=== PATIENT | female | born 1970 | race Caucasian/White ===

== ENCOUNTER 2016-12-04 08:19 | Day surgery (SDC) | payer OTHER ==
[2016-12-03 13:55] VITALS: BMI 28.3
--- NOTE | 2016-12-04 06:02 | HP ---
History & Physical Update - History History: No Change - Physical Physical: No Change - Assessment Assessment: No Change - Plan Plan: No Change
[~2016-12-04 08:19] MED LIST: CYCLOPENTOLATE HCL 1% OPHTH SOLN 2 ML BOTTLE OP SCH; MOXIFLOXACIN HCL 0.5% OPHTHALMIC 3 ML BOTTLE OP SCH; PHENYLEPHRINE 2.5% OPHTH SOLN 15 ML BOTTLE OP SCH; TOBRAMYCIN/DEXAMETHASONE OPHTH. OINTMENT 1 TUBE TP ONE; TROPICAMIDE 1% OPHTH SOLN 15 ML BOTTLE OP SCH
[2016-12-04] MEDS ORDERED: MOXIFLOXACIN HCL 0.5% OPHTHALMIC 3 ML BOTTLE ONE (08:45)
[2016-12-04] MEDS ORDERED: CYCLOPENTOLATE HCL 1% OPHTH SOLN 2 ML BOTTLE ONE (08:46)
[2016-12-04] MEDS ORDERED: TROPICAMIDE 1% OPHTH SOLN 15 ML BOTTLE ONE (08:46)
[2016-12-04] MEDS ORDERED: PHENYLEPHRINE 2.5% OPHTH SOLN 15 ML BOTTLE ONE (08:46)
[2016-12-04 08:51] VITALS: TEMP 97.7
[2016-12-04] MEDS ORDERED: TROPICAMIDE 1% OPHTH SOLN 15 ML BOTTLE OD ONE ×3 (09:00→09:20)
[2016-12-04] MEDS ORDERED: PHENYLEPHRINE 2.5% OPHTH SOLN 15 ML BOTTLE OD ONE ×3 (09:00→09:20)
[2016-12-04] MEDS ORDERED: MOXIFLOXACIN HCL 0.5% OPHTHALMIC 3 ML BOTTLE OD ONE ×3 (09:00→09:20)
[2016-12-04] MEDS ORDERED: CYCLOPENTOLATE HCL 1% OPHTH SOLN 2 ML BOTTLE OD ONE ×3 (09:00→09:20)
[2016-12-04] MEDS ORDERED: BSS (NA/CA/MG/K) BALANCED SALT SOLUTION OPHTH SOLN 15 ML BOTTLE ONE (09:41)
[2016-12-04] MEDS ORDERED: LIDOCAINE HCL/PF 1% SDV 5ML VIAL ONE (09:41)
[2016-12-04] MEDS ORDERED: POVIDONE-IODINE 5% OPHTHALMIC PREP 30 ML SOLUTION ONE (09:41)
[2016-12-04] MEDS ORDERED: TOBRAMYCIN/DEXAMETHASONE OPHTH. OINTMENT 1 TUBE ONE (09:41)
[2016-12-04] MEDS ORDERED: LIDOCAINE HCL/PF 2% SDV 5ML VIAL ONE (09:41)
[2016-12-04] MEDS ORDERED: BUPIVACAINE HCL/PF 0.75% 10 ML VIAL ONE (09:41)
[2016-12-04] MEDS ORDERED: EPINEPHrine/PF 1 MG/1 ML (1:1,000) AMPULE ONE (09:41)
[2016-12-04] MEDS ORDERED: TETRACAINE 0.5% HCL 0.6ML DROPPER.BOTTLE TP ONE (10:17)
[2016-12-04] MEDS ORDERED: LIDOCAINE HCL/PF 2% SDV 5ML VIAL INF ONE ×2 (10:20)
[2016-12-04] MEDS ORDERED: BUPIVACAINE HCL/PF 0.75% 10 ML VIAL RB ONE ×2 (10:20)
[2016-12-04] MEDS ORDERED: POVIDONE-IODINE 5% OPHTHALMIC PREP 30 ML SOLUTION OD ONE (10:25)
[2016-12-04] MEDS ORDERED: BSS (NA/CA/MG/K) BALANCED SALT SOLUTION OPHTH SOLN 15 ML BOTTLE IO ONE (10:30)
[2016-12-04] MEDS ORDERED: LIDOCAINE HCL 1% PRESERVATIVE FREE - 30ML VIAL IO ONE (10:31)
[2016-12-04] MEDS ORDERED: TRYPAN BLUE 0.5 ML DISP.SYRIN IO ONE (10:32)
[2016-12-04] MEDS ORDERED: CHONDROITIN SU A/HYALUR SOD 1 KIT IO ONE (10:33)
[2016-12-04] MEDS ORDERED: TOBRAMYCIN/DEXAMETHASONE OPHTH. OINTMENT 1 TUBE TP ONE (11:08)
[2016-12-04] MEDS ORDERED: ACETAMINOPHEN 325 MG TABLET (FP) ONE (11:53)
[2016-12-04] MEDS ORDERED: ACETAMINOPHEN 325 MG TABLET (FP) PO ONE ×2 (11:55→11:56)
[2016-12-04 12:21] VITALS: BP 110/66; PULSE 89
--- NOTE | 2016-12-04 18:16 | OP ---
DATE OF OPERATION: 12/04/2016 SURGEON: Jey Elmore MD PREOPERATIVE DIAGNOSIS: Cataract, right eye. OPERATION: Phacoemulsification and intraocular lens implantation, right eye. POSTOPERATIVE DIAGNOSIS: Cataract, right eye. ANESTHESIA: Local with intravenous sedation. COMPLICATIONS: None. BLOOD LOSS: None. SPECIMEN: None. BRIEF HISTORY: The patient is a 46-year-old woman with a past medical history of diabetes, who presented with decreased vision in the right eye down to counting fingers only due to a 3+ nuclear sclerotic lens and a dense posterior subcapsular cataract. After the risks, benefits, and alternatives to cataract surgery were discussed with the patient, including the increased risk due to her poorly dilating pupil, the patient consented to surgery. DESCRIPTION OF PROCEDURE: The patient was brought to the operating room and administered retrobulbar block after receiving intravenous sedation. She was then prepped and draped in the usual sterile fashion. An eyelid speculum was inserted in the right eye. A paracentesis was made, and the anterior chamber was inflated with nonpreserved lidocaine. Due to the poor red reflex, trypan blue was also injected into the eye at this point. Due to the intermittently constricting pupil at this point, it was determined to place 4 iris hooks around the pupil in order to enlarge and stabilize the pupil. This was done without incident. A groove was made in the temporal clear cornea which was tunneled forward with a crescent blade. The anterior chamber was entered with a 2.75 keratome. The cystotome was used to make an incision in the center of the capsule, and a continuous curvilinear capsulorrhexis was created. The lens was hydrodissected until it was found to rotate freely within the capsular bag. Phacoemulsification was then used to remove the lens in its entirety. Irrigation and aspiration were used to remove residual cortical material. The anterior chamber and capsular bag were re-inflated with Provisc, and a 21.5-diopter SN60WF AcrySof intraocular lens was injected into the capsular bag using the [place] injector. The lens was dialed into place using a Sinskey hook. Irrigation and aspiration were used to remove residual Viscoelastic. The wound was stromally hydrated until it was found to be watertight and the eye was at an appropriate pressure. The eyelid speculum was removed from the eye, and TobraDex drops and a patch and shield were placed over the right eye. The patient was transferred to the recovery room in stable condition and will follow up tomorrow. Jenn [id number]
== END 2016-12-04 12:23 | disposition home or self-care (01) ==
LOC: JASU-SURG 08:19
PROVIDERS: ATTEND Ophthalmology
PROC: 08RJ3JZ Replacement of Right Lens with Synthetic Substitute, Percutaneous Approach (ICD-10-PCS; principal; 2016-12-04 10:00)
DX: H25.11 Age-related nuclear cataract, right eye (principal); R29.2 Abnormal reflex
CPT/HCPCS: 84703

== ENCOUNTER → 2017-02-05 | Day surgery (SDC) | payer OTHER ==
[2017-02-04 10:20] VITALS: BMI 28.3
[~2017-02-05] MED LIST changes: +BSS (NA/CA/MG/K) BALANCED SALT SOLUTION OPHTH SOLN 15 ML BOTTLE OS ONE; +BUPIVACAINE HCL/PF 0.75% 10 ML VIAL ONE; +BUPIVACAINE HCL/PF 0.75% 10 ML VIAL RB ONE; +CHONDROITIN SU A/HYALUR SOD 1 KIT IO ONE; +CYCLOPENTOLATE HCL 1% OPHTH SOLN 2 ML BOTTLE ONE; +EPINEPHrine/PF 1 MG/1 ML (1:1,000) AMPULE SQ ONE; +LIDOCAINE HCL 1% PRESERVATIVE FREE - 30ML VIAL IO ONE; +LIDOCAINE HCL/PF 1% SDV 5ML VIAL ONE; +LIDOCAINE HCL/PF 2% SDV 5ML VIAL INF ONE; +LIDOCAINE HCL/PF 2% SDV 5ML VIAL ONE; +MIDAZOLAM HCL 2 MG/2 ML SINGLE DOSE VIAL ONE; +MOXIFLOXACIN HCL 0.5% OPHTHALMIC 3 ML BOTTLE ONE; -MOXIFLOXACIN HCL 0.5% OPHTHALMIC 3 ML BOTTLE OP SCH; +PHENYLEPHRINE 2.5% OPHTH SOLN 15 ML BOTTLE ONE; -PHENYLEPHRINE 2.5% OPHTH SOLN 15 ML BOTTLE OP SCH; +POVIDONE-IODINE 5% OPHTHALMIC PREP 30 ML SOLUTION OS ONE; +PROPOFOL 20 ML ONE; +TETRACAINE 0.5% OPHTH SOLN 2 ML BOTTLE OS ONE; +TOBRAMYCIN/DEXAMETHASONE OPHTH. OINTMENT 1 TUBE ONE; +TROPICAMIDE 1% OPHTH SOLN 15 ML BOTTLE ONE; -TROPICAMIDE 1% OPHTH SOLN 15 ML BOTTLE OP SCH
[2017-02-05] MEDS: PHENYLEPHRINE 2.5% OPHTH SOLN 15 ML BOTTLE OP SCH ×2 (08:00→08:15)
[2017-02-05] MEDS: MOXIFLOXACIN HCL 0.5% OPHTHALMIC 3 ML BOTTLE OP SCH ×2 (08:00→08:15)
[2017-02-05] MEDS: TROPICAMIDE 1% OPHTH SOLN 15 ML BOTTLE OP SCH ×2 (08:00→08:15)
[2017-02-05 08:13] VITALS: TEMP 97.6
--- NOTE | 2017-02-05 08:53 | HP ---
History & Physical Update - History History: No Change - Physical Physical: No Change - Assessment Assessment: No Change - Plan Plan: No Change
[2017-02-05 11:16] VITALS: BP 150/86; PULSE 90
--- NOTE | 2017-02-06 08:08 | OP ---
DATE OF OPERATION: 02/05/2017 SURGEON: Jey Elmore MD PREOPERATIVE DIAGNOSIS: Cataract, left eye. OPERATION: Phacoemulsification and intraocular lens implantation, left eye. POSTOPERATIVE DIAGNOSIS: Cataract, left eye. ANESTHESIA: Local with intravenous sedation. COMPLICATIONS: None. BLOOD LOSS: None. SPECIMEN: None. BRIEF HISTORY: The patient is a 46-year-old woman with a past medical history of diabetes who presents with decreased vision in the left eye down to 20/70 due to a 2 to 3+ nuclear sclerotic lens with a superior-posterior subcapsular cataract. After the risks, benefits, and alternatives to cataract surgery were discussed with the patient, including the increased risk of complication due to her poorly dilating pupil, the patient consented to surgery. The patient was brought to the operating room and administered a retrobulbar block after receiving intravenous sedation. She was then prepped and draped in the usual sterile fashion and an eyelid speculum was inserted in the left eye. A paracentesis was made and the anterior chamber was inflated with nonpreserved lidocaine. This was followed by injection of Viscoat. Due to the poorly dilating pupil at this point, it was determined to place 4 iris hooks in order to enlarge and stabilize the iris and this was done without incident. A groove was made in the superotemporal clear cornea which was tunneled forward with a crescent blade. The anterior chamber was entered with a 2.75 keratome. A cystotome was used to make an incision in the center of the capsule and a continuous curvilinear capsulorrhexis was created. The lens was hydrodissected until it was found to rotate freely within the capsular bag. Phacoemulsification was then used to remove the lens in its entirety. Irrigation and aspiration was used to remove residual cortical material. The anterior chamber and capsular bag were reinflated with Provisc and a 22.0-diopter SN60WF AcrySof intraocular lens was injected into the capsular bag using the [place] injector. The lens was dialed into place using a Sinskey hook. Irrigation and aspiration was used to remove residual viscoelastic. The wound was stromally hydrated until it was found to be watertight and the eye with an appropriate pressure. The eyelid speculum was removed from the eye and TobraDex ointment and a patch and shield were placed over the left eye. The patient was transferred to the recovery room in stable condition and will follow up tomorrow. Jenn [id number]
== END | disposition home or self-care (01) ==
LOC: JASU-SURG 07:29
PROVIDERS: ATTEND Ophthalmology
PROC: 08RK3JZ Replacement of Left Lens with Synthetic Substitute, Percutaneous Approach (ICD-10-PCS; principal; 2017-02-05 09:00)
DX: H25.12 Age-related nuclear cataract, left eye (principal); H57.04 Mydriasis
CPT/HCPCS: 84703

== ENCOUNTER 2020-09-19 12:18 | Inpatient (IN) | payer OTHER ==
[2020-09-19 14:17] LABS: BASO % 0.9 % (0-2.0); EOS % 1.4 % (0-4.5); HEMATOCRIT 29.6 % (32.4-45.2); HEMOGLOBIN 10.1 GM/dL (10.7-15.3); LYMPH % 13.1 % (8-40); MCH 30.4 pg (25.7-33.7); MEAN CELL VOLUME 89.3 fl (80-96); MEAN PLT VOLUME 8.8 fl (7.5-11.1); MONO % 5.5 % (3.8-10.2); NEUT % 79.1 % (42.8-82.8); PLATELET COUNT 216 K/MM3 (134-434); RBC 3.31 M/mm3 (3.60-5.2); RDW 17.5 % (11.6-15.6); WHITE BLOOD COUNT 6.2 K/mm3 (4.0-10.0)
[2020-09-19 14:45] LABS: MAGNESIUM 2.7 mg/dL (1.8-2.4)
[2020-09-19 14:47] LABS: CHLORIDE 100 mmol/L (98-107); SODIUM 133 mmol/L (136-145)
[2020-09-19 14:49] LABS: ALBUMIN 3.1 g/dl (3.4-5.0); CALCIUM 8.8 mg/dL (8.5-10.1); CO2 17 mmol/L (21-32); GLUCOSE,RANDOM 274 mg/dL (74-106)
[2020-09-19 14:52] LABS: SGOT/AST 40 U/L (15-37); SGPT/ALT 48 U/L (13-61)
[2020-09-19 14:54] LABS: BILIRUBIN,TOTAL 0.5 mg/dL (0.2-1); TOT PROT 7.4 g/dl (6.4-8.2)
[2020-09-19 14:55] LABS: ALK PHOS 360 U/L (45-117)
[2020-09-19 14:59] LABS: ANION GAP 16 MMOL/L (8-16); BLOOD UREA NITROGEN 121.1 mg/dL (7-18); CREATININE 12.1 mg/dL (0.55-1.3)
[2020-09-19 15:19] LABS: PHOSPHOROUS 10.2 mg/dL (2.5-4.9)
[2020-09-19] MEDS ORDERED: CALCIUM GLUCONATE 10% - 1,000 MG/10 ML VIAL IVPB ONE (15:20)
[2020-09-19] MEDS ORDERED: SODIUM BICARBONATE 8.4% 50 MEQ/50 ML VIAL IV ONE (15:20)
[2020-09-19] MEDS ORDERED: ALBUTEROL SO4 HFA INHALER IH ONE ×2 (15:20→17:21)
[2020-09-19] MEDS ORDERED: INSULIN REGULAR HUMAN 100 UNITS/ML *VIAL IVPUSH ONE (15:20)
[2020-09-19] MEDS ORDERED: DEXTROSE 50%-WATER - 25 GM/50 ML VIAL IVPUSH ONE (15:20)
[2020-09-19] MEDS ORDERED: SODIUM ZIRCONIUM CYCLOSILICATE (LOKELMA) 5 GM PACKET PO ONE (15:22)
[2020-09-19] MEDS ORDERED: SODIUM CHLORIDE 250 ML IV PRN (17:03)
[2020-09-19] MEDS ORDERED: METOCLOPRAMIDE HCL 10 MG TABLET (FP) PO ONE (17:21)
[2020-09-19] MEDS ORDERED: CALCIUM GLUCONATE 10% - 1,000 MG/10 ML VIAL ONE (17:21)
[2020-09-19] MEDS ORDERED: DEXTROSE 50%-WATER 25 GM/50 ML DISP.SYRIN ONE (17:22)
[2020-09-19] MEDS ORDERED: SODIUM BICARBONATE 8.4% - 50 ML ONE (17:22)
[2020-09-19] MEDS ORDERED: SODIUM ZIRCONIUM CYCLOSILICATE (LOKELMA) 5 GM PACKET ONE (17:22)
[2020-09-19] MEDS: METOCLOPRAMIDE HCL 10 MG TABLET (FP) PO SCH (17:50)
[2020-09-19] MEDS: INSULIN SLIDING SCALE (NOVOLOG) 1 VIAL SQ SCH (17:51)
[2020-09-19] MEDS ORDERED: PANTOPRAZOLE 40 MG TABLET ONE (17:54)
[2020-09-19] MEDS: SODIUM CHLORIDE 0.45% 1,000 ML IV SCH ×2 (17:59→23:33)
[2020-09-19 21:45] LABS: CALCIUM 8.5 mg/dL (8.5-10.1)
[2020-09-19 21:49] LABS: CREATININE 5.4 mg/dL (0.55-1.3)
[2020-09-19 21:50] LABS: BLOOD UREA NITROGEN 51.5 mg/dL (7-18)
[2020-09-19] MEDS: hydrALAZINE HCL 10 MG TABLET PO SCH (22:27)
[2020-09-19] MEDS: LABETALOL HCL 200 MG TABLET (FP) PO SCH (22:27)
[2020-09-19] MEDS: SEVELAMER CARBONATE 800 MG TAB (FP) PO SCH (22:28)
[2020-09-19] MEDS: HEPARIN NA (PORCINE) 5,000 UNITS/ML 1ML VIAL SQ SCH (22:28)
[2020-09-19] MEDS: INSULIN (LEVEMIR) 100 UNITS/ML UNITS SQ SCH (22:28)
[2020-09-19] MEDS: PANTOPRAZOLE 40 MG TABLET PO SCH (22:28)
[2020-09-20 01:35] VITALS: BMI 27.5
[2020-09-20 03:56] LABS: VENOUS BASE EXCESS -1.1 mmol/L (-2-2); VENOUS O2 SATURATION 74.1 % (70-80); VENOUS PCO2 36.7 mmHg (38-52); VENOUS PH 7.419 (7.310-7.410)
[2020-09-20 04:25] LABS: EPI CELLS 19 /uL (0-25.1); HYALINE CASTS 1 /uL (0-3.1); PH,URINE 6.5 (5.0-8.0); URINE APPEARANCE CLEAR; URINE BACTERIA 74 /uL (0-1359); URINE BILIRUBIN NEGATIVE (NEGATIVE); URINE COLOR YELLOW; URINE GLUCOSE (UA) 3+ (NEGATIVE); URINE KETONE NEGATIVE (NEGATIVE); URINE LEUK ESTERASE NEGATIVE (NEGATIVE); URINE NITRITE NEGATIVE (NEGATIVE); URINE PROTEIN 4+ (NEGATIVE); URINE RBC 17 /uL (0-23.9); URINE UROBILINOGEN 0.2 mg/dL (0.2-1.0); URINE WBC 11 /uL (0-25.8)
[2020-09-20] MEDS: hydrALAZINE HCL 10 MG TABLET PO SCH ×3 (05:50→21:42)
[2020-09-20] MEDS: HEPARIN NA (PORCINE) 5,000 UNITS/ML 1ML VIAL SQ SCH ×3 (05:50→21:42)
[2020-09-20] MEDS: INSULIN (LEVEMIR) 100 UNITS/ML UNITS SQ SCH (06:04)
[2020-09-20] MEDS: METOCLOPRAMIDE HCL 10 MG TABLET (FP) PO SCH ×3 (06:05→17:47)
[2020-09-20] MEDS: INSULIN SLIDING SCALE (NOVOLOG) 1 VIAL SQ SCH ×3 (06:05→16:47)
[2020-09-20 08:33] LABS: BASO % 1.1 % (0-2.0); EOS % 2.5 % (0-4.5); HEMATOCRIT 24.3 % (32.4-45.2); HEMOGLOBIN 8.6 GM/dL (10.7-15.3); LYMPH % 18.5 % (8-40); MCH 30.9 pg (25.7-33.7); MCHC 35.2 g/dl (32.0-36.0); MEAN CELL VOLUME 87.8 fl (80-96); MEAN PLT VOLUME 8.6 fl (7.5-11.1); MONO % 9.5 % (3.8-10.2); NEUT % 68.4 % (42.8-82.8); PLATELET COUNT 184 K/MM3 (134-434); RBC 2.77 M/mm3 (3.60-5.2); RDW 17.1 % (11.6-15.6); WHITE BLOOD COUNT 4.8 K/mm3 (4.0-10.0)
[2020-09-20 08:34] LABS: CHLORIDE 103 mmol/L (98-107); SODIUM 140 mmol/L (136-145)
[2020-09-20 08:40] LABS: CALCIUM 8.2 mg/dL (8.5-10.1)
[2020-09-20 08:41] LABS: ALBUMIN 2.6 g/dl (3.4-5.0); ANION GAP 9 MMOL/L (8-16); BLOOD UREA NITROGEN 68.2 mg/dL (7-18); CO2 27 mmol/L (21-32); GLUCOSE,RANDOM 171 mg/dL (74-106)
[2020-09-20 08:44] LABS: SGOT/AST 12 U/L (15-37); SGPT/ALT 31 U/L (13-61)
[2020-09-20 08:45] LABS: BILIRUBIN,TOTAL 0.5 mg/dL (0.2-1); TOT PROT 5.8 g/dl (6.4-8.2)
[2020-09-20 08:49] LABS: ALK PHOS 270 U/L (45-117); CREATININE 8.3 mg/dL (0.55-1.3)
[2020-09-20] MEDS: SEVELAMER CARBONATE 800 MG TAB (FP) PO SCH ×4 (09:29→17:47)
[2020-09-20] MEDS: PANTOPRAZOLE 40 MG TABLET PO SCH (10:42)
[2020-09-20] MEDS: LABETALOL HCL 200 MG TABLET (FP) PO SCH ×2 (10:42→21:42)
[2020-09-20] MEDS ORDERED: INSULIN (LEVEMIR) 100 UNITS/ML UNITS SQ ONE (15:38)
[2020-09-21] MEDS: hydrALAZINE HCL 10 MG TABLET PO SCH ×3 (06:31→22:16)
[2020-09-21] MEDS: METOCLOPRAMIDE HCL 10 MG TABLET (FP) PO SCH ×3 (06:31→17:20)
[2020-09-21] MEDS: BETHANECHOL CHLORIDE 10 MG TABLET PO SCH ×3 (06:31→22:15)
[2020-09-21] MEDS: HEPARIN NA (PORCINE) 5,000 UNITS/ML 1ML VIAL SQ SCH ×3 (06:31→22:15)
[2020-09-21] MEDS: INSULIN SLIDING SCALE (NOVOLOG) 1 VIAL SQ SCH ×3 (06:32→16:56)
[2020-09-21] MEDS ORDERED: INSULIN (NOVOLOG) ASPART 100 UNITS/ML 10ML VIAL ONE (06:39)
[2020-09-21] MEDS ORDERED: INSULIN (LEVEMIR) 100 UNITS/ML UNITS SQ SCH ×2 (07:00)
[2020-09-21] MEDS: SEVELAMER CARBONATE 800 MG TAB (FP) PO SCH ×3 (08:35→17:20)
[2020-09-21 09:44] LABS: BASO % 0.8 % (0-2.0); EOS % 2.2 % (0-4.5); HEMATOCRIT 24.2 % (32.4-45.2); LYMPH % 14.3 % (8-40); MCH 30.3 pg (25.7-33.7); MCHC 33.2 g/dl (32.0-36.0); MEAN CELL VOLUME 91.1 fl (80-96); MONO % 10.8 % (3.8-10.2); NEUT % 71.9 % (42.8-82.8); PLATELET COUNT 173 K/MM3 (134-434); RBC 2.65 M/mm3 (3.60-5.2); RDW 17.1 % (11.6-15.6)
[2020-09-21] MEDS ORDERED: HEPARIN NA (PORCINE) 5,000 UNITS/ML 1ML VIAL IVPUSH ONE (10:00)
[2020-09-21] MEDS ORDERED: SODIUM CHLORIDE 250 ML IV PRN (10:00)
[2020-09-21] MEDS ORDERED: EPOETIN ALFA-EPBX 4,000 UNIT/ML VIAL SQ ONE (10:15)
[2020-09-21 10:41] LABS: CHLORIDE 104 mmol/L (98-107); SODIUM 139 mmol/L (136-145)
[2020-09-21 10:42] LABS: CALCIUM 7.7 mg/dL (8.5-10.1)
[2020-09-21 10:43] LABS: ANION GAP 12 MMOL/L (8-16); CO2 23 mmol/L (21-32); GLUCOSE,RANDOM 336 mg/dL (74-106)
[2020-09-21 10:46] LABS: IRON SERUM 44 ug/dL (50-175); TOTAL IRON BINDING CAPACITY 144 ug/dL (250-450)
[2020-09-21 10:47] LABS: BLOOD UREA NITROGEN 71.4 mg/dL (7-18)
[2020-09-21] MEDS ORDERED: IRON SUCROSE INJECTION 200 MG in SODIUM CHLORIDE 90 ML IVPB ONE (12:00)
[2020-09-21] MEDS: PANTOPRAZOLE 40 MG TABLET PO SCH (13:11)
[2020-09-21] MEDS: LABETALOL HCL 200 MG TABLET (FP) PO SCH ×2 (13:11→22:16)
[2020-09-21] MEDS: TAMSULOSIN HCL 0.4 MG CAP PO SCH (13:11)
[2020-09-21] MEDS: ACETAMINOPHEN 325 MG TABLET (FP) PO PRN (13:17)
[2020-09-21] MEDS: LOPERAMIDE HCL 2 MG CAPSULE PO PRN (18:30)
[2020-09-21] MEDS ORDERED: PT OWN MED DRAWER 7, Y5N ONE (18:42)
[2020-09-22] MEDS: INSULIN SLIDING SCALE (NOVOLOG) 1 VIAL SQ SCH ×3 (06:02→18:31)
[2020-09-22] MEDS: HEPARIN NA (PORCINE) 5,000 UNITS/ML 1ML VIAL SQ SCH ×3 (06:02→21:39)
[2020-09-22] MEDS: METOCLOPRAMIDE HCL 10 MG TABLET (FP) PO SCH ×3 (06:02→18:31)
[2020-09-22] MEDS: BETHANECHOL CHLORIDE 10 MG TABLET PO SCH ×3 (06:02→21:39)
[2020-09-22] MEDS: hydrALAZINE HCL 10 MG TABLET PO SCH ×3 (06:02→21:39)
[2020-09-22] MEDS: INSULIN (LEVEMIR) 100 UNITS/ML UNITS SQ SCH (06:03)
[2020-09-22] MEDS ORDERED: INSULIN (NOVOLOG) ASPART 100 UNITS/ML 10ML VIAL ONE (06:53)
[2020-09-22] MEDS ORDERED: EPOETIN ALFA-EPBX 10,000 UNIT/ML VIAL SQ ONE (10:00)
[2020-09-22] MEDS: PANTOPRAZOLE 40 MG TABLET PO SCH (10:03)
[2020-09-22] MEDS: TAMSULOSIN HCL 0.4 MG CAP PO SCH (10:03)
[2020-09-22] MEDS: SEVELAMER CARBONATE 800 MG TAB (FP) PO SCH ×3 (10:03→18:30)
[2020-09-22] MEDS: ACETAMINOPHEN 325 MG TABLET (FP) PO PRN (10:04)
[2020-09-22] MEDS: LABETALOL HCL 200 MG TABLET (FP) PO SCH ×2 (10:04→21:39)
[2020-09-22] MEDS ORDERED: PT OWN MED DRAWER 7, Y5N ONE ×2 (12:06→13:31)
[2020-09-22] MEDS: LOPERAMIDE HCL 2 MG CAPSULE PO PRN (13:37)
[2020-09-22] MEDS ORDERED: SODIUM CHLORIDE 250 ML IV PRN (16:05)
[2020-09-23] MEDS: BETHANECHOL CHLORIDE 10 MG TABLET PO SCH ×2 (05:32→16:14)
[2020-09-23] MEDS: hydrALAZINE HCL 10 MG TABLET PO SCH ×2 (05:32→16:14)
[2020-09-23] MEDS: HEPARIN NA (PORCINE) 5,000 UNITS/ML 1ML VIAL SQ SCH ×2 (05:33→16:14)
[2020-09-23] MEDS: INSULIN (LEVEMIR) 100 UNITS/ML UNITS SQ SCH (06:00)
[2020-09-23] MEDS: METOCLOPRAMIDE HCL 10 MG TABLET (FP) PO SCH ×3 (06:01→16:15)
[2020-09-23] MEDS: INSULIN SLIDING SCALE (NOVOLOG) 1 VIAL SQ SCH ×3 (06:01→18:27)
[2020-09-23] MEDS: PANTOPRAZOLE 40 MG TABLET PO SCH (09:49)
[2020-09-23] MEDS: SEVELAMER CARBONATE 800 MG TAB (FP) PO SCH ×3 (09:49→18:27)
[2020-09-23] MEDS: LABETALOL HCL 200 MG TABLET (FP) PO SCH (09:49)
[2020-09-23] MEDS: TAMSULOSIN HCL 0.4 MG CAP PO SCH (09:49)
[2020-09-23 11:37] LABS: BASO % 0.9 % (0-2.0); EOS % 5.9 % (0-4.5); HEMATOCRIT 27.7 % (32.4-45.2); HEMOGLOBIN 9.3 GM/dL (10.7-15.3); LYMPH % 18.4 % (8-40); MCH 30.8 pg (25.7-33.7); MCHC 33.4 g/dl (32.0-36.0); MEAN CELL VOLUME 92.3 fl (80-96); MONO % 12.9 % (3.8-10.2); NEUT % 61.9 % (42.8-82.8); PLATELET COUNT 211 K/MM3 (134-434); RBC 3.01 M/mm3 (3.60-5.2); RDW 16.4 % (11.6-15.6); WHITE BLOOD COUNT 4.6 K/mm3 (4.0-10.0)
[2020-09-23 12:12] LABS: BLOOD UREA NITROGEN 46.6 mg/dL (7-18)
[2020-09-23 12:15] LABS: CREATININE 7.4 mg/dL (0.55-1.3)
[2020-09-23] MEDS ORDERED: HEPARIN NA (PORCINE) 5,000 UNITS/ML 1ML VIAL IVPUSH ONE (12:15)
[2020-09-23] MEDS: HEPARIN NA (PORCINE) 5,000 UNITS/ML 1ML VIAL IVPUSH SCH ×3 (12:44→15:24)
[2020-09-23] MEDS ORDERED: EPOETIN ALFA-EPBX 4,000 UNIT/ML VIAL SQ ONE (13:00)
[2020-09-23 15:26] VITALS: TEMP 98.1
[2020-09-23] MEDS ORDERED: hydrALAZINE HCL 10 MG TABLET PO SCH (18:00)
[2020-09-23 18:46] VITALS: BP 111/51; PULSE 82
== END 2020-09-23 19:40 | DRG 640 ==
LOC: JER 12:18 → JERBED 16:02 → J5S 21:25
PROVIDERS: ADMIT Internal Medicine; ATTEND Internal Medicine
DX: E87.5 Hyperkalemia (principal); N18.6 End stage renal disease; I12.0 Hypertensive chronic kidney disease with stage 5 chronic kidney disease or end stage renal disease; E11.22 Type 2 diabetes mellitus with diabetic chronic kidney disease; E87.1 Hypo-osmolality and hyponatremia; S42.001A Fracture of unspecified part of right clavicle, initial encounter for closed fracture; Z79.4 Long term (current) use of insulin; E78.5 Hyperlipidemia, unspecified; E83.41 Hypermagnesemia; E11.65 Type 2 diabetes mellitus with hyperglycemia; E83.39 Other disorders of phosphorus metabolism; F32.9 Major depressive disorder, single episode, unspecified; F41.9 Anxiety disorder, unspecified; Z99.2 Dependence on renal dialysis; D50.9 Iron deficiency anemia, unspecified; R33.9 Retention of urine, unspecified; R79.89 Other specified abnormal findings of blood chemistry; W17.89XA Other fall from one level to another, initial encounter; Y93.89 Activity, other specified; Y92.89 Other specified places as the place of occurrence of the external cause; Y99.8 Other external cause status
CPT/HCPCS: 36415; 70450-TC; 71045-TC-FY; 73030-TC-RT-FY; 80048; 80051; 80053; 81003; 82010; 82550; 82553; 82728; 82803; 82962; 83036; 83540; 83550; 83735; 84100; 84484; 85025; 86803; 87086; 87340; 93005; 93010; 97116-GP; 97162-GP; 99285-25; C9803; J1644; J1756; Q5106; U0003; U0005

== ENCOUNTER 2020-10-18 04:04 | Inpatient (IN) | payer OTHER ==
[2020-10-18 04:59] LABS: BASO % 0.9 % (0-2.0); EOS % 0.8 % (0-4.5); HEMATOCRIT 26.1 % (32.4-45.2); HEMOGLOBIN 8.4 GM/dL (10.7-15.3); LYMPH % 9.2 % (8-40); MCH 30.9 pg (25.7-33.7); MCHC 32.1 g/dl (32.0-36.0); MEAN CELL VOLUME 96.4 fl (80-96); MEAN PLT VOLUME 8.7 fl (7.5-11.1); MONO % 11.4 % (3.8-10.2); NEUT % 77.7 % (42.8-82.8); PLATELET COUNT 250 K/MM3 (134-434); RBC 2.71 M/mm3 (3.60-5.2); RDW 15.2 % (11.6-15.6); WHITE BLOOD COUNT 7.5 K/mm3 (4.0-10.0)
[2020-10-18 05:19] LABS: CHLORIDE 109 mmol/L (98-107); SODIUM 140 mmol/L (136-145)
[2020-10-18 05:22] LABS: ALBUMIN 2.8 g/dl (3.4-5.0); CALCIUM 8.1 mg/dL (8.5-10.1); CO2 9 mmol/L (21-32); GLUCOSE,RANDOM 102 mg/dL (74-106); MAGNESIUM 3.3 mg/dL (1.8-2.4)
[2020-10-18 05:25] LABS: SGOT/AST 31 U/L (15-37); SGPT/ALT 80 U/L (13-61)
[2020-10-18 05:27] LABS: BILIRUBIN,TOTAL 0.8 mg/dL (0.2-1)
[2020-10-18 05:28] LABS: ALK PHOS 494 U/L (45-117)
[2020-10-18 05:30] LABS: N-TERMINAL BNP 18172.1 pg/ml (5-125)
[2020-10-18 06:00] LABS: ANION GAP 22 MMOL/L (8-16); BLOOD UREA NITROGEN 121.8 mg/dL (7-18); CREATININE 16.2 mg/dL (0.55-1.3); PHOSPHOROUS 13.9 mg/dL (2.5-4.9)
[2020-10-18] MEDS ORDERED: CALCIUM GLUC IN NACL, ISO-OSM 1 GM/50 ML BAG IVPB ONE (06:16)
[2020-10-18] MEDS ORDERED: DEXTROSE 50%-WATER - 25 GM/50 ML VIAL IVPUSH ONE (06:17)
[2020-10-18] MEDS ORDERED: INSULIN REGULAR HUMAN 100 UNITS/ML *VIAL IVPUSH ONE (06:17)
[2020-10-18] MEDS ORDERED: SODIUM CHLORIDE 250 ML IV PRN (06:25)
[2020-10-18] MEDS ORDERED: SODIUM BICARBONATE 8.4% 50 MEQ/50 ML VIAL IVPUSH ONE (06:30)
[2020-10-18] MEDS ORDERED: SODIUM ZIRCONIUM CYCLOSILICATE (LOKELMA) 5 GM PACKET ONE (06:42)
[2020-10-18] MEDS ORDERED: CALCIUM GLUCONATE 10% - 1,000 MG/10 ML VIAL ONE (06:42)
[2020-10-18] MEDS ORDERED: DEXTROSE 50%-WATER 25 GM/50 ML DISP.SYRIN ONE ×2 (06:42→22:34)
[2020-10-18] MEDS ORDERED: SODIUM BICARBONATE 8.4% - 50 ML ONE (06:42)
[2020-10-18] MEDS ORDERED: ACETAMINOPHEN 325 MG TABLET (FP) PO PRN (08:57)
[2020-10-18] MEDS ORDERED: EPOETIN ALFA-EPBX 10,000 UNIT/ML VIAL SQ ONE (10:00)
[2020-10-18] MEDS ORDERED: SODIUM ZIRCONIUM CYCLOSILICATE (LOKELMA) 5 GM PACKET PO SCH (10:00)
[2020-10-18 10:21] LABS: IRON SERUM 44 ug/dL (50-175)
[2020-10-18 10:22] LABS: TOTAL IRON BINDING CAPACITY 204 ug/dL (250-450)
[2020-10-18] MEDS: SEVELAMER CARBONATE 800 MG TAB (FP) PO SCH ×5 (10:59→16:38)
[2020-10-18] MEDS: INSULIN (LEVEMIR) 100 UNITS/ML UNITS SQ SCH ×2 (11:34→22:24)
[2020-10-18] MEDS: INSULIN SLIDING SCALE (NOVOLOG) 1 VIAL SQ SCH ×2 (11:35→16:36)
[2020-10-18] MEDS: LABETALOL HCL 200 MG TABLET (FP) PO SCH ×2 (12:30→22:24)
[2020-10-18] MEDS: METOCLOPRAMIDE HCL 10 MG TABLET (FP) PO SCH ×2 (12:31→16:37)
[2020-10-18] MEDS: PANTOPRAZOLE 40 MG TABLET PO SCH (12:31)
[2020-10-18] MEDS ORDERED: ACETAMINOPHEN 1000 MG/100 ML VIAL (NON FORMULARY) IVPB PRN (13:03)
[2020-10-18 13:10] LABS: CALCIUM 8.5 mg/dL (8.5-10.1)
[2020-10-18 13:15] LABS: BLOOD UREA NITROGEN 45.7 mg/dL (7-18); CREATININE 6.5 mg/dL (0.55-1.3)
[2020-10-18] MEDS ORDERED: SODIUM CHLORIDE 1,000 ML IV SCH (13:15)
[2020-10-18 13:31] LABS: ARTERIAL BLD GAS O2 SATURATION 98.7 mmHg (95-98); ARTERIAL BLOOD GAS BASE EXCESS -1.1 mmol/L (-2-2); ARTERIAL BLOOD GAS PO2 113.3 mmHg (80-100); ARTERIAL BLOOD GAS pH 7.572 (7.350-7.450)
[2020-10-18 13:34] LABS: ALLENS TEST POSITIVE
[2020-10-18] MEDS ORDERED: HEPARIN NA (PORCINE) 5,000 UNITS/ML 1ML VIAL SQ SCH (14:00)
[2020-10-18 14:32] LABS: CHOLESTEROL 200 mg/dL (50-200); TRIGLYCERIDES 243 mg/dL (0-150)
[2020-10-18 14:33] LABS: LDL CHOLESTEROL (ONLY SJRH) 80 mg/dL (5-100)
[2020-10-18 14:35] LABS: HDL CHOLESTEROL 45 mg/dL (40-60)
[2020-10-18] MEDS: BETHANECHOL CHLORIDE 10 MG TABLET PO SCH ×2 (15:27→22:24)
[2020-10-18] MEDS: hydrALAZINE HCL 10 MG TABLET PO SCH ×2 (15:27→22:24)
[2020-10-18 16:54] LABS: BASO % 0.7 % (0-2.0); HEMATOCRIT 24.7 % (32.4-45.2); HEMOGLOBIN 8.3 GM/dL (10.7-15.3); MCH 31.4 pg (25.7-33.7); MCHC 33.7 g/dl (32.0-36.0); MEAN CELL VOLUME 93.2 fl (80-96); MEAN PLT VOLUME 8.3 fl (7.5-11.1); MONO % 9.7 % (3.8-10.2); NEUT % 84.6 % (42.8-82.8); PLATELET COUNT 231 K/MM3 (134-434); RBC 2.65 M/mm3 (3.60-5.2); RDW 15.1 % (11.6-15.6); WHITE BLOOD COUNT 9.2 K/mm3 (4.0-10.0)
[2020-10-18 17:08] LABS: INR 1.28 (0.83-1.09); PROTHROMBIN TIME (PATIENT) 15.4 SEC (9.7-13.0)
[2020-10-18 17:10] LABS: ACTIVATED PTT 30.5 SECONDS (25.2-36.5)
[2020-10-18] MEDS: ALBUTEROL SO4 2.5/IPRATROPIUM 0.5 INH SOL 3 ML VIAL.NEB. NEB SCH (20:05)
[2020-10-18 20:08] LABS: CHLORIDE 102 mmol/L (98-107); SODIUM 140 mmol/L (136-145)
[2020-10-18 20:10] LABS: ALBUMIN 2.6 g/dl (3.4-5.0)
[2020-10-18 20:11] LABS: ANION GAP 19 MMOL/L (8-16); BLOOD UREA NITROGEN 53.6 mg/dL (7-18); CO2 19 mmol/L (21-32); GLUCOSE,RANDOM 88 mg/dL (74-106)
[2020-10-18 20:14] LABS: SGOT/AST 22 U/L (15-37); SGPT/ALT 65 U/L (13-61)
[2020-10-18 20:15] LABS: BILIRUBIN,TOTAL 0.8 mg/dL (0.2-1); TOT PROT 6.2 g/dl (6.4-8.2)
[2020-10-18 20:17] LABS: ALK PHOS 435 U/L (45-117); CREATININE 8.4 mg/dL (0.55-1.3)
[2020-10-18 20:54] LABS: MAGNESIUM 2.5 mg/dL (1.8-2.4)
[2020-10-18 20:58] LABS: PHOSPHOROUS 7.2 mg/dL (2.5-4.9)
[2020-10-18] MEDS ORDERED: INSULIN (LEVEMIR) 100 UNITS/ML UNITS SQ SCH (22:00)
[2020-10-18] MEDS ORDERED: hydrALAZINE HCL 20 MG/ML VIAL IVPUSH PRN (22:24)
[2020-10-18] MEDS ORDERED: DEXTROSE 50%-WATER 25 GM/50 ML DISP.SYRIN IVPUSH ONE (22:31)
[2020-10-18] MEDS ORDERED: AMINO ACIDS 4.25%/D5W 1,000 ML IV SCH (22:45)
[2020-10-19] MEDS: METOCLOPRAMIDE HCL 10 MG TABLET (FP) PO SCH ×3 (06:26→17:09)
[2020-10-19] MEDS: BETHANECHOL CHLORIDE 10 MG TABLET PO SCH ×3 (06:26→21:51)
[2020-10-19] MEDS: hydrALAZINE HCL 10 MG TABLET PO SCH ×3 (06:26→21:51)
[2020-10-19] MEDS: INSULIN SLIDING SCALE (NOVOLOG) 1 VIAL SQ SCH ×3 (06:26→17:08)
[2020-10-19 07:31] LABS: BASO % 1.1 % (0-2.0); EOS % 1.7 % (0-4.5); HEMATOCRIT 24.2 % (32.4-45.2); HEMOGLOBIN 8.1 GM/dL (10.7-15.3); LYMPH % 7.8 % (8-40); MCH 31.5 pg (25.7-33.7); MCHC 33.4 g/dl (32.0-36.0); MEAN CELL VOLUME 94.4 fl (80-96); MEAN PLT VOLUME 8.7 fl (7.5-11.1); MONO % 10.6 % (3.8-10.2); NEUT % 78.8 % (42.8-82.8); PLATELET COUNT 235 K/MM3 (134-434); RBC 2.56 M/mm3 (3.60-5.2); RDW 14.7 % (11.6-15.6)
[2020-10-19 07:32] LABS: WHITE BLOOD COUNT 8.5 K/mm3 (4.0-10.0)
[2020-10-19] MEDS ORDERED: PIPERACILLIN/TAZOB 2.25 GM 2.25 GM in DEXTROSE 5%-WATER - 50 ML IVPB SCH ×2 (07:45→18:00)
[2020-10-19] MEDS: ALBUTEROL SO4 2.5/IPRATROPIUM 0.5 INH SOL 3 ML VIAL.NEB. NEB SCH (07:49)
[2020-10-19 07:51] LABS: CHLORIDE 103 mmol/L (98-107); SODIUM 138 mmol/L (136-145)
[2020-10-19 08:09] LABS: ALBUMIN 2.4 g/dl (3.4-5.0); ANION GAP 15 MMOL/L (8-16); BLOOD UREA NITROGEN 53.9 mg/dL (7-18); CALCIUM 7.6 mg/dL (8.5-10.1); CO2 20 mmol/L (21-32); GLUCOSE,RANDOM 139 mg/dL (74-106); MAGNESIUM 2.4 mg/dL (1.8-2.4)
[2020-10-19 08:12] LABS: SGOT/AST 18 U/L (15-37); SGPT/ALT 56 U/L (13-61)
[2020-10-19 08:13] LABS: BILIRUBIN,TOTAL 0.8 mg/dL (0.2-1); TOT PROT 6.2 g/dl (6.4-8.2)
[2020-10-19 08:15] LABS: ALK PHOS 407 U/L (45-117)
[2020-10-19 08:18] LABS: CREATININE 9.4 mg/dL (0.55-1.3)
[2020-10-19] MEDS ORDERED: TAMSULOSIN HCL 0.4 MG CAP PO SCH (08:30)
[2020-10-19] MEDS ORDERED: ALBUTEROL SO4 2.5/IPRATROPIUM 0.5 INH SOL 3 ML VIAL.NEB. NEB PRN ×2 (08:38→20:48)
[2020-10-19 10:21] LABS: PLATELET ESTIMATE NORMAL
[2020-10-19] MEDS: SEVELAMER CARBONATE 800 MG TAB (FP) PO SCH ×4 (10:31→17:27)
[2020-10-19] MEDS: PANTOPRAZOLE 40 MG TABLET PO SCH (10:33)
[2020-10-19] MEDS: INSULIN (LEVEMIR) 100 UNITS/ML UNITS SQ SCH (10:33)
[2020-10-19] MEDS: LABETALOL HCL 200 MG TABLET (FP) PO SCH ×2 (10:34→21:51)
[2020-10-19] MEDS ORDERED: PT OWN MED DRAWER 7, Y5N ONE ×3 (11:35→13:59)
[2020-10-19] MEDS: VANCOMYCIN 250 MG/5 ML ORAL SOLUTION PO SCH ×3 (11:40→23:06)
[2020-10-19] MEDS: PIPERACILLIN/TAZOB 2.25 GM 2.25 GM in DEXTROSE 5%-WATER - 50 ML IVPB SCH (11:41)
[2020-10-19] MEDS ORDERED: VANCOMYCIN 2,000 MG in DEXTROSE 5%-WATER - 500 ML IVPB ONE (12:00)
[2020-10-19 12:41] LABS: PHOSPHOROUS 8.8 mg/dL (2.5-4.9)
[2020-10-19 13:04] LABS: HIV INTERPRETATION NEGATIVE (NEGATIVE)
[2020-10-19] MEDS ORDERED: SODIUM ZIRCONIUM CYCLOSILICATE (LOKELMA) 10 GM PACKET PO ONE (13:20)
[2020-10-19] MEDS ORDERED: LIDOCAINE HCL 1%, 10 MG/ML (20ML VIAL) ONE (13:31)
[2020-10-19 16:07] VITALS: BMI 30.4
[2020-10-19] MEDS ORDERED: PIPERACILLIN/TAZOBACTAM 2.25 GM VIAL IVPB ONE (17:25)
[2020-10-19] MEDS ORDERED: DEXTROSE 5%-WATER - 50 ML IVPB ONE (17:25)
[2020-10-19] MEDS ORDERED: INSULIN (LEVEMIR) 100 UNITS/ML UNITS SQ SCH (22:00)
[2020-10-20] MEDS ORDERED: DEXTROSE 5%-WATER - 50 ML IVPB ONE ×4 (01:10→15:57)
[2020-10-20] MEDS ORDERED: PIPERACILLIN/TAZOBACTAM 2.25 GM VIAL IVPB ONE ×4 (01:10→15:57)
[2020-10-20] MEDS: PIPERACILLIN/TAZOB 2.25 GM 2.25 GM in DEXTROSE 5%-WATER - 50 ML IVPB SCH ×3 (02:02→18:10)
[2020-10-20] MEDS: BETHANECHOL CHLORIDE 10 MG TABLET PO SCH ×5 (05:39→21:39)
[2020-10-20] MEDS: hydrALAZINE HCL 10 MG TABLET PO SCH ×4 (05:39→21:39)
[2020-10-20] MEDS: VANCOMYCIN 250 MG/5 ML ORAL SOLUTION PO SCH ×6 (05:39→23:58)
[2020-10-20] MEDS ORDERED: DEXTROSE 50%-WATER - 25 GM/50 ML VIAL IVPB ONE (05:58)
[2020-10-20] MEDS ORDERED: DEXTROSE 50%-WATER - 25 GM/50 ML VIAL ONE (06:10)
[2020-10-20] MEDS ORDERED: DEXTROSE 50%-WATER - 25 GM/50 ML VIAL IVPUSH ONE (06:15)
[2020-10-20] MEDS ORDERED: INSULIN SLIDING SCALE (NOVOLOG) 1 VIAL SQ SCH (07:00)
[2020-10-20] MEDS: INSULIN SLIDING SCALE (NOVOLOG) 1 VIAL SQ SCH ×3 (07:03→16:41)
[2020-10-20] MEDS: METOCLOPRAMIDE HCL 10 MG TABLET (FP) PO SCH ×3 (07:40→16:19)
[2020-10-20 08:03] LABS: BASO % 0.5 % (0-2.0); EOS % 2.8 % (0-4.5); HEMOGLOBIN 9.1 GM/dL (10.7-15.3); LYMPH % 8.7 % (8-40); MCH 31.1 pg (25.7-33.7); MCHC 32.6 g/dl (32.0-36.0); MEAN CELL VOLUME 95.2 fl (80-96); MEAN PLT VOLUME 8.4 fl (7.5-11.1); PLATELET COUNT 247 K/MM3 (134-434); RBC 2.94 M/mm3 (3.60-5.2); RDW 14.5 % (11.6-15.6)
[2020-10-20 08:18] LABS: CHLORIDE 106 mmol/L (98-107); SODIUM 141 mmol/L (136-145)
[2020-10-20 08:26] LABS: CALCIUM 8.2 mg/dL (8.5-10.1); GLUCOSE,RANDOM 68 mg/dL (74-106)
[2020-10-20 08:27] LABS: ANION GAP 14 MMOL/L (8-16); BLOOD UREA NITROGEN 57.6 mg/dL (7-18); CO2 21 mmol/L (21-32); MAGNESIUM 2.8 mg/dL (1.8-2.4)
[2020-10-20] MEDS ORDERED: DEXTROSE 50%-WATER 25 GM/50 ML DISP.SYRIN ONE (08:32)
[2020-10-20] MEDS ORDERED: DEXTROSE 50%-WATER 25 GM/50 ML DISP.SYRIN IVPUSH ONE (08:45)
[2020-10-20] MEDS: ACETAMINOPHEN 325 MG TABLET (FP) PO PRN ×2 (09:47→16:19)
[2020-10-20] MEDS: SEVELAMER CARBONATE 800 MG TAB (FP) PO SCH ×3 (09:48→17:48)
[2020-10-20] MEDS: TAMSULOSIN HCL 0.4 MG CAP PO SCH (09:49)
[2020-10-20] MEDS: LABETALOL HCL 200 MG TABLET (FP) PO SCH ×3 (09:49→21:39)
[2020-10-20] MEDS: PANTOPRAZOLE 40 MG TABLET PO SCH (09:50)
[2020-10-20] MEDS ORDERED: INSULIN (LEVEMIR) 100 UNITS/ML UNITS SQ SCH (10:00)
[2020-10-20 10:58] LABS: CREATININE 11.2 mg/dL (0.55-1.3)
[2020-10-20 11:24] LABS: PHOSPHOROUS 9.8 mg/dL (2.5-4.9)
[2020-10-20] MEDS ORDERED: SODIUM CHLORIDE 250 ML IV PRN (12:11)
[2020-10-20] MEDS: ZINC OXIDE 20% TOPICAL OINTMENT 30 GM TUBE TP SCH ×2 (12:26→21:39)
[2020-10-20] MEDS ORDERED: VANCOMYCIN 1 GRAM (PRE-DOCKED) 1,000 MG/250 ML BAG IVPB ONE (14:39)
[2020-10-20] MEDS ORDERED: INSULIN (NOVOLOG) ASPART 100 UNITS/ML 10ML VIAL ONE (16:38)
[2020-10-21] MEDS ORDERED: PIPERACILLIN/TAZOBACTAM 2.25 GM VIAL IVPB ONE ×2 (01:26→07:47)
[2020-10-21] MEDS ORDERED: DEXTROSE 5%-WATER - 50 ML IVPB ONE ×2 (01:27→07:47)
[2020-10-21] MEDS: ACETAMINOPHEN 325 MG TABLET (FP) PO PRN ×3 (02:00→20:39)
[2020-10-21] MEDS: PIPERACILLIN/TAZOB 2.25 GM 2.25 GM in DEXTROSE 5%-WATER - 50 ML IVPB SCH ×2 (02:00→10:54)
[2020-10-21] MEDS ORDERED: INSULIN (NOVOLOG) ASPART 100 UNITS/ML 10ML VIAL ONE (06:01)
[2020-10-21] MEDS: hydrALAZINE HCL 10 MG TABLET PO SCH ×4 (06:05→21:50)
[2020-10-21] MEDS: INSULIN SLIDING SCALE (NOVOLOG) 1 VIAL SQ SCH ×3 (06:05→16:58)
[2020-10-21] MEDS: VANCOMYCIN 250 MG/5 ML ORAL SOLUTION PO SCH ×5 (06:05→23:04)
[2020-10-21] MEDS: BETHANECHOL CHLORIDE 10 MG TABLET PO SCH ×5 (06:05→21:50)
[2020-10-21] MEDS: METOCLOPRAMIDE HCL 10 MG TABLET (FP) PO SCH ×5 (06:07→16:58)
[2020-10-21] MEDS ORDERED: SODIUM CHLORIDE 250 ML IV PRN (10:28)
[2020-10-21] MEDS ORDERED: PT OWN MED DRAWER 7, Y5N ONE ×2 (10:29→11:54)
[2020-10-21] MEDS: SEVELAMER CARBONATE 800 MG TAB (FP) PO SCH ×3 (10:33→16:58)
[2020-10-21] MEDS: TAMSULOSIN HCL 0.4 MG CAP PO SCH (10:33)
[2020-10-21] MEDS: INSULIN (LEVEMIR) 100 UNITS/ML UNITS SQ SCH ×2 (10:34→21:50)
[2020-10-21] MEDS: LABETALOL HCL 200 MG TABLET (FP) PO SCH ×2 (10:53→21:50)
[2020-10-21] MEDS: PANTOPRAZOLE 40 MG TABLET PO SCH ×2 (10:53→10:59)
[2020-10-21] MEDS: ZINC OXIDE 20% TOPICAL OINTMENT 30 GM TUBE TP SCH ×2 (10:54→21:50)
[2020-10-21] MEDS ORDERED: INSULIN (LEVEMIR) 100 UNITS/ML UNITS SQ ONE (11:53)
[2020-10-21] MEDS ORDERED: EPOETIN ALFA-EPBX 4,000 UNIT/ML VIAL SQ ONE (12:00)
[2020-10-21 12:22] LABS: BASO % 0.9 % (0-2.0); HEMATOCRIT 24.1 % (32.4-45.2); HEMOGLOBIN 8.1 GM/dL (10.7-15.3); LYMPH % 7.6 % (8-40); MCH 31.3 pg (25.7-33.7); MCHC 33.6 g/dl (32.0-36.0); MEAN CELL VOLUME 93.2 fl (80-96); MONO % 9.7 % (3.8-10.2); NEUT % 78.8 % (42.8-82.8); PLATELET COUNT 265 K/MM3 (134-434); RBC 2.58 M/mm3 (3.60-5.2); RDW 14.6 % (11.6-15.6); WHITE BLOOD COUNT 7.8 K/mm3 (4.0-10.0)
[2020-10-21 12:43] LABS: CALCIUM 7.6 mg/dL (8.5-10.1)
[2020-10-21 12:44] LABS: BLOOD UREA NITROGEN 33.5 mg/dL (7-18); MAGNESIUM 2.4 mg/dL (1.8-2.4)
[2020-10-21 12:47] LABS: CREATININE 7.3 mg/dL (0.55-1.3); PHOSPHOROUS 6.6 mg/dL (2.5-4.9)
[2020-10-21] MEDS ORDERED: GENTAMICIN INJECTION 90 MG in SODIUM CHLORIDE 100 ML IVPB SCH (15:30)
[2020-10-21] MEDS ORDERED: SODIUM CHLORIDE 100 ML IVPB ONE (16:14)
[2020-10-21] MEDS ORDERED: AMPICILLIN SODIUM 2 GM VIAL ONE (16:14)
[2020-10-21] MEDS: AMPICILLIN - 2 GM in SODIUM CHLORIDE 100 ML IVPB SCH (16:58)
[2020-10-21] MEDS: MELATONIN 5 MG TABLETS PO PRN (22:31)
[2020-10-22] MEDS ORDERED: SODIUM CHLORIDE 100 ML IVPB ONE ×2 (02:26→13:38)
[2020-10-22] MEDS ORDERED: AMPICILLIN SODIUM 2 GM VIAL ONE ×2 (02:26→13:38)
[2020-10-22] MEDS: AMPICILLIN - 2 GM in SODIUM CHLORIDE 100 ML IVPB SCH ×2 (03:07→15:20)
[2020-10-22] MEDS: METOCLOPRAMIDE HCL 10 MG TABLET (FP) PO SCH ×3 (06:07→16:52)
[2020-10-22] MEDS: INSULIN SLIDING SCALE (NOVOLOG) 1 VIAL SQ SCH ×3 (06:07→16:57)
[2020-10-22] MEDS: BETHANECHOL CHLORIDE 10 MG TABLET PO SCH ×3 (06:07→21:08)
[2020-10-22] MEDS: VANCOMYCIN 250 MG/5 ML ORAL SOLUTION PO SCH ×4 (06:07→23:02)
[2020-10-22] MEDS: hydrALAZINE HCL 10 MG TABLET PO SCH ×3 (06:07→21:08)
[2020-10-22] MEDS: INSULIN (LEVEMIR) 100 UNITS/ML UNITS SQ SCH ×2 (06:08→21:08)
[2020-10-22] MEDS ORDERED: PT OWN MED DRAWER 7, Y5N ONE ×2 (09:42→21:00)
[2020-10-22 09:58] LABS: BASO % 0.8 % (0-2.0); EOS % 2.4 % (0-4.5); HEMATOCRIT 25.1 % (32.4-45.2); HEMOGLOBIN 8.1 GM/dL (10.7-15.3); LYMPH % 6.9 % (8-40); MCHC 32.4 g/dl (32.0-36.0); MEAN CELL VOLUME 95.9 fl (80-96); MEAN PLT VOLUME 8.4 fl (7.5-11.1); MONO % 9.4 % (3.8-10.2); NEUT % 80.5 % (42.8-82.8); PLATELET COUNT 235 K/MM3 (134-434); RBC 2.62 M/mm3 (3.60-5.2); RDW 14.9 % (11.6-15.6); WHITE BLOOD COUNT 9.4 K/mm3 (4.0-10.0)
[2020-10-22] MEDS: TAMSULOSIN HCL 0.4 MG CAP PO SCH (10:34)
[2020-10-22] MEDS: SEVELAMER CARBONATE 800 MG TAB (FP) PO SCH ×3 (10:34→16:52)
[2020-10-22] MEDS: PANTOPRAZOLE 40 MG TABLET PO SCH (10:37)
[2020-10-22] MEDS: ZINC OXIDE 20% TOPICAL OINTMENT 30 GM TUBE TP SCH ×2 (10:38→21:09)
[2020-10-22] MEDS: ACETAMINOPHEN 325 MG TABLET (FP) PO PRN ×2 (11:20→19:49)
[2020-10-22] MEDS: LABETALOL HCL 200 MG TABLET (FP) PO SCH ×2 (11:54→21:08)
[2020-10-22 16:52] LABS: CALCIUM 7.8 mg/dL (8.5-10.1)
[2020-10-22 16:53] LABS: BLOOD UREA NITROGEN 31.9 mg/dL (7-18); MAGNESIUM 2.3 mg/dL (1.8-2.4)
[2020-10-22 16:56] LABS: CREATININE 6.6 mg/dL (0.55-1.3)
[2020-10-22 16:57] LABS: PHOSPHOROUS 4.6 mg/dL (2.5-4.9)
[2020-10-22] MEDS: MELATONIN 5 MG TABLETS PO PRN (21:10)
[2020-10-23] MEDS ORDERED: AMPICILLIN SODIUM 2 GM VIAL ONE ×2 (03:19→15:44)
[2020-10-23] MEDS ORDERED: SODIUM CHLORIDE 100 ML IVPB ONE ×2 (03:19→15:44)
[2020-10-23] MEDS: AMPICILLIN - 2 GM in SODIUM CHLORIDE 100 ML IVPB SCH ×2 (03:20→15:51)
[2020-10-23] MEDS: hydrALAZINE HCL 10 MG TABLET PO SCH ×3 (05:55→22:15)
[2020-10-23] MEDS: VANCOMYCIN 250 MG/5 ML ORAL SOLUTION PO SCH ×4 (05:55→23:00)
[2020-10-23] MEDS: BETHANECHOL CHLORIDE 10 MG TABLET PO SCH ×3 (05:55→22:15)
[2020-10-23] MEDS: INSULIN (LEVEMIR) 100 UNITS/ML UNITS SQ SCH ×2 (06:00→22:15)
[2020-10-23] MEDS: INSULIN SLIDING SCALE (NOVOLOG) 1 VIAL SQ SCH ×3 (06:00→16:53)
[2020-10-23] MEDS: METOCLOPRAMIDE HCL 10 MG TABLET (FP) PO SCH ×3 (06:01→16:44)
[2020-10-23] MEDS ORDERED: INSULIN (NOVOLOG) ASPART 100 UNITS/ML 10ML VIAL ONE ×2 (06:28→09:12)
[2020-10-23] MEDS ORDERED: INSULIN (LEVEMIR) 100 UNITS/ML UNITS SQ SCH (09:22)
[2020-10-23] MEDS: TAMSULOSIN HCL 0.4 MG CAP PO SCH (10:04)
[2020-10-23] MEDS: PANTOPRAZOLE 40 MG TABLET PO SCH (10:04)
[2020-10-23] MEDS: SEVELAMER CARBONATE 800 MG TAB (FP) PO SCH ×3 (10:04→16:44)
[2020-10-23] MEDS: ZINC OXIDE 20% TOPICAL OINTMENT 30 GM TUBE TP SCH ×2 (10:04→22:15)
[2020-10-23] MEDS: LABETALOL HCL 200 MG TABLET (FP) PO SCH ×2 (10:04→22:15)
[2020-10-23 10:21] LABS: BASO % 0.7 % (0-2.0); EOS % 2.6 % (0-4.5); HEMATOCRIT 25.7 % (32.4-45.2); HEMOGLOBIN 8.2 GM/dL (10.7-15.3); LYMPH % 6.8 % (8-40); MCH 30.8 pg (25.7-33.7); MEAN CELL VOLUME 96.2 fl (80-96); MEAN PLT VOLUME 8.8 fl (7.5-11.1); NEUT % 77.9 % (42.8-82.8); PLATELET COUNT 212 K/MM3 (134-434); RBC 2.67 M/mm3 (3.60-5.2); RDW 14.8 % (11.6-15.6); WHITE BLOOD COUNT 10.1 K/mm3 (4.0-10.0)
[2020-10-23] MEDS ORDERED: PT OWN MED DRAWER 7, Y5N ONE (10:38)
[2020-10-23 16:24] LABS: CHLORIDE 105 mmol/L (98-107); SODIUM 139 mmol/L (136-145)
[2020-10-23 16:25] LABS: CALCIUM 7.9 mg/dL (8.5-10.1)
[2020-10-23 16:26] LABS: ANION GAP 13 MMOL/L (8-16); BLOOD UREA NITROGEN 42.9 mg/dL (7-18); CO2 21 mmol/L (21-32); GLUCOSE,RANDOM 82 mg/dL (74-106); MAGNESIUM 2.4 mg/dL (1.8-2.4)
[2020-10-23 16:29] LABS: PHOSPHOROUS 5.8 mg/dL (2.5-4.9)
[2020-10-23 16:42] LABS: CREATININE 8.1 mg/dL (0.55-1.3)
[2020-10-23] MEDS: LACTOBACILLUS ACIDOPHILUS 1 TABLET PO SCH (16:49)
[2020-10-23] MEDS: MELATONIN 5 MG TABLETS PO PRN (22:14)
[2020-10-23] MEDS: BANATROL PLUS POWDER PACKET PO SCH (22:15)
[2020-10-24] MEDS ORDERED: SODIUM CHLORIDE 100 ML IVPB ONE (02:25)
[2020-10-24] MEDS ORDERED: AMPICILLIN SODIUM 2 GM VIAL ONE (02:25)
[2020-10-24] MEDS: AMPICILLIN - 2 GM in SODIUM CHLORIDE 100 ML IVPB SCH ×2 (02:58→18:09)
[2020-10-24] MEDS: BETHANECHOL CHLORIDE 10 MG TABLET PO SCH ×3 (06:05→22:15)
[2020-10-24] MEDS: hydrALAZINE HCL 10 MG TABLET PO SCH ×3 (06:05→22:14)
[2020-10-24] MEDS: METOCLOPRAMIDE HCL 10 MG TABLET (FP) PO SCH ×3 (06:06→17:28)
[2020-10-24] MEDS: VANCOMYCIN 250 MG/5 ML ORAL SOLUTION PO SCH ×3 (06:06→18:10)
[2020-10-24] MEDS: INSULIN (LEVEMIR) 100 UNITS/ML UNITS SQ SCH ×2 (06:06→22:15)
[2020-10-24] MEDS: BANATROL PLUS POWDER PACKET PO SCH ×2 (06:06→15:40)
[2020-10-24] MEDS: INSULIN SLIDING SCALE (NOVOLOG) 1 VIAL SQ SCH ×3 (06:07→17:23)
[2020-10-24 08:35] LABS: BASO % 0.5 % (0-2.0); HEMATOCRIT 24.8 % (32.4-45.2); HEMOGLOBIN 8.1 GM/dL (10.7-15.3); LYMPH % 6.5 % (8-40); MCH 31.2 pg (25.7-33.7); MCHC 32.7 g/dl (32.0-36.0); MEAN CELL VOLUME 95.4 fl (80-96); MEAN PLT VOLUME 7.9 fl (7.5-11.1); MONO % 11.6 % (3.8-10.2); NEUT % 80.4 % (42.8-82.8); PLATELET COUNT 244 K/MM3 (134-434); RDW 14.7 % (11.6-15.6); WHITE BLOOD COUNT 10.1 K/mm3 (4.0-10.0)
[2020-10-24 09:03] LABS: CHLORIDE 105 mmol/L (98-107); SODIUM 137 mmol/L (136-145)
[2020-10-24 09:06] LABS: ANION GAP 13 MMOL/L (8-16); BLOOD UREA NITROGEN 48.8 mg/dL (7-18); CALCIUM 8.2 mg/dL (8.5-10.1); CO2 18 mmol/L (21-32); GLUCOSE,RANDOM 77 mg/dL (74-106)
[2020-10-24 09:13] LABS: CREATININE 9.1 mg/dL (0.55-1.3)
[2020-10-24] MEDS: SEVELAMER CARBONATE 800 MG TAB (FP) PO SCH ×3 (09:24→18:10)
[2020-10-24] MEDS ORDERED: DEXTROSE 50%-WATER 25 GM/50 ML DISP.SYRIN ONE ×3 (09:29→14:13)
[2020-10-24] MEDS: TAMSULOSIN HCL 0.4 MG CAP PO SCH (09:43)
[2020-10-24] MEDS ORDERED: DEXTROSE 50%-WATER - 25 GM/50 ML VIAL IVPUSH ONE ×3 (09:45→16:27)
[2020-10-24] MEDS: LACTOBACILLUS ACIDOPHILUS 1 TABLET PO SCH ×2 (09:47→22:14)
[2020-10-24] MEDS ORDERED: SODIUM CHLORIDE 250 ML IV PRN ×2 (11:47→15:15)
[2020-10-24] MEDS ORDERED: SODIUM ZIRCONIUM CYCLOSILICATE (LOKELMA) 5 GM PACKET PO ONE ×2 (11:48→15:15)
[2020-10-24] MEDS: ZINC OXIDE 20% TOPICAL OINTMENT 30 GM TUBE TP SCH ×2 (12:00→22:16)
[2020-10-24] MEDS ORDERED: DEXTROSE 5%-0.45% SALINE 1,000 ML IV SCH ×2 (12:00)
[2020-10-24] MEDS: PANTOPRAZOLE 40 MG TABLET PO SCH (12:27)
[2020-10-24] MEDS: LABETALOL HCL 200 MG TABLET (FP) PO SCH ×2 (12:27→22:15)
[2020-10-24] MEDS ORDERED: LIDOCAINE HCL 1%, 10 MG/ML (20ML VIAL) ONE (13:25)
[2020-10-24] MEDS ORDERED: PROPOFOL 20 ML ONE (13:59)
[2020-10-24] MEDS ORDERED: MIDAZOLAM HCL 2 MG/2 ML SINGLE DOSE VIAL ONE (13:59)
[2020-10-24] MEDS ORDERED: ceFAZolin SODIUM 1 GM VIAL IVPB ONE (14:35)
[2020-10-24] MEDS ORDERED: LIDOCAINE HCL 1%, 10 MG/ML (20ML VIAL) INF ONE (14:37)
[2020-10-24] MEDS ORDERED: HEPARIN NA (PORCINE) 1,000 UNITS/ML 10ML M-D VIAL SQ ONE (14:48)
[2020-10-24] MEDS: DEXTROSE 5%-0.45% SALINE 1,000 ML IV SCH ×2 (15:00→17:04)
[2020-10-24] MEDS ORDERED: ONDANSETRON 4 MG/2 ML VIAL IVPUSH PRN (15:10)
[2020-10-24] MEDS ORDERED: ALBUTEROL SO4 2.5/IPRATROPIUM 0.5 INH SOL 3 ML VIAL.NEB. NEB PRN (15:15)
[2020-10-24] MEDS ORDERED: DEXTROSE 50%-WATER - 25 GM/50 ML VIAL ONE (17:20)
[2020-10-24] MEDS ORDERED: PT OWN MED DRAWER 7, Y5N ONE (17:43)
[2020-10-24] MEDS ORDERED: BANATROL PLUS POWDER PACKET PO SCH (22:00)
[2020-10-25] MEDS: VANCOMYCIN 250 MG/5 ML ORAL SOLUTION PO SCH ×4 (01:18→18:03)
[2020-10-25] MEDS ORDERED: AMPICILLIN SODIUM 2 GM VIAL ONE ×2 (02:32→14:18)
[2020-10-25] MEDS ORDERED: SODIUM CHLORIDE 100 ML IVPB ONE ×2 (02:32→14:18)
[2020-10-25] MEDS: ACETAMINOPHEN 325 MG TABLET (FP) PO PRN ×4 (02:35→21:46)
[2020-10-25] MEDS: AMPICILLIN - 2 GM in SODIUM CHLORIDE 100 ML IVPB SCH ×2 (02:36→15:40)
[2020-10-25] MEDS: hydrALAZINE HCL 10 MG TABLET PO SCH ×3 (06:21→21:45)
[2020-10-25] MEDS: BETHANECHOL CHLORIDE 10 MG TABLET PO SCH ×3 (06:21→21:47)
[2020-10-25] MEDS: METOCLOPRAMIDE HCL 10 MG TABLET (FP) PO SCH ×3 (06:21→18:02)
[2020-10-25] MEDS: INSULIN SLIDING SCALE (NOVOLOG) 1 VIAL SQ SCH ×3 (06:22→16:38)
[2020-10-25] MEDS: INSULIN (LEVEMIR) 100 UNITS/ML UNITS SQ SCH (06:22)
[2020-10-25] MEDS ORDERED: DEXTROSE 50%-WATER - 25 GM/50 ML VIAL IVPUSH ONE (06:36)
[2020-10-25] MEDS ORDERED: DEXTROSE 50%-WATER - 25 GM/50 ML VIAL ONE (06:40)
[2020-10-25 08:20] LABS: BASO % 0.6 % (0-2.0); EOS % 0.5 % (0-4.5); HEMOGLOBIN 7.4 GM/dL (10.7-15.3); LYMPH % 3.3 % (8-40); MCH 30.2 pg (25.7-33.7); MCHC 32.4 g/dl (32.0-36.0); MEAN CELL VOLUME 93.1 fl (80-96); MEAN PLT VOLUME 7.7 fl (7.5-11.1); MONO % 13.1 % (3.8-10.2); NEUT % 82.5 % (42.8-82.8); PLATELET COUNT 236 10^3/uL (134-434); RBC 2.46 M/mm3 (3.60-5.2); RDW 14.6 % (11.6-15.6); WHITE BLOOD COUNT 13.4 K/mm3 (4.0-10.0)
[2020-10-25] MEDS ORDERED: IRON SUCROSE INJECTION 200 MG in SODIUM CHLORIDE 90 ML IVPB ONE (08:39)
[2020-10-25 08:53] LABS: CALCIUM 7.8 mg/dL (8.5-10.1)
[2020-10-25 08:54] LABS: BLOOD UREA NITROGEN 28.1 mg/dL (7-18); MAGNESIUM 2.2 mg/dL (1.8-2.4)
[2020-10-25 08:57] LABS: CREATININE 5.7 mg/dL (0.55-1.3); PHOSPHOROUS 4.5 mg/dL (2.5-4.9)
[2020-10-25] MEDS: ZINC OXIDE 20% TOPICAL OINTMENT 30 GM TUBE TP SCH ×2 (09:26→21:47)
[2020-10-25] MEDS: PANTOPRAZOLE 40 MG TABLET PO SCH (09:26)
[2020-10-25] MEDS: TAMSULOSIN HCL 0.4 MG CAP PO SCH (09:26)
[2020-10-25] MEDS: LACTOBACILLUS ACIDOPHILUS 1 TABLET PO SCH ×2 (09:27→21:44)
[2020-10-25] MEDS: LABETALOL HCL 200 MG TABLET (FP) PO SCH ×2 (09:27→21:45)
[2020-10-25] MEDS: SEVELAMER CARBONATE 800 MG TAB (FP) PO SCH ×3 (09:27→18:06)
[2020-10-25] MEDS ORDERED: INSULIN (LEVEMIR) 100 UNITS/ML UNITS SQ SCH (10:00)
[2020-10-25] MEDS ORDERED: GENTAMICIN INJECTION 90 MG in DEXTROSE 5%-WATER - 250 ML IVPB SCH (12:00)
[2020-10-25] MEDS: oxyCODONE HCL 5 MG TABLET PO PRN ×2 (14:23→21:45)
[2020-10-25] MEDS ORDERED: ACETAMINOPHEN 325 MG TABLET (FP) PO PRN (18:07)
[2020-10-25] MEDS: MELATONIN 5 MG TABLETS PO PRN (21:44)
[2020-10-26] MEDS: VANCOMYCIN 250 MG/5 ML ORAL SOLUTION PO SCH ×4 (00:30→17:05)
[2020-10-26] MEDS ORDERED: SODIUM CHLORIDE 100 ML IVPB ONE ×2 (03:26→15:19)
[2020-10-26] MEDS ORDERED: AMPICILLIN SODIUM 2 GM VIAL ONE ×2 (03:26→15:19)
[2020-10-26] MEDS: AMPICILLIN - 2 GM in SODIUM CHLORIDE 100 ML IVPB SCH ×2 (03:41→15:26)
[2020-10-26] MEDS: ACETAMINOPHEN 325 MG TABLET (FP) PO PRN (05:46)
[2020-10-26] MEDS: BETHANECHOL CHLORIDE 10 MG TABLET PO SCH ×3 (05:46→22:00)
[2020-10-26] MEDS: oxyCODONE HCL 5 MG TABLET PO PRN (05:47)
[2020-10-26] MEDS: hydrALAZINE HCL 10 MG TABLET PO SCH ×3 (06:02→22:00)
[2020-10-26] MEDS: METOCLOPRAMIDE HCL 10 MG TABLET (FP) PO SCH ×3 (06:02→17:05)
[2020-10-26] MEDS: INSULIN SLIDING SCALE (NOVOLOG) 1 VIAL SQ SCH ×3 (06:05→17:08)
[2020-10-26 09:09] LABS: BASO % 0.7 % (0-2.0); EOS % 1.3 % (0-4.5); HEMATOCRIT 22.2 % (32.4-45.2); LYMPH % 5.7 % (8-40); MCH 29.7 pg (25.7-33.7); MCHC 31.7 g/dl (32.0-36.0); MEAN CELL VOLUME 93.9 fl (80-96); MEAN PLT VOLUME 8.2 fl (7.5-11.1); MONO % 13.1 % (3.8-10.2); NEUT % 79.2 % (42.8-82.8); PLATELET COUNT 239 10^3/uL (134-434); RBC 2.36 M/mm3 (3.60-5.2); RDW 14.6 % (11.6-15.6); WHITE BLOOD COUNT 11.3 K/mm3 (4.0-10.0)
[2020-10-26] MEDS: SEVELAMER CARBONATE 800 MG TAB (FP) PO SCH ×4 (09:50→17:05)
[2020-10-26] MEDS: PANTOPRAZOLE 40 MG TABLET PO SCH ×2 (09:50→12:22)
[2020-10-26] MEDS: TAMSULOSIN HCL 0.4 MG CAP PO SCH ×2 (09:50→12:16)
[2020-10-26] MEDS: LACTOBACILLUS ACIDOPHILUS 1 TABLET PO SCH ×3 (09:50→22:00)
[2020-10-26] MEDS: ZINC OXIDE 20% TOPICAL OINTMENT 30 GM TUBE TP SCH ×2 (09:51→22:00)
[2020-10-26] MEDS: LABETALOL HCL 200 MG TABLET (FP) PO SCH ×3 (09:51→22:00)
[2020-10-26 10:10] LABS: CALCIUM 7.9 mg/dL (8.5-10.1)
[2020-10-26 10:11] LABS: BLOOD UREA NITROGEN 39.5 mg/dL (7-18)
[2020-10-26 10:14] LABS: CREATININE 7.3 mg/dL (0.55-1.3)
[2020-10-26] MEDS ORDERED: SODIUM CHLORIDE 250 ML IV PRN (12:36)
[2020-10-26] MEDS ORDERED: EPOETIN ALFA-EPBX 10,000 UNIT/ML VIAL SQ ONE (12:45)
[2020-10-26] MEDS ORDERED: EPOETIN ALFA-EPBX 20,000 UNIT/ML VIAL SQ ONE (12:45)
[2020-10-26] MEDS ORDERED: LIDOCAINE HCL 1%, 10 MG/ML (50 mL VIAL) SQ ONE (20:50)
[2020-10-26] MEDS: INSULIN (LEVEMIR) 100 UNITS/ML UNITS SQ SCH (21:55)
[2020-10-27] MEDS: VANCOMYCIN 250 MG/5 ML ORAL SOLUTION PO SCH ×5 (00:09→23:40)
[2020-10-27] MEDS ORDERED: AMPICILLIN SODIUM 2 GM VIAL ONE ×2 (02:54→14:21)
[2020-10-27] MEDS ORDERED: SODIUM CHLORIDE 100 ML IVPB ONE ×2 (02:55→14:21)
[2020-10-27] MEDS: AMPICILLIN - 2 GM in SODIUM CHLORIDE 100 ML IVPB SCH ×2 (03:20→14:29)
[2020-10-27] MEDS: BETHANECHOL CHLORIDE 10 MG TABLET PO SCH ×3 (05:58→21:23)
[2020-10-27] MEDS: METOCLOPRAMIDE HCL 10 MG TABLET (FP) PO SCH ×3 (05:59→17:28)
[2020-10-27] MEDS: INSULIN (LEVEMIR) 100 UNITS/ML UNITS SQ SCH ×2 (05:59→21:24)
[2020-10-27] MEDS: hydrALAZINE HCL 10 MG TABLET PO SCH ×3 (06:00→21:27)
[2020-10-27] MEDS: INSULIN SLIDING SCALE (NOVOLOG) 1 VIAL SQ SCH ×3 (06:00→16:30)
[2020-10-27] MEDS ORDERED: INSULIN (LEVEMIR) 100 UNITS/ML UNITS SQ ONE (07:51)
[2020-10-27] MEDS ORDERED: INSULIN (NOVOLOG) ASPART 100 UNITS/ML 10ML VIAL ONE ×3 (07:51→18:05)
[2020-10-27 08:39] LABS: BASO % 0.8 % (0-2.0); EOS % 0.4 % (0-4.5); HEMATOCRIT 23.8 % (32.4-45.2); HEMOGLOBIN 7.7 GM/dL (10.7-15.3); LYMPH % 7.1 % (8-40); MCH 30.4 pg (25.7-33.7); MCHC 32.3 g/dl (32.0-36.0); MEAN CELL VOLUME 94.2 fl (80-96); MEAN PLT VOLUME 8.3 fl (7.5-11.1); MONO % 11.5 % (3.8-10.2); NEUT % 80.2 % (42.8-82.8); PLATELET COUNT 306 10^3/uL (134-434); RBC 2.53 M/mm3 (3.60-5.2); RDW 14.8 % (11.6-15.6); WHITE BLOOD COUNT 10.8 K/mm3 (4.0-10.0)
[2020-10-27] MEDS: SEVELAMER CARBONATE 800 MG TAB (FP) PO SCH ×3 (09:00→17:28)
[2020-10-27 09:09] LABS: BLOOD UREA NITROGEN 21.3 mg/dL (7-18); CALCIUM 8.4 mg/dL (8.5-10.1)
[2020-10-27 09:13] LABS: CREATININE 4.8 mg/dL (0.55-1.3)
[2020-10-27] MEDS ORDERED: PT OWN MED DRAWER 7, Y5N ONE (09:33)
[2020-10-27] MEDS: HEPARIN NA (PORCINE) 5,000 UNITS/ML 1ML VIAL SQ SCH ×3 (09:41→21:24)
[2020-10-27] MEDS: PANTOPRAZOLE 40 MG TABLET PO SCH (09:42)
[2020-10-27] MEDS: LACTOBACILLUS ACIDOPHILUS 1 TABLET PO SCH ×2 (09:42→21:23)
[2020-10-27] MEDS: TAMSULOSIN HCL 0.4 MG CAP PO SCH (09:43)
[2020-10-27] MEDS: ZINC OXIDE 20% TOPICAL OINTMENT 30 GM TUBE TP SCH ×2 (09:43→21:27)
[2020-10-27] MEDS: LABETALOL HCL 200 MG TABLET (FP) PO SCH ×2 (10:18→21:27)
[2020-10-27] MEDS ORDERED: SODIUM CHLORIDE 250 ML IV PRN ×2 (14:38→14:55)
[2020-10-27] MEDS: ACETAMINOPHEN 325 MG TABLET (FP) PO PRN (15:26)
[2020-10-27] MEDS: oxyCODONE HCL 5 MG TABLET PO PRN (15:27)
[2020-10-27] MEDS: MELATONIN 5 MG TABLETS PO PRN (21:23)
[2020-10-28] MEDS ORDERED: SODIUM CHLORIDE 100 ML IVPB ONE (02:11)
[2020-10-28] MEDS ORDERED: AMPICILLIN SODIUM 2 GM VIAL ONE (02:11)
[2020-10-28] MEDS: AMPICILLIN - 2 GM in SODIUM CHLORIDE 100 ML IVPB SCH ×3 (02:31→19:05)
[2020-10-28] MEDS: VANCOMYCIN 250 MG/5 ML ORAL SOLUTION PO SCH ×4 (06:11→23:36)
[2020-10-28] MEDS: hydrALAZINE HCL 10 MG TABLET PO SCH ×3 (06:11→21:59)
[2020-10-28] MEDS: METOCLOPRAMIDE HCL 10 MG TABLET (FP) PO SCH ×3 (06:16→16:40)
[2020-10-28] MEDS: HEPARIN NA (PORCINE) 5,000 UNITS/ML 1ML VIAL SQ SCH ×3 (06:16→21:59)
[2020-10-28] MEDS: BETHANECHOL CHLORIDE 10 MG TABLET PO SCH ×3 (06:16→21:59)
[2020-10-28] MEDS: ACETAMINOPHEN 325 MG TABLET (FP) PO PRN ×2 (06:25→19:45)
[2020-10-28] MEDS: INSULIN (LEVEMIR) 100 UNITS/ML UNITS SQ SCH ×3 (06:25→22:31)
[2020-10-28] MEDS: oxyCODONE HCL 5 MG TABLET PO PRN ×2 (06:26→19:44)
[2020-10-28] MEDS: INSULIN SLIDING SCALE (NOVOLOG) 1 VIAL SQ SCH ×3 (06:59→16:40)
[2020-10-28] MEDS ORDERED: SODIUM CHLORIDE 250 ML IV PRN (07:00)
[2020-10-28] MEDS ORDERED: EPOETIN ALFA-EPBX 20,000 UNIT/ML VIAL IVPUSH ONE (08:00)
[2020-10-28] MEDS ORDERED: HEPARIN NA (PORCINE) 5,000 UNITS/ML 1ML VIAL IVPUSH ONE (08:00)
[2020-10-28] MEDS ORDERED: DEXTROSE 50%-WATER - 25 GM/50 ML VIAL IVPUSH PRN ×2 (08:33→17:55)
[2020-10-28] MEDS ORDERED: DEXTROSE 5%-0.45% SALINE 1,000 ML IV SCH ×2 (08:45→17:00)
[2020-10-28 09:01] LABS: BASO % 0.8 % (0-2.0); EOS % 2.1 % (0-4.5); HEMATOCRIT 22.6 % (32.4-45.2); HEMOGLOBIN 7.1 GM/dL (10.7-15.3); LYMPH % 6.8 % (8-40); MCH 29.9 pg (25.7-33.7); MCHC 31.6 g/dl (32.0-36.0); MEAN CELL VOLUME 94.7 fl (80-96); MEAN PLT VOLUME 8.5 fl (7.5-11.1); MONO % 10.4 % (3.8-10.2); NEUT % 79.9 % (42.8-82.8); PLATELET COUNT 307 10^3/uL (134-434); RBC 2.38 M/mm3 (3.60-5.2); RDW 14.7 % (11.6-15.6); WHITE BLOOD COUNT 10.2 K/mm3 (4.0-10.0)
[2020-10-28 09:17] LABS: CALCIUM 8.1 mg/dL (8.5-10.1)
[2020-10-28 09:18] LABS: BLOOD UREA NITROGEN 32.5 mg/dL (7-18)
[2020-10-28 09:21] LABS: CREATININE 6.3 mg/dL (0.55-1.3)
[2020-10-28 09:22] LABS: BILIRUBIN,TOTAL 0.8 mg/dL (0.2-1)
[2020-10-28 09:23] LABS: TOT PROT 6.6 g/dl (6.4-8.2)
[2020-10-28 09:29] LABS: ALBUMIN 1.9 g/dl (3.4-5.0)
[2020-10-28] MEDS: TAMSULOSIN HCL 0.4 MG CAP PO SCH (10:12)
[2020-10-28] MEDS: SEVELAMER CARBONATE 800 MG TAB (FP) PO SCH ×3 (10:12→16:40)
[2020-10-28] MEDS: LACTOBACILLUS ACIDOPHILUS 1 TABLET PO SCH ×2 (10:12→21:59)
[2020-10-28] MEDS: LABETALOL HCL 200 MG TABLET (FP) PO SCH ×2 (10:12→21:59)
[2020-10-28] MEDS: PANTOPRAZOLE 40 MG TABLET PO SCH (10:12)
[2020-10-28] MEDS: ZINC OXIDE 20% TOPICAL OINTMENT 30 GM TUBE TP SCH ×2 (11:21→22:00)
[2020-10-28] MEDS ORDERED: DEXTROSE 5% IVPB SCH ×2 (12:15→16:08)
[2020-10-28] MEDS ORDERED: GENTAMICIN IVPB SCH ×2 (12:15→16:08)
[2020-10-28] MEDS ORDERED: WATER IVPB SCH ×2 (12:15→16:08)
[2020-10-28] MEDS ORDERED: MIDAZOLAM HCL 2 MG/2 ML SINGLE DOSE VIAL ONE ×2 (13:38)
[2020-10-28] MEDS ORDERED: PROPOFOL 20 ML ONE (13:38)
[2020-10-28] MEDS ORDERED: LIDOCAINE HCL 1%, 10 MG/ML (20ML VIAL) ONE (13:46)
[2020-10-28] MEDS ORDERED: BUPIVACAINE HCL 50 ML ONE (13:58)
[2020-10-28] MEDS ORDERED: SODIUM CHLORIDE 0.9% P/F 10 ML VIAL IJ ONE (15:09)
[2020-10-28] MEDS ORDERED: PHENYLEPHRINE HCL 10 MG/1 ML SINGLE DOSE VIAL ONE (15:10)
[2020-10-28] MEDS ORDERED: DEXTROSE 50%-WATER 25 GM/50 ML DISP.SYRIN ONE (16:17)
[2020-10-28] MEDS ORDERED: DEXTROSE 50%-WATER - 25 GM/50 ML VIAL IVPUSH ONE (16:18)
[2020-10-28] MEDS ORDERED: ONDANSETRON 4 MG/2 ML VIAL IVPUSH PRN ×2 (16:53→17:55)
[2020-10-28] MEDS ORDERED: ALBUTEROL SO4 2.5/IPRATROPIUM 0.5 INH SOL 3 ML VIAL.NEB. NEB PRN (17:55)
[2020-10-28] MEDS ORDERED: AMPICILLIN SODIUM 2 GM VIAL IVPB ONE (18:00)
[2020-10-28] MEDS ORDERED: hydrALAZINE HCL 20 MG/ML VIAL ONE (18:09)
[2020-10-28] MEDS ORDERED: hydrALAZINE HCL 20 MG/ML VIAL IVPUSH ONE (18:10)
[2020-10-28 18:17] LABS: HEMATOCRIT 28.5 % (32.4-45.2); HEMOGLOBIN 9.2 GM/dL (10.7-15.3); MCH 29.6 pg (25.7-33.7); MCHC 32.2 g/dl (32.0-36.0); MEAN CELL VOLUME 91.7 fl (80-96); MEAN PLT VOLUME 8.6 fl (7.5-11.1); PLATELET COUNT 331 10^3/uL (134-434); RBC 3.11 M/mm3 (3.60-5.2); RDW 16.5 % (11.6-15.6); WHITE BLOOD COUNT 18.7 K/mm3 (4.0-10.0)
[2020-10-29] MEDS ORDERED: SODIUM CHLORIDE 100 ML IVPB ONE ×2 (05:02→23:55)
[2020-10-29] MEDS ORDERED: AMPICILLIN SODIUM 2 GM VIAL ONE ×2 (05:02→23:54)
[2020-10-29] MEDS: oxyCODONE HCL 5 MG TABLET PO PRN ×2 (05:08→11:39)
[2020-10-29] MEDS: HEPARIN NA (PORCINE) 5,000 UNITS/ML 1ML VIAL SQ SCH ×3 (05:08→22:25)
[2020-10-29] MEDS: BETHANECHOL CHLORIDE 10 MG TABLET PO SCH ×3 (05:08→22:25)
[2020-10-29] MEDS: hydrALAZINE HCL 10 MG TABLET PO SCH ×2 (05:08→13:49)
[2020-10-29] MEDS: AMPICILLIN - 2 GM in SODIUM CHLORIDE 100 ML IVPB SCH ×3 (05:10→12:49)
[2020-10-29] MEDS: VANCOMYCIN 250 MG/5 ML ORAL SOLUTION PO SCH ×3 (05:31→17:18)
[2020-10-29] MEDS: INSULIN (LEVEMIR) 100 UNITS/ML UNITS SQ SCH ×2 (06:36→22:25)
[2020-10-29] MEDS: METOCLOPRAMIDE HCL 10 MG TABLET (FP) PO SCH ×3 (06:36→17:18)
[2020-10-29] MEDS: INSULIN SLIDING SCALE (NOVOLOG) 1 VIAL SQ SCH ×3 (06:37→16:43)
[2020-10-29] MEDS: TAMSULOSIN HCL 0.4 MG CAP PO SCH (08:06)
[2020-10-29] MEDS: SEVELAMER CARBONATE 800 MG TAB (FP) PO SCH ×3 (08:06→17:18)
[2020-10-29] MEDS: PANTOPRAZOLE 40 MG TABLET PO SCH (09:50)
[2020-10-29] MEDS: LABETALOL HCL 200 MG TABLET (FP) PO SCH ×2 (09:50→21:06)
[2020-10-29] MEDS: LACTOBACILLUS ACIDOPHILUS 1 TABLET PO SCH ×2 (09:50→22:25)
[2020-10-29 10:36] LABS: BASO % 0.8 % (0-2.0); EOS % 1.6 % (0-4.5); HEMATOCRIT 26.7 % (32.4-45.2); HEMOGLOBIN 8.7 GM/dL (10.7-15.3); LYMPH % 8.4 % (8-40); MCH 29.8 pg (25.7-33.7); MCHC 32.8 g/dl (32.0-36.0); MEAN CELL VOLUME 90.9 fl (80-96); MEAN PLT VOLUME 8.3 fl (7.5-11.1); MONO % 11.1 % (3.8-10.2); NEUT % 78.1 % (42.8-82.8); PLATELET COUNT 323 10^3/uL (134-434); RBC 2.93 M/mm3 (3.60-5.2); RDW 17.7 % (11.6-15.6); WHITE BLOOD COUNT 8.4 K/mm3 (4.0-10.0)
[2020-10-29 11:07] LABS: CALCIUM 8.2 mg/dL (8.5-10.1)
[2020-10-29 11:08] LABS: BLOOD UREA NITROGEN 22.2 mg/dL (7-18)
[2020-10-29 11:11] LABS: CREATININE 3.9 mg/dL (0.55-1.3)
[2020-10-29] MEDS: ACETAMINOPHEN 325 MG TABLET (FP) PO PRN (11:41)
[2020-10-29] MEDS: ZINC OXIDE 20% TOPICAL OINTMENT 30 GM TUBE TP SCH ×2 (12:20→22:26)
[2020-10-29 14:11] LABS: HEP B CORE AB, TOT Negative (Negative)
[2020-10-29] MEDS ORDERED: hydrALAZINE HCL 10 MG TABLET PO SCH (14:47)
[2020-10-29] MEDS ORDERED: hydrALAZINE HCL 10 MG TABLET PO PRN ×2 (14:48→18:00)
[2020-10-29] MEDS ORDERED: LABETALOL HCL 200 MG TABLET (FP) PO PRN (14:49)
[2020-10-29] MEDS ORDERED: hydrALAZINE HCL 10 MG TABLET PO ONE (21:03)
[2020-10-30] MEDS: hydrALAZINE HCL 10 MG TABLET PO SCH ×4 (00:02→18:36)
[2020-10-30] MEDS: AMPICILLIN - 2 GM in SODIUM CHLORIDE 100 ML IVPB SCH ×2 (00:03→12:05)
[2020-10-30] MEDS: VANCOMYCIN 250 MG/5 ML ORAL SOLUTION PO SCH ×4 (00:04→18:37)
[2020-10-30] MEDS: oxyCODONE HCL 5 MG TABLET PO PRN ×3 (00:13→21:54)
[2020-10-30] MEDS: ACETAMINOPHEN 325 MG TABLET (FP) PO PRN (00:14)
[2020-10-30] MEDS: HEPARIN NA (PORCINE) 5,000 UNITS/ML 1ML VIAL SQ SCH ×3 (06:07→21:55)
[2020-10-30] MEDS: BETHANECHOL CHLORIDE 10 MG TABLET PO SCH ×3 (06:07→21:54)
[2020-10-30] MEDS: METOCLOPRAMIDE HCL 10 MG TABLET (FP) PO SCH ×3 (06:07→16:55)
[2020-10-30] MEDS: INSULIN (LEVEMIR) 100 UNITS/ML UNITS SQ SCH ×2 (06:08→21:52)
[2020-10-30] MEDS: INSULIN SLIDING SCALE (NOVOLOG) 1 VIAL SQ SCH ×3 (06:08→16:56)
[2020-10-30] MEDS ORDERED: ACETAMINOPHEN 325 MG TABLET (FP) PO PRN (09:32)
[2020-10-30 09:43] LABS: BASO % 0.7 % (0-2.0); HEMATOCRIT 27.7 % (32.4-45.2); HEMOGLOBIN 8.8 GM/dL (10.7-15.3); LYMPH % 8.5 % (8-40); MCH 29.4 pg (25.7-33.7); MCHC 31.7 g/dl (32.0-36.0); MEAN CELL VOLUME 92.6 fl (80-96); MEAN PLT VOLUME 8.4 fl (7.5-11.1); MONO % 11.2 % (3.8-10.2); NEUT % 77.6 % (42.8-82.8); PLATELET COUNT 359 10^3/uL (134-434); RBC 2.99 M/mm3 (3.60-5.2); RDW 17.5 % (11.6-15.6); WHITE BLOOD COUNT 9.6 K/mm3 (4.0-10.0)
[2020-10-30] MEDS ORDERED: PT OWN MED DRAWER 7, Y5N ONE (10:13)
[2020-10-30 10:33] LABS: CALCIUM 8.2 mg/dL (8.5-10.1)
[2020-10-30 10:34] LABS: BLOOD UREA NITROGEN 29.4 mg/dL (7-18)
[2020-10-30] MEDS: PANTOPRAZOLE 40 MG TABLET PO SCH (10:35)
[2020-10-30] MEDS: SEVELAMER CARBONATE 800 MG TAB (FP) PO SCH ×3 (10:35→18:36)
[2020-10-30] MEDS: LACTOBACILLUS ACIDOPHILUS 1 TABLET PO SCH ×2 (10:35→21:54)
[2020-10-30] MEDS: LABETALOL HCL 200 MG TABLET (FP) PO SCH ×2 (10:35→21:54)
[2020-10-30] MEDS: TAMSULOSIN HCL 0.4 MG CAP PO SCH (10:35)
[2020-10-30 10:37] LABS: CREATININE 5.8 mg/dL (0.55-1.3)
[2020-10-30] MEDS: ZINC OXIDE 20% TOPICAL OINTMENT 30 GM TUBE TP SCH ×2 (10:38→21:55)
[2020-10-30] MEDS ORDERED: INSULIN (NOVOLOG) ASPART 100 UNITS/ML 10ML VIAL ONE (11:12)
[2020-10-30] MEDS ORDERED: AMPICILLIN SODIUM 2 GM VIAL ONE ×2 (11:53→23:55)
[2020-10-30] MEDS ORDERED: SODIUM CHLORIDE 100 ML IVPB ONE ×2 (11:54→23:55)
[2020-10-30] MEDS: MELATONIN 5 MG TABLETS PO PRN (21:54)
[2020-10-31] MEDS: hydrALAZINE HCL 10 MG TABLET PO SCH ×5 (00:29→21:31)
[2020-10-31] MEDS: VANCOMYCIN 250 MG/5 ML ORAL SOLUTION PO SCH ×5 (00:29→23:52)
[2020-10-31] MEDS: AMPICILLIN - 2 GM in SODIUM CHLORIDE 100 ML IVPB SCH ×3 (00:30→23:52)
[2020-10-31] MEDS: oxyCODONE HCL 5 MG TABLET PO PRN ×3 (02:40→21:36)
[2020-10-31] MEDS: HEPARIN NA (PORCINE) 5,000 UNITS/ML 1ML VIAL SQ SCH ×3 (06:11→21:31)
[2020-10-31] MEDS: BETHANECHOL CHLORIDE 10 MG TABLET PO SCH ×3 (06:12→21:31)
[2020-10-31] MEDS: INSULIN SLIDING SCALE (NOVOLOG) 1 VIAL SQ SCH ×3 (06:17→16:45)
[2020-10-31] MEDS: INSULIN (LEVEMIR) 100 UNITS/ML UNITS SQ SCH ×2 (06:18→21:40)
[2020-10-31] MEDS: METOCLOPRAMIDE HCL 10 MG TABLET (FP) PO SCH ×3 (06:24→17:19)
[2020-10-31] MEDS ORDERED: EPOETIN ALFA 10,000 UNIT/1 ML VIAL IVPUSH ONE (07:00)
[2020-10-31 09:21] LABS: BASO % 0.6 % (0-2.0); EOS % 2.2 % (0-4.5); HEMATOCRIT 27.2 % (32.4-45.2); HEMOGLOBIN 8.5 GM/dL (10.7-15.3); LYMPH % 7.2 % (8-40); MCH 29.1 pg (25.7-33.7); MCHC 31.2 g/dl (32.0-36.0); MEAN CELL VOLUME 93.3 fl (80-96); MEAN PLT VOLUME 8.5 fl (7.5-11.1); MONO % 10.2 % (3.8-10.2); NEUT % 79.8 % (42.8-82.8); PLATELET COUNT 354 10^3/uL (134-434); RBC 2.92 M/mm3 (3.60-5.2); RDW 17.3 % (11.6-15.6); WHITE BLOOD COUNT 8.6 K/mm3 (4.0-10.0)
[2020-10-31] MEDS: SEVELAMER CARBONATE 800 MG TAB (FP) PO SCH ×3 (09:27→17:19)
[2020-10-31 10:26] LABS: BLOOD UREA NITROGEN 41.7 mg/dL (7-18)
[2020-10-31] MEDS: PANTOPRAZOLE 40 MG TABLET PO SCH (11:11)
[2020-10-31] MEDS: TAMSULOSIN HCL 0.4 MG CAP PO SCH (11:11)
[2020-10-31] MEDS: LABETALOL HCL 200 MG TABLET (FP) PO SCH ×2 (11:11→21:31)
[2020-10-31] MEDS: LACTOBACILLUS ACIDOPHILUS 1 TABLET PO SCH ×2 (11:11→21:31)
[2020-10-31] MEDS ORDERED: SODIUM CHLORIDE 100 ML IVPB ONE ×2 (12:08→23:31)
[2020-10-31] MEDS ORDERED: AMPICILLIN SODIUM 2 GM VIAL ONE ×2 (12:08→23:31)
[2020-10-31] MEDS: ZINC OXIDE 20% TOPICAL OINTMENT 30 GM TUBE TP SCH ×2 (12:16→21:31)
[2020-10-31] MEDS ORDERED: EPOETIN ALFA 10,000 UNIT/1 ML VIAL SQ ONE (14:16)
[2020-10-31] MEDS: MELATONIN 5 MG TABLETS PO PRN (21:31)
[2020-11-01 05:06] LABS: FIBROSIS SCORE. 0.32 (0.00-0.21); HCV ALPHA 2 MACRO CHART 180 mg/dL (110-276); NECRO.INFLAM ACT.SCORE 0.14 (0.00-0.17); NECROINFLAM. ACTIVITY GRADE A0-No activity (.)
[2020-11-01] MEDS: HEPARIN NA (PORCINE) 5,000 UNITS/ML 1ML VIAL SQ SCH ×3 (05:07→21:08)
[2020-11-01] MEDS: VANCOMYCIN 250 MG/5 ML ORAL SOLUTION PO SCH ×3 (05:07→18:59)
[2020-11-01] MEDS: BETHANECHOL CHLORIDE 10 MG TABLET PO SCH ×3 (05:07→21:09)
[2020-11-01] MEDS: METOCLOPRAMIDE HCL 10 MG TABLET (FP) PO SCH ×3 (06:19→18:59)
[2020-11-01] MEDS: INSULIN SLIDING SCALE (NOVOLOG) 1 VIAL SQ SCH ×3 (06:19→19:03)
[2020-11-01 09:02] LABS: EOS % 2.2 % (0-4.5); HEMATOCRIT 28.4 % (32.4-45.2); LYMPH % 8.5 % (8-40); MCH 29.2 pg (25.7-33.7); MCHC 31.7 g/dl (32.0-36.0); MEAN CELL VOLUME 92.1 fl (80-96); MEAN PLT VOLUME 8.2 fl (7.5-11.1); MONO % 13.3 % (3.8-10.2); PLATELET COUNT 364 10^3/uL (134-434); RBC 3.09 M/mm3 (3.60-5.2); RDW 16.8 % (11.6-15.6); WHITE BLOOD COUNT 8.3 K/mm3 (4.0-10.0)
[2020-11-01] MEDS: TAMSULOSIN HCL 0.4 MG CAP PO SCH (09:50)
[2020-11-01] MEDS: LABETALOL HCL 200 MG TABLET (FP) PO SCH ×2 (09:51→21:08)
[2020-11-01] MEDS: PANTOPRAZOLE 40 MG TABLET PO SCH (09:51)
[2020-11-01] MEDS: hydrALAZINE HCL 10 MG TABLET PO SCH ×3 (09:51→21:10)
[2020-11-01] MEDS: SEVELAMER CARBONATE 800 MG TAB (FP) PO SCH ×3 (09:51→18:59)
[2020-11-01] MEDS: LACTOBACILLUS ACIDOPHILUS 1 TABLET PO SCH ×2 (09:52→21:08)
[2020-11-01] MEDS: ZINC OXIDE 20% TOPICAL OINTMENT 30 GM TUBE TP SCH ×2 (09:53→21:09)
[2020-11-01] MEDS: oxyCODONE HCL 5 MG TABLET PO PRN ×2 (09:55→21:09)
[2020-11-01] MEDS: INSULIN (LEVEMIR) 100 UNITS/ML UNITS SQ SCH ×2 (10:01→21:12)
[2020-11-01 10:52] LABS: CALCIUM 8.1 mg/dL (8.5-10.1)
[2020-11-01 10:54] LABS: BLOOD UREA NITROGEN 21.1 mg/dL (7-18)
[2020-11-01 10:55] LABS: CREATININE 4.4 mg/dL (0.55-1.3)
[2020-11-01 10:56] LABS: PHOSPHOROUS 3.7 mg/dL (2.5-4.9)
[2020-11-01] MEDS ORDERED: AMPICILLIN SODIUM 2 GM VIAL ONE (13:13)
[2020-11-01] MEDS ORDERED: SODIUM CHLORIDE 100 ML IVPB ONE (13:13)
[2020-11-01] MEDS: ACETAMINOPHEN 325 MG TABLET (FP) PO PRN (13:21)
[2020-11-01] MEDS: AMPICILLIN - 2 GM in SODIUM CHLORIDE 100 ML IVPB SCH (13:22)
[2020-11-01] MEDS ORDERED: SODIUM CHLORIDE 250 ML IV PRN (13:44)
[2020-11-01] MEDS: diphenhydrAMINE HCL 25 MG CAPSULE (FP) PO PRN (15:10)
[2020-11-01] MEDS: MELATONIN 5 MG TABLETS PO PRN (21:09)
[2020-11-01] MEDS ORDERED: GENTAMICIN INJECTION 80 MG in DEXTROSE 5%-WATER - 250 ML IVPB SCH (23:00)
[2020-11-02] MEDS ORDERED: SODIUM CHLORIDE 100 ML IVPB ONE ×2 (00:22→13:32)
[2020-11-02] MEDS ORDERED: AMPICILLIN SODIUM 2 GM VIAL ONE ×2 (00:22→13:32)
[2020-11-02] MEDS: VANCOMYCIN 250 MG/5 ML ORAL SOLUTION PO SCH ×4 (01:11→20:00)
[2020-11-02] MEDS: AMPICILLIN - 2 GM in SODIUM CHLORIDE 100 ML IVPB SCH ×2 (01:12→19:30)
[2020-11-02] MEDS: HEPARIN NA (PORCINE) 5,000 UNITS/ML 1ML VIAL SQ SCH ×3 (06:25→21:12)
[2020-11-02] MEDS: METOCLOPRAMIDE HCL 10 MG TABLET (FP) PO SCH ×3 (06:26→18:13)
[2020-11-02] MEDS: BETHANECHOL CHLORIDE 10 MG TABLET PO SCH ×3 (06:26→21:13)
[2020-11-02] MEDS: INSULIN (LEVEMIR) 100 UNITS/ML UNITS SQ SCH ×2 (06:28→21:14)
[2020-11-02] MEDS: INSULIN SLIDING SCALE (NOVOLOG) 1 VIAL SQ SCH ×3 (06:29→18:13)
[2020-11-02] MEDS ORDERED: INSULIN (NOVOLOG) ASPART 100 UNITS/ML 10ML VIAL ONE (07:28)
[2020-11-02] MEDS ORDERED: INSULIN (LEVEMIR) 100 UNITS/ML UNITS SQ ONE (07:28)
[2020-11-02 09:16] LABS: BASO % 0.9 % (0-2.0); EOS % 2.4 % (0-4.5); HEMATOCRIT 30.6 % (32.4-45.2); HEMOGLOBIN 9.5 GM/dL (10.7-15.3); LYMPH % 9.1 % (8-40); MCH 29.1 pg (25.7-33.7); MCHC 31.1 g/dl (32.0-36.0); MEAN CELL VOLUME 93.4 fl (80-96); MEAN PLT VOLUME 8.3 fl (7.5-11.1); MONO % 11.4 % (3.8-10.2); NEUT % 76.2 % (42.8-82.8); PLATELET COUNT 404 10^3/uL (134-434); RBC 3.27 M/mm3 (3.60-5.2); WHITE BLOOD COUNT 8.2 K/mm3 (4.0-10.0)
[2020-11-02 09:55] LABS: BLOOD UREA NITROGEN 32.5 mg/dL (7-18); CALCIUM 8.6 mg/dL (8.5-10.1)
[2020-11-02 09:59] LABS: CREATININE 5.9 mg/dL (0.55-1.3)
[2020-11-02] MEDS: SEVELAMER CARBONATE 800 MG TAB (FP) PO SCH ×3 (10:42→18:13)
[2020-11-02] MEDS: LACTOBACILLUS ACIDOPHILUS 1 TABLET PO SCH ×2 (10:43→21:13)
[2020-11-02] MEDS: TAMSULOSIN HCL 0.4 MG CAP PO SCH (10:43)
[2020-11-02] MEDS: PANTOPRAZOLE 40 MG TABLET PO SCH (10:43)
[2020-11-02] MEDS: ZINC OXIDE 20% TOPICAL OINTMENT 30 GM TUBE TP SCH ×2 (12:37→21:14)
[2020-11-02] MEDS: LABETALOL HCL 200 MG TABLET (FP) PO SCH ×2 (13:54→21:12)
[2020-11-02] MEDS: hydrALAZINE HCL 10 MG TABLET PO SCH ×3 (13:54→21:11)
[2020-11-02] MEDS: oxyCODONE HCL 5 MG TABLET PO PRN ×2 (13:56→21:13)
[2020-11-02] MEDS ORDERED: EPOETIN ALFA-EPBX 20,000 UNIT/ML VIAL IVPUSH ONE (16:00)
[2020-11-02] MEDS: MELATONIN 5 MG TABLETS PO PRN (21:12)
[2020-11-03] MEDS: AMPICILLIN - 2 GM in SODIUM CHLORIDE 100 ML IVPB SCH ×2 (00:51→12:57)
[2020-11-03] MEDS: VANCOMYCIN 250 MG/5 ML ORAL SOLUTION PO SCH ×5 (02:00→23:22)
[2020-11-03] MEDS: HEPARIN NA (PORCINE) 5,000 UNITS/ML 1ML VIAL SQ SCH ×3 (06:12→22:26)
[2020-11-03] MEDS: INSULIN (LEVEMIR) 100 UNITS/ML UNITS SQ SCH ×2 (06:13→22:25)
[2020-11-03] MEDS: BETHANECHOL CHLORIDE 10 MG TABLET PO SCH ×3 (06:13→22:21)
[2020-11-03] MEDS: METOCLOPRAMIDE HCL 10 MG TABLET (FP) PO SCH ×3 (06:13→16:59)
[2020-11-03] MEDS: INSULIN SLIDING SCALE (NOVOLOG) 1 VIAL SQ SCH ×3 (06:14→17:01)
[2020-11-03] MEDS ORDERED: INSULIN (LEVEMIR) 100 UNITS/ML UNITS SQ ONE (06:47)
[2020-11-03] MEDS ORDERED: PT OWN MED DRAWER 7, Y5N ONE (06:47)
[2020-11-03 09:01] LABS: BASO % 1.1 % (0-2.0); EOS % 2.1 % (0-4.5); HEMATOCRIT 27.1 % (32.4-45.2); HEMOGLOBIN 8.8 GM/dL (10.7-15.3); LYMPH % 10.8 % (8-40); MCH 29.8 pg (25.7-33.7); MCHC 32.4 g/dl (32.0-36.0); MEAN PLT VOLUME 7.7 fl (7.5-11.1); MONO % 13.1 % (3.8-10.2); NEUT % 72.9 % (42.8-82.8); PLATELET COUNT 357 10^3/uL (134-434); RBC 2.94 M/mm3 (3.60-5.2); RDW 17.1 % (11.6-15.6); WHITE BLOOD COUNT 7.9 K/mm3 (4.0-10.0)
[2020-11-03 09:28] LABS: BLOOD UREA NITROGEN 16.7 mg/dL (7-18)
[2020-11-03] MEDS: PANTOPRAZOLE 40 MG TABLET PO SCH (09:44)
[2020-11-03] MEDS: LABETALOL HCL 200 MG TABLET (FP) PO SCH ×2 (09:44→22:21)
[2020-11-03] MEDS: ZINC OXIDE 20% TOPICAL OINTMENT 30 GM TUBE TP SCH ×2 (09:44→22:22)
[2020-11-03] MEDS: TAMSULOSIN HCL 0.4 MG CAP PO SCH (09:44)
[2020-11-03] MEDS: hydrALAZINE HCL 10 MG TABLET PO SCH ×3 (09:44→22:21)
[2020-11-03] MEDS: LACTOBACILLUS ACIDOPHILUS 1 TABLET PO SCH ×2 (09:44→22:21)
[2020-11-03] MEDS: SEVELAMER CARBONATE 800 MG TAB (FP) PO SCH ×3 (09:44→17:03)
[2020-11-03] MEDS ORDERED: INSULIN (NOVOLOG) ASPART 100 UNITS/ML 10ML VIAL ONE (11:48)
[2020-11-03] MEDS ORDERED: DEXTROSE 50%-WATER 25 GM/50 ML DISP.SYRIN ONE (12:31)
[2020-11-03] MEDS ORDERED: SODIUM CHLORIDE 100 ML IVPB ONE (12:57)
[2020-11-03] MEDS ORDERED: AMPICILLIN SODIUM 2 GM VIAL ONE (12:57)
[2020-11-03] MEDS: oxyCODONE HCL 5 MG TABLET PO PRN (14:53)
[2020-11-04] MEDS ORDERED: SODIUM CHLORIDE 100 ML IVPB ONE ×2 (00:05→12:24)
[2020-11-04] MEDS ORDERED: AMPICILLIN SODIUM 2 GM VIAL ONE ×2 (00:05→12:24)
[2020-11-04] MEDS: AMPICILLIN - 2 GM in SODIUM CHLORIDE 100 ML IVPB SCH ×2 (00:14→12:38)
[2020-11-04] MEDS: BETHANECHOL CHLORIDE 10 MG TABLET PO SCH ×2 (06:24→14:00)
[2020-11-04] MEDS: METOCLOPRAMIDE HCL 10 MG TABLET (FP) PO SCH ×2 (06:26→11:26)
[2020-11-04] MEDS: HEPARIN NA (PORCINE) 5,000 UNITS/ML 1ML VIAL SQ SCH ×2 (06:27→14:00)
[2020-11-04] MEDS: VANCOMYCIN 250 MG/5 ML ORAL SOLUTION PO SCH ×2 (06:27→11:30)
[2020-11-04] MEDS: INSULIN SLIDING SCALE (NOVOLOG) 1 VIAL SQ SCH ×2 (06:32→12:50)
[2020-11-04] MEDS: INSULIN (LEVEMIR) 100 UNITS/ML UNITS SQ SCH (06:32)
[2020-11-04] MEDS ORDERED: SODIUM CHLORIDE 250 ML IV PRN (07:07)
[2020-11-04] MEDS ORDERED: EPOETIN ALFA-EPBX 20,000 UNIT/ML VIAL SQ ONE (08:00)
[2020-11-04] MEDS ORDERED: HEPARIN NA (PORCINE) 5,000 UNITS/ML 1ML VIAL IVPUSH ONE (09:00)
[2020-11-04 10:23] LABS: BASO % 0.9 % (0-2.0); EOS % 2.5 % (0-4.5); HEMATOCRIT 26.3 % (32.4-45.2); HEMOGLOBIN 8.4 GM/dL (10.7-15.3); LYMPH % 9.7 % (8-40); MCH 29.5 pg (25.7-33.7); MCHC 31.8 g/dl (32.0-36.0); MEAN CELL VOLUME 92.6 fl (80-96); MEAN PLT VOLUME 8.1 fl (7.5-11.1); MONO % 11.4 % (3.8-10.2); NEUT % 75.5 % (42.8-82.8); PLATELET COUNT 378 10^3/uL (134-434); RBC 2.84 M/mm3 (3.60-5.2); WHITE BLOOD COUNT 8.2 K/mm3 (4.0-10.0)
[2020-11-04 10:41] LABS: CALCIUM 8.2 mg/dL (8.5-10.1)
[2020-11-04 10:42] LABS: BLOOD UREA NITROGEN 30.3 mg/dL (7-18)
[2020-11-04 10:47] LABS: CREATININE 5.7 mg/dL (0.55-1.3)
[2020-11-04 11:24] VITALS: BP 156/70; PULSE 78; TEMP 98.1
[2020-11-04] MEDS: LABETALOL HCL 200 MG TABLET (FP) PO SCH (11:24)
[2020-11-04] MEDS: SEVELAMER CARBONATE 800 MG TAB (FP) PO SCH ×2 (11:24→11:25)
[2020-11-04] MEDS: PANTOPRAZOLE 40 MG TABLET PO SCH (11:24)
[2020-11-04] MEDS: hydrALAZINE HCL 10 MG TABLET PO SCH (11:26)
[2020-11-04] MEDS: TAMSULOSIN HCL 0.4 MG CAP PO SCH (11:26)
[2020-11-04] MEDS: ACETAMINOPHEN 325 MG TABLET (FP) PO PRN (11:28)
[2020-11-04] MEDS: LACTOBACILLUS ACIDOPHILUS 1 TABLET PO SCH (11:29)
[2020-11-04] MEDS: ZINC OXIDE 20% TOPICAL OINTMENT 30 GM TUBE TP SCH (11:29)
[2020-11-04] MEDS: diphenhydrAMINE HCL 25 MG CAPSULE (FP) PO PRN (11:30)
== END 2020-11-04 14:06 | DRG 981 ==
LOC: JER 04:04 → JERBED 06:11 → J4W 09:22 → JICU 13:41 → J5S 10-19 20:48
PROVIDERS: ADMIT Internal Medicine; ATTEND Internal Medicine
PROC: 02PYX3Z Removal of Infusion Device from Great Vessel, External Approach (ICD-10-PCS; principal; 2020-10-19)
PROC: 06HM33Z Insertion of Infusion Device into Right Femoral Vein, Percutaneous Approach (ICD-10-PCS; 2020-10-20)
PROC: B54BZZA Ultrasonography of Right Lower Extremity Veins, Guidance (ICD-10-PCS; 2020-10-20)
PROC: 02H633Z Insertion of Infusion Device into Right Atrium, Percutaneous Approach (ICD-10-PCS; 2020-10-24)
PROC: B548ZZA Ultrasonography of Superior Vena Cava, Guidance (ICD-10-PCS; 2020-10-24)
PROC: 5A1D70Z Performance of Urinary Filtration, Intermittent, Less than 6 Hours Per Day (ICD-10-PCS; 2020-10-25)
PROC: 0QSH35Z Reposition Left Tibia with External Fixation Device, Percutaneous Approach (ICD-10-PCS; 2020-10-29)
PROC: 0QSK35Z Reposition Left Fibula with External Fixation Device, Percutaneous Approach (ICD-10-PCS; 2020-10-29)
DX: T80.218A Other infection due to central venous catheter, initial encounter (principal); G93.6 Cerebral edema; J18.9 Pneumonia, unspecified organism; N18.6 End stage renal disease; G92 Toxic encephalopathy; A41.9 Sepsis, unspecified organism; I12.0 Hypertensive chronic kidney disease with stage 5 chronic kidney disease or end stage renal disease; A04.72 Enterocolitis due to Clostridium difficile, not specified as recurrent; N17.9 Acute kidney failure, unspecified; M48.56XA Collapsed vertebra, not elsewhere classified, lumbar region, initial encounter for fracture; E11.22 Type 2 diabetes mellitus with diabetic chronic kidney disease; Z99.2 Dependence on renal dialysis; Z79.4 Long term (current) use of insulin; E87.5 Hyperkalemia; E83.41 Hypermagnesemia; E83.39 Other disorders of phosphorus metabolism; R29.6 Repeated falls; D50.9 Iron deficiency anemia, unspecified; F32.9 Major depressive disorder, single episode, unspecified; G35 Multiple sclerosis; R55 Syncope and collapse; F41.9 Anxiety disorder, unspecified; Y83.8 Other surgical procedures as the cause of abnormal reaction of the patient, or of later complication, without mention of misadventure at the time of the procedure; E11.65 Type 2 diabetes mellitus with hyperglycemia; I34.0 Nonrheumatic mitral (valve) insufficiency; I36.1 Nonrheumatic tricuspid (valve) insufficiency; S82.52XA Displaced fracture of medial malleolus of left tibia, initial encounter for closed fracture; S82.402A Unspecified fracture of shaft of left fibula, initial encounter for closed fracture; W19.XXXA Unspecified fall, initial encounter; Y93.89 Activity, other specified; Y92.230 Patient room in hospital as the place of occurrence of the external cause; Y99.8 Other external cause status
CPT/HCPCS: 36415; 36511; 36600; 70450-TC; 70551-TC; 71045-TC-FY; 71250-TC; 72125-TC; 72131-TC; 72170-TC-FY; 73610-TC-LT-FY; 73630-TC-LT; 74176-TC; 76000-TC-FY; 80048; 80053; 80061; 82172; 82306; 82550; 82553; 82607; 82728; 82803; 82962; 82977; 83010; 83036; 83540; 83550; 83721; 83735; 83880; 83883; 83970; 84075; 84100; 84443; 84460; 84484; 85025; 85027; 85610; 85730; 86704; 86706; 86707; 86708; 86709; 86803; 86850; 86900; 86901; 86922; 87040; 87186; 87324; 87340; 87389; 87449; 93005; 93010; 93306-TC; 93923; 93926-TC; 94640; 94760; 97116-GP; 97162-GP; 99285-25; C9803; G0480; J0131; J0885; J1644; J1756; P9038; P9058; Q5106; U0003; U0005

== ENCOUNTER 2020-11-11 22:36 | Inpatient (IN) | payer OTHER ==
[2020-11-12 02:09] LABS: BASO % 0.9 % (0-2.0); EOS % 2.1 % (0-4.5); HEMATOCRIT 29.2 % (32.4-45.2); HEMOGLOBIN 9.3 GM/dL (10.7-15.3); LYMPH % 7.9 % (8-40); MCH 29.2 pg (25.7-33.7); MCHC 31.7 g/dl (32.0-36.0); MEAN PLT VOLUME 8.3 fl (7.5-11.1); MONO % 8.9 % (3.8-10.2); NEUT % 80.2 % (42.8-82.8); PLATELET COUNT 378 10^3/uL (134-434); RBC 3.18 M/mm3 (3.60-5.2); RDW 16.6 % (11.6-15.6); WHITE BLOOD COUNT 10.8 K/mm3 (4.0-10.0)
[2020-11-12 02:24] LABS: INR 1.04 (0.83-1.09); PROTHROMBIN TIME (PATIENT) 12.6 SEC (9.7-13.0)
[2020-11-12 02:27] LABS: ACTIVATED PTT 33.7 SECONDS (25.2-36.5)
[2020-11-12 02:30] LABS: CALCIUM 8.3 mg/dL (8.5-10.1)
[2020-11-12 02:31] LABS: ALBUMIN 2.3 g/dl (3.4-5.0); BLOOD UREA NITROGEN 49.4 mg/dL (7-18)
[2020-11-12 02:34] LABS: BILIRUBIN,TOTAL 0.7 mg/dL (0.2-1); TOT PROT 7.8 g/dl (6.4-8.2)
[2020-11-12 02:55] LABS: CREATININE 6.7 mg/dL (0.55-1.3)
[2020-11-12] MEDS ORDERED: MELATONIN 5 MG TABLETS PO PRN (02:55)
[2020-11-12] MEDS ORDERED: diphenhydrAMINE HCL 12.5 MG/5 ML UNIT-DOSE CUPS PO PRN (02:57)
[2020-11-12] MEDS ORDERED: SEVELAMER CARBONATE 800 MG TAB (FP) PO SCH (03:00)
[2020-11-12] MEDS: INSULIN SLIDING SCALE (NOVOLOG) 1 VIAL SQ SCH ×3 (06:01→16:57)
[2020-11-12] MEDS: BETHANECHOL CHLORIDE 10 MG TABLET PO SCH ×3 (06:01→21:33)
[2020-11-12] MEDS: METOCLOPRAMIDE HCL 10 MG TABLET (FP) PO SCH ×3 (06:01→16:50)
[2020-11-12] MEDS: HEPARIN NA (PORCINE) 5,000 UNITS/ML 1ML VIAL SQ SCH ×2 (06:01→14:11)
[2020-11-12] MEDS: SEVELAMER CARBONATE 800 MG TAB (FP) PO SCH ×3 (08:43→17:30)
[2020-11-12] MEDS: TAMSULOSIN HCL 0.4 MG CAP PO SCH (08:43)
[2020-11-12] MEDS ORDERED: PT OWN MED DRAWER 7, Y5N ONE ×3 (09:05→21:07)
[2020-11-12] MEDS: LABETALOL HCL 200 MG TABLET (FP) PO SCH ×2 (09:09→21:33)
[2020-11-12] MEDS: LACTOBACILLUS ACIDOPHILUS 1 TABLET PO SCH (09:09)
[2020-11-12] MEDS: PANTOPRAZOLE 40 MG TABLET PO SCH (09:10)
[2020-11-12] MEDS ORDERED: INSULIN (LEVEMIR) 100 UNITS/ML UNITS SQ SCH ×2 (10:00→22:00)
[2020-11-12] MEDS ORDERED: SODIUM ZIRCONIUM CYCLOSILICATE (LOKELMA) 5 GM PACKET PO SCH (10:00)
[2020-11-12] MEDS: SODIUM ZIRCONIUM CYCLOSILICATE (LOKELMA) 10 GM PACKET PO SCH (10:29)
[2020-11-12] MEDS: oxyCODONE HCL 5 MG TABLET PO PRN ×2 (10:56→16:51)
[2020-11-12] MEDS: ACETAMINOPHEN 325 MG TABLET (FP) PO PRN ×2 (10:58→16:52)
[2020-11-12] MEDS: DEXTROSE 5%-0.45% SALINE 1,000 ML IV SCH (18:40)
[2020-11-13] MEDS ORDERED: DEXTROSE 50%-WATER - 25 GM/50 ML VIAL IVPUSH ONE (07:15)
[2020-11-13] MEDS: BETHANECHOL CHLORIDE 10 MG TABLET PO SCH ×4 (07:55→21:57)
[2020-11-13] MEDS: METOCLOPRAMIDE HCL 10 MG TABLET (FP) PO SCH ×3 (07:56→17:21)
[2020-11-13] MEDS: INSULIN SLIDING SCALE (NOVOLOG) 1 VIAL SQ SCH ×3 (07:56→17:42)
[2020-11-13 08:30] LABS: BASO % 1.3 % (0-2.0); EOS % 3.4 % (0-4.5); HEMATOCRIT 29.5 % (32.4-45.2); LYMPH % 9.9 % (8-40); MCH 28.5 pg (25.7-33.7); MCHC 30.6 g/dl (32.0-36.0); MEAN PLT VOLUME 8.3 fl (7.5-11.1); MONO % 9.6 % (3.8-10.2); NEUT % 75.8 % (42.8-82.8); PLATELET COUNT 375 10^3/uL (134-434); RBC 3.17 M/mm3 (3.60-5.2); RDW 16.7 % (11.6-15.6); WHITE BLOOD COUNT 9.6 K/mm3 (4.0-10.0)
[2020-11-13] MEDS ORDERED: MIDAZOLAM HCL 2 MG/2 ML SINGLE DOSE VIAL ONE (08:52)
[2020-11-13] MEDS ORDERED: VANCOMYCIN 1 GRAM (PRE-DOCKED) 1,000 MG/250 ML BAG IVPB ONE (08:54)
[2020-11-13 09:01] LABS: CHLORIDE 108 mmol/L (98-107); SODIUM 139 mmol/L (136-145)
[2020-11-13 09:06] LABS: ALBUMIN 2.2 g/dl (3.4-5.0); ANION GAP 14 MMOL/L (8-16); BLOOD UREA NITROGEN 63.2 mg/dL (7-18); CO2 18 mmol/L (21-32); GLUCOSE,RANDOM 69 mg/dL (74-106)
[2020-11-13 09:07] LABS: CALCIUM 8.2 mg/dL (8.5-10.1); MAGNESIUM 2.5 mg/dL (1.8-2.4)
[2020-11-13 09:08] LABS: PHOSPHOROUS 7.1 mg/dL (2.5-4.9); SGPT/ALT 44 U/L (13-61)
[2020-11-13 09:09] LABS: BILIRUBIN,TOTAL 0.7 mg/dL (0.2-1); IRON SERUM 40 ug/dL (50-175); SGOT/AST 51 U/L (15-37); TOT PROT 7.4 g/dl (6.4-8.2)
[2020-11-13 09:10] LABS: TOTAL IRON BINDING CAPACITY 226 ug/dL (250-450)
[2020-11-13] MEDS: SEVELAMER CARBONATE 800 MG TAB (FP) PO SCH ×3 (09:10→17:25)
[2020-11-13 09:14] LABS: ALK PHOS 908 U/L (45-117); CREATININE 8.5 mg/dL (0.55-1.3)
[2020-11-13] MEDS ORDERED: BUPIVACAINE HCL/PF 0.5% (5MG/ML) 10 ML VIAL ONE (09:35)
[2020-11-13] MEDS ORDERED: PROPOFOL 20 ML ONE ×3 (10:16→11:35)
[2020-11-13] MEDS ORDERED: SODIUM CHLORIDE 250 ML IV PRN ×2 (10:46→10:47)
[2020-11-13] MEDS ORDERED: EPOETIN ALFA-EPBX 3,000 UNIT/ML VIAL SQ ONE (10:46)
[2020-11-13] MEDS ORDERED: ONDANSETRON 4 MG/2 ML VIAL IVPUSH PRN (13:13)
[2020-11-13] MEDS ORDERED: MELATONIN 5 MG TABLETS PO PRN (13:45)
[2020-11-13] MEDS ORDERED: diphenhydrAMINE HCL 25 MG CAPSULE (FP) PO PRN (13:45)
[2020-11-13] MEDS ORDERED: ACETAMINOPHEN 325 MG TABLET (FP) PO PRN ×2 (13:45)
[2020-11-13] MEDS ORDERED: METOCLOPRAMIDE HCL 10 MG TABLET (FP) PO SCH ×3 (13:45→16:30)
[2020-11-13] MEDS ORDERED: ALBUTEROL SO4 2.5/IPRATROPIUM 0.5 INH SOL 3 ML VIAL.NEB. NEB PRN (13:45)
[2020-11-13] MEDS ORDERED: DEXTROSE 50%-WATER - 25 GM/50 ML VIAL IVPUSH PRN (13:45)
[2020-11-13] MEDS ORDERED: AMPICILLIN IVPB SCH (13:45)
[2020-11-13] MEDS ORDERED: oxyCODONE HCL 5 MG TABLET PO PRN (13:45)
[2020-11-13] MEDS ORDERED: HEPARIN NA (PORCINE) 5,000 UNITS/ML 1ML VIAL SQ SCH (14:00)
[2020-11-13] MEDS ORDERED: BETHANECHOL CHLORIDE 10 MG TABLET PO SCH ×2 (14:00)
[2020-11-13] MEDS: DEXTROSE 5%-0.45% SALINE 1,000 ML IV SCH (14:48)
[2020-11-13] MEDS: HEPARIN NA (PORCINE) 5,000 UNITS/ML 1ML VIAL SQ SCH ×2 (15:25→21:56)
[2020-11-13] MEDS: TAMSULOSIN HCL 0.4 MG CAP PO SCH (15:26)
[2020-11-13] MEDS: LACTOBACILLUS ACIDOPHILUS 1 TABLET PO SCH ×2 (15:26→21:55)
[2020-11-13] MEDS: LABETALOL HCL 200 MG TABLET (FP) PO SCH ×2 (15:26→21:56)
[2020-11-13] MEDS: PANTOPRAZOLE 40 MG TABLET PO SCH (15:26)
[2020-11-13] MEDS ORDERED: PT OWN MED DRAWER 7, Y5N ONE ×2 (15:28→21:27)
[2020-11-13] MEDS: SODIUM ZIRCONIUM CYCLOSILICATE (LOKELMA) 10 GM PACKET PO SCH (15:29)
[2020-11-13] MEDS ORDERED: INSULIN SLIDING SCALE (NOVOLOG) 1 VIAL SQ SCH ×3 (16:30)
[2020-11-13] MEDS ORDERED: INSULIN (NOVOLOG) ASPART 100 UNITS/ML 10ML VIAL ONE (17:18)
[2020-11-13] MEDS ORDERED: SEVELAMER CARBONATE 800 MG TAB (FP) PO SCH ×3 (17:30)
[2020-11-13] MEDS ORDERED: VANCOMYCIN 250 MG/5 ML ORAL SOLUTION PO SCH ×2 (18:00)
[2020-11-13] MEDS ORDERED: PIPERACILLIN/TAZOBACTAM 2.25 GM VIAL IVPB ONE (21:27)
[2020-11-13] MEDS ORDERED: DEXTROSE 5%-WATER - 50 ML IVPB ONE (21:27)
[2020-11-13] MEDS: PIPERACILLIN/TAZOB 2.25 GM 2.25 GM in DEXTROSE 5%-WATER - 50 ML IVPB SCH (21:55)
[2020-11-13] MEDS: MELATONIN 5 MG TABLETS PO PRN (21:56)
[2020-11-13] MEDS: INSULIN (LEVEMIR) 100 UNITS/ML UNITS SQ SCH (21:56)
[2020-11-13] MEDS: ACETAMINOPHEN 325 MG TABLET (FP) PO PRN (21:57)
[2020-11-13] MEDS ORDERED: LABETALOL HCL 200 MG TABLET (FP) PO SCH ×3 (22:00)
[2020-11-14] MEDS ORDERED: PIPERACILLIN/TAZOBACTAM 2.25 GM VIAL IVPB ONE ×4 (00:56→17:43)
[2020-11-14] MEDS ORDERED: DEXTROSE 5%-WATER - 50 ML IVPB ONE ×3 (00:57→17:43)
[2020-11-14] MEDS: PIPERACILLIN/TAZOB 2.25 GM 2.25 GM in DEXTROSE 5%-WATER - 50 ML IVPB SCH ×3 (02:28→18:24)
[2020-11-14] MEDS ORDERED: PT OWN MED DRAWER 7, Y5N ONE ×7 (06:18→20:42)
[2020-11-14] MEDS: INSULIN (LEVEMIR) 100 UNITS/ML UNITS SQ SCH ×2 (06:24→20:59)
[2020-11-14] MEDS: BETHANECHOL CHLORIDE 10 MG TABLET PO SCH ×3 (06:25→21:00)
[2020-11-14] MEDS: HEPARIN NA (PORCINE) 5,000 UNITS/ML 1ML VIAL SQ SCH ×3 (06:25→21:00)
[2020-11-14] MEDS: METOCLOPRAMIDE HCL 10 MG TABLET (FP) PO SCH ×3 (06:26→17:09)
[2020-11-14] MEDS: INSULIN SLIDING SCALE (NOVOLOG) 1 VIAL SQ SCH ×3 (06:31→17:17)
[2020-11-14] MEDS: SEVELAMER CARBONATE 800 MG TAB (FP) PO SCH ×3 (08:19→17:54)
[2020-11-14] MEDS: TAMSULOSIN HCL 0.4 MG CAP PO SCH (08:43)
[2020-11-14] MEDS ORDERED: EPOETIN ALFA-EPBX 3,000 UNIT/ML VIAL SQ ONE ×2 (09:15→12:07)
[2020-11-14] MEDS ORDERED: PANTOPRAZOLE 40 MG TABLET PO SCH ×2 (10:00)
[2020-11-14] MEDS ORDERED: LACTOBACILLUS ACIDOPHILUS 1 TABLET PO SCH (10:00)
[2020-11-14] MEDS ORDERED: SODIUM ZIRCONIUM CYCLOSILICATE (LOKELMA) 10 GM PACKET PO SCH (10:00)
[2020-11-14] MEDS: LABETALOL HCL 200 MG TABLET (FP) PO SCH ×2 (10:00→21:01)
[2020-11-14] MEDS: PANTOPRAZOLE 40 MG TABLET PO SCH (10:05)
[2020-11-14] MEDS: LACTOBACILLUS ACIDOPHILUS 1 TABLET PO SCH ×2 (10:05→21:00)
[2020-11-14 10:45] LABS: BASO % 1.2 % (0-2.0); EOS % 1.6 % (0-4.5); HEMOGLOBIN 7.3 GM/dL (10.7-15.3); LYMPH % 6.4 % (8-40); MCH 28.3 pg (25.7-33.7); MCHC 30.6 g/dl (32.0-36.0); MEAN CELL VOLUME 92.4 fl (80-96); MEAN PLT VOLUME 8.4 fl (7.5-11.1); MONO % 10.2 % (3.8-10.2); NEUT % 80.6 % (42.8-82.8); PLATELET COUNT 347 10^3/uL (134-434); RDW 16.4 % (11.6-15.6); WHITE BLOOD COUNT 11.9 K/mm3 (4.0-10.0)
[2020-11-14 11:04] LABS: CHLORIDE 105 mmol/L (98-107); SODIUM 137 mmol/L (136-145)
[2020-11-14 11:07] LABS: ANION GAP 13 MMOL/L (8-16); BLOOD UREA NITROGEN 67.6 mg/dL (7-18); CALCIUM 8.4 mg/dL (8.5-10.1); CO2 19 mmol/L (21-32); GLUCOSE,RANDOM 195 mg/dL (74-106); MAGNESIUM 2.7 mg/dL (1.8-2.4)
[2020-11-14 11:11] LABS: PHOSPHOROUS 7.4 mg/dL (2.5-4.9)
[2020-11-14 11:29] LABS: CREATININE 10.1 mg/dL (0.55-1.3)
[2020-11-14] MEDS ORDERED: IRON SUCROSE INJECTION 200 MG in SODIUM CHLORIDE 90 ML IVPB ONE (12:00)
[2020-11-14] MEDS ORDERED: [UNRECOGNIZED DRUG - OTHER] IVPUSH ONE (12:15)
[2020-11-14] MEDS ORDERED: EPOETIN ALFA EPBX IVPUSH ONE (12:15)
[2020-11-14] MEDS ORDERED: oxyCODONE HCL 5 MG TABLET PO PRN (13:45)
[2020-11-14] MEDS: diphenhydrAMINE HCL 25 MG CAPSULE (FP) PO PRN ×2 (16:10→21:01)
[2020-11-14] MEDS: LOSARTAN POTASSIUM 50 MG TABLET PO SCH (21:00)
[2020-11-14] MEDS: MELATONIN 5 MG TABLETS PO PRN (21:01)
[2020-11-15] MEDS ORDERED: PIPERACILLIN/TAZOBACTAM 2.25 GM VIAL IVPB ONE ×3 (00:12→17:59)
[2020-11-15] MEDS ORDERED: DEXTROSE 5%-WATER - 50 ML IVPB ONE ×3 (00:12→17:59)
[2020-11-15] MEDS: PIPERACILLIN/TAZOB 2.25 GM 2.25 GM in DEXTROSE 5%-WATER - 50 ML IVPB SCH ×3 (03:12→18:16)
[2020-11-15] MEDS: BETHANECHOL CHLORIDE 10 MG TABLET PO SCH ×3 (06:29→21:45)
[2020-11-15] MEDS: METOCLOPRAMIDE HCL 10 MG TABLET (FP) PO SCH ×2 (06:29→11:59)
[2020-11-15] MEDS: HEPARIN NA (PORCINE) 5,000 UNITS/ML 1ML VIAL SQ SCH ×3 (06:33→21:45)
[2020-11-15] MEDS: INSULIN (LEVEMIR) 100 UNITS/ML UNITS SQ SCH ×2 (06:33→21:46)
[2020-11-15] MEDS: INSULIN SLIDING SCALE (NOVOLOG) 1 VIAL SQ SCH ×3 (06:37→17:51)
[2020-11-15 07:28] LABS: BASO % 1.2 % (0-2.0); EOS % 2.3 % (0-4.5); HEMATOCRIT 23.8 % (32.4-45.2); HEMOGLOBIN 7.5 GM/dL (10.7-15.3); LYMPH % 7.5 % (8-40); MCH 28.6 pg (25.7-33.7); MCHC 31.6 g/dl (32.0-36.0); MEAN CELL VOLUME 90.7 fl (80-96); MEAN PLT VOLUME 8.1 fl (7.5-11.1); MONO % 13.3 % (3.8-10.2); NEUT % 75.7 % (42.8-82.8); PLATELET COUNT 336 10^3/uL (134-434); RBC 2.62 M/mm3 (3.60-5.2); RDW 16.4 % (11.6-15.6)
[2020-11-15 07:59] LABS: ALBUMIN 1.9 g/dl (3.4-5.0); CALCIUM 8.3 mg/dL (8.5-10.1)
[2020-11-15 08:00] LABS: MAGNESIUM 2.1 mg/dL (1.8-2.4)
[2020-11-15 08:02] LABS: CREATININE 5.2 mg/dL (0.55-1.3)
[2020-11-15 08:03] LABS: PHOSPHOROUS 4.9 mg/dL (2.5-4.9)
[2020-11-15 08:04] LABS: BILIRUBIN,TOTAL 0.6 mg/dL (0.2-1); TOT PROT 6.4 g/dl (6.4-8.2)
[2020-11-15 08:20] LABS: BLOOD UREA NITROGEN 27.2 mg/dL (7-18)
[2020-11-15] MEDS: SEVELAMER CARBONATE 800 MG TAB (FP) PO SCH ×3 (08:37→18:16)
[2020-11-15] MEDS: TAMSULOSIN HCL 0.4 MG CAP PO SCH (08:58)
[2020-11-15] MEDS: LABETALOL HCL 200 MG TABLET (FP) PO SCH ×2 (10:16→21:45)
[2020-11-15] MEDS: PANTOPRAZOLE 40 MG TABLET PO SCH (10:16)
[2020-11-15] MEDS: LACTOBACILLUS ACIDOPHILUS 1 TABLET PO SCH ×2 (10:16→21:45)
[2020-11-15] MEDS: ACETAMINOPHEN 325 MG TABLET (FP) PO PRN (11:06)
[2020-11-15] MEDS ORDERED: EPOETIN ALFA-EPBX 20,000 UNIT/ML VIAL SQ ONE (11:30)
[2020-11-15] MEDS: diphenhydrAMINE HCL 25 MG CAPSULE (FP) PO PRN (11:58)
[2020-11-15] MEDS: MINERAL OIL/PET HY-PHL TOPICAL OINTMENT 454 GM JAR TP SCH ×2 (12:30→21:45)
[2020-11-15] MEDS ORDERED: PT OWN MED DRAWER 7, Y5N ONE ×3 (14:23→17:57)
[2020-11-15] MEDS: LOSARTAN POTASSIUM 50 MG TABLET PO SCH (21:45)
[2020-11-15] MEDS: BANATROL PLUS POWDER PACKET PO SCH (21:45)
[2020-11-15] MEDS: LOPERAMIDE HCL 2 MG CAPSULE PO PRN (22:19)
[2020-11-16] MEDS ORDERED: PIPERACILLIN/TAZOBACTAM 2.25 GM VIAL IVPB ONE ×3 (01:02→17:24)
[2020-11-16] MEDS ORDERED: DEXTROSE 5%-WATER - 50 ML IVPB ONE ×3 (01:03→17:24)
[2020-11-16] MEDS: PIPERACILLIN/TAZOB 2.25 GM 2.25 GM in DEXTROSE 5%-WATER - 50 ML IVPB SCH ×3 (02:21→18:37)
[2020-11-16] MEDS: HEPARIN NA (PORCINE) 5,000 UNITS/ML 1ML VIAL SQ SCH ×3 (06:37→21:37)
[2020-11-16] MEDS: INSULIN (LEVEMIR) 100 UNITS/ML UNITS SQ SCH ×2 (06:37→21:39)
[2020-11-16] MEDS: INSULIN SLIDING SCALE (NOVOLOG) 1 VIAL SQ SCH ×3 (06:37→17:39)
[2020-11-16] MEDS: BETHANECHOL CHLORIDE 10 MG TABLET PO SCH ×3 (06:37→21:38)
[2020-11-16] MEDS: BANATROL PLUS POWDER PACKET PO SCH ×3 (06:37→21:38)
[2020-11-16 08:18] LABS: BASO % 1.5 % (0-2.0); EOS % 4.1 % (0-4.5); HEMATOCRIT 23.5 % (32.4-45.2); HEMOGLOBIN 7.6 GM/dL (10.7-15.3); LYMPH % 10.6 % (8-40); MCH 29.5 pg (25.7-33.7); MCHC 32.4 g/dl (32.0-36.0); MEAN CELL VOLUME 91.1 fl (80-96); MEAN PLT VOLUME 7.9 fl (7.5-11.1); MONO % 11.2 % (3.8-10.2); NEUT % 72.6 % (42.8-82.8); PLATELET COUNT 388 10^3/uL (134-434); RBC 2.58 M/mm3 (3.60-5.2); RDW 16.4 % (11.6-15.6); WHITE BLOOD COUNT 10.3 K/mm3 (4.0-10.0)
[2020-11-16 08:30] LABS: BLOOD UREA NITROGEN 33.8 mg/dL (7-18)
[2020-11-16 08:32] LABS: CALCIUM 8.6 mg/dL (8.5-10.1)
[2020-11-16 08:33] LABS: CREATININE 6.9 mg/dL (0.55-1.3)
[2020-11-16] MEDS: LOPERAMIDE HCL 2 MG CAPSULE PO PRN ×2 (09:00→23:12)
[2020-11-16] MEDS: SEVELAMER CARBONATE 800 MG TAB (FP) PO SCH ×3 (09:00→17:08)
[2020-11-16] MEDS: TAMSULOSIN HCL 0.4 MG CAP PO SCH (09:00)
[2020-11-16] MEDS: AMINO ACIDS/PROTEIN HYDROLYS 30 ML LIQUID.PKT PO SCH ×2 (09:00→17:08)
[2020-11-16] MEDS ORDERED: HEPARIN NA (PORCINE) 5,000 UNITS/ML 1ML VIAL IVPUSH ONE (09:30)
[2020-11-16] MEDS ORDERED: EPOETIN ALFA-EPBX 20,000 UNIT/ML VIAL SQ ONE ×2 (10:15→12:26)
[2020-11-16 11:10] LABS: BILIRUBIN,DIRECT 0.3 mg/dL (0.0-0.2)
[2020-11-16 11:12] LABS: BILIRUBIN,TOTAL 0.7 mg/dL (0.2-1)
[2020-11-16] MEDS ORDERED: SODIUM CHLORIDE 250 ML IV PRN (13:30)
[2020-11-16] MEDS ORDERED: PT OWN MED DRAWER 7, Y5N ONE ×2 (13:53→17:25)
[2020-11-16] MEDS: PANTOPRAZOLE 40 MG TABLET PO SCH (13:58)
[2020-11-16] MEDS: LABETALOL HCL 200 MG TABLET (FP) PO SCH ×2 (13:58→21:38)
[2020-11-16] MEDS: LACTOBACILLUS ACIDOPHILUS 1 TABLET PO SCH ×2 (13:59→21:38)
[2020-11-16] MEDS: MINERAL OIL/PET HY-PHL TOPICAL OINTMENT 454 GM JAR TP SCH ×2 (13:59→21:38)
[2020-11-16] MEDS ORDERED: VANCOMYCIN 1 GRAM (PRE-DOCKED) 1,000 MG/250 ML BAG IVPB ONE (16:00)
[2020-11-16] MEDS ORDERED: INSULIN (NOVOLOG) ASPART 100 UNITS/ML 10ML VIAL ONE (17:24)
[2020-11-16] MEDS: NYSTATIN POWDER 100,000 UNITS/GM - 15 GM TOPICAL POWDER TP SCH ×2 (17:39→21:37)
[2020-11-16] MEDS: LOSARTAN POTASSIUM 50 MG TABLET PO SCH (21:38)
[2020-11-16] MEDS: MELATONIN 5 MG TABLETS PO PRN (21:38)
[2020-11-16] MEDS: diphenhydrAMINE HCL 25 MG CAPSULE (FP) PO PRN (23:12)
[2020-11-17] MEDS ORDERED: PIPERACILLIN/TAZOBACTAM 2.25 GM VIAL IVPB ONE ×2 (01:44→10:41)
[2020-11-17] MEDS ORDERED: DEXTROSE 5%-WATER - 50 ML IVPB ONE ×2 (01:45→10:41)
[2020-11-17] MEDS: PIPERACILLIN/TAZOB 2.25 GM 2.25 GM in DEXTROSE 5%-WATER - 50 ML IVPB SCH ×2 (02:22→10:51)
[2020-11-17] MEDS: BANATROL PLUS POWDER PACKET PO SCH ×3 (06:25→21:53)
[2020-11-17] MEDS: NYSTATIN POWDER 100,000 UNITS/GM - 15 GM TOPICAL POWDER TP SCH ×3 (06:34→21:56)
[2020-11-17] MEDS: BETHANECHOL CHLORIDE 10 MG TABLET PO SCH ×3 (06:34→21:54)
[2020-11-17] MEDS: HEPARIN NA (PORCINE) 5,000 UNITS/ML 1ML VIAL SQ SCH ×3 (06:34→21:57)
[2020-11-17] MEDS: INSULIN (LEVEMIR) 100 UNITS/ML UNITS SQ SCH ×2 (06:35→21:55)
[2020-11-17] MEDS: INSULIN SLIDING SCALE (NOVOLOG) 1 VIAL SQ SCH ×3 (06:35→18:04)
[2020-11-17] MEDS: diphenhydrAMINE HCL 25 MG CAPSULE (FP) PO PRN ×3 (07:56→22:31)
[2020-11-17] MEDS: ACETAMINOPHEN 325 MG TABLET (FP) PO PRN ×3 (07:56→22:30)
[2020-11-17] MEDS: TAMSULOSIN HCL 0.4 MG CAP PO SCH (07:56)
[2020-11-17] MEDS: AMINO ACIDS/PROTEIN HYDROLYS 30 ML LIQUID.PKT PO SCH ×2 (07:56→17:31)
[2020-11-17] MEDS: SEVELAMER CARBONATE 800 MG TAB (FP) PO SCH ×3 (07:56→17:31)
[2020-11-17 09:00] LABS: BASO % 1.7 % (0-2.0); EOS % 5.7 % (0-4.5); HEMATOCRIT 25.4 % (32.4-45.2); HEMOGLOBIN 7.9 GM/dL (10.7-15.3); LYMPH % 13.3 % (8-40); MCH 28.6 pg (25.7-33.7); MCHC 31.2 g/dl (32.0-36.0); MEAN CELL VOLUME 91.9 fl (80-96); NEUT % 67.3 % (42.8-82.8); PLATELET COUNT 427 10^3/uL (134-434); RBC 2.76 M/mm3 (3.60-5.2); RDW 16.9 % (11.6-15.6); WHITE BLOOD COUNT 9.3 K/mm3 (4.0-10.0)
[2020-11-17 09:31] LABS: ALBUMIN 1.9 g/dl (3.4-5.0)
[2020-11-17 09:32] LABS: BLOOD UREA NITROGEN 22.2 mg/dL (7-18)
[2020-11-17 09:33] LABS: BILIRUBIN,TOTAL 0.7 mg/dL (0.2-1); TOT PROT 6.9 g/dl (6.4-8.2)
[2020-11-17 09:34] LABS: BILIRUBIN,DIRECT 0.2 mg/dL (0.0-0.2)
[2020-11-17 09:35] LABS: CREATININE 4.4 mg/dL (0.55-1.3)
[2020-11-17 09:37] LABS: CALCIUM 8.3 mg/dL (8.5-10.1)
[2020-11-17] MEDS ORDERED: PT OWN MED DRAWER 7, Y5N ONE ×4 (10:41→20:42)
[2020-11-17] MEDS: PANTOPRAZOLE 40 MG TABLET PO SCH (10:51)
[2020-11-17] MEDS: LACTOBACILLUS ACIDOPHILUS 1 TABLET PO SCH ×2 (10:51→21:55)
[2020-11-17] MEDS: LABETALOL HCL 200 MG TABLET (FP) PO SCH ×2 (10:51→21:54)
[2020-11-17] MEDS: SILVER SULFADIAZINE 1% TOP CREAM 50 GM JAR TP SCH ×2 (10:52→21:56)
[2020-11-17] MEDS: MINERAL OIL/PET HY-PHL TOPICAL OINTMENT 454 GM JAR TP SCH ×2 (10:54→21:57)
[2020-11-17] MEDS: LOPERAMIDE HCL 2 MG CAPSULE PO PRN ×2 (12:57→22:31)
[2020-11-17] MEDS ORDERED: IRON SUCROSE INJECTION 100 MG in SODIUM CHLORIDE 95 ML IVPB ONE (17:00)
[2020-11-17] MEDS: LOSARTAN POTASSIUM 50 MG TABLET PO SCH (21:55)
[2020-11-17] MEDS: MELATONIN 5 MG TABLETS PO PRN (22:32)
[2020-11-18] MEDS: INSULIN SLIDING SCALE (NOVOLOG) 1 VIAL SQ SCH ×3 (06:36→16:46)
[2020-11-18] MEDS: INSULIN (LEVEMIR) 100 UNITS/ML UNITS SQ SCH ×2 (06:36→22:56)
[2020-11-18] MEDS: HEPARIN NA (PORCINE) 5,000 UNITS/ML 1ML VIAL SQ SCH ×3 (06:37→22:56)
[2020-11-18] MEDS: diphenhydrAMINE HCL 25 MG CAPSULE (FP) PO PRN ×2 (06:37→22:58)
[2020-11-18] MEDS: BETHANECHOL CHLORIDE 10 MG TABLET PO SCH ×3 (06:37→22:57)
[2020-11-18] MEDS: BANATROL PLUS POWDER PACKET PO SCH ×3 (06:38→22:56)
[2020-11-18] MEDS: NYSTATIN POWDER 100,000 UNITS/GM - 15 GM TOPICAL POWDER TP SCH ×3 (06:38→22:57)
[2020-11-18 09:15] LABS: BASO % 1.7 % (0-2.0); EOS % 8.7 % (0-4.5); HEMATOCRIT 26.9 % (32.4-45.2); HEMOGLOBIN 8.2 GM/dL (10.7-15.3); LYMPH % 10.1 % (8-40); MCH 28.3 pg (25.7-33.7); MCHC 30.6 g/dl (32.0-36.0); MEAN CELL VOLUME 92.4 fl (80-96); MEAN PLT VOLUME 8.1 fl (7.5-11.1); MONO % 9.7 % (3.8-10.2); NEUT % 69.8 % (42.8-82.8); PLATELET COUNT 437 10^3/uL (134-434); RBC 2.91 M/mm3 (3.60-5.2); RDW 16.5 % (11.6-15.6); WHITE BLOOD COUNT 9.9 K/mm3 (4.0-10.0)
[2020-11-18 10:01] LABS: CALCIUM 8.5 mg/dL (8.5-10.1)
[2020-11-18 10:02] LABS: BLOOD UREA NITROGEN 34.1 mg/dL (7-18)
[2020-11-18 10:05] LABS: CREATININE 6.4 mg/dL (0.55-1.3)
[2020-11-18] MEDS: SEVELAMER CARBONATE 800 MG TAB (FP) PO SCH ×3 (10:46→18:41)
[2020-11-18] MEDS: AMINO ACIDS/PROTEIN HYDROLYS 30 ML LIQUID.PKT PO SCH ×2 (10:46→18:40)
[2020-11-18] MEDS: PANTOPRAZOLE 40 MG TABLET PO SCH (10:47)
[2020-11-18] MEDS: TAMSULOSIN HCL 0.4 MG CAP PO SCH (10:47)
[2020-11-18] MEDS: LABETALOL HCL 200 MG TABLET (FP) PO SCH ×2 (10:47→22:55)
[2020-11-18] MEDS: LACTOBACILLUS ACIDOPHILUS 1 TABLET PO SCH ×2 (10:47→22:55)
[2020-11-18] MEDS: SILVER SULFADIAZINE 1% TOP CREAM 50 GM JAR TP SCH ×2 (11:02→22:57)
[2020-11-18] MEDS: MINERAL OIL/PET HY-PHL TOPICAL OINTMENT 454 GM JAR TP SCH ×2 (11:02→22:56)
[2020-11-18] MEDS ORDERED: SODIUM CHLORIDE 250 ML IV PRN (12:39)
[2020-11-18] MEDS ORDERED: HEPARIN NA (PORCINE) 5,000 UNITS/ML 1ML VIAL IVPUSH ONE (12:45)
[2020-11-18] MEDS ORDERED: IRON SUCROSE INJECTION 100 MG in SODIUM CHLORIDE 95 ML IVPB ONE (13:00)
[2020-11-18] MEDS ORDERED: EPOETIN ALFA-EPBX 20,000 UNIT/ML VIAL SQ ONE (13:15)
[2020-11-18] MEDS ORDERED: PT OWN MED DRAWER 7, Y5N ONE (20:49)
[2020-11-18] MEDS: LOSARTAN POTASSIUM 50 MG TABLET PO SCH (22:55)
[2020-11-19] MEDS: HEPARIN NA (PORCINE) 5,000 UNITS/ML 1ML VIAL SQ SCH ×3 (06:20→22:06)
[2020-11-19] MEDS: INSULIN (LEVEMIR) 100 UNITS/ML UNITS SQ SCH ×2 (06:20→22:09)
[2020-11-19] MEDS: BANATROL PLUS POWDER PACKET PO SCH ×3 (06:20→22:06)
[2020-11-19] MEDS: diphenhydrAMINE HCL 25 MG CAPSULE (FP) PO PRN ×2 (06:20→17:02)
[2020-11-19] MEDS: BETHANECHOL CHLORIDE 10 MG TABLET PO SCH ×3 (06:20→22:05)
[2020-11-19] MEDS: INSULIN SLIDING SCALE (NOVOLOG) 1 VIAL SQ SCH ×3 (06:23→16:49)
[2020-11-19] MEDS: NYSTATIN POWDER 100,000 UNITS/GM - 15 GM TOPICAL POWDER TP SCH ×3 (06:25→22:18)
[2020-11-19 08:11] LABS: BASO % 1.2 % (0-2.0); EOS % 5.6 % (0-4.5); HEMATOCRIT 26.8 % (32.4-45.2); HEMOGLOBIN 8.5 GM/dL (10.7-15.3); LYMPH % 10.7 % (8-40); MCH 28.9 pg (25.7-33.7); MCHC 31.8 g/dl (32.0-36.0); MEAN PLT VOLUME 7.6 fl (7.5-11.1); MONO % 9.8 % (3.8-10.2); NEUT % 72.7 % (42.8-82.8); PLATELET COUNT 390 10^3/uL (134-434); RBC 2.94 M/mm3 (3.60-5.2); RDW 16.8 % (11.6-15.6); WHITE BLOOD COUNT 10.6 K/mm3 (4.0-10.0)
[2020-11-19 08:35] LABS: CALCIUM 8.6 mg/dL (8.5-10.1)
[2020-11-19 08:36] LABS: BLOOD UREA NITROGEN 19.2 mg/dL (7-18)
[2020-11-19 08:39] LABS: CREATININE 4.1 mg/dL (0.55-1.3)
[2020-11-19] MEDS: SEVELAMER CARBONATE 800 MG TAB (FP) PO SCH ×3 (10:35→16:50)
[2020-11-19] MEDS: AMINO ACIDS/PROTEIN HYDROLYS 30 ML LIQUID.PKT PO SCH ×2 (11:22→16:49)
[2020-11-19] MEDS: SILVER SULFADIAZINE 1% TOP CREAM 50 GM JAR TP SCH ×2 (11:24→22:09)
[2020-11-19] MEDS: LACTOBACILLUS ACIDOPHILUS 1 TABLET PO SCH ×2 (11:25→22:06)
[2020-11-19] MEDS: PANTOPRAZOLE 40 MG TABLET PO SCH (11:28)
[2020-11-19] MEDS: LABETALOL HCL 200 MG TABLET (FP) PO SCH ×2 (11:28→22:05)
[2020-11-19] MEDS: MINERAL OIL/PET HY-PHL TOPICAL OINTMENT 454 GM JAR TP SCH ×2 (11:29→22:09)
[2020-11-19] MEDS: LOPERAMIDE HCL 2 MG CAPSULE PO PRN (11:29)
[2020-11-19] MEDS: TAMSULOSIN HCL 0.4 MG CAP PO SCH (11:29)
[2020-11-19] MEDS ORDERED: EPOETIN ALFA-EPBX 20,000 UNIT/ML VIAL SQ ONE (13:30)
[2020-11-19 19:32] VITALS: BMI 25.7
[2020-11-19] MEDS ORDERED: PT OWN MED DRAWER 7, Y5N ONE (20:41)
[2020-11-19] MEDS: LOSARTAN POTASSIUM 50 MG TABLET PO SCH (22:05)
[2020-11-20] MEDS: diphenhydrAMINE HCL 25 MG CAPSULE (FP) PO PRN ×3 (02:01→21:57)
[2020-11-20] MEDS ORDERED: PT OWN MED DRAWER 7, Y5N ONE ×3 (04:42→14:21)
[2020-11-20] MEDS: HEPARIN NA (PORCINE) 5,000 UNITS/ML 1ML VIAL SQ SCH ×3 (06:26→21:51)
[2020-11-20] MEDS: BANATROL PLUS POWDER PACKET PO SCH ×3 (06:26→21:52)
[2020-11-20] MEDS: BETHANECHOL CHLORIDE 10 MG TABLET PO SCH ×3 (06:26→21:55)
[2020-11-20] MEDS: NYSTATIN POWDER 100,000 UNITS/GM - 15 GM TOPICAL POWDER TP SCH ×3 (06:27→21:54)
[2020-11-20] MEDS: INSULIN (LEVEMIR) 100 UNITS/ML UNITS SQ SCH ×2 (06:27→21:53)
[2020-11-20] MEDS: INSULIN SLIDING SCALE (NOVOLOG) 1 VIAL SQ SCH ×3 (06:30→17:53)
[2020-11-20 07:54] LABS: CALCIUM 8.3 mg/dL (8.5-10.1)
[2020-11-20 07:55] LABS: BLOOD UREA NITROGEN 34.3 mg/dL (7-18)
[2020-11-20 07:58] LABS: CREATININE 6.8 mg/dL (0.55-1.3)
[2020-11-20 07:59] LABS: BASO % 0.9 % (0-2.0); EOS % 5.4 % (0-4.5); HEMATOCRIT 27.3 % (32.4-45.2); HEMOGLOBIN 8.5 GM/dL (10.7-15.3); LYMPH % 13.4 % (8-40); MCH 28.3 pg (25.7-33.7); MEAN CELL VOLUME 91.2 fl (80-96); MONO % 10.8 % (3.8-10.2); NEUT % 69.5 % (42.8-82.8); PLATELET COUNT 401 10^3/uL (134-434); RBC 2.99 M/mm3 (3.60-5.2); RDW 16.7 % (11.6-15.6); WHITE BLOOD COUNT 8.4 K/mm3 (4.0-10.0)
[2020-11-20] MEDS ORDERED: AMINO ACIDS/PROTEIN HYDROLYS 30 ML LIQUID.PKT PO SCH (08:00)
[2020-11-20] MEDS: SEVELAMER CARBONATE 800 MG TAB (FP) PO SCH ×3 (08:09→17:54)
[2020-11-20] MEDS: TAMSULOSIN HCL 0.4 MG CAP PO SCH (08:59)
[2020-11-20] MEDS ORDERED: VITAMIN B COMP W-C 1 EA TABLET (NEPHRO-VITE) PO SCH ×2 (10:00)
[2020-11-20] MEDS: MINERAL OIL/PET HY-PHL TOPICAL OINTMENT 454 GM JAR TP SCH ×2 (10:20→21:52)
[2020-11-20] MEDS: LACTOBACILLUS ACIDOPHILUS 1 TABLET PO SCH ×2 (10:20→21:52)
[2020-11-20] MEDS: LABETALOL HCL 200 MG TABLET (FP) PO SCH ×2 (10:20→21:52)
[2020-11-20] MEDS: PANTOPRAZOLE 40 MG TABLET PO SCH (10:20)
[2020-11-20] MEDS: SILVER SULFADIAZINE 1% TOP CREAM 50 GM JAR TP SCH (10:20)
[2020-11-20] MEDS: VITAMIN B COMP W-C 1 EA TABLET (NEPHRO-VITE) PO SCH (10:20)
[2020-11-20] MEDS ORDERED: DEXTROSE 50%-WATER 25 GM/50 ML DISP.SYRIN ONE (12:08)
[2020-11-20] MEDS ORDERED: SODIUM CHLORIDE 250 ML IV PRN (14:02)
[2020-11-20] MEDS ORDERED: VANCOMYCIN 1 GRAM (PRE-DOCKED) 1,000 MG/250 ML BAG IVPB ONE (15:08)
[2020-11-20] MEDS: LOPERAMIDE HCL 2 MG CAPSULE PO PRN (17:54)
[2020-11-20] MEDS: ACETAMINOPHEN 325 MG TABLET (FP) PO PRN (18:38)
[2020-11-20] MEDS: LOSARTAN POTASSIUM 50 MG TABLET PO SCH (21:52)
[2020-11-20] MEDS: MELATONIN 5 MG TABLETS PO PRN (21:57)
[2020-11-21] MEDS: HEPARIN NA (PORCINE) 5,000 UNITS/ML 1ML VIAL SQ SCH ×3 (05:17→21:42)
[2020-11-21] MEDS: BANATROL PLUS POWDER PACKET PO SCH ×3 (05:17→21:44)
[2020-11-21] MEDS: BETHANECHOL CHLORIDE 10 MG TABLET PO SCH ×3 (05:17→21:45)
[2020-11-21] MEDS: NYSTATIN POWDER 100,000 UNITS/GM - 15 GM TOPICAL POWDER TP SCH ×3 (05:17→21:44)
[2020-11-21] MEDS: INSULIN (LEVEMIR) 100 UNITS/ML UNITS SQ SCH ×2 (06:02→21:45)
[2020-11-21] MEDS: SILVER SULFADIAZINE 1% TOP CREAM 50 GM JAR TP SCH ×3 (06:03→21:45)
[2020-11-21] MEDS: INSULIN SLIDING SCALE (NOVOLOG) 1 VIAL SQ SCH ×3 (06:03→18:38)
[2020-11-21] MEDS ORDERED: EPOETIN ALFA-EPBX 10,000 UNIT/ML VIAL IVPUSH ONE ×2 (10:00→13:29)
[2020-11-21] MEDS: SEVELAMER CARBONATE 800 MG TAB (FP) PO SCH ×3 (10:11→18:43)
[2020-11-21] MEDS: TAMSULOSIN HCL 0.4 MG CAP PO SCH ×2 (10:11→14:21)
[2020-11-21 10:52] LABS: EOS % 4.3 % (0-4.5); HEMATOCRIT 27.9 % (32.4-45.2); HEMOGLOBIN 8.7 GM/dL (10.7-15.3); MCH 28.1 pg (25.7-33.7); MCHC 31.1 g/dl (32.0-36.0); MEAN CELL VOLUME 90.5 fl (80-96); MEAN PLT VOLUME 7.8 fl (7.5-11.1); MONO % 9.1 % (3.8-10.2); NEUT % 75.6 % (42.8-82.8); PLATELET COUNT 391 10^3/uL (134-434); RBC 3.08 M/mm3 (3.60-5.2); RDW 17.1 % (11.6-15.6); WHITE BLOOD COUNT 9.7 K/mm3 (4.0-10.0)
[2020-11-21 11:20] LABS: CHLORIDE 102 mmol/L (98-107); SODIUM 138 mmol/L (136-145)
[2020-11-21 11:22] LABS: ANION GAP 12 MMOL/L (8-16); BLOOD UREA NITROGEN 50.3 mg/dL (7-18); CALCIUM 8.7 mg/dL (8.5-10.1); CO2 24 mmol/L (21-32)
[2020-11-21 11:23] LABS: GLUCOSE,RANDOM 109 mg/dL (74-106)
[2020-11-21 11:27] LABS: CREATININE 8.9 mg/dL (0.55-1.3)
[2020-11-21] MEDS ORDERED: VANCOMYCIN 1 GRAM (PRE-DOCKED) 1,000 MG/250 ML BAG IVPB ONE (12:00)
[2020-11-21] MEDS ORDERED: PT OWN MED DRAWER 7, Y5N ONE (14:02)
[2020-11-21] MEDS: LABETALOL HCL 200 MG TABLET (FP) PO SCH ×2 (14:21→21:44)
[2020-11-21] MEDS: VITAMIN B COMP W-C 1 EA TABLET (NEPHRO-VITE) PO SCH (14:21)
[2020-11-21] MEDS: PANTOPRAZOLE 40 MG TABLET PO SCH (14:22)
[2020-11-21] MEDS: MINERAL OIL/PET HY-PHL TOPICAL OINTMENT 454 GM JAR TP SCH ×2 (14:22→21:44)
[2020-11-21] MEDS: LACTOBACILLUS ACIDOPHILUS 1 TABLET PO SCH ×2 (14:22→21:44)
[2020-11-21] MEDS: LOSARTAN POTASSIUM 50 MG TABLET PO SCH (21:43)
[2020-11-21 22:13] VITALS: BP 105/61; PULSE 83; TEMP 98
== END 2020-11-21 21:55 | DRG 477 ==
LOC: JER 22:36 → JERBED 11-12 02:03 → J8W 11-12 03:47
PROVIDERS: ADMIT Internal Medicine; ATTEND Internal Medicine
PROC: 0QBH0ZX Excision of Left Tibia, Open Approach, Diagnostic (ICD-10-PCS; 2020-11-13)
PROC: 0QSH06Z Reposition Left Tibia with Intramedullary Internal Fixation Device, Open Approach (ICD-10-PCS; 2020-11-13)
PROC: 0QHH05Z Insertion of External Fixation Device into Left Tibia, Open Approach (ICD-10-PCS; 2020-11-13)
PROC: 0Y9L0ZX Drainage of Left Ankle Region, Open Approach, Diagnostic (ICD-10-PCS; 2020-11-13)
PROC: 3E10X8Z Irrigation of Skin and Mucous Membranes using Irrigating Substance (ICD-10-PCS; 2020-11-13)
PROC: 2W6RX0Z Traction of Left Lower Leg using Traction Apparatus (ICD-10-PCS; 2020-11-13)
PROC: 0SPGX5Z Removal of External Fixation Device from Left Ankle Joint, External Approach (ICD-10-PCS; principal; 2020-11-13 09:00)
PROC: 5A1D70Z Performance of Urinary Filtration, Intermittent, Less than 6 Hours Per Day (ICD-10-PCS; 2020-11-16)
PROC: 5A1D70Z Performance of Urinary Filtration, Intermittent, Less than 6 Hours Per Day (ICD-10-PCS; 2020-11-18)
PROC: 5A1D70Z Performance of Urinary Filtration, Intermittent, Less than 6 Hours Per Day (ICD-10-PCS; 2020-11-21)
DX: S82.842A Displaced bimalleolar fracture of left lower leg, initial encounter for closed fracture (principal); N18.6 End stage renal disease; S32.009A Unspecified fracture of unspecified lumbar vertebra, initial encounter for closed fracture; I12.0 Hypertensive chronic kidney disease with stage 5 chronic kidney disease or end stage renal disease; R78.81 Bacteremia; E87.1 Hypo-osmolality and hyponatremia; L02.416 Cutaneous abscess of left lower limb; G93.40 Encephalopathy, unspecified; N17.9 Acute kidney failure, unspecified; M86.18 Other acute osteomyelitis, other site; E11.22 Type 2 diabetes mellitus with diabetic chronic kidney disease; F41.8 Other specified anxiety disorders; S82.832A Other fracture of upper and lower end of left fibula, initial encounter for closed fracture; E11.65 Type 2 diabetes mellitus with hyperglycemia; E83.39 Other disorders of phosphorus metabolism; E88.09 Other disorders of plasma-protein metabolism, not elsewhere classified; E87.5 Hyperkalemia; G35 Multiple sclerosis; E11.69 Type 2 diabetes mellitus with other specified complication; R29.6 Repeated falls; R94.5 Abnormal results of liver function studies; E83.41 Hypermagnesemia; G47.00 Insomnia, unspecified; M62.81 Muscle weakness (generalized); E78.5 Hyperlipidemia, unspecified; D50.9 Iron deficiency anemia, unspecified; R19.7 Diarrhea, unspecified; D72.829 Elevated white blood cell count, unspecified; B35.6 Tinea cruris; D64.9 Anemia, unspecified; W07.XXXA Fall from chair, initial encounter; Y92.098 Other place in other non-institutional residence as the place of occurrence of the external cause; Z99.3 Dependence on wheelchair; Z99.2 Dependence on renal dialysis; Z91.14 Patient's other noncompliance with medication regimen
CPT/HCPCS: 36415; 71045-TC-FY; 73590-TC-LT-FY; 73610-TC-LT-FY; 73630-TC-LT; 73700-TC-RT; 74018-TC-FY; 76700-TC; 76856-TC; 80048; 80053; 80076; 82728; 82962; 82977; 83540; 83550; 83735; 84100; 85025; 85610; 85730; 86140; 86922; 87015; 87045; 87046; 87070; 87075; 87177; 87205; 87207; 87209; 87324; 87328; 87329; 87340; 87449; 88304-TC; 88311-TC; 93005; 93010; 94760; 99285-25; C9803; G0480; J1644; J1756; Q5106; U0003; U0005

== ENCOUNTER 2020-11-23 11:12 | Inpatient (IN) | payer OTHER ==
[2020-11-23] MEDS ORDERED: oxyCODONE HCL 5 MG TABLET PO PRN (11:57)
[2020-11-23] MEDS ORDERED: DOCUSATE SODIUM 100 MG CAPSULE (FP) PO PRN (11:57)
[2020-11-23] MEDS ORDERED: ALBUTEROL SO4 2.5/IPRATROPIUM 0.5 INH SOL 3 ML VIAL.NEB. NEB PRN (11:57)
[2020-11-23] MEDS ORDERED: diphenhydrAMINE HCL 25 MG CAPSULE (FP) PO PRN (11:57)
[2020-11-23] MEDS ORDERED: ACETAMINOPHEN 325 MG TABLET (FP) PO PRN (11:57)
[2020-11-23 12:48] LABS: BASO % 1.2 % (0-2.0); EOS % 1.2 % (0-4.5); HEMATOCRIT 31.1 % (32.4-45.2); HEMOGLOBIN 9.8 GM/dL (10.7-15.3); LYMPH % 8.1 % (8-40); MCH 27.9 pg (25.7-33.7); MCHC 31.4 g/dl (32.0-36.0); MEAN CELL VOLUME 89.1 fl (80-96); MEAN PLT VOLUME 8.1 fl (7.5-11.1); MONO % 8.6 % (3.8-10.2); NEUT % 80.9 % (42.8-82.8); PLATELET COUNT 433 10^3/uL (134-434); RBC 3.49 M/mm3 (3.60-5.2); RDW 17.4 % (11.6-15.6); WHITE BLOOD COUNT 12.7 K/mm3 (4.0-10.0)
[2020-11-23 12:55] LABS: INR 1.15 (0.83-1.09); PROTHROMBIN TIME (PATIENT) 13.9 SEC (9.7-13.0)
[2020-11-23 13:05] LABS: CHLORIDE 100 mmol/L (98-107); SODIUM 136 mmol/L (136-145)
[2020-11-23 13:07] LABS: ALBUMIN 2.4 g/dl (3.4-5.0); ANION GAP 13 MMOL/L (8-16); BLOOD UREA NITROGEN 49.2 mg/dL (7-18); CALCIUM 8.6 mg/dL (8.5-10.1); CO2 24 mmol/L (21-32)
[2020-11-23 13:10] LABS: CREATININE 7.1 mg/dL (0.55-1.3); SGOT/AST 33 U/L (15-37); SGPT/ALT 30 U/L (13-61)
[2020-11-23 13:12] LABS: BILIRUBIN,TOTAL 0.6 mg/dL (0.2-1)
[2020-11-23 13:13] LABS: ALK PHOS 759 U/L (45-117); GLUCOSE,RANDOM 414 mg/dL (74-106)
[2020-11-23] MEDS ORDERED: INSULIN REGULAR HUMAN 100 UNITS/ML *VIAL SQ ONE (13:17)
[2020-11-23] MEDS ORDERED: SODIUM CHLORIDE 250 ML IV STA (13:17)
[2020-11-23] MEDS ORDERED: SODIUM ZIRCONIUM CYCLOSILICATE (LOKELMA) 5 GM PACKET PO ONE (13:32)
[2020-11-23] MEDS ORDERED: SODIUM CHLORIDE 250 ML IV PRN (13:48)
[2020-11-23] MEDS: SEVELAMER CARBONATE 800 MG TAB (FP) PO SCH ×2 (13:58→18:46)
[2020-11-23] MEDS: VANCOMYCIN 250 MG/5 ML ORAL SOLUTION PO SCH ×2 (13:58→19:53)
[2020-11-23] MEDS: LABETALOL HCL 200 MG TABLET (FP) PO SCH ×2 (15:17→21:29)
[2020-11-23] MEDS: BETHANECHOL CHLORIDE 10 MG TABLET PO SCH ×2 (15:17→21:28)
[2020-11-23] MEDS ORDERED: SODIUM ZIRCONIUM CYCLOSILICATE (LOKELMA) 5 GM PACKET ONE (15:26)
[2020-11-23 18:26] VITALS: BMI 24.0
[2020-11-23] MEDS ORDERED: LOPERAMIDE HCL 2 MG CAPSULE PO ONE (18:33)
[2020-11-23] MEDS: METOCLOPRAMIDE HCL 10 MG TABLET (FP) PO SCH (18:46)
[2020-11-23] MEDS ORDERED: LABETALOL HCL 100 MG TABLET (FP) ONE (21:17)
[2020-11-23] MEDS ORDERED: INSULIN (NOVOLOG) ASPART 100 UNITS/ML 10ML VIAL ONE (21:17)
[2020-11-23] MEDS: HEPARIN NA (PORCINE) 5,000 UNITS/ML 1ML VIAL SQ SCH (21:30)
[2020-11-23] MEDS: INSULIN (LEVEMIR) 100 UNITS/ML UNITS SQ SCH (21:31)
[2020-11-23] MEDS: INSULIN SLIDING SCALE (NOVOLOG) 1 VIAL SQ SCH (21:31)
[2020-11-24] MEDS: VANCOMYCIN 250 MG/5 ML ORAL SOLUTION PO SCH ×5 (00:07→17:17)
[2020-11-24] MEDS ORDERED: LABETALOL HCL 100 MG TABLET (FP) ONE ×2 (05:20→21:40)
[2020-11-24] MEDS: LABETALOL HCL 200 MG TABLET (FP) PO SCH ×3 (05:24→21:47)
[2020-11-24] MEDS: BETHANECHOL CHLORIDE 10 MG TABLET PO SCH ×3 (05:26→21:47)
[2020-11-24] MEDS: METOCLOPRAMIDE HCL 10 MG TABLET (FP) PO SCH ×3 (06:22→17:16)
[2020-11-24] MEDS: INSULIN SLIDING SCALE (NOVOLOG) 1 VIAL SQ SCH ×4 (06:22→21:50)
[2020-11-24] MEDS: INSULIN (LEVEMIR) 100 UNITS/ML UNITS SQ SCH ×2 (06:22→21:51)
[2020-11-24] MEDS ORDERED: TAMSULOSIN HCL 0.4 MG CAP PO SCH (08:30)
[2020-11-24] MEDS: SEVELAMER CARBONATE 800 MG TAB (FP) PO SCH ×3 (08:37→17:16)
[2020-11-24 08:43] LABS: HEMATOCRIT 28.7 % (32.4-45.2); HEMOGLOBIN 8.9 GM/dL (10.7-15.3); MCH 27.9 pg (25.7-33.7); MEAN CELL VOLUME 89.9 fl (80-96); MEAN PLT VOLUME 8.2 fl (7.5-11.1); PLATELET COUNT 412 10^3/uL (134-434); RDW 16.8 % (11.6-15.6)
[2020-11-24] MEDS: HEPARIN NA (PORCINE) 5,000 UNITS/ML 1ML VIAL SQ SCH ×2 (12:11→21:46)
[2020-11-24] MEDS ORDERED: HEPARIN NA (PORCINE) 5,000 UNITS/ML 1ML VIAL ONE (13:13)
[2020-11-24] MEDS ORDERED: LIDOCAINE HCL 1%, 10 MG/ML (20ML VIAL) ONE (13:14)
[2020-11-24] MEDS ORDERED: MIDAZOLAM HCL 2 MG/2 ML SINGLE DOSE VIAL ONE (13:25)
[2020-11-24] MEDS ORDERED: SUCCINYLCHOLINE CHLORIDE 200 MG/10 ML SYRINGE ONE (13:25)
[2020-11-24] MEDS ORDERED: LIDOCAINE HCL/PF 2% SDV 5ML VIAL ONE (13:27)
[2020-11-24] MEDS ORDERED: LIDOCAINE HCL 1%, 10 MG/ML (20ML VIAL) INF ONE (13:32)
[2020-11-24] MEDS ORDERED: EPOETIN ALFA-EPBX 10,000 UNIT/ML VIAL SQ ONE ×2 (13:48→15:37)
[2020-11-24] MEDS ORDERED: DOCUSATE SODIUM 100 MG CAPSULE (FP) PO PRN (15:37)
[2020-11-24] MEDS ORDERED: ALBUTEROL SO4 2.5/IPRATROPIUM 0.5 INH SOL 3 ML VIAL.NEB. NEB PRN (15:37)
[2020-11-24] MEDS ORDERED: ACETAMINOPHEN 325 MG TABLET (FP) PO PRN (15:37)
[2020-11-24] MEDS ORDERED: diphenhydrAMINE HCL 25 MG CAPSULE (FP) PO PRN (15:37)
[2020-11-24] MEDS ORDERED: SODIUM CHLORIDE 250 ML IV PRN (15:37)
[2020-11-24] MEDS ORDERED: oxyCODONE HCL 5 MG TABLET PO PRN (15:37)
[2020-11-24] MEDS ORDERED: VANCOMYCIN 1 GRAM (PRE-DOCKED) 1,000 MG/250 ML BAG IVPB ONE ×2 (17:00)
[2020-11-24] MEDS: LOPERAMIDE HCL 2 MG CAPSULE PO PRN (18:24)
[2020-11-24 22:18] LABS: CALCIUM 8.3 mg/dL (8.5-10.1)
[2020-11-24 22:22] LABS: CREATININE 3.5 mg/dL (0.55-1.3)
[2020-11-24 22:27] LABS: BLOOD UREA NITROGEN 22.4 mg/dL (7-18)
[2020-11-25] MEDS: VANCOMYCIN 250 MG/5 ML ORAL SOLUTION PO SCH ×3 (00:30→11:47)
[2020-11-25] MEDS ORDERED: PT OWN MED DRAWER 7, Y5N ONE (01:12)
[2020-11-25] MEDS ORDERED: LABETALOL HCL 100 MG TABLET (FP) ONE ×2 (06:04→13:51)
[2020-11-25] MEDS ORDERED: INSULIN (NOVOLOG) ASPART 100 UNITS/ML 10ML VIAL ONE (06:05)
[2020-11-25] MEDS: LABETALOL HCL 200 MG TABLET (FP) PO SCH ×2 (06:06→14:02)
[2020-11-25] MEDS: BETHANECHOL CHLORIDE 10 MG TABLET PO SCH ×2 (06:07→14:02)
[2020-11-25] MEDS: METOCLOPRAMIDE HCL 10 MG TABLET (FP) PO SCH ×2 (06:07→11:45)
[2020-11-25] MEDS: INSULIN SLIDING SCALE (NOVOLOG) 1 VIAL SQ SCH ×3 (06:08→16:10)
[2020-11-25] MEDS: INSULIN (LEVEMIR) 100 UNITS/ML UNITS SQ SCH (06:08)
[2020-11-25] MEDS ORDERED: TAMSULOSIN HCL 0.4 MG CAP PO SCH (08:30)
[2020-11-25] MEDS: SEVELAMER CARBONATE 800 MG TAB (FP) PO SCH ×2 (08:45→11:45)
[2020-11-25] MEDS: HEPARIN NA (PORCINE) 5,000 UNITS/ML 1ML VIAL SQ SCH (09:16)
[2020-11-25 14:44] VITALS: BP 160/76; PULSE 91; TEMP 99
[2020-11-25] MEDS: LOPERAMIDE HCL 2 MG CAPSULE PO PRN (15:16)
== END 2020-11-25 18:03 | DRG 698 ==
LOC: JER 11:12 → JERBED 12:41 → J6S 17:50
PROVIDERS: ADMIT Family Medicine; ATTEND Family Medicine
PROC: 05HM33Z Insertion of Infusion Device into Right Internal Jugular Vein, Percutaneous Approach (ICD-10-PCS; 2020-11-24)
PROC: B543ZZA Ultrasonography of Right Jugular Veins, Guidance (ICD-10-PCS; 2020-11-24)
PROC: 02H633Z Insertion of Infusion Device into Right Atrium, Percutaneous Approach (ICD-10-PCS; principal; 2020-11-24 13:00)
DX: T82.42XA Displacement of vascular dialysis catheter, initial encounter (principal); N18.6 End stage renal disease; I12.0 Hypertensive chronic kidney disease with stage 5 chronic kidney disease or end stage renal disease; G93.49 Other encephalopathy; Y83.8 Other surgical procedures as the cause of abnormal reaction of the patient, or of later complication, without mention of misadventure at the time of the procedure; E11.22 Type 2 diabetes mellitus with diabetic chronic kidney disease; G35 Multiple sclerosis; E87.5 Hyperkalemia; E78.5 Hyperlipidemia, unspecified; F17.210 Nicotine dependence, cigarettes, uncomplicated; E11.65 Type 2 diabetes mellitus with hyperglycemia; F41.8 Other specified anxiety disorders; D64.9 Anemia, unspecified; Z99.2 Dependence on renal dialysis; Z91.14 Patient's other noncompliance with medication regimen
CPT/HCPCS: 36415; 71045-TC-FY; 73610-TC-LT-FY; 76000-TC-FY; 80048; 80053; 82962; 84702; 85025; 85027; 85610; 85651; 85730; 86140; 86850; 86900; 86901; 87040; 87324; 87449; 93005; 93010; 94760; 99285-25; C9803; G0378; J1644; Q5106; U0003; U0005

== ENCOUNTER 2020-12-01 10:51 | Inpatient (IN) | payer OTHER ==
[2020-12-01] MEDS ORDERED: ACETAMINOPHEN 1000 MG/100 ML VIAL (NON FORMULARY) IVPB ONE (13:09)
[2020-12-01] MEDS ORDERED: ACETAMINOPHEN INJECTION 100 ML IVPB ONE (13:25)
[2020-12-01 13:28] LABS: BASO % 1.2 % (0-2.0); EOS % 0.1 % (0-4.5); HEMOGLOBIN 9.7 GM/dL (10.7-15.3); LYMPH % 2.7 % (8-40); MCH 26.9 pg (25.7-33.7); MCHC 31.3 g/dl (32.0-36.0); PLATELET COUNT 422 10^3/uL (134-434); RDW 17.8 % (11.6-15.6); WHITE BLOOD COUNT 15.5 K/mm3 (4.0-10.0)
[2020-12-01 13:36] LABS: INR 1.4 (0.83-1.09)
[2020-12-01 13:52] LABS: CHLORIDE 105 mmol/L (98-107); SODIUM 139 mmol/L (136-145)
[2020-12-01 13:54] LABS: ALBUMIN 2.5 g/dl (3.4-5.0); CALCIUM 9.4 mg/dL (8.5-10.1); CO2 13 mmol/L (21-32); GLUCOSE,RANDOM 132 mg/dL (74-106)
[2020-12-01 13:57] LABS: SGOT/AST 19 U/L (15-37); SGPT/ALT 18 U/L (13-61)
[2020-12-01 13:59] LABS: BILIRUBIN,TOTAL 0.7 mg/dL (0.2-1); TOT PROT 8.5 g/dl (6.4-8.2)
[2020-12-01] MEDS ORDERED: VANCOMYCIN 1 GM in D5W (PRE-DOCKED) 1,000 MG/250 ML IVPB ONE (14:05)
[2020-12-01] MEDS ORDERED: CEFEPIME HCL/D5W 2 GM/50 ML BAG IVPB ONE (14:06)
[2020-12-01] MEDS ORDERED: HEPARIN NA (PORCINE) 5,000 UNITS/ML 1ML VIAL IVPUSH PRN (14:15)
[2020-12-01] MEDS ORDERED: HEPARIN NA (PORCINE) 5,000 UNITS/ML 1ML VIAL IVPUSH ONE (14:15)
[2020-12-01] MEDS ORDERED: CEFEPIME 2 GM/100 ML BAG IVPB ONE (14:23)
[2020-12-01] MEDS ORDERED: VANCOMYCIN 1 GRAM (PRE-DOCKED) 1,000 MG/250 ML BAG IVPB ONE (14:23)
[2020-12-01] MEDS ORDERED: HEPARIN INFUSION - 25,000 UNITS/500 ML INFUS.BAG IVPB ONE (14:23)
[2020-12-01 14:24] LABS: ANISOCYTOSIS 0; HELMET CELLS 0; HOWELL-JOLLY BODIES 0; MACROCYTOSIS 0; OVALOCYTE 0; PLATELET ESTIMATE NORMAL; ROULEAU 0; SICKELED CELLS 0; TARGET CELLS 0; TEAR DROP CELLS 0; TOXIC GRANULATION 0
[2020-12-01 14:27] LABS: ALK PHOS 500 U/L (45-117); ANION GAP 21 MMOL/L (8-16); BLOOD UREA NITROGEN 96.7 mg/dL (7-18); CREATININE 14.9 mg/dL (0.55-1.3)
[2020-12-01] MEDS ORDERED: INSULIN REGULAR HUMAN 100 UNITS/ML *VIAL IVPUSH ONE (14:34)
[2020-12-01] MEDS ORDERED: CALCIUM GLUC IN NACL, ISO-OSM 1 GM/50 ML BAG IVPB ONE (14:34)
[2020-12-01] MEDS ORDERED: DEXTROSE 50%-WATER - 25 GM/50 ML VIAL IVPUSH ONE ×2 (14:34→17:06)
[2020-12-01] MEDS ORDERED: ALBUTEROL SO4 0.083% IH SOL 2.5 MG/3 ML VIAL.NEB. NEB ONE (14:35)
[2020-12-01] MEDS ORDERED: DEXTROSE 50%-WATER 25 GM/50 ML DISP.SYRIN ONE ×2 (14:36→17:05)
[2020-12-01] MEDS ORDERED: CALCIUM GLUCONATE 10% - 1,000 MG/10 ML VIAL ONE (14:36)
[2020-12-01] MEDS ORDERED: SODIUM BICARBONATE 8.4% 50 MEQ/50 ML VIAL ONE (14:36)
[2020-12-01] MEDS: HEPARIN NA (PORCINE) 5,000 UNITS/ML 1ML VIAL IVPUSH PRN (17:00)
[2020-12-01] MEDS: HEPARIN - 25,000 UNIT in SODIUM CHLORIDE 495 ML IV SCH (17:00)
[2020-12-01] MEDS ORDERED: SODIUM CHLORIDE 250 ML IV PRN (17:01)
[2020-12-01] MEDS ORDERED: ALBUTEROL SO4 2.5/IPRATROPIUM 0.5 INH SOL 3 ML VIAL.NEB. NEB PRN (18:50)
[2020-12-01] MEDS ORDERED: ACETAMINOPHEN 325 MG TABLET (FP) PO PRN (18:50)
[2020-12-01] MEDS ORDERED: EPOETIN ALFA-EPBX 10,000 UNIT/ML VIAL SQ ONE (19:00)
[2020-12-01] MEDS ORDERED: DEXTROSE 5%-0.45% SALINE 1,000 ML IV SCH (19:00)
[2020-12-01] MEDS: INSULIN (NOVOLOG) ASPART 100 UNITS/ML 10ML VIAL SQ SCH (21:45)
[2020-12-01] MEDS: LABETALOL HCL 200 MG TABLET (FP) PO SCH (21:47)
[2020-12-02] MEDS: HEPARIN NA (PORCINE) 5,000 UNITS/ML 1ML VIAL IVPUSH PRN ×2 (02:01→13:32)
[2020-12-02] MEDS: INSULIN (NOVOLOG) ASPART 100 UNITS/ML 10ML VIAL SQ SCH ×3 (06:06→17:39)
[2020-12-02 09:14] LABS: EOS % 0.5 % (0-4.5); HEMATOCRIT 27.8 % (32.4-45.2); HEMOGLOBIN 8.9 GM/dL (10.7-15.3); MCH 27.2 pg (25.7-33.7); MCHC 31.9 g/dl (32.0-36.0); MEAN CELL VOLUME 85.4 fl (80-96); MEAN PLT VOLUME 8.1 fl (7.5-11.1); MONO % 10.4 % (3.8-10.2); NEUT % 82.1 % (42.8-82.8); PLATELET COUNT 368 10^3/uL (134-434); RBC 3.26 M/mm3 (3.60-5.2); RDW 17.4 % (11.6-15.6); WHITE BLOOD COUNT 7.6 K/mm3 (4.0-10.0)
[2020-12-02 09:30] LABS: LDL CHOLESTEROL (ONLY SJRH) 54 mg/dL (5-100)
[2020-12-02 09:31] LABS: HDL CHOLESTEROL 34 mg/dL (40-60)
[2020-12-02 09:33] LABS: CHOLESTEROL 135 mg/dL (50-200); TRIGLYCERIDES 125 mg/dL (0-150)
[2020-12-02] MEDS ORDERED: PANTOPRAZOLE 40 MG TABLET PO SCH (10:00)
[2020-12-02] MEDS ORDERED: PNEUMOC 13-VAL CONJ-DIP CRM/PF 0.5 ML DISP.SYRIN IM ONE (10:00)
[2020-12-02] MEDS: LABETALOL HCL 200 MG TABLET (FP) PO SCH ×2 (10:47→22:11)
[2020-12-02 11:32] LABS: ALBUMIN 2.2 g/dl (3.4-5.0); ALK PHOS 353 U/L (45-117); ANION GAP 14 MMOL/L (8-16); BILIRUBIN,TOTAL 0.6 mg/dL (0.2-1); CALCIUM 8.5 mg/dL (8.5-10.1); CHLORIDE 107 mmol/L (98-107); CO2 23 mmol/L (21-32); CREATININE 8.2 mg/dL (0.55-1.3); GLUCOSE,RANDOM 103 mg/dL (74-106); MAGNESIUM 2.4 mg/dL (1.8-2.4); PHOSPHOROUS 6.7 mg/dL (2.5-4.9); SGOT/AST 19 U/L (15-37); SGPT/ALT 15 U/L (13-61); SODIUM 144 mmol/L (136-145)
[2020-12-02] MEDS ORDERED: CEFEPIME 1 GM in DEXTROSE 5%-WATER 1 GM/100 ML BAG IVPB SCH (11:45)
[2020-12-02] MEDS ORDERED: CEFEPIME HCL 1 GM VIAL (RESTRICTED TO ID) ONE (12:36)
[2020-12-02] MEDS ORDERED: DEXTROSE 5%-WATER 100 ML IVPB ONE (12:36)
[2020-12-02] MEDS ORDERED: EPOETIN ALFA-EPBX 10,000 UNIT/ML VIAL SQ ONE (13:30)
[2020-12-02] MEDS ORDERED: SODIUM CHLORIDE 250 ML IV PRN ×2 (13:30→20:40)
[2020-12-02] MEDS: HEPARIN - 25,000 UNIT in SODIUM CHLORIDE 495 ML IV SCH ×2 (17:38→23:08)
[2020-12-02] MEDS ORDERED: DESFLURANE GAS 240 ML BOTTLE IH ONE (17:54)
[2020-12-02] MEDS ORDERED: PROPOFOL 20 ML ONE (17:55)
[2020-12-02] MEDS ORDERED: MIDAZOLAM HCL 2 MG/2 ML SINGLE DOSE VIAL ONE (17:57)
[2020-12-02] MEDS ORDERED: ONDANSETRON 4 MG/2 ML VIAL IVPUSH PRN ×2 (20:25→20:40)
[2020-12-02] MEDS ORDERED: HEPARIN NA (PORCINE) 5,000 UNITS/ML 1ML VIAL IVPUSH PRN (20:40)
[2020-12-02] MEDS ORDERED: ALBUTEROL SO4 2.5/IPRATROPIUM 0.5 INH SOL 3 ML VIAL.NEB. NEB PRN (20:40)
[2020-12-02] MEDS ORDERED: ACETAMINOPHEN 325 MG TABLET (FP) PO PRN (20:40)
[2020-12-02] MEDS: INSULIN SLIDING SCALE (NOVOLOG) 1 VIAL SQ SCH (22:11)
[2020-12-03] MEDS: INSULIN SLIDING SCALE (NOVOLOG) 1 VIAL SQ SCH ×4 (06:30→21:43)
[2020-12-03] MEDS ORDERED: DEXTROSE 5%-WATER 100 ML IVPB ONE (09:42)
[2020-12-03] MEDS ORDERED: CEFEPIME HCL 1 GM VIAL (RESTRICTED TO ID) ONE (09:42)
[2020-12-03] MEDS: HEPARIN NA (PORCINE) 5,000 UNITS/ML 1ML VIAL IVPUSH PRN ×2 (09:52→21:47)
[2020-12-03] MEDS: CEFEPIME 1 GM in DEXTROSE 5%-WATER 1 GM/100 ML BAG IVPB SCH (12:05)
[2020-12-03] MEDS: LABETALOL HCL 200 MG TABLET (FP) PO SCH ×2 (12:05→21:42)
[2020-12-03] MEDS: PANTOPRAZOLE 40 MG TABLET PO SCH (12:05)
[2020-12-03] MEDS: INSULIN (LEVEMIR) 100 UNITS/ML UNITS SQ SCH ×2 (12:58→21:43)
[2020-12-03] MEDS ORDERED: VANCOMYCIN 1 GRAM (PRE-DOCKED) 1,000 MG/250 ML BAG IVPB ONE (16:00)
[2020-12-03] MEDS: HEPARIN - 25,000 UNIT in SODIUM CHLORIDE 495 ML IV SCH (22:28)
[2020-12-04 05:04] LABS: BASO % 0.8 % (0-2.0); HEMATOCRIT 27.3 % (32.4-45.2); HEMOGLOBIN 8.5 GM/dL (10.7-15.3); LYMPH % 10.5 % (8-40); MCH 26.4 pg (25.7-33.7); MCHC 31.2 g/dl (32.0-36.0); MEAN CELL VOLUME 84.7 fl (80-96); MEAN PLT VOLUME 7.6 fl (7.5-11.1); MONO % 10.7 % (3.8-10.2); PLATELET COUNT 395 10^3/uL (134-434); RBC 3.22 M/mm3 (3.60-5.2); RDW 18.1 % (11.6-15.6); WHITE BLOOD COUNT 11.8 K/mm3 (4.0-10.0)
[2020-12-04 05:21] LABS: CALCIUM 8.7 mg/dL (8.5-10.1)
[2020-12-04 05:22] LABS: ALBUMIN 2.1 g/dl (3.4-5.0); BLOOD UREA NITROGEN 35.1 mg/dL (7-18)
[2020-12-04 05:25] LABS: CREATININE 7.2 mg/dL (0.55-1.3)
[2020-12-04 05:27] LABS: BILIRUBIN,TOTAL 0.5 mg/dL (0.2-1); TOT PROT 7.1 g/dl (6.4-8.2)
[2020-12-04] MEDS: HEPARIN - 25,000 UNIT in SODIUM CHLORIDE 495 ML IV SCH ×2 (05:44→19:00)
[2020-12-04] MEDS: HEPARIN NA (PORCINE) 5,000 UNITS/ML 1ML VIAL IVPUSH PRN ×2 (05:46→17:06)
[2020-12-04] MEDS: INSULIN SLIDING SCALE (NOVOLOG) 1 VIAL SQ SCH ×4 (06:11→21:28)
[2020-12-04] MEDS ORDERED: CEFEPIME HCL 1 GM VIAL (RESTRICTED TO ID) ONE (10:15)
[2020-12-04] MEDS ORDERED: DEXTROSE 5%-WATER 100 ML IVPB ONE (10:15)
[2020-12-04] MEDS: LABETALOL HCL 200 MG TABLET (FP) PO SCH ×2 (10:33→21:28)
[2020-12-04] MEDS: PANTOPRAZOLE 40 MG TABLET PO SCH (10:34)
[2020-12-04] MEDS: CEFEPIME 1 GM in DEXTROSE 5%-WATER 1 GM/100 ML BAG IVPB SCH (10:34)
[2020-12-04] MEDS: INSULIN (LEVEMIR) 100 UNITS/ML UNITS SQ SCH ×2 (10:38→21:29)
[2020-12-04] MEDS ORDERED: SODIUM CHLORIDE 250 ML IV PRN (11:27)
[2020-12-04] MEDS ORDERED: LINEZOLID 600 MG PREMIX BAG 600 MG in PREMIX 300 IVPB SCH (12:15)
[2020-12-04] MEDS: LINEZOLID 600 MG TABLET (RESTRICTED TO ID) PO SCH ×2 (14:31→21:28)
[2020-12-04] MEDS ORDERED: PT OWN MED DRAWER 7, Y5N ONE ×2 (14:33→21:22)
[2020-12-04] MEDS ORDERED: LOPERAMIDE HCL 2 MG CAPSULE PO ONE (19:56)
[2020-12-05 01:44] LABS: HEMATOCRIT 28.4 % (32.4-45.2); HEMOGLOBIN 8.6 GM/dL (10.7-15.3); MCH 25.9 pg (25.7-33.7); MCHC 30.4 g/dl (32.0-36.0); MEAN CELL VOLUME 85.2 fl (80-96); MEAN PLT VOLUME 7.9 fl (7.5-11.1); PLATELET COUNT 411 10^3/uL (134-434); RBC 3.33 M/mm3 (3.60-5.2); RDW 18.8 % (11.6-15.6)
[2020-12-05 01:57] LABS: CHLORIDE 103 mmol/L (98-107); SODIUM 136 mmol/L (136-145)
[2020-12-05 01:58] LABS: CALCIUM 8.5 mg/dL (8.5-10.1)
[2020-12-05 01:59] LABS: ANION GAP 14 MMOL/L (8-16); BLOOD UREA NITROGEN 42.2 mg/dL (7-18); CO2 20 mmol/L (21-32); GLUCOSE,RANDOM 230 mg/dL (74-106)
[2020-12-05 02:14] LABS: CREATININE 8.6 mg/dL (0.55-1.3)
[2020-12-05] MEDS: HEPARIN NA (PORCINE) 5,000 UNITS/ML 1ML VIAL IVPUSH PRN (02:45)
[2020-12-05] MEDS: INSULIN SLIDING SCALE (NOVOLOG) 1 VIAL SQ SCH ×4 (06:08→21:57)
[2020-12-05] MEDS ORDERED: DEXTROSE 5%-WATER 100 ML IVPB ONE (08:36)
[2020-12-05] MEDS ORDERED: CEFEPIME HCL 1 GM VIAL (RESTRICTED TO ID) ONE (08:36)
[2020-12-05] MEDS ORDERED: LABETALOL HCL 100 MG TABLET (FP) ONE (09:48)
[2020-12-05] MEDS: INSULIN (LEVEMIR) 100 UNITS/ML UNITS SQ SCH ×2 (09:55→21:56)
[2020-12-05] MEDS: CEFEPIME 1 GM in DEXTROSE 5%-WATER 1 GM/100 ML BAG IVPB SCH (09:56)
[2020-12-05] MEDS: LABETALOL HCL 200 MG TABLET (FP) PO SCH ×2 (09:56→21:55)
[2020-12-05] MEDS: PANTOPRAZOLE 40 MG TABLET PO SCH (09:56)
[2020-12-05] MEDS: LINEZOLID 600 MG TABLET (RESTRICTED TO ID) PO SCH ×2 (09:57→21:56)
[2020-12-05] MEDS ORDERED: PT OWN MED DRAWER 7, Y5N ONE ×2 (10:18→21:25)
[2020-12-05] MEDS ORDERED: EPOETIN ALFA-EPBX 20,000 UNIT/ML VIAL IVPUSH ONE (11:27)
[2020-12-05] MEDS ORDERED: HEPARIN NA (PORCINE) 5,000 UNITS/ML 1ML VIAL ONE (14:04)
[2020-12-05] MEDS ORDERED: LIDOCAINE HCL 1%, 10 MG/ML (20ML VIAL) ONE (14:04)
[2020-12-05] MEDS ORDERED: MIDAZOLAM HCL 2 MG/2 ML SINGLE DOSE VIAL ONE ×3 (17:18→18:02)
[2020-12-05] MEDS ORDERED: ceFAZolin SODIUM 1 GM VIAL ONE (17:39)
[2020-12-05] MEDS ORDERED: ceFAZolin SODIUM 1 GM VIAL IVPB ONE (17:40)
[2020-12-05] MEDS ORDERED: ONDANSETRON 4 MG/2 ML VIAL ONE (17:45)
[2020-12-05] MEDS ORDERED: LIDOCAINE HCL 1%, 10 MG/ML (20ML VIAL) INF ONE (18:22)
[2020-12-05] MEDS ORDERED: ONDANSETRON 4 MG/2 ML VIAL IVPUSH PRN ×2 (18:47→20:01)
[2020-12-05] MEDS ORDERED: VANCOMYCIN 1 GRAM (PRE-DOCKED) 1,000 MG/250 ML BAG IVPB ONE (18:47)
[2020-12-05] MEDS ORDERED: HEPARIN - 25,000 UNIT in SODIUM CHLORIDE 495 ML IV SCH (18:47)
[2020-12-05] MEDS ORDERED: HEPARIN NA (PORCINE) 5,000 UNITS/ML 1ML VIAL IVPUSH PRN ×2 (18:47)
[2020-12-05] MEDS ORDERED: ALBUTEROL SO4 2.5/IPRATROPIUM 0.5 INH SOL 3 ML VIAL.NEB. NEB PRN (18:47)
[2020-12-05] MEDS ORDERED: LOPERAMIDE HCL 2 MG CAPSULE PO ONE (21:10)
[2020-12-05] MEDS ORDERED: diphenhydrAMINE HCL 50 MG CAPSULE PO PRN (21:12)
[2020-12-05] MEDS: diphenhydrAMINE HCL 25 MG CAPSULE (FP) PO PRN (21:56)
[2020-12-06] MEDS: INSULIN SLIDING SCALE (NOVOLOG) 1 VIAL SQ SCH ×4 (06:20→22:35)
[2020-12-06] MEDS ORDERED: EPOETIN ALFA-EPBX 20,000 UNIT/ML VIAL IVPUSH ONE (07:00)
[2020-12-06] MEDS ORDERED: SODIUM CHLORIDE 250 ML IV PRN (07:00)
[2020-12-06] MEDS ORDERED: CEFEPIME HCL 1 GM VIAL (RESTRICTED TO ID) ONE (10:17)
[2020-12-06] MEDS ORDERED: DEXTROSE 5%-WATER 100 ML IVPB ONE (10:18)
[2020-12-06] MEDS: CEFEPIME 1 GM in DEXTROSE 5%-WATER 100 ML IVPB SCH (10:22)
[2020-12-06] MEDS: LABETALOL HCL 200 MG TABLET (FP) PO SCH ×2 (10:22→22:44)
[2020-12-06] MEDS: PANTOPRAZOLE 40 MG TABLET PO SCH (10:23)
[2020-12-06] MEDS: LINEZOLID 600 MG TABLET (RESTRICTED TO ID) PO SCH ×2 (10:25→22:44)
[2020-12-06] MEDS ORDERED: PT OWN MED DRAWER 7, Y5N ONE ×2 (10:25→22:28)
[2020-12-06] MEDS: INSULIN (LEVEMIR) 100 UNITS/ML UNITS SQ SCH ×2 (10:26→22:34)
[2020-12-07] MEDS: INSULIN SLIDING SCALE (NOVOLOG) 1 VIAL SQ SCH ×4 (06:38→21:29)
[2020-12-07] MEDS ORDERED: EPOETIN ALFA-EPBX 20,000 UNIT/ML VIAL SQ ONE (07:00)
[2020-12-07] MEDS ORDERED: SODIUM CHLORIDE 250 ML IV PRN (07:00)
[2020-12-07] MEDS ORDERED: DEXTROSE 5%-WATER 100 ML IVPB ONE (08:16)
[2020-12-07] MEDS ORDERED: CEFEPIME HCL 1 GM VIAL (RESTRICTED TO ID) ONE (08:16)
[2020-12-07 08:59] LABS: HEMATOCRIT 26.7 % (32.4-45.2); HEMOGLOBIN 8.3 GM/dL (10.7-15.3); MCH 26.6 pg (25.7-33.7); MCHC 31.1 g/dl (32.0-36.0); MEAN CELL VOLUME 85.5 fl (80-96); MEAN PLT VOLUME 8.3 fl (7.5-11.1); PLATELET COUNT 319 10^3/uL (134-434); RBC 3.12 M/mm3 (3.60-5.2); RDW 18.7 % (11.6-15.6); WHITE BLOOD COUNT 10.7 K/mm3 (4.0-10.0)
[2020-12-07 09:09] LABS: BLOOD UREA NITROGEN 27.5 mg/dL (7-18); CALCIUM 8.1 mg/dL (8.5-10.1)
[2020-12-07 09:13] LABS: CREATININE 5.5 mg/dL (0.55-1.3)
[2020-12-07] MEDS: ACETAMINOPHEN 325 MG TABLET (FP) PO PRN (09:30)
[2020-12-07] MEDS: CEFEPIME 1 GM in DEXTROSE 5%-WATER 100 ML IVPB SCH (10:00)
[2020-12-07] MEDS ORDERED: PT OWN MED DRAWER 7, Y5N ONE ×2 (11:21→21:08)
[2020-12-07] MEDS: PANTOPRAZOLE 40 MG TABLET PO SCH (11:25)
[2020-12-07] MEDS: diphenhydrAMINE HCL 25 MG CAPSULE (FP) PO PRN (11:25)
[2020-12-07] MEDS: LINEZOLID 600 MG TABLET (RESTRICTED TO ID) PO SCH ×2 (11:26→21:30)
[2020-12-07] MEDS: LABETALOL HCL 200 MG TABLET (FP) PO SCH ×2 (11:27→21:30)
[2020-12-07] MEDS: INSULIN (LEVEMIR) 100 UNITS/ML UNITS SQ SCH ×2 (11:28→21:30)
[2020-12-08] MEDS: INSULIN SLIDING SCALE (NOVOLOG) 1 VIAL SQ SCH ×4 (06:01→21:47)
[2020-12-08] MEDS: LABETALOL HCL 200 MG TABLET (FP) PO SCH ×2 (10:16→21:46)
[2020-12-08] MEDS: PANTOPRAZOLE 40 MG TABLET PO SCH (10:16)
[2020-12-08] MEDS: AMMONIUM LACTATE 12% LOTION 225 GM BOTTLE TP SCH ×2 (10:17→21:47)
[2020-12-08] MEDS: LINEZOLID 600 MG TABLET (RESTRICTED TO ID) PO SCH ×2 (10:18→21:46)
[2020-12-08] MEDS: CEFEPIME 1 GM in DEXTROSE 5%-WATER 100 ML IVPB SCH (10:59)
[2020-12-08] MEDS: INSULIN (LEVEMIR) 100 UNITS/ML UNITS SQ SCH ×2 (11:22→21:46)
[2020-12-08] MEDS: diphenhydrAMINE HCL 25 MG CAPSULE (FP) PO PRN (11:23)
[2020-12-08] MEDS: ERTAPENEM SODIUM 0.5 GM in SODIUM CHLORIDE 50 ML IVPB SCH (12:23)
[2020-12-08] MEDS ORDERED: PT OWN MED DRAWER 7, Y5N ONE (21:04)
[2020-12-09] MEDS: INSULIN SLIDING SCALE (NOVOLOG) 1 VIAL SQ SCH ×4 (06:23→21:23)
[2020-12-09] MEDS ORDERED: SODIUM CHLORIDE 250 ML IV PRN (07:00)
[2020-12-09] MEDS ORDERED: EPOETIN ALFA-EPBX 20,000 UNIT/ML VIAL SQ ONE (08:00)
[2020-12-09 08:28] LABS: HEMATOCRIT 27.1 % (32.4-45.2); HEMOGLOBIN 8.4 GM/dL (10.7-15.3); MCH 25.9 pg (25.7-33.7); MCHC 30.8 g/dl (32.0-36.0); MEAN CELL VOLUME 84.1 fl (80-96); MEAN PLT VOLUME 7.9 fl (7.5-11.1); PLATELET COUNT 302 10^3/uL (134-434); RBC 3.22 M/mm3 (3.60-5.2); RDW 18.8 % (11.6-15.6)
[2020-12-09 08:46] LABS: BLOOD UREA NITROGEN 38.2 mg/dL (7-18); CALCIUM 8.1 mg/dL (8.5-10.1)
[2020-12-09 08:50] LABS: CREATININE 6.5 mg/dL (0.55-1.3)
[2020-12-09] MEDS ORDERED: PT OWN MED DRAWER 7, Y5N ONE ×3 (10:37→21:16)
[2020-12-09] MEDS: ERTAPENEM SODIUM 0.5 GM in SODIUM CHLORIDE 50 ML IVPB SCH (10:58)
[2020-12-09] MEDS: LINEZOLID 600 MG TABLET (RESTRICTED TO ID) PO SCH ×2 (11:14→21:22)
[2020-12-09] MEDS: LABETALOL HCL 200 MG TABLET (FP) PO SCH ×2 (11:14→21:22)
[2020-12-09] MEDS: PANTOPRAZOLE 40 MG TABLET PO SCH (11:14)
[2020-12-09] MEDS: INSULIN (LEVEMIR) 100 UNITS/ML UNITS SQ SCH ×2 (11:15→21:23)
[2020-12-09] MEDS: AMMONIUM LACTATE 12% LOTION 225 GM BOTTLE TP SCH ×2 (11:15→21:25)
[2020-12-09] MEDS: ACETAMINOPHEN 325 MG TABLET (FP) PO PRN (15:17)
[2020-12-10] MEDS: INSULIN SLIDING SCALE (NOVOLOG) 1 VIAL SQ SCH ×4 (06:23→21:43)
[2020-12-10] MEDS ORDERED: PT OWN MED DRAWER 7, Y5N ONE (09:16)
[2020-12-10] MEDS: ACETAMINOPHEN 325 MG TABLET (FP) PO PRN ×2 (09:32→17:56)
[2020-12-10] MEDS: ERTAPENEM SODIUM 0.5 GM in SODIUM CHLORIDE 50 ML IVPB SCH (09:33)
[2020-12-10] MEDS: PANTOPRAZOLE 40 MG TABLET PO SCH (09:33)
[2020-12-10] MEDS: LINEZOLID 600 MG TABLET (RESTRICTED TO ID) PO SCH ×2 (09:33→21:42)
[2020-12-10] MEDS: LABETALOL HCL 200 MG TABLET (FP) PO SCH ×2 (09:33→21:43)
[2020-12-10] MEDS: AMMONIUM LACTATE 12% LOTION 225 GM BOTTLE TP SCH ×2 (09:34→21:42)
[2020-12-10] MEDS: INSULIN (LEVEMIR) 100 UNITS/ML UNITS SQ SCH ×2 (09:36→21:43)
[2020-12-10] MEDS: diphenhydrAMINE HCL 25 MG CAPSULE (FP) PO PRN (15:28)
[2020-12-10] MEDS ORDERED: diphenhydrAMINE HCL 25 MG CAPSULE (FP) PO PRN (16:01)
[2020-12-10] MEDS ORDERED: SODIUM CHLORIDE 250 ML IV PRN (16:01)
[2020-12-10] MEDS ORDERED: ALBUTEROL SO4 2.5/IPRATROPIUM 0.5 INH SOL 3 ML VIAL.NEB. NEB PRN (16:01)
[2020-12-10] MEDS ORDERED: ONDANSETRON 4 MG/2 ML VIAL IVPUSH PRN (16:01)
[2020-12-10] MEDS ORDERED: INSULIN (NOVOLOG) ASPART 100 UNITS/ML 10ML VIAL ONE ×2 (17:30→20:58)
[2020-12-11] MEDS: INSULIN SLIDING SCALE (NOVOLOG) 1 VIAL SQ SCH ×4 (06:37→21:16)
[2020-12-11] MEDS ORDERED: PT OWN MED DRAWER 7, Y5N ONE (08:43)
[2020-12-11] MEDS: AMMONIUM LACTATE 12% LOTION 225 GM BOTTLE TP SCH ×2 (09:33→21:16)
[2020-12-11] MEDS: ERTAPENEM SODIUM 0.5 GM in SODIUM CHLORIDE 50 ML IVPB SCH (09:33)
[2020-12-11] MEDS: PANTOPRAZOLE 40 MG TABLET PO SCH (09:34)
[2020-12-11] MEDS: LABETALOL HCL 200 MG TABLET (FP) PO SCH ×2 (09:34→21:16)
[2020-12-11] MEDS: ACETAMINOPHEN 325 MG TABLET (FP) PO PRN (09:43)
[2020-12-11] MEDS: INSULIN (LEVEMIR) 100 UNITS/ML UNITS SQ SCH ×2 (10:48→21:16)
[2020-12-11] MEDS: LINEZOLID 600 MG TABLET (RESTRICTED TO ID) PO SCH ×2 (11:09→21:16)
[2020-12-12] MEDS: INSULIN (LEVEMIR) 100 UNITS/ML UNITS SQ SCH ×2 (06:25→23:00)
[2020-12-12] MEDS: INSULIN SLIDING SCALE (NOVOLOG) 1 VIAL SQ SCH ×4 (06:26→23:00)
[2020-12-12] MEDS: LINEZOLID 600 MG TABLET (RESTRICTED TO ID) PO SCH ×2 (10:30→23:00)
[2020-12-12] MEDS: LABETALOL HCL 200 MG TABLET (FP) PO SCH ×2 (10:31→23:00)
[2020-12-12] MEDS: PANTOPRAZOLE 40 MG TABLET PO SCH (10:31)
[2020-12-12] MEDS: AMMONIUM LACTATE 12% LOTION 225 GM BOTTLE TP SCH ×2 (10:32→23:00)
[2020-12-12] MEDS: ERTAPENEM SODIUM 0.5 GM in SODIUM CHLORIDE 50 ML IVPB SCH (11:34)
[2020-12-12] MEDS ORDERED: SODIUM CHLORIDE 250 ML IV PRN (12:41)
[2020-12-12] MEDS ORDERED: EPOETIN ALFA-EPBX 20,000 UNIT/ML VIAL IVPUSH ONE (19:30)
[2020-12-13] MEDS ORDERED: INSULIN (NOVOLOG) ASPART 100 UNITS/ML 10ML VIAL ONE (06:17)
[2020-12-13] MEDS: INSULIN (LEVEMIR) 100 UNITS/ML UNITS SQ SCH ×2 (06:47→21:53)
[2020-12-13] MEDS: INSULIN SLIDING SCALE (NOVOLOG) 1 VIAL SQ SCH ×4 (06:48→21:54)
[2020-12-13] MEDS ORDERED: PT OWN MED DRAWER 7, Y5N ONE (09:35)
[2020-12-13] MEDS: LINEZOLID 600 MG TABLET (RESTRICTED TO ID) PO SCH ×2 (09:42→21:58)
[2020-12-13] MEDS: PANTOPRAZOLE 40 MG TABLET PO SCH (09:42)
[2020-12-13] MEDS: ERTAPENEM SODIUM 0.5 GM in SODIUM CHLORIDE 50 ML IVPB SCH (09:42)
[2020-12-13] MEDS: LABETALOL HCL 200 MG TABLET (FP) PO SCH ×2 (09:42→21:54)
[2020-12-13] MEDS: AMMONIUM LACTATE 12% LOTION 225 GM BOTTLE TP SCH ×2 (09:43→21:53)
[2020-12-13] MEDS: ACETAMINOPHEN 325 MG TABLET (FP) PO PRN (10:04)
[2020-12-13 17:51] VITALS: BMI 24.6
[2020-12-14] MEDS: INSULIN SLIDING SCALE (NOVOLOG) 1 VIAL SQ SCH ×4 (06:34→23:00)
[2020-12-14] MEDS: INSULIN (LEVEMIR) 100 UNITS/ML UNITS SQ SCH ×2 (06:34→23:01)
[2020-12-14] MEDS ORDERED: SODIUM CHLORIDE 250 ML IV PRN (08:57)
[2020-12-14 09:23] LABS: HEMATOCRIT 29.3 % (32.4-45.2); HEMOGLOBIN 9.2 GM/dL (10.7-15.3); MCH 26.7 pg (25.7-33.7); MCHC 31.5 g/dl (32.0-36.0); MEAN CELL VOLUME 84.6 fl (80-96); MEAN PLT VOLUME 8.3 fl (7.5-11.1); PLATELET COUNT 309 10^3/uL (134-434); RBC 3.46 M/mm3 (3.60-5.2); RDW 18.9 % (11.6-15.6)
[2020-12-14 09:28] LABS: INR 1.1 (0.83-1.09); PROTHROMBIN TIME (PATIENT) 13.3 SEC (9.7-13.0)
[2020-12-14 10:08] LABS: ALBUMIN 2.2 g/dl (3.4-5.0); BLOOD UREA NITROGEN 36.3 mg/dL (7-18); CALCIUM 7.8 mg/dL (8.5-10.1)
[2020-12-14 10:11] LABS: CREATININE 6.3 mg/dL (0.55-1.3)
[2020-12-14 10:15] LABS: BILIRUBIN,TOTAL 0.7 mg/dL (0.2-1)
[2020-12-14] MEDS ORDERED: PT OWN MED DRAWER 7, Y5N ONE ×2 (10:44→21:34)
[2020-12-14] MEDS: LINEZOLID 600 MG TABLET (RESTRICTED TO ID) PO SCH ×2 (10:47→23:00)
[2020-12-14] MEDS: ERTAPENEM SODIUM 0.5 GM in SODIUM CHLORIDE 50 ML IVPB SCH (10:47)
[2020-12-14] MEDS: PANTOPRAZOLE 40 MG TABLET PO SCH (10:47)
[2020-12-14] MEDS: AMMONIUM LACTATE 12% LOTION 225 GM BOTTLE TP SCH ×2 (10:50→23:01)
[2020-12-14] MEDS ORDERED: EPOETIN ALFA-EPBX 20,000 UNIT/ML VIAL SQ ONE (14:00)
[2020-12-14] MEDS: LABETALOL HCL 200 MG TABLET (FP) PO SCH ×2 (17:15→23:00)
[2020-12-15] MEDS: INSULIN SLIDING SCALE (NOVOLOG) 1 VIAL SQ SCH ×4 (06:45→22:09)
[2020-12-15] MEDS: INSULIN (LEVEMIR) 100 UNITS/ML UNITS SQ SCH ×2 (06:45→22:10)
[2020-12-15 08:42] LABS: BASO % 0.3 % (0-2.0); EOS % 1.5 % (0-4.5); HEMATOCRIT 31.1 % (32.4-45.2); HEMOGLOBIN 9.9 GM/dL (10.7-15.3); LYMPH % 12.7 % (8-40); MCH 27.1 pg (25.7-33.7); MCHC 31.8 g/dl (32.0-36.0); MEAN CELL VOLUME 85.2 fl (80-96); MEAN PLT VOLUME 7.6 fl (7.5-11.1); MONO % 9.4 % (3.8-10.2); NEUT % 76.1 % (42.8-82.8); PLATELET COUNT 292 10^3/uL (134-434); RBC 3.65 M/mm3 (3.60-5.2); RDW 18.7 % (11.6-15.6)
[2020-12-15 09:11] LABS: ALBUMIN 2.3 g/dl (3.4-5.0)
[2020-12-15 09:16] LABS: BILIRUBIN,TOTAL 0.5 mg/dL (0.2-1)
[2020-12-15 09:17] LABS: CREATININE 4.2 mg/dL (0.55-1.3)
[2020-12-15 09:19] LABS: TOT PROT 7.5 g/dl (6.4-8.2)
[2020-12-15] MEDS ORDERED: PT OWN MED DRAWER 7, Y5N ONE ×2 (10:37→17:26)
[2020-12-15] MEDS: LABETALOL HCL 200 MG TABLET (FP) PO SCH ×2 (10:43→22:10)
[2020-12-15] MEDS: PANTOPRAZOLE 40 MG TABLET PO SCH (10:44)
[2020-12-15] MEDS: AMMONIUM LACTATE 12% LOTION 225 GM BOTTLE TP SCH ×2 (10:44→22:11)
[2020-12-15] MEDS: ERTAPENEM SODIUM 0.5 GM in SODIUM CHLORIDE 50 ML IVPB SCH (10:44)
[2020-12-15] MEDS ORDERED: DEXAMETHASONE SOD PHOSPHATE 4 MG/1 ML VIAL ONE (12:27)
[2020-12-15] MEDS ORDERED: LIDOCAINE HCL/PF 2% SDV 5ML VIAL ONE (12:27)
[2020-12-15] MEDS ORDERED: PROPOFOL 20 ML ONE (12:27)
[2020-12-15] MEDS ORDERED: MIDAZOLAM HCL 2 MG/2 ML SINGLE DOSE VIAL ONE (12:28)
[2020-12-15] MEDS ORDERED: SUCCINYLCHOLINE CHLORIDE 200 MG/10 ML SYRINGE ONE (12:50)
[2020-12-15] MEDS ORDERED: morphine SULFATE 4 MG/ML VIAL IVPUSH PRN (14:42)
[2020-12-15] MEDS ORDERED: PROMETHAZINE HCL 25 MG/1 ML VIAL IVPUSH PRN (15:00)
[2020-12-15] MEDS ORDERED: ONDANSETRON 4 MG/2 ML VIAL IVPUSH PRN ×2 (15:00→15:22)
[2020-12-15] MEDS ORDERED: ALBUTEROL SO4 2.5/IPRATROPIUM 0.5 INH SOL 3 ML VIAL.NEB. NEB PRN (15:22)
[2020-12-15] MEDS ORDERED: diphenhydrAMINE HCL 25 MG CAPSULE (FP) PO PRN (15:22)
[2020-12-15] MEDS: LINEZOLID 600 MG TABLET (RESTRICTED TO ID) PO SCH ×2 (17:31→22:10)
[2020-12-15] MEDS: oxyCODONE HCL 5 MG TABLET PO PRN (18:55)
[2020-12-15] MEDS: ACETAMINOPHEN 325 MG TABLET (FP) PO PRN (22:10)
[2020-12-16] MEDS: oxyCODONE HCL 5 MG TABLET PO PRN ×3 (05:40→22:19)
[2020-12-16] MEDS: INSULIN (LEVEMIR) 100 UNITS/ML UNITS SQ SCH ×2 (06:20→22:17)
[2020-12-16] MEDS: INSULIN SLIDING SCALE (NOVOLOG) 1 VIAL SQ SCH ×4 (06:29→22:17)
[2020-12-16] MEDS ORDERED: SODIUM CHLORIDE 250 ML IV PRN (09:34)
[2020-12-16] MEDS ORDERED: EPOETIN ALFA-EPBX 20,000 UNIT/ML VIAL IVPUSH ONE (09:45)
[2020-12-16 09:48] LABS: HEMATOCRIT 27.9 % (32.4-45.2); HEMOGLOBIN 8.6 GM/dL (10.7-15.3); MCH 26.5 pg (25.7-33.7); MEAN CELL VOLUME 85.6 fl (80-96); MEAN PLT VOLUME 8.1 fl (7.5-11.1); PLATELET COUNT 331 10^3/uL (134-434); RBC 3.25 M/mm3 (3.60-5.2); RDW 19.1 % (11.6-15.6); WHITE BLOOD COUNT 11.8 K/mm3 (4.0-10.0)
[2020-12-16 10:19] LABS: CALCIUM 7.5 mg/dL (8.5-10.1)
[2020-12-16 10:20] LABS: ALBUMIN 2.2 g/dl (3.4-5.0); BLOOD UREA NITROGEN 36.4 mg/dL (7-18)
[2020-12-16 10:23] LABS: CREATININE 6.1 mg/dL (0.55-1.3)
[2020-12-16 10:24] LABS: BILIRUBIN,TOTAL 0.6 mg/dL (0.2-1); TOT PROT 7.1 g/dl (6.4-8.2)
[2020-12-16] MEDS: ERTAPENEM SODIUM 0.5 GM in SODIUM CHLORIDE 50 ML IVPB SCH ×2 (11:09→16:20)
[2020-12-16] MEDS: LINEZOLID 600 MG TABLET (RESTRICTED TO ID) PO SCH ×3 (11:10→22:19)
[2020-12-16] MEDS: LABETALOL HCL 200 MG TABLET (FP) PO SCH ×3 (11:10→22:19)
[2020-12-16] MEDS: AMMONIUM LACTATE 12% LOTION 225 GM BOTTLE TP SCH ×3 (11:10→22:20)
[2020-12-16] MEDS: PANTOPRAZOLE 40 MG TABLET PO SCH ×2 (11:10→16:19)
[2020-12-16] MEDS ORDERED: ENOXAPARIN NA (PORCINE) 40 MG/0.4 ML DISP.SYRIN SQ SCH (13:45)
[2020-12-16] MEDS: ENOXAPARIN NA (PORCINE) 30 MG/0.3 ML DISP.SYRIN SQ SCH (14:41)
[2020-12-16] MEDS ORDERED: FAMOTIDINE 20 MG/50 ML IVPB 20 MG/50 ML MG IVPB ONE (17:15)
[2020-12-16] MEDS ORDERED: ONDANSETRON 4 MG/2 ML VIAL IVPUSH PRN (17:19)
[2020-12-16] MEDS ORDERED: ONDANSETRON 4 MG/2 ML VIAL IVPB ONE (17:30)
[2020-12-16] MEDS ORDERED: PT OWN MED DRAWER 7, Y5N ONE ×2 (22:10→22:12)
[2020-12-16] MEDS: PRAMIPEXOLE DIHYDROCHLORIDE 0.125 MG TABLET PO SCH (22:19)
[2020-12-17] MEDS: ACETAMINOPHEN 325 MG TABLET (FP) PO PRN (03:03)
[2020-12-17] MEDS ORDERED: PT OWN MED DRAWER 7, Y5N ONE ×4 (05:53→20:19)
[2020-12-17] MEDS: INSULIN (LEVEMIR) 100 UNITS/ML UNITS SQ SCH ×2 (06:46→21:46)
[2020-12-17] MEDS: PRAMIPEXOLE DIHYDROCHLORIDE 0.125 MG TABLET PO SCH ×3 (06:46→21:08)
[2020-12-17] MEDS: INSULIN SLIDING SCALE (NOVOLOG) 1 VIAL SQ SCH ×4 (07:20→21:09)
[2020-12-17] MEDS: oxyCODONE HCL 5 MG TABLET PO PRN (10:14)
[2020-12-17] MEDS: LABETALOL HCL 200 MG TABLET (FP) PO SCH ×2 (10:16→21:09)
[2020-12-17] MEDS: ENOXAPARIN NA (PORCINE) 30 MG/0.3 ML DISP.SYRIN SQ SCH (10:16)
[2020-12-17] MEDS: AMMONIUM LACTATE 12% LOTION 225 GM BOTTLE TP SCH ×2 (10:16→21:10)
[2020-12-17] MEDS: ERTAPENEM SODIUM 0.5 GM in SODIUM CHLORIDE 50 ML IVPB SCH (10:16)
[2020-12-17] MEDS: LINEZOLID 600 MG TABLET (RESTRICTED TO ID) PO SCH ×2 (10:17→21:09)
[2020-12-17] MEDS: PANTOPRAZOLE 40 MG TABLET PO SCH (10:17)
[2020-12-18] MEDS: PRAMIPEXOLE DIHYDROCHLORIDE 0.125 MG TABLET PO SCH ×3 (06:45→21:54)
[2020-12-18] MEDS: INSULIN (LEVEMIR) 100 UNITS/ML UNITS SQ SCH (06:45)
[2020-12-18] MEDS: INSULIN SLIDING SCALE (NOVOLOG) 1 VIAL SQ SCH ×4 (07:09→21:55)
[2020-12-18 08:39] LABS: BASO % 1.4 % (0-2.0); HEMATOCRIT 27.1 % (32.4-45.2); HEMOGLOBIN 8.3 GM/dL (10.7-15.3); LYMPH % 9.2 % (8-40); MCHC 30.8 g/dl (32.0-36.0); MEAN CELL VOLUME 84.6 fl (80-96); MEAN PLT VOLUME 7.8 fl (7.5-11.1); MONO % 8.6 % (3.8-10.2); NEUT % 79.8 % (42.8-82.8); PLATELET COUNT 286 10^3/uL (134-434); RDW 19.1 % (11.6-15.6); WHITE BLOOD COUNT 12.6 K/mm3 (4.0-10.0)
[2020-12-18 09:05] LABS: BLOOD UREA NITROGEN 27.1 mg/dL (7-18)
[2020-12-18 09:06] LABS: ALBUMIN 2.2 g/dl (3.4-5.0)
[2020-12-18 09:08] LABS: CREATININE 5.8 mg/dL (0.55-1.3)
[2020-12-18 09:10] LABS: BILIRUBIN,TOTAL 0.6 mg/dL (0.2-1); TOT PROT 7.3 g/dl (6.4-8.2)
[2020-12-18] MEDS ORDERED: PT OWN MED DRAWER 7, Y5N ONE ×2 (09:34→13:58)
[2020-12-18] MEDS: ENOXAPARIN NA (PORCINE) 30 MG/0.3 ML DISP.SYRIN SQ SCH (11:02)
[2020-12-18] MEDS: AMMONIUM LACTATE 12% LOTION 225 GM BOTTLE TP SCH ×2 (11:02→21:54)
[2020-12-18] MEDS: ERTAPENEM SODIUM 0.5 GM in SODIUM CHLORIDE 50 ML IVPB SCH (11:02)
[2020-12-18] MEDS: LABETALOL HCL 200 MG TABLET (FP) PO SCH ×2 (11:03→21:53)
[2020-12-18] MEDS: LINEZOLID 600 MG TABLET (RESTRICTED TO ID) PO SCH ×2 (11:03→21:53)
[2020-12-18] MEDS: PANTOPRAZOLE 40 MG TABLET PO SCH (11:03)
[2020-12-18] MEDS: ACETAMINOPHEN 325 MG TABLET (FP) PO PRN (16:14)
[2020-12-18] MEDS ORDERED: INSULIN (NOVOLOG) ASPART 100 UNITS/ML 10ML VIAL ONE (21:06)
[2020-12-19] MEDS: INSULIN (LEVEMIR) 100 UNITS/ML UNITS SQ SCH ×3 (01:22→22:30)
[2020-12-19] MEDS: PRAMIPEXOLE DIHYDROCHLORIDE 0.25 MG TABLET PO SCH ×3 (05:56→22:30)
[2020-12-19] MEDS: INSULIN SLIDING SCALE (NOVOLOG) 1 VIAL SQ SCH ×4 (06:00→22:31)
[2020-12-19] MEDS ORDERED: DEXTROSE 50%-WATER 25 GM/50 ML DISP.SYRIN ONE (09:00)
[2020-12-19] MEDS ORDERED: NALOXONE HCL 0.4 MG/ML VIAL ONE ×2 (09:01→09:07)
[2020-12-19] MEDS ORDERED: PT OWN MED DRAWER 7, Y5N ONE ×2 (10:18→20:58)
[2020-12-19] MEDS: AMMONIUM LACTATE 12% LOTION 225 GM BOTTLE TP SCH ×2 (10:30→21:45)
[2020-12-19] MEDS: ENOXAPARIN NA (PORCINE) 30 MG/0.3 ML DISP.SYRIN SQ SCH (10:31)
[2020-12-19] MEDS: ERTAPENEM SODIUM 0.5 GM in SODIUM CHLORIDE 50 ML IVPB SCH (10:31)
[2020-12-19] MEDS ORDERED: SODIUM CHLORIDE 250 ML IV PRN (11:00)
[2020-12-19] MEDS ORDERED: EPOETIN ALFA-EPBX 10,000 UNIT/ML VIAL IVPUSH ONE ×2 (11:00→19:24)
[2020-12-19] MEDS: LABETALOL HCL 200 MG TABLET (FP) PO SCH ×2 (12:22→21:32)
[2020-12-19] MEDS: PANTOPRAZOLE 40 MG TABLET PO SCH (12:23)
[2020-12-19] MEDS: LINEZOLID 600 MG TABLET (RESTRICTED TO ID) PO SCH ×2 (12:23→21:42)
[2020-12-19] MEDS ORDERED: SODIUM CHLORIDE 500 ML IV STA (12:52)
[2020-12-19 14:00] LABS: BASO % 0.9 % (0-2.0); EOS % 1.1 % (0-4.5); HEMATOCRIT 27.5 % (32.4-45.2); HEMOGLOBIN 8.6 GM/dL (10.7-15.3); LYMPH % 8.8 % (8-40); MCH 26.6 pg (25.7-33.7); MCHC 31.3 g/dl (32.0-36.0); MEAN CELL VOLUME 85.1 fl (80-96); MEAN PLT VOLUME 8.2 fl (7.5-11.1); NEUT % 82.2 % (42.8-82.8); PLATELET COUNT 279 10^3/uL (134-434); RBC 3.23 M/mm3 (3.60-5.2); RDW 19.3 % (11.6-15.6); WHITE BLOOD COUNT 9.3 K/mm3 (4.0-10.0)
[2020-12-19 14:25] LABS: CHLORIDE 99 mmol/L (98-107); SODIUM 138 mmol/L (136-145)
[2020-12-19 14:26] LABS: CALCIUM 7.6 mg/dL (8.5-10.1)
[2020-12-19 14:27] LABS: ALBUMIN 2.2 g/dl (3.4-5.0); ANION GAP 14 MMOL/L (8-16); BLOOD UREA NITROGEN 36.7 mg/dL (7-18); CO2 24 mmol/L (21-32); GLUCOSE,RANDOM 114 mg/dL (74-106)
[2020-12-19 14:31] LABS: SGOT/AST 20 U/L (15-37); SGPT/ALT 10 U/L (13-61)
[2020-12-19 14:33] LABS: ALK PHOS 505 U/L (45-117); BILIRUBIN,TOTAL 0.5 mg/dL (0.2-1); TOT PROT 7.2 g/dl (6.4-8.2)
[2020-12-19 14:36] LABS: CREATININE 7.5 mg/dL (0.55-1.3)
[2020-12-19] MEDS ORDERED: SODIUM CHLORIDE 500 ML IV ONE (18:30)
[2020-12-19] MEDS ORDERED: ONDANSETRON 4 MG/2 ML VIAL IVPUSH PRN (19:24)
[2020-12-19] MEDS ORDERED: ALBUTEROL SO4 2.5/IPRATROPIUM 0.5 INH SOL 3 ML VIAL.NEB. NEB PRN (19:24)
[2020-12-19] MEDS ORDERED: ACETAMINOPHEN 325 MG TABLET (FP) PO PRN (19:24)
[2020-12-19] MEDS ORDERED: diphenhydrAMINE HCL 25 MG CAPSULE (FP) PO PRN (19:24)
[2020-12-20] MEDS: PRAMIPEXOLE DIHYDROCHLORIDE 0.25 MG TABLET PO SCH ×3 (05:13→22:21)
[2020-12-20] MEDS ORDERED: PT OWN MED DRAWER 7, Y5N ONE ×3 (06:14→22:15)
[2020-12-20] MEDS: INSULIN (LEVEMIR) 100 UNITS/ML UNITS SQ SCH ×2 (06:30→22:20)
[2020-12-20] MEDS: INSULIN SLIDING SCALE (NOVOLOG) 1 VIAL SQ SCH ×4 (06:31→22:21)
[2020-12-20 08:00] LABS: HEMATOCRIT 23.5 % (32.4-45.2); HEMOGLOBIN 7.4 GM/dL (10.7-15.3); MCH 26.3 pg (25.7-33.7); MCHC 31.4 g/dl (32.0-36.0); MEAN CELL VOLUME 83.8 fl (80-96); PLATELET COUNT 293 10^3/uL (134-434); RBC 2.81 M/mm3 (3.60-5.2); RDW 18.8 % (11.6-15.6); WHITE BLOOD COUNT 8.6 K/mm3 (4.0-10.0)
[2020-12-20 08:14] LABS: CHLORIDE 102 mmol/L (98-107); SODIUM 140 mmol/L (136-145)
[2020-12-20 08:16] LABS: ANION GAP 15 MMOL/L (8-16); BLOOD UREA NITROGEN 42.3 mg/dL (7-18); CALCIUM 7.5 mg/dL (8.5-10.1); CO2 22 mmol/L (21-32)
[2020-12-20 08:17] LABS: GLUCOSE,RANDOM 78 mg/dL (74-106)
[2020-12-20 08:20] LABS: SGOT/AST 16 U/L (15-37); SGPT/ALT 7 U/L (13-61)
[2020-12-20 08:22] LABS: BILIRUBIN,TOTAL 0.4 mg/dL (0.2-1); TOT PROT 6.5 g/dl (6.4-8.2)
[2020-12-20] MEDS ORDERED: EPOETIN ALFA-EPBX 10,000 UNIT/ML VIAL IVPUSH ONE (08:30)
[2020-12-20 09:11] LABS: ALK PHOS 398 U/L (45-117); CREATININE 8.5 mg/dL (0.55-1.3)
[2020-12-20] MEDS ORDERED: DEXTROSE 50%-WATER - 25 GM/50 ML VIAL IVPUSH ONE (13:00)
[2020-12-20] MEDS ORDERED: SODIUM CHLORIDE 250 ML IV PRN (13:08)
[2020-12-20] MEDS: ENOXAPARIN NA (PORCINE) 30 MG/0.3 ML DISP.SYRIN SQ SCH (13:10)
[2020-12-20] MEDS: AMMONIUM LACTATE 12% LOTION 225 GM BOTTLE TP SCH ×2 (13:11→22:21)
[2020-12-20] MEDS: LABETALOL HCL 200 MG TABLET (FP) PO SCH ×2 (13:11→22:21)
[2020-12-20] MEDS: PANTOPRAZOLE 40 MG TABLET PO SCH (13:11)
[2020-12-20] MEDS: ERTAPENEM SODIUM 0.5 GM in SODIUM CHLORIDE 50 ML IVPB SCH (13:11)
[2020-12-20] MEDS: LINEZOLID 600 MG TABLET (RESTRICTED TO ID) PO SCH ×2 (13:11→22:21)
[2020-12-21] MEDS: INSULIN SLIDING SCALE (NOVOLOG) 1 VIAL SQ SCH ×4 (06:31→22:44)
[2020-12-21] MEDS: INSULIN (LEVEMIR) 100 UNITS/ML UNITS SQ SCH ×2 (06:31→22:44)
[2020-12-21] MEDS ORDERED: EPOETIN ALFA-EPBX 20,000 UNIT/ML VIAL SQ ONE (07:30)
[2020-12-21 07:34] LABS: HEMATOCRIT 22.1 % (32.4-45.2); MCH 26.4 pg (25.7-33.7); MCHC 31.8 g/dl (32.0-36.0); MEAN CELL VOLUME 82.9 fl (80-96); MEAN PLT VOLUME 7.5 fl (7.5-11.1); PLATELET COUNT 283 10^3/uL (134-434); RBC 2.67 M/mm3 (3.60-5.2); RDW 18.6 % (11.6-15.6); WHITE BLOOD COUNT 8.1 K/mm3 (4.0-10.0)
[2020-12-21 07:50] LABS: CHLORIDE 100 mmol/L (98-107); SODIUM 141 mmol/L (136-145)
[2020-12-21 07:53] LABS: CALCIUM 7.3 mg/dL (8.5-10.1)
[2020-12-21 07:54] LABS: ANION GAP 13 MMOL/L (8-16); CO2 28 mmol/L (21-32); MAGNESIUM 1.9 mg/dL (1.8-2.4)
[2020-12-21 07:55] LABS: ALBUMIN 2.1 g/dl (3.4-5.0)
[2020-12-21 07:56] LABS: GLUCOSE,RANDOM 111 mg/dL (74-106)
[2020-12-21 07:57] LABS: CREATININE 6.2 mg/dL (0.55-1.3); SGOT/AST 17 U/L (15-37)
[2020-12-21 07:58] LABS: BILIRUBIN,TOTAL 0.5 mg/dL (0.2-1); TOT PROT 6.4 g/dl (6.4-8.2)
[2020-12-21 08:36] LABS: ALK PHOS 362 U/L (45-117); SGPT/ALT < 6 U/L (13-61)
[2020-12-21] MEDS: ALBUMIN HUMAN 25% 12.5 GM/50 ML VIAL IVPB SCH ×5 (10:00→11:10)
[2020-12-21] MEDS ORDERED: PT OWN MED DRAWER 7, Y5N ONE ×3 (10:44→22:21)
[2020-12-21] MEDS: LABETALOL HCL 200 MG TABLET (FP) PO SCH ×2 (11:54→22:42)
[2020-12-21] MEDS: PANTOPRAZOLE 40 MG TABLET PO SCH (11:54)
[2020-12-21] MEDS: AMMONIUM LACTATE 12% LOTION 225 GM BOTTLE TP SCH ×2 (11:54→22:42)
[2020-12-21] MEDS: LINEZOLID 600 MG TABLET (RESTRICTED TO ID) PO SCH ×2 (11:54→22:42)
[2020-12-21] MEDS: ERTAPENEM SODIUM 0.5 GM in SODIUM CHLORIDE 50 ML IVPB SCH (11:54)
[2020-12-21] MEDS: ENOXAPARIN NA (PORCINE) 30 MG/0.3 ML DISP.SYRIN SQ SCH (11:55)
[2020-12-21 13:19] LABS: INR 1.28 (0.83-1.09); PROTHROMBIN TIME (PATIENT) 15.6 SEC (9.7-13.0)
[2020-12-21 13:22] LABS: ACTIVATED PTT 28.9 SECONDS (25.2-36.5)
[2020-12-21] MEDS: PRAMIPEXOLE DIHYDROCHLORIDE 0.25 MG TABLET PO SCH (22:42)
[2020-12-22] MEDS: INSULIN SLIDING SCALE (NOVOLOG) 1 VIAL SQ SCH ×4 (06:15→22:03)
[2020-12-22] MEDS: INSULIN (LEVEMIR) 100 UNITS/ML UNITS SQ SCH ×2 (06:16→22:04)
[2020-12-22] MEDS ORDERED: PT OWN MED DRAWER 7, Y5N ONE ×3 (09:12→21:59)
[2020-12-22] MEDS: ENOXAPARIN NA (PORCINE) 30 MG/0.3 ML DISP.SYRIN SQ SCH (09:21)
[2020-12-22] MEDS: AMINO ACIDS/PROTEIN HYDROLYS 30 ML LIQUID.PKT PO SCH (09:21)
[2020-12-22] MEDS: LABETALOL HCL 200 MG TABLET (FP) PO SCH ×2 (09:22→22:04)
[2020-12-22] MEDS: LINEZOLID 600 MG TABLET (RESTRICTED TO ID) PO SCH ×2 (09:22→22:04)
[2020-12-22] MEDS: PANTOPRAZOLE 40 MG TABLET PO SCH (09:22)
[2020-12-22] MEDS: AMMONIUM LACTATE 12% LOTION 225 GM BOTTLE TP SCH ×2 (09:30→22:03)
[2020-12-22] MEDS: ERTAPENEM SODIUM 0.5 GM in SODIUM CHLORIDE 50 ML IVPB SCH (09:30)
[2020-12-22] MEDS ORDERED: HALOPERIDOL LACTATE 5 MG/ML IM ONE (12:14)
[2020-12-22] MEDS: PRAMIPEXOLE DIHYDROCHLORIDE 0.25 MG TABLET PO SCH (22:04)
[2020-12-23] MEDS: INSULIN (LEVEMIR) 100 UNITS/ML UNITS SQ SCH ×2 (06:00→22:27)
[2020-12-23] MEDS: INSULIN SLIDING SCALE (NOVOLOG) 1 VIAL SQ SCH ×4 (06:00→22:27)
[2020-12-23] MEDS ORDERED: EPOETIN ALFA-EPBX 20,000 UNIT/ML VIAL SQ ONE (07:00)
[2020-12-23] MEDS ORDERED: SODIUM CHLORIDE 250 ML IV PRN (07:00)
[2020-12-23] MEDS: AMINO ACIDS/PROTEIN HYDROLYS 30 ML LIQUID.PKT PO SCH (09:14)
[2020-12-23] MEDS: ERTAPENEM SODIUM 0.5 GM in SODIUM CHLORIDE 50 ML IVPB SCH (10:20)
[2020-12-23] MEDS ORDERED: PT OWN MED DRAWER 7, Y5N ONE ×3 (11:44→22:35)
[2020-12-23] MEDS: PANTOPRAZOLE 40 MG TABLET PO SCH (11:46)
[2020-12-23] MEDS: LABETALOL HCL 200 MG TABLET (FP) PO SCH ×2 (11:46→22:34)
[2020-12-23] MEDS: ENOXAPARIN NA (PORCINE) 30 MG/0.3 ML DISP.SYRIN SQ SCH (11:46)
[2020-12-23] MEDS: AMMONIUM LACTATE 12% LOTION 225 GM BOTTLE TP SCH ×2 (11:46→22:24)
[2020-12-23] MEDS: LINEZOLID 600 MG TABLET (RESTRICTED TO ID) PO SCH ×2 (11:47→22:35)
[2020-12-23] MEDS: PRAMIPEXOLE DIHYDROCHLORIDE 0.25 MG TABLET PO SCH (22:34)
[2020-12-24 00:15] VITALS: BP 174/98; PULSE 84; TEMP 99.4
== END 2020-12-23 22:30 | DRG 856 ==
LOC: JER 10:51 → JERBED 14:38 → J5S 19:31 → J4S 12-02 00:05 → J8W 12-10 15:37 → J4S 12-19 11:53
PROVIDERS: ADMIT Family Medicine; ATTEND Family Medicine
PROC: 5A1D70Z Performance of Urinary Filtration, Intermittent, Less than 6 Hours Per Day (ICD-10-PCS; 2020-12-01)
PROC: 0QPH05Z Removal of External Fixation Device from Left Tibia, Open Approach (ICD-10-PCS; 2020-12-03)
PROC: 0QBK0ZZ Excision of Left Fibula, Open Approach (ICD-10-PCS; 2020-12-03)
PROC: 02H633Z Insertion of Infusion Device into Right Atrium, Percutaneous Approach (ICD-10-PCS; 2020-12-05)
PROC: B548ZZA Ultrasonography of Superior Vena Cava, Guidance (ICD-10-PCS; 2020-12-05)
PROC: B41DZZZ Fluoroscopy of Aorta and Bilateral Lower Extremity Arteries (ICD-10-PCS; 2020-12-05)
PROC: B41GZZZ Fluoroscopy of Left Lower Extremity Arteries (ICD-10-PCS; 2020-12-05)
PROC: 02HV33Z Insertion of Infusion Device into Superior Vena Cava, Percutaneous Approach (ICD-10-PCS; 2020-12-09)
PROC: B548ZZA Ultrasonography of Superior Vena Cava, Guidance (ICD-10-PCS; 2020-12-09)
PROC: 0Y6J0Z2 Detachment at Left Lower Leg, Mid, Open Approach (ICD-10-PCS; principal; 2020-12-15 12:00)
DX: T81.49XA Infection following a procedure, other surgical site, initial encounter (principal); N18.6 End stage renal disease; G93.41 Metabolic encephalopathy; I12.0 Hypertensive chronic kidney disease with stage 5 chronic kidney disease or end stage renal disease; M86.172 Other acute osteomyelitis, left ankle and foot; E11.52 Type 2 diabetes mellitus with diabetic peripheral angiopathy with gangrene; I96 Gangrene, not elsewhere classified; E11.22 Type 2 diabetes mellitus with diabetic chronic kidney disease; Z99.2 Dependence on renal dialysis; Z79.4 Long term (current) use of insulin; E11.65 Type 2 diabetes mellitus with hyperglycemia; D64.9 Anemia, unspecified; F32.9 Major depressive disorder, single episode, unspecified; E87.5 Hyperkalemia; G35 Multiple sclerosis; Y83.8 Other surgical procedures as the cause of abnormal reaction of the patient, or of later complication, without mention of misadventure at the time of the procedure; R19.7 Diarrhea, unspecified; E11.42 Type 2 diabetes mellitus with diabetic polyneuropathy; E11.69 Type 2 diabetes mellitus with other specified complication; F41.9 Anxiety disorder, unspecified; I95.9 Hypotension, unspecified; L76.82 Other postprocedural complications of skin and subcutaneous tissue; S82.842G Displaced bimalleolar fracture of left lower leg, subsequent encounter for closed fracture with delayed healing; W19.XXXD Unspecified fall, subsequent encounter
CPT/HCPCS: 36415; 36430; 36558; 70450-TC; 71045-TC-FY; 73610-TC-LT-FY; 74018-TC-FY; 75635-TC; 76000-TC-FY; 77001-TC-FY; 80048; 80053; 80061; 82140; 82272; 82550; 82553; 82962; 83036; 83540; 83550; 83721; 83735; 84100; 84146; 84443; 84484; 85025; 85027; 85610; 85730; 86803; 86850; 86900; 86901; 86922; 87040; 87070; 87075; 87186; 87205; 87324; 87340; 87449; 88305-TC; 88307-TC; 88311-TC; 90670; 93005; 93010; 94760; 99285-25; C1751; C9803; G0463-25; G0480; J0131; J1644; P9058; Q5106; Q9967; U0003; U0005

== ENCOUNTER 2021-01-06 10:55 | Inpatient (IN) | payer OTHER ==
[2021-01-06 14:14] LABS: BASO % 1.2 % (0-2.0); HEMATOCRIT 35.1 % (32.4-45.2); LYMPH % 17.5 % (8-40); MCH 26.9 pg (25.7-33.7); MCHC 31.4 g/dl (32.0-36.0); MEAN CELL VOLUME 85.8 fl (80-96); MEAN PLT VOLUME 7.6 fl (7.5-11.1); NEUT % 71.3 % (42.8-82.8); PLATELET COUNT 281 10^3/uL (134-434); RBC 4.09 M/mm3 (3.60-5.2); RDW 21.3 % (11.6-15.6); WHITE BLOOD COUNT 6.5 K/mm3 (4.0-10.0)
[2021-01-06 14:22] LABS: INR 1.03 (0.83-1.09); PROTHROMBIN TIME (PATIENT) 12.7 SEC (9.7-13.0)
[2021-01-06 14:25] LABS: ACTIVATED PTT 28.5 SECONDS (25.2-36.5)
[2021-01-06 14:35] LABS: ANISOCYTOSIS 1+; MACROCYTOSIS 0; PLATELET ESTIMATE NORMAL
[2021-01-06 14:37] LABS: CHLORIDE 101 mmol/L (98-107); SODIUM 138 mmol/L (136-145)
[2021-01-06 14:42] LABS: ANION GAP 11 MMOL/L (8-16); BLOOD UREA NITROGEN 40.6 mg/dL (7-18); CALCIUM 8.4 mg/dL (8.5-10.1); CO2 26 mmol/L (21-32); GLUCOSE,RANDOM 111 mg/dL (74-106)
[2021-01-06 14:43] LABS: ALBUMIN 2.6 g/dl (3.4-5.0); MAGNESIUM 2.6 mg/dL (1.8-2.4)
[2021-01-06 14:45] LABS: SGPT/ALT 13 U/L (13-61)
[2021-01-06 14:46] LABS: BILIRUBIN,TOTAL 0.4 mg/dL (0.2-1); PHOSPHOROUS 4.3 mg/dL (2.5-4.9); SGOT/AST 20 U/L (15-37)
[2021-01-06 14:48] LABS: ALK PHOS 261 U/L (45-117)
[2021-01-06] MEDS ORDERED: SODIUM CHLORIDE 250 ML IV PRN (16:27)
[2021-01-07 00:52] VITALS: BMI 20.7
[2021-01-07] MEDS ORDERED: ACETAMINOPHEN 1000 MG/100 ML VIAL (NON FORMULARY) IVPB ONE (05:13)
[2021-01-07] MEDS: SEVELAMER CARBONATE 800 MG TAB (FP) PO SCH ×3 (08:36→17:51)
[2021-01-07 09:25] LABS: EOS % 2.3 % (0-4.5); HEMATOCRIT 31.8 % (32.4-45.2); LYMPH % 12.3 % (8-40); MCHC 31.5 g/dl (32.0-36.0); MEAN CELL VOLUME 85.8 fl (80-96); MEAN PLT VOLUME 7.8 fl (7.5-11.1); MONO % 6.1 % (3.8-10.2); NEUT % 78.3 % (42.8-82.8); PLATELET COUNT 253 10^3/uL (134-434); RBC 3.71 M/mm3 (3.60-5.2); RDW 20.8 % (11.6-15.6); WHITE BLOOD COUNT 8.3 K/mm3 (4.0-10.0)
[2021-01-07] MEDS: HEPARIN NA (PORCINE) 5,000 UNITS/ML 1ML VIAL SQ SCH ×2 (09:25→21:28)
[2021-01-07] MEDS: PANTOPRAZOLE 40 MG TABLET PO SCH ×2 (09:40→11:23)
[2021-01-07] MEDS: LABETALOL HCL 200 MG TABLET (FP) PO SCH ×3 (09:40→21:29)
[2021-01-07 09:45] LABS: CHLORIDE 102 mmol/L (98-107); SODIUM 138 mmol/L (136-145)
[2021-01-07 09:48] LABS: ANION GAP 13 MMOL/L (8-16); BLOOD UREA NITROGEN 47.1 mg/dL (7-18); CO2 23 mmol/L (21-32); MAGNESIUM 2.3 mg/dL (1.8-2.4)
[2021-01-07 09:49] LABS: GLUCOSE,RANDOM 82 mg/dL (74-106)
[2021-01-07 09:59] LABS: CREATININE 9.8 mg/dL (0.55-1.3)
[2021-01-07] MEDS ORDERED: LABETALOL HCL 100 MG TABLET (FP) ONE ×2 (11:13→21:22)
[2021-01-08] MEDS: SEVELAMER CARBONATE 800 MG TAB (FP) PO SCH ×3 (08:31→17:27)
[2021-01-08] MEDS ORDERED: LABETALOL HCL 100 MG TABLET (FP) ONE (10:14)
[2021-01-08] MEDS ORDERED: PT OWN MED DRAWER 7, Y5N ONE ×2 (10:15→21:45)
[2021-01-08] MEDS: PANTOPRAZOLE 40 MG TABLET PO SCH (10:16)
[2021-01-08] MEDS: LABETALOL HCL 200 MG TABLET (FP) PO SCH ×2 (10:16→21:48)
[2021-01-08] MEDS: HEPARIN NA (PORCINE) 5,000 UNITS/ML 1ML VIAL SQ SCH ×2 (10:16→21:48)
[2021-01-09] MEDS ORDERED: HEPARIN NA (PORCINE) 5,000 UNITS/ML 1ML VIAL SQ ONE
[2021-01-09] MEDS ORDERED: LABETALOL HCL 100 MG TABLET (FP) ONE ×3 (08:58→21:26)
[2021-01-09] MEDS: LABETALOL HCL 200 MG TABLET (FP) PO SCH ×2 (09:05→21:27)
[2021-01-09] MEDS: SEVELAMER CARBONATE 800 MG TAB (FP) PO SCH ×3 (09:09→18:05)
[2021-01-09] MEDS: HEPARIN NA (PORCINE) 5,000 UNITS/ML 1ML VIAL SQ SCH ×2 (09:10→21:26)
[2021-01-09] MEDS: PANTOPRAZOLE 40 MG TABLET PO SCH (09:11)
[2021-01-09] MEDS ORDERED: ACETAMINOPHEN 325 MG TABLET (FP) PO PRN (11:48)
[2021-01-09] MEDS ORDERED: LIDOCAINE HCL 1%, 10 MG/ML (20ML VIAL) ONE ×2 (13:43→14:12)
[2021-01-09] MEDS ORDERED: HEPARIN NA (PORCINE) 5,000 UNITS/ML 1ML VIAL ONE (13:43)
[2021-01-09] MEDS ORDERED: MIDAZOLAM HCL 2 MG/2 ML SINGLE DOSE VIAL ONE ×2 (14:05)
[2021-01-09] MEDS ORDERED: fentaNYL CITRATE 250 MCG/5 ML VIAL ONE (14:05)
[2021-01-09] MEDS ORDERED: PROPOFOL 20 ML ONE (14:05)
[2021-01-09] MEDS ORDERED: POVIDONE-IODINE OINTMENT 10% - 28.4 GM TUBE ONE (14:13)
[2021-01-09] MEDS ORDERED: ceFAZolin SODIUM 1 GM VIAL IVPB ONE (15:06)
[2021-01-09] MEDS ORDERED: LIDOCAINE HCL 1%, 10 MG/ML (20ML VIAL) SQ ONE (15:24)
[2021-01-09] MEDS ORDERED: oxyCODONE HCL 5 MG TABLET PO PRN (15:48)
[2021-01-09] MEDS ORDERED: ONDANSETRON 4 MG/2 ML VIAL IVPUSH PRN (15:48)
[2021-01-09] MEDS ORDERED: LACTATED RINGERS SOLUTION 1,000 ML IV SCH (16:00)
[2021-01-10] MEDS ORDERED: SODIUM CHLORIDE 250 ML IV PRN (07:30)
[2021-01-10] MEDS: SEVELAMER CARBONATE 800 MG TAB (FP) PO SCH ×3 (08:09→17:29)
[2021-01-10] MEDS ORDERED: EPOETIN ALFA-EPBX 10,000 UNIT/ML VIAL SQ ONE ×2 (09:00→12:15)
[2021-01-10 10:40] LABS: HEMATOCRIT 30.9 % (32.4-45.2); HEMOGLOBIN 9.6 GM/dL (10.7-15.3); MCHC 31.1 g/dl (32.0-36.0); MEAN CELL VOLUME 86.8 fl (80-96); MEAN PLT VOLUME 7.9 fl (7.5-11.1); PLATELET COUNT 256 10^3/uL (134-434); RBC 3.56 M/mm3 (3.60-5.2); WHITE BLOOD COUNT 6.9 K/mm3 (4.0-10.0)
[2021-01-10 10:47] LABS: CHLORIDE 101 mmol/L (98-107); SODIUM 137 mmol/L (136-145)
[2021-01-10 10:49] LABS: ANION GAP 13 MMOL/L (8-16); BLOOD UREA NITROGEN 49.4 mg/dL (7-18); CALCIUM 7.9 mg/dL (8.5-10.1); CO2 24 mmol/L (21-32)
[2021-01-10 10:50] LABS: GLUCOSE,RANDOM 171 mg/dL (74-106)
[2021-01-10] MEDS: PANTOPRAZOLE 40 MG TABLET PO SCH (13:44)
[2021-01-10] MEDS ORDERED: PT OWN MED DRAWER 7, Y5N ONE ×2 (13:47→22:00)
[2021-01-10] MEDS: HEPARIN NA (PORCINE) 5,000 UNITS/ML 1ML VIAL SQ SCH ×2 (13:47→21:55)
[2021-01-10] MEDS: LABETALOL HCL 200 MG TABLET (FP) PO SCH ×2 (13:55→22:01)
[2021-01-10] MEDS ORDERED: LABETALOL HCL 100 MG TABLET (FP) ONE (21:51)
[2021-01-11] MEDS ORDERED: LABETALOL HCL 100 MG TABLET (FP) ONE ×2 (08:37→21:20)
[2021-01-11] MEDS: SEVELAMER CARBONATE 800 MG TAB (FP) PO SCH ×3 (08:39→17:08)
[2021-01-11] MEDS: HEPARIN NA (PORCINE) 5,000 UNITS/ML 1ML VIAL SQ SCH ×2 (09:35→21:45)
[2021-01-11] MEDS: LABETALOL HCL 200 MG TABLET (FP) PO SCH ×2 (09:35→21:45)
[2021-01-11] MEDS: PANTOPRAZOLE 40 MG TABLET PO SCH (09:35)
[2021-01-11] MEDS ORDERED: PT OWN MED DRAWER 7, Y5N ONE (11:52)
[2021-01-12] MEDS ORDERED: SODIUM CHLORIDE 250 ML IV PRN (06:25)
[2021-01-12] MEDS ORDERED: EPOETIN ALFA-EPBX 10,000 UNIT/ML VIAL SQ ONE (08:00)
[2021-01-12] MEDS: SEVELAMER CARBONATE 800 MG TAB (FP) PO SCH ×2 (08:09→12:39)
[2021-01-12] MEDS ORDERED: HEPARIN NA (PORCINE) 5,000 UNITS/ML 1ML VIAL IVPUSH ONE ×2 (09:00→12:10)
[2021-01-12] MEDS: HEPARIN NA (PORCINE) 5,000 UNITS/ML 1ML VIAL IVPUSH SCH ×3 (09:00→11:00)
[2021-01-12 10:04] LABS: CHLORIDE 105 mmol/L (98-107); SODIUM 138 mmol/L (136-145)
[2021-01-12 10:06] LABS: CALCIUM 8.5 mg/dL (8.5-10.1)
[2021-01-12 10:07] LABS: ANION GAP 8 MMOL/L (8-16); BLOOD UREA NITROGEN 39.2 mg/dL (7-18); CO2 25 mmol/L (21-32); GLUCOSE,RANDOM 233 mg/dL (74-106)
[2021-01-12 10:10] LABS: SGOT/AST 7 U/L (15-37); SGPT/ALT < 6 U/L (13-61)
[2021-01-12] MEDS: LABETALOL HCL 200 MG TABLET (FP) PO SCH (10:10)
[2021-01-12] MEDS: PANTOPRAZOLE 40 MG TABLET PO SCH (10:10)
[2021-01-12] MEDS: HEPARIN NA (PORCINE) 5,000 UNITS/ML 1ML VIAL SQ SCH (10:10)
[2021-01-12 10:12] LABS: ALK PHOS 240 U/L (45-117)
[2021-01-12 10:15] LABS: BILIRUBIN,TOTAL 0.7 mg/dL (0.2-1); CREATININE 7.4 mg/dL (0.55-1.3); TOT PROT 6.8 g/dl (6.4-8.2)
[2021-01-12] MEDS ORDERED: HEPARIN NA (PORCINE) 5,000 UNITS/ML 1ML VIAL IVPUSH SCH (12:15)
[2021-01-12 15:53] VITALS: BP 158/80; PULSE 96; TEMP 98
== END 2021-01-12 15:47 | DRG 698 ==
LOC: JER 10:55 → JERBED 17:11 → J6S 23:52
PROVIDERS: ADMIT Internal Medicine; ATTEND Family Medicine
PROC: 05HM33Z Insertion of Infusion Device into Right Internal Jugular Vein, Percutaneous Approach (ICD-10-PCS; principal; 2021-01-09 14:00)
PROC: 5A1D70Z Performance of Urinary Filtration, Intermittent, Less than 6 Hours Per Day (ICD-10-PCS; 2021-01-12)
DX: T82.42XA Displacement of vascular dialysis catheter, initial encounter (principal); N18.6 End stage renal disease; G92 Toxic encephalopathy; S42.295A Other nondisplaced fracture of upper end of left humerus, initial encounter for closed fracture; I13.2 Hypertensive heart and chronic kidney disease with heart failure and with stage 5 chronic kidney disease, or end stage renal disease; G93.49 Other encephalopathy; G35 Multiple sclerosis; E87.5 Hyperkalemia; I95.9 Hypotension, unspecified; Y83.9 Surgical procedure, unspecified as the cause of abnormal reaction of the patient, or of later complication, without mention of misadventure at the time of the procedure; E11.65 Type 2 diabetes mellitus with hyperglycemia; F41.8 Other specified anxiety disorders; K21.9 Gastro-esophageal reflux disease without esophagitis; W19.XXXA Unspecified fall, initial encounter; Y93.89 Activity, other specified; Y92.129 Unspecified place in nursing home as the place of occurrence of the external cause; Y99.9 Unspecified external cause status; I50.9 Heart failure, unspecified
CPT/HCPCS: 11720; 36415; 70450-TC; 71045-TC-FY; 73030-TC-LT-FY; 76000-TC-FY; 80048; 80053; 82962; 83735; 84100; 84702; 85025; 85027; 85610; 85730; 86850; 86900; 86901; 93005; 93010; 94760; 97116-GP; 97162-GP; 99285-25; C9803; G0463-25; J0131; J1644; Q5106; U0003; U0005

== ENCOUNTER 2021-11-24 13:52 | Emergency (ER) | payer OTHER ==
[2021-11-24 14:21] VITALS: TEMP 98.2; BMI 25.0
[2021-11-24] MEDS ORDERED: SODIUM CHLORIDE 0.9% 500 ML INFUS.BAG IV ONE ×2 (14:45→14:56)
[2021-11-24 16:28] VITALS: BP 119/56; PULSE 86
== END 2021-11-24 16:30 | disposition home or self-care (01) ==
LOC: JER 13:52
DX: N18.6 End stage renal disease (principal); R03.1 Nonspecific low blood-pressure reading
CPT/HCPCS: 99281-25

== ENCOUNTER 2021-12-07 11:56 | Inpatient (IN) | payer OTHER ==
[2021-12-07 12:19] VITALS: BMI 22.4
[2021-12-07 14:20] LABS: VENOUS BASE EXCESS -0.2 mmol/L (-2-2); VENOUS O2 SATURATION 50.2 % (70-80); VENOUS PCO2 60.7 mmHg (38-52); VENOUS PH 7.283 (7.310-7.410)
[2021-12-07] MEDS ORDERED: ACETAMINOPHEN 1000 MG/100 ML BAG IVPB ONE (14:20)
[2021-12-07] MEDS ORDERED: ACETAMINOPHEN INJECTION 100 ML IVPB ONE (14:35)
[2021-12-07 14:36] LABS: BASO % 1.1 % (0-2.0); HEMATOCRIT 33.5 % (32.4-45.2); HEMOGLOBIN 10.7 GM/dL (10.7-15.3); LYMPH % 5.7 % (8-40); MCH 29.5 pg (25.7-33.7); MEAN PLT VOLUME 9.1 fl (7.5-11.1); MONO % 8.5 % (3.8-10.2); NEUT % 84.7 % (42.8-82.8); PLATELET COUNT 249 10^3/uL (134-434); RBC 3.64 M/mm3 (3.60-5.2); RDW 15.3 % (11.6-15.6)
[2021-12-07 14:37] LABS: LACTIC ACID 2.1 mmol/L (0.4-2.0)
[2021-12-07 14:45] LABS: INR 1.01 (0.83-1.09); PROTHROMBIN TIME (PATIENT) 11.6 SEC (9.7-13.0)
[2021-12-07 14:47] LABS: ACTIVATED PTT 29.9 SECONDS (25.2-36.5)
[2021-12-07 15:01] LABS: CHLORIDE 94 mmol/L (98-107); SODIUM 133 mmol/L (136-145)
[2021-12-07 15:03] LABS: ALBUMIN 2.7 g/dl (3.4-5.0); ANION GAP 12 MMOL/L (8-16); CALCIUM 9.1 mg/dL (8.5-10.1); CO2 27 mmol/L (21-32)
[2021-12-07 15:04] LABS: BLOOD UREA NITROGEN 42.4 mg/dL (7-18)
[2021-12-07 15:06] LABS: SGPT/ALT 28 U/L (13-61)
[2021-12-07 15:07] LABS: CREATININE 5.8 mg/dL (0.55-1.3); SGOT/AST 24 U/L (15-37)
[2021-12-07 15:08] LABS: BILIRUBIN,TOTAL 0.6 mg/dL (0.2-1); TOT PROT 7.8 g/dl (6.4-8.2)
[2021-12-07 15:09] LABS: ALK PHOS 373 U/L (45-117)
[2021-12-07] MEDS ORDERED: VANCOMYCIN 1 GM in D5W (PRE-DOCKED) 1,000 MG/250 ML IVPB ONE (15:16)
[2021-12-07] MEDS ORDERED: PIPERACILLIN/TAZOB 4.5 GM 4.5 GM in DEXTROSE 5%-WATER 100 ML IVPB ONE (15:16)
[2021-12-07] MEDS ORDERED: VANCOMYCIN/WATER FOR INJ (PEG) 1,000 MG/200 ML BAG IVPB ONE (15:20)
[2021-12-07] MEDS ORDERED: PIPERACILLIN/TAZOB 4.5 GM 4.5 GM/100 ML BAG IVPB ONE (15:20)
[2021-12-07 15:26] LABS: ERYTHROCYTE SEDIMENTATION RATE 95 mm/hr (0-30)
[2021-12-07 15:29] LABS: GLUCOSE,RANDOM 427 mg/dL (74-106)
[2021-12-07] MEDS ORDERED: SODIUM ZIRCONIUM CYCLOSILICATE (LOKELMA) 5 GM PACKET PO SCH (16:45)
[2021-12-07] MEDS ORDERED: INSULIN (NOVOLOG) ASPART 100 UNITS/ML 10ML VIAL SQ ONE (22:17)
[2021-12-07] MEDS ORDERED: POLYETHYLENE GLYCOL (HEALTHYLAX) 3350 17 GM PACKET PO PRN (22:36)
[2021-12-08] MEDS ORDERED: DIPHENOXYLATE 2.5/ATROPINE.025 1 COMBO TABLET PO PRN (00:09)
[2021-12-08] MEDS ORDERED: PIPERACILLIN/TAZOB 2.25 GM 2.25 GM in DEXTROSE 5%-WATER - 50 ML IVPB SCH (02:00)
[2021-12-08] MEDS ORDERED: PIPERACILLIN/TAZOBACTAM 2.25 GM VIAL IVPB ONE ×3 (02:24→18:24)
[2021-12-08] MEDS ORDERED: DEXTROSE 5%-WATER - 50 ML IVPB ONE ×3 (02:24→18:24)
[2021-12-08] MEDS: ACETAMINOPHEN 325 MG TABLET (FP) PO PRN (02:31)
[2021-12-08] MEDS: GABAPENTIN 300 MG CAPSULE PO SCH ×3 (02:31→21:35)
[2021-12-08] MEDS: PIPERACILLIN/TAZOB 2.25 GM 2.25 GM in DEXTROSE 5%-WATER - 50 ML IVPB SCH ×3 (02:34→20:35)
[2021-12-08] MEDS: INSULIN SLIDING SCALE (NOVOLOG) 1 VIAL SQ SCH ×4 (05:27→21:35)
[2021-12-08] MEDS: HEPARIN NA (PORCINE) 5,000 UNITS/ML 1ML VIAL SQ SCH ×5 (06:23→21:35)
[2021-12-08] MEDS: LEVOTHYROXINE NA 25 MCG TABLET (FP) PO SCH (06:24)
[2021-12-08] MEDS ORDERED: COLLAGENASE CLOSTRIDIUM HIST. 30 GRAMS TUBE TP SCH (10:00)
[2021-12-08] MEDS: clonazePAM 0.5 MG TABLET PO SCH (10:59)
[2021-12-08] MEDS: MULTIVITAMINS (DAILY MVI) TABLET (FP) PO SCH (10:59)
[2021-12-08] MEDS: CITALOPRAM HYDROBROMIDE 10 MG TABLET PO SCH (10:59)
[2021-12-08] MEDS: LACTOBACILLUS ACIDOPHILUS 1 TABLET PO SCH ×2 (10:59→21:35)
[2021-12-08] MEDS: LABETALOL HCL 100 MG TABLET (FP) PO SCH ×2 (11:00→21:35)
[2021-12-08] MEDS: amLODIPine BESYLATE 10 MG TABLET (FP) PO SCH (11:00)
[2021-12-08] MEDS: COLLAGENASE CLOSTRIDIUM HIST. 30 GRAMS TUBE TP SCH (11:13)
[2021-12-08] MEDS ORDERED: INSULIN (NOVOLOG) ASPART 100 UNITS/ML 10ML VIAL ONE ×2 (11:21→18:24)
[2021-12-08] MEDS ORDERED: SODIUM CHLORIDE 250 ML IV PRN (13:00)
[2021-12-08 14:07] LABS: HEMATOCRIT 28.5 % (32.4-45.2); HEMOGLOBIN 9.3 GM/dL (10.7-15.3); MCH 29.3 pg (25.7-33.7); MCHC 32.4 g/dl (32.0-36.0); MEAN CELL VOLUME 90.5 fl (80-96); MEAN PLT VOLUME 9.2 fl (7.5-11.1); PLATELET COUNT 277 10^3/uL (134-434); RBC 3.16 M/mm3 (3.60-5.2); RDW 15.6 % (11.6-15.6); WHITE BLOOD COUNT 5.9 K/mm3 (4.0-10.0)
[2021-12-08 14:15] LABS: MAGNESIUM 2.6 mg/dL (1.8-2.4)
[2021-12-08 14:19] LABS: PHOSPHOROUS 5.9 mg/dL (2.5-4.9)
[2021-12-08 14:42] LABS: BLOOD UREA NITROGEN 59.1 mg/dL (7-18); CALCIUM 8.9 mg/dL (8.5-10.1)
[2021-12-08 14:45] LABS: CREATININE 7.1 mg/dL (0.55-1.3)
[2021-12-08] MEDS ORDERED: VANCOMYCIN 500 MG in DEXTROSE 5%-WATER - 100 ML IVPB ONE (14:45)
[2021-12-08] MEDS ORDERED: HEPARIN NA (PORCINE) 5,000 UNITS/ML 1ML VIAL IVPUSH ONE (16:35)
[2021-12-08] MEDS: HEPARIN NA (PORCINE) 5,000 UNITS/ML 1ML VIAL IVPUSH SCH ×3 (16:53→19:29)
[2021-12-08] MEDS: AMINO ACIDS/PROTEIN HYDROLYS 30 ML LIQUID.PKT PO SCH (18:20)
[2021-12-08] MEDS ORDERED: INSULIN SLIDING SCALE (NOVOLOG) 1 VIAL SQ SCH (22:33)
[2021-12-08] MEDS: ASCORBIC ACID 500 MG TABLET (FP) PO SCH (22:56)
[2021-12-09] MEDS: HEPARIN NA (PORCINE) 5,000 UNITS/ML 1ML VIAL SQ SCH ×3 (06:55→21:22)
[2021-12-09] MEDS: INSULIN SLIDING SCALE (NOVOLOG) 1 VIAL SQ SCH ×4 (06:56→21:31)
[2021-12-09] MEDS: LEVOTHYROXINE NA 25 MCG TABLET (FP) PO SCH (06:57)
[2021-12-09] MEDS ORDERED: INSULIN (LEVEMIR) 100 UNITS/ML UNITS SQ SCH ×2 (07:00→22:00)
[2021-12-09] MEDS: COLLAGENASE CLOSTRIDIUM HIST. 30 GRAMS TUBE TP SCH (10:00)
[2021-12-09] MEDS: MULTIVITAMINS (DAILY MVI) TABLET (FP) PO SCH (10:01)
[2021-12-09] MEDS: amLODIPine BESYLATE 10 MG TABLET (FP) PO SCH (10:01)
[2021-12-09] MEDS: GABAPENTIN 300 MG CAPSULE PO SCH ×2 (10:01→21:22)
[2021-12-09] MEDS: ASCORBIC ACID 500 MG TABLET (FP) PO SCH ×2 (10:01→21:22)
[2021-12-09] MEDS: CITALOPRAM HYDROBROMIDE 10 MG TABLET PO SCH (10:01)
[2021-12-09] MEDS: LACTOBACILLUS ACIDOPHILUS 1 TABLET PO SCH ×2 (10:01→21:22)
[2021-12-09] MEDS: VITAMIN B COMP W-C 1 EA TABLET (NEPHRO-VITE) PO SCH (10:01)
[2021-12-09] MEDS: LABETALOL HCL 100 MG TABLET (FP) PO SCH ×2 (10:01→21:22)
[2021-12-09] MEDS: AMINO ACIDS/PROTEIN HYDROLYS 30 ML LIQUID.PKT PO SCH ×2 (10:01→18:36)
[2021-12-09] MEDS ORDERED: DEXTROSE 5%-WATER - 50 ML IVPB ONE (15:51)
[2021-12-09] MEDS ORDERED: PIPERACILLIN/TAZOBACTAM 2.25 GM VIAL IVPB ONE (15:51)
[2021-12-09] MEDS: PIPERACILLIN/TAZOB 2.25 GM 2.25 GM in DEXTROSE 5%-WATER - 50 ML IVPB SCH ×2 (16:27→18:30)
[2021-12-09] MEDS: SEVELAMER CARBONATE 800 MG PO SCH (16:32)
[2021-12-10] MEDS ORDERED: PIPERACILLIN/TAZOBACTAM 2.25 GM VIAL IVPB ONE ×3 (03:00→16:48)
[2021-12-10] MEDS: PIPERACILLIN/TAZOB 2.25 GM 2.25 GM in DEXTROSE 5%-WATER - 50 ML IVPB SCH ×3 (03:00→18:40)
[2021-12-10] MEDS ORDERED: DEXTROSE 5%-WATER - 50 ML IVPB ONE ×2 (03:00→07:57)
[2021-12-10] MEDS: LEVOTHYROXINE NA 25 MCG TABLET (FP) PO SCH (06:41)
[2021-12-10] MEDS: HEPARIN NA (PORCINE) 5,000 UNITS/ML 1ML VIAL SQ SCH ×3 (06:41→21:33)
[2021-12-10] MEDS: INSULIN (LEVEMIR) 100 UNITS/ML UNITS SQ SCH ×2 (06:41→21:37)
[2021-12-10] MEDS: INSULIN SLIDING SCALE (NOVOLOG) 1 VIAL SQ SCH ×4 (06:43→21:34)
[2021-12-10] MEDS: INSULIN (NOVOLOG) ASPART 100 UNITS/ML 10ML VIAL SQ SCH ×3 (06:51→18:04)
[2021-12-10 08:49] LABS: EOS % 1.7 % (0-4.5); HEMATOCRIT 28.8 % (32.4-45.2); HEMOGLOBIN 9.5 GM/dL (10.7-15.3); MCH 29.6 pg (25.7-33.7); MEAN CELL VOLUME 89.7 fl (80-96); MEAN PLT VOLUME 8.3 fl (7.5-11.1); MONO % 9.7 % (3.8-10.2); NEUT % 71.6 % (42.8-82.8); PLATELET COUNT 356 10^3/uL (134-434); RBC 3.21 M/mm3 (3.60-5.2); RDW 15.8 % (11.6-15.6); WHITE BLOOD COUNT 8.7 K/mm3 (4.0-10.0)
[2021-12-10 09:14] LABS: ALBUMIN 2.3 g/dl (3.4-5.0); BLOOD UREA NITROGEN 44.3 mg/dL (7-18); CALCIUM 9.8 mg/dL (8.5-10.1)
[2021-12-10 09:17] LABS: CREATININE 6.4 mg/dL (0.55-1.3)
[2021-12-10 09:19] LABS: BILIRUBIN,TOTAL 0.5 mg/dL (0.2-1); TOT PROT 7.3 g/dl (6.4-8.2)
[2021-12-10] MEDS: ASCORBIC ACID 500 MG TABLET (FP) PO SCH ×2 (09:40→21:41)
[2021-12-10] MEDS: LABETALOL HCL 100 MG TABLET (FP) PO SCH ×2 (09:40→21:33)
[2021-12-10] MEDS: AMINO ACIDS/PROTEIN HYDROLYS 30 ML LIQUID.PKT PO SCH ×2 (09:40→18:05)
[2021-12-10] MEDS: VITAMIN B COMP W-C 1 EA TABLET (NEPHRO-VITE) PO SCH (09:40)
[2021-12-10] MEDS: CITALOPRAM HYDROBROMIDE 10 MG TABLET PO SCH (09:40)
[2021-12-10] MEDS: MULTIVITAMINS (DAILY MVI) TABLET (FP) PO SCH (09:40)
[2021-12-10] MEDS: GABAPENTIN 300 MG CAPSULE PO SCH ×2 (09:40→21:34)
[2021-12-10] MEDS: amLODIPine BESYLATE 10 MG TABLET (FP) PO SCH (09:40)
[2021-12-10] MEDS: LACTOBACILLUS ACIDOPHILUS 1 TABLET PO SCH ×2 (09:40→21:33)
[2021-12-10] MEDS: COLLAGENASE CLOSTRIDIUM HIST. 30 GRAMS TUBE TP SCH (09:41)
[2021-12-10] MEDS: ACETAMINOPHEN 325 MG TABLET (FP) PO PRN (13:41)
[2021-12-11] MEDS ORDERED: PIPERACILLIN/TAZOBACTAM 2.25 GM VIAL IVPB ONE ×3 (01:28→18:17)
[2021-12-11] MEDS ORDERED: DEXTROSE 5%-WATER - 50 ML IVPB ONE ×3 (01:28→18:17)
[2021-12-11] MEDS: PIPERACILLIN/TAZOB 2.25 GM 2.25 GM in DEXTROSE 5%-WATER - 50 ML IVPB SCH ×3 (03:23→19:18)
[2021-12-11] MEDS: LEVOTHYROXINE NA 25 MCG TABLET (FP) PO SCH (07:00)
[2021-12-11] MEDS: HEPARIN NA (PORCINE) 5,000 UNITS/ML 1ML VIAL SQ SCH ×3 (07:00→21:48)
[2021-12-11] MEDS: INSULIN (LEVEMIR) 100 UNITS/ML UNITS SQ SCH ×2 (07:01→22:46)
[2021-12-11] MEDS: INSULIN SLIDING SCALE (NOVOLOG) 1 VIAL SQ SCH ×4 (07:01→21:52)
[2021-12-11] MEDS: INSULIN (NOVOLOG) ASPART 100 UNITS/ML 10ML VIAL SQ SCH ×2 (07:01→12:28)
[2021-12-11] MEDS ORDERED: DEXTROSE 50%-WATER 25 GM/50 ML DISP.SYRIN ONE (09:18)
[2021-12-11] MEDS ORDERED: DEXTROSE 50%-WATER 25 GM/50 ML DISP.SYRIN IVPUSH ONE (09:28)
[2021-12-11] MEDS ORDERED: DEXTROSE 50%-WATER 25 GM/50 ML DISP.SYRIN IVPUSH PRN (09:29)
[2021-12-11] MEDS ORDERED: DEXTROSE 10%-WATER - 1,000 ML IV SCH (09:30)
[2021-12-11] MEDS: LACTOBACILLUS ACIDOPHILUS 1 TABLET PO SCH ×2 (12:26→21:48)
[2021-12-11] MEDS: AMINO ACIDS/PROTEIN HYDROLYS 30 ML LIQUID.PKT PO SCH ×2 (12:26→18:15)
[2021-12-11] MEDS: CITALOPRAM HYDROBROMIDE 10 MG TABLET PO SCH (12:26)
[2021-12-11] MEDS: clonazePAM 0.5 MG TABLET PO SCH (12:27)
[2021-12-11] MEDS: amLODIPine BESYLATE 10 MG TABLET (FP) PO SCH (12:27)
[2021-12-11] MEDS: GABAPENTIN 300 MG CAPSULE PO SCH ×2 (12:27→21:48)
[2021-12-11] MEDS: VITAMIN B COMP W-C 1 EA TABLET (NEPHRO-VITE) PO SCH (12:27)
[2021-12-11] MEDS: LABETALOL HCL 100 MG TABLET (FP) PO SCH ×2 (12:27→21:48)
[2021-12-11] MEDS: ASCORBIC ACID 500 MG TABLET (FP) PO SCH ×2 (12:28→21:48)
[2021-12-11] MEDS: MULTIVITAMINS (DAILY MVI) TABLET (FP) PO SCH (12:28)
[2021-12-11] MEDS: COLLAGENASE CLOSTRIDIUM HIST. 30 GRAMS TUBE TP SCH (13:30)
[2021-12-11] MEDS ORDERED: HEPARIN NA (PORCINE) 5,000 UNITS/ML 1ML VIAL IVPUSH ONE (15:00)
[2021-12-11] MEDS ORDERED: SODIUM CHLORIDE 250 ML IV PRN (15:00)
[2021-12-11] MEDS ORDERED: EPOETIN ALFA-EPBX 4,000 UNIT/ML VIAL IVPUSH ONE (15:00)
[2021-12-11 15:23] LABS: HEMATOCRIT 28.2 % (32.4-45.2); HEMOGLOBIN 9.2 GM/dL (10.7-15.3); MCH 29.4 pg (25.7-33.7); MCHC 32.8 g/dl (32.0-36.0); MEAN CELL VOLUME 89.9 fl (80-96); MEAN PLT VOLUME 8.8 fl (7.5-11.1); PLATELET COUNT 388 10^3/uL (134-434); RBC 3.14 M/mm3 (3.60-5.2); RDW 16.1 % (11.6-15.6); WHITE BLOOD COUNT 11.8 K/mm3 (4.0-10.0)
[2021-12-11 15:47] LABS: CHLORIDE 95 mmol/L (98-107); SODIUM 136 mmol/L (136-145)
[2021-12-11 15:50] LABS: ANION GAP 17 MMOL/L (8-16); CALCIUM 8.9 mg/dL (8.5-10.1); CO2 24 mmol/L (21-32); GLUCOSE,RANDOM 86 mg/dL (74-106)
[2021-12-11 15:51] LABS: ALBUMIN 2.1 g/dl (3.4-5.0); BLOOD UREA NITROGEN 55.8 mg/dL (7-18)
[2021-12-11 15:53] LABS: SGPT/ALT 55 U/L (13-61)
[2021-12-11 15:54] LABS: SGOT/AST 41 U/L (15-37)
[2021-12-11 15:55] LABS: BILIRUBIN,TOTAL 0.6 mg/dL (0.2-1); TOT PROT 6.8 g/dl (6.4-8.2)
[2021-12-11 15:56] LABS: ALK PHOS 420 U/L (45-117)
[2021-12-11 15:58] LABS: CREATININE 8.4 mg/dL (0.55-1.3)
[2021-12-11] MEDS: ACETAMINOPHEN 325 MG TABLET (FP) PO PRN (21:58)
[2021-12-12] MEDS ORDERED: PIPERACILLIN/TAZOBACTAM 2.25 GM VIAL IVPB ONE ×2 (02:17→10:52)
[2021-12-12] MEDS ORDERED: DEXTROSE 5%-WATER - 50 ML IVPB ONE ×2 (02:17→10:52)
[2021-12-12] MEDS: PIPERACILLIN/TAZOB 2.25 GM 2.25 GM in DEXTROSE 5%-WATER - 50 ML IVPB SCH ×3 (02:27→18:43)
[2021-12-12] MEDS: HEPARIN NA (PORCINE) 5,000 UNITS/ML 1ML VIAL SQ SCH ×3 (06:10→21:34)
[2021-12-12] MEDS: LEVOTHYROXINE NA 25 MCG TABLET (FP) PO SCH (06:11)
[2021-12-12] MEDS: INSULIN (LEVEMIR) 100 UNITS/ML UNITS SQ SCH (07:30)
[2021-12-12] MEDS: INSULIN SLIDING SCALE (NOVOLOG) 1 VIAL SQ SCH ×4 (07:30→21:38)
[2021-12-12] MEDS: COLLAGENASE CLOSTRIDIUM HIST. 30 GRAMS TUBE TP SCH (11:00)
[2021-12-12] MEDS: LABETALOL HCL 100 MG TABLET (FP) PO SCH ×2 (11:00→21:33)
[2021-12-12] MEDS: GABAPENTIN 300 MG CAPSULE PO SCH ×2 (11:00→21:33)
[2021-12-12] MEDS: VITAMIN B COMP W-C 1 EA TABLET (NEPHRO-VITE) PO SCH (11:00)
[2021-12-12] MEDS: amLODIPine BESYLATE 10 MG TABLET (FP) PO SCH (11:00)
[2021-12-12] MEDS: LACTOBACILLUS ACIDOPHILUS 1 TABLET PO SCH ×2 (11:00→21:34)
[2021-12-12] MEDS: AMINO ACIDS/PROTEIN HYDROLYS 30 ML LIQUID.PKT PO SCH ×2 (11:00→18:43)
[2021-12-12] MEDS: ASCORBIC ACID 500 MG TABLET (FP) PO SCH ×2 (11:00→21:34)
[2021-12-12] MEDS: MULTIVITAMINS (DAILY MVI) TABLET (FP) PO SCH (11:00)
[2021-12-12] MEDS: CITALOPRAM HYDROBROMIDE 10 MG TABLET PO SCH (11:00)
[2021-12-12] MEDS ORDERED: SODIUM CHLORIDE 250 ML IV PRN ×2 (13:53→17:27)
[2021-12-12] MEDS ORDERED: LIDOCAINE HCL 2% (20ML MULTI-DOSE VIAL) ONE (15:23)
[2021-12-12] MEDS ORDERED: MIDAZOLAM HCL 2 MG/2 ML SINGLE DOSE VIAL ONE (16:17)
[2021-12-12] MEDS ORDERED: LIDOCAINE HCL 2% 100 MG/5 ML DISP.SYRIN ONE (16:23)
[2021-12-12] MEDS ORDERED: LIDOCAINE HCL 2% (50ML VIAL) NR ONE (16:36)
[2021-12-12] MEDS ORDERED: POLYETHYLENE GLYCOL (HEALTHYLAX) 3350 17 GM PACKET PO PRN (17:27)
[2021-12-12] MEDS ORDERED: DEXTROSE 50%-WATER 25 GM/50 ML DISP.SYRIN IVPUSH PRN (17:27)
[2021-12-12] MEDS ORDERED: ONDANSETRON 4 MG/2 ML VIAL IVPUSH PRN (17:54)
[2021-12-12] MEDS: ACETAMINOPHEN 325 MG TABLET (FP) PO PRN (21:43)
[2021-12-13] MEDS: PIPERACILLIN/TAZOB 2.25 GM 2.25 GM in DEXTROSE 5%-WATER - 50 ML IVPB SCH ×3 (01:36→17:57)
[2021-12-13] MEDS ORDERED: ACETAMINOPHEN 1000 MG/100 ML BAG IVPB ONE (02:23)
[2021-12-13] MEDS: HEPARIN NA (PORCINE) 5,000 UNITS/ML 1ML VIAL SQ SCH ×3 (06:11→22:05)
[2021-12-13] MEDS: LEVOTHYROXINE NA 25 MCG TABLET (FP) PO SCH (06:12)
[2021-12-13] MEDS: INSULIN SLIDING SCALE (NOVOLOG) 1 VIAL SQ SCH ×4 (06:12→22:13)
[2021-12-13] MEDS ORDERED: ALTEPLASE (CATHFLO) 2 MG/2 ML VIAL NR SCH ×2 (09:45)
[2021-12-13] MEDS ORDERED: EPOETIN ALFA-EPBX 3,000 UNIT/ML VIAL IVPUSH ONE (10:00)
[2021-12-13 12:08] LABS: HEMATOCRIT 24.8 % (32.4-45.2); HEMOGLOBIN 8.2 GM/dL (10.7-15.3); MCH 29.5 pg (25.7-33.7); MCHC 32.9 g/dl (32.0-36.0); MEAN CELL VOLUME 89.7 fl (80-96); MEAN PLT VOLUME 8.4 fl (7.5-11.1); PLATELET COUNT 412 10^3/uL (134-434); RBC 2.77 M/mm3 (3.60-5.2); RDW 16.6 % (11.6-15.6); WHITE BLOOD COUNT 10.8 K/mm3 (4.0-10.0)
[2021-12-13 13:05] LABS: CALCIUM 8.1 mg/dL (8.5-10.1); CREATININE 5.4 mg/dL (0.55-1.3)
[2021-12-13] MEDS: ACETAMINOPHEN 325 MG TABLET (FP) PO PRN (13:36)
[2021-12-13] MEDS ORDERED: HEPARIN NA (PORCINE) 5,000 UNITS/ML 1ML VIAL IVPUSH ONE ×2 (13:53)
[2021-12-13] MEDS ORDERED: EPOETIN ALFA-EPBX 3,000 UNIT/ML VIAL SQ ONE (13:53)
[2021-12-13] MEDS ORDERED: HEPARIN NA (PORCINE) 5,000 UNITS/ML 1ML VIAL IVPUSH SCH (14:00)
[2021-12-13] MEDS: HEPARIN NA (PORCINE) 5,000 UNITS/ML 1ML VIAL IVPUSH SCH ×3 (14:00→15:01)
[2021-12-13] MEDS: LACTOBACILLUS ACIDOPHILUS 1 TABLET PO SCH ×2 (15:09→22:04)
[2021-12-13] MEDS: AMINO ACIDS/PROTEIN HYDROLYS 30 ML LIQUID.PKT PO SCH ×2 (15:09→17:57)
[2021-12-13] MEDS: COLLAGENASE CLOSTRIDIUM HIST. 30 GRAMS TUBE TP SCH (15:10)
[2021-12-13] MEDS: MULTIVITAMINS (DAILY MVI) TABLET (FP) PO SCH (15:38)
[2021-12-13] MEDS: CITALOPRAM HYDROBROMIDE 10 MG TABLET PO SCH (15:38)
[2021-12-13] MEDS: clonazePAM 0.5 MG TABLET PO SCH (15:39)
[2021-12-13] MEDS: amLODIPine BESYLATE 10 MG TABLET (FP) PO SCH (15:39)
[2021-12-13] MEDS: VITAMIN B COMP W-C 1 EA TABLET (NEPHRO-VITE) PO SCH (15:39)
[2021-12-13] MEDS: GABAPENTIN 300 MG CAPSULE PO SCH ×2 (15:39→22:05)
[2021-12-13] MEDS: LABETALOL HCL 100 MG TABLET (FP) PO SCH ×2 (15:39→22:04)
[2021-12-13] MEDS: ASCORBIC ACID 500 MG TABLET (FP) PO SCH ×2 (15:40→22:04)
[2021-12-13] MEDS ORDERED: INSULIN (NOVOLOG) ASPART 100 UNITS/ML 10ML VIAL ONE ×2 (17:25→22:15)
[2021-12-13] MEDS: INSULIN (LEVEMIR) 100 UNITS/ML UNITS SQ SCH (22:14)
[2021-12-14] MEDS: PIPERACILLIN/TAZOB 2.25 GM 2.25 GM in DEXTROSE 5%-WATER - 50 ML IVPB SCH ×3 (02:27→17:58)
[2021-12-14] MEDS: INSULIN SLIDING SCALE (NOVOLOG) 1 VIAL SQ SCH ×4 (07:04→21:53)
[2021-12-14] MEDS: INSULIN (LEVEMIR) 100 UNITS/ML UNITS SQ SCH ×2 (07:04→21:55)
[2021-12-14] MEDS: HEPARIN NA (PORCINE) 5,000 UNITS/ML 1ML VIAL SQ SCH ×3 (07:23→21:54)
[2021-12-14] MEDS: AMINO ACIDS/PROTEIN HYDROLYS 30 ML LIQUID.PKT PO SCH ×2 (07:23→17:57)
[2021-12-14] MEDS: LEVOTHYROXINE NA 25 MCG TABLET (FP) PO SCH (07:23)
[2021-12-14] MEDS: amLODIPine BESYLATE 10 MG TABLET (FP) PO SCH (09:56)
[2021-12-14] MEDS: LABETALOL HCL 100 MG TABLET (FP) PO SCH ×2 (09:56→21:56)
[2021-12-14] MEDS: CITALOPRAM HYDROBROMIDE 10 MG TABLET PO SCH (09:56)
[2021-12-14] MEDS: LACTOBACILLUS ACIDOPHILUS 1 TABLET PO SCH ×2 (09:56→21:56)
[2021-12-14] MEDS: VITAMIN B COMP W-C 1 EA TABLET (NEPHRO-VITE) PO SCH (09:56)
[2021-12-14] MEDS: MULTIVITAMINS (DAILY MVI) TABLET (FP) PO SCH (09:56)
[2021-12-14] MEDS: GABAPENTIN 300 MG CAPSULE PO SCH ×2 (09:56→21:56)
[2021-12-14] MEDS: ASCORBIC ACID 500 MG TABLET (FP) PO SCH ×2 (09:56→21:56)
[2021-12-14] MEDS: COLLAGENASE CLOSTRIDIUM HIST. 30 GRAMS TUBE TP SCH (10:18)
[2021-12-14] MEDS ORDERED: INSULIN (NOVOLOG) ASPART 100 UNITS/ML 10ML VIAL ONE ×2 (13:04→21:53)
[2021-12-14] MEDS ORDERED: SODIUM CHLORIDE 250 ML IV PRN (13:06)
[2021-12-15] MEDS: PIPERACILLIN/TAZOB 2.25 GM 2.25 GM in DEXTROSE 5%-WATER - 50 ML IVPB SCH ×3 (01:29→19:20)
[2021-12-15] MEDS: HEPARIN NA (PORCINE) 5,000 UNITS/ML 1ML VIAL SQ SCH ×3 (06:55→21:29)
[2021-12-15] MEDS: INSULIN (LEVEMIR) 100 UNITS/ML UNITS SQ SCH ×2 (06:55→21:35)
[2021-12-15] MEDS: LEVOTHYROXINE NA 25 MCG TABLET (FP) PO SCH (06:58)
[2021-12-15] MEDS: INSULIN SLIDING SCALE (NOVOLOG) 1 VIAL SQ SCH ×4 (06:59→21:32)
[2021-12-15] MEDS ORDERED: INSULIN (LEVEMIR) 100 UNITS/ML UNITS SQ ONE (07:05)
[2021-12-15] MEDS ORDERED: INSULIN (NOVOLOG) ASPART 100 UNITS/ML 10ML VIAL ONE ×3 (07:05→21:26)
[2021-12-15] MEDS ORDERED: HEPARIN NA (PORCINE) 5,000 UNITS/ML 1ML VIAL IVPUSH ONE (08:30)
[2021-12-15] MEDS: HEPARIN NA (PORCINE) 5,000 UNITS/ML 1ML VIAL IVPUSH SCH ×3 (09:30→11:30)
[2021-12-15 09:59] LABS: HEMATOCRIT 23.9 % (32.4-45.2); HEMOGLOBIN 7.7 GM/dL (10.7-15.3); MCH 29.7 pg (25.7-33.7); MCHC 32.4 g/dl (32.0-36.0); MEAN CELL VOLUME 91.6 fl (80-96); MEAN PLT VOLUME 8.6 fl (7.5-11.1); PLATELET COUNT 502 10^3/uL (134-434); RBC 2.61 M/mm3 (3.60-5.2); RDW 17.4 % (11.6-15.6); WHITE BLOOD COUNT 9.3 K/mm3 (4.0-10.0)
[2021-12-15] MEDS ORDERED: EPOETIN ALFA-EPBX 10,000 UNIT/ML VIAL IVPUSH ONE (10:00)
[2021-12-15 10:29] LABS: BLOOD UREA NITROGEN 44.7 mg/dL (7-18)
[2021-12-15] MEDS: ACETAMINOPHEN 325 MG TABLET (FP) PO PRN (10:58)
[2021-12-15] MEDS: ALBUMIN HUMAN 25% 12.5 GM/50 ML VIAL IV SCH ×2 (12:22→12:23)
[2021-12-15] MEDS: LABETALOL HCL 100 MG TABLET (FP) PO SCH ×2 (12:51→21:28)
[2021-12-15] MEDS: GABAPENTIN 300 MG CAPSULE PO SCH ×2 (12:51→21:28)
[2021-12-15] MEDS: amLODIPine BESYLATE 10 MG TABLET (FP) PO SCH (12:51)
[2021-12-15] MEDS: LACTOBACILLUS ACIDOPHILUS 1 TABLET PO SCH ×2 (12:51→21:29)
[2021-12-15] MEDS: MULTIVITAMINS (DAILY MVI) TABLET (FP) PO SCH (12:51)
[2021-12-15] MEDS: AMINO ACIDS/PROTEIN HYDROLYS 30 ML LIQUID.PKT PO SCH ×2 (12:51→18:36)
[2021-12-15] MEDS: clonazePAM 0.5 MG TABLET PO SCH (12:51)
[2021-12-15] MEDS: VITAMIN B COMP W-C 1 EA TABLET (NEPHRO-VITE) PO SCH (12:51)
[2021-12-15] MEDS: CITALOPRAM HYDROBROMIDE 10 MG TABLET PO SCH (12:52)
[2021-12-15] MEDS: ASCORBIC ACID 500 MG TABLET (FP) PO SCH ×2 (12:52→21:29)
[2021-12-15] MEDS: COLLAGENASE CLOSTRIDIUM HIST. 30 GRAMS TUBE TP SCH (13:02)
[2021-12-15] MEDS: traMADol HCL 50 MG TABLET PO PRN (14:39)
[2021-12-15] MEDS: SODIUM HYPOCHLORITE 0.25%- 473 ML BULK BOTTLE TP SCH (18:38)
[2021-12-16] MEDS: INSULIN SLIDING SCALE (NOVOLOG) 1 VIAL SQ SCH ×4 (06:50→22:01)
[2021-12-16] MEDS: HEPARIN NA (PORCINE) 5,000 UNITS/ML 1ML VIAL SQ SCH ×3 (06:51→22:00)
[2021-12-16] MEDS: INSULIN (LEVEMIR) 100 UNITS/ML UNITS SQ SCH ×2 (06:51→22:01)
[2021-12-16] MEDS: LEVOTHYROXINE NA 25 MCG TABLET (FP) PO SCH (06:52)
[2021-12-16] MEDS: PIPERACILLIN/TAZOB 2.25 GM 2.25 GM in DEXTROSE 5%-WATER - 50 ML IVPB SCH ×3 (09:53→18:05)
[2021-12-16] MEDS: MULTIVITAMINS (DAILY MVI) TABLET (FP) PO SCH (09:53)
[2021-12-16] MEDS: CITALOPRAM HYDROBROMIDE 10 MG TABLET PO SCH (09:53)
[2021-12-16] MEDS: VITAMIN B COMP W-C 1 EA TABLET (NEPHRO-VITE) PO SCH (09:53)
[2021-12-16] MEDS: ASCORBIC ACID 500 MG TABLET (FP) PO SCH ×2 (09:53→22:00)
[2021-12-16] MEDS: AMINO ACIDS/PROTEIN HYDROLYS 30 ML LIQUID.PKT PO SCH ×2 (09:53→18:06)
[2021-12-16] MEDS: LABETALOL HCL 100 MG TABLET (FP) PO SCH ×2 (09:54→22:01)
[2021-12-16] MEDS: amLODIPine BESYLATE 10 MG TABLET (FP) PO SCH (09:54)
[2021-12-16] MEDS: GABAPENTIN 300 MG CAPSULE PO SCH ×2 (09:54→22:00)
[2021-12-16] MEDS: LACTOBACILLUS ACIDOPHILUS 1 TABLET PO SCH ×2 (09:54→22:00)
[2021-12-16] MEDS: COLLAGENASE CLOSTRIDIUM HIST. 30 GRAMS TUBE TP SCH (12:24)
[2021-12-16] MEDS: traMADol HCL 50 MG TABLET PO PRN ×2 (14:53→22:00)
[2021-12-16] MEDS: SODIUM HYPOCHLORITE 0.25%- 473 ML BULK BOTTLE TP SCH (14:54)
[2021-12-17] MEDS: PIPERACILLIN/TAZOB 2.25 GM 2.25 GM in DEXTROSE 5%-WATER - 50 ML IVPB SCH ×2 (02:16→09:32)
[2021-12-17] MEDS: INSULIN (LEVEMIR) 100 UNITS/ML UNITS SQ SCH ×2 (06:44→21:55)
[2021-12-17] MEDS: LEVOTHYROXINE NA 25 MCG TABLET (FP) PO SCH (06:44)
[2021-12-17] MEDS: HEPARIN NA (PORCINE) 5,000 UNITS/ML 1ML VIAL SQ SCH ×3 (06:44→21:51)
[2021-12-17] MEDS: INSULIN SLIDING SCALE (NOVOLOG) 1 VIAL SQ SCH ×4 (06:45→21:52)
[2021-12-17] MEDS: GABAPENTIN 300 MG CAPSULE PO SCH ×2 (09:32→21:52)
[2021-12-17] MEDS: ASCORBIC ACID 500 MG TABLET (FP) PO SCH ×2 (09:32→21:56)
[2021-12-17] MEDS: LABETALOL HCL 100 MG TABLET (FP) PO SCH ×2 (09:32→21:52)
[2021-12-17] MEDS: MULTIVITAMINS (DAILY MVI) TABLET (FP) PO SCH (09:32)
[2021-12-17] MEDS: LACTOBACILLUS ACIDOPHILUS 1 TABLET PO SCH ×2 (09:32→21:51)
[2021-12-17] MEDS: amLODIPine BESYLATE 10 MG TABLET (FP) PO SCH (09:32)
[2021-12-17] MEDS: CITALOPRAM HYDROBROMIDE 10 MG TABLET PO SCH (09:32)
[2021-12-17] MEDS: VITAMIN B COMP W-C 1 EA TABLET (NEPHRO-VITE) PO SCH (09:32)
[2021-12-17] MEDS: AMINO ACIDS/PROTEIN HYDROLYS 30 ML LIQUID.PKT PO SCH ×2 (09:32→17:19)
[2021-12-17] MEDS: ERTAPENEM SODIUM 0.5 GM in SODIUM CHLORIDE 50 ML IVPB SCH (13:23)
[2021-12-17] MEDS: traMADol HCL 50 MG TABLET PO PRN (16:31)
[2021-12-17] MEDS: SODIUM HYPOCHLORITE 0.25%- 473 ML BULK BOTTLE TP SCH (16:32)
[2021-12-18] MEDS: INSULIN SLIDING SCALE (NOVOLOG) 1 VIAL SQ SCH ×4 (06:17→23:55)
[2021-12-18] MEDS: HEPARIN NA (PORCINE) 5,000 UNITS/ML 1ML VIAL SQ SCH ×3 (06:17→23:20)
[2021-12-18] MEDS: LEVOTHYROXINE NA 25 MCG TABLET (FP) PO SCH (06:17)
[2021-12-18] MEDS: INSULIN (LEVEMIR) 100 UNITS/ML UNITS SQ SCH (07:02)
[2021-12-18 10:23] LABS: BASO % 0.9 % (0-2.0); EOS % 4.2 % (0-4.5); HEMATOCRIT 25.7 % (32.4-45.2); HEMOGLOBIN 8.3 GM/dL (10.7-15.3); LYMPH % 13.6 % (8-40); MCHC 32.4 g/dl (32.0-36.0); MEAN CELL VOLUME 92.6 fl (80-96); MEAN PLT VOLUME 8.2 fl (7.5-11.1); NEUT % 73.3 % (42.8-82.8); PLATELET COUNT 527 10^3/uL (134-434); RBC 2.78 M/mm3 (3.60-5.2); RDW 17.8 % (11.6-15.6); WHITE BLOOD COUNT 10.5 K/mm3 (4.0-10.0)
[2021-12-18] MEDS ORDERED: EPOETIN ALFA-EPBX 10,000 UNIT/ML VIAL IVPUSH ONE (10:30)
[2021-12-18 10:49] LABS: CHLORIDE 96 mmol/L (98-107); SODIUM 137 mmol/L (136-145)
[2021-12-18 10:52] LABS: ALBUMIN 2.2 g/dl (3.4-5.0); ANION GAP 16 MMOL/L (8-16); BLOOD UREA NITROGEN 56.5 mg/dL (7-18); CO2 25 mmol/L (21-32); GLUCOSE,RANDOM 85 mg/dL (74-106)
[2021-12-18 10:53] LABS: CALCIUM 9.1 mg/dL (8.5-10.1)
[2021-12-18 10:55] LABS: SGOT/AST 44 U/L (15-37); SGPT/ALT 61 U/L (13-61)
[2021-12-18 10:57] LABS: TOT PROT 6.7 g/dl (6.4-8.2)
[2021-12-18 10:59] LABS: ALK PHOS 537 U/L (45-117); BILIRUBIN,TOTAL 0.4 mg/dL (0.2-1); CREATININE 8.2 mg/dL (0.55-1.3)
[2021-12-18] MEDS: AMINO ACIDS/PROTEIN HYDROLYS 30 ML LIQUID.PKT PO SCH ×2 (13:23→18:08)
[2021-12-18] MEDS: clonazePAM 0.5 MG TABLET PO SCH (13:58)
[2021-12-18] MEDS: VITAMIN B COMP W-C 1 EA TABLET (NEPHRO-VITE) PO SCH (13:58)
[2021-12-18] MEDS: GABAPENTIN 300 MG CAPSULE PO SCH ×2 (13:58→23:19)
[2021-12-18] MEDS: LACTOBACILLUS ACIDOPHILUS 1 TABLET PO SCH ×2 (13:59→23:20)
[2021-12-18] MEDS: ERTAPENEM SODIUM 0.5 GM in SODIUM CHLORIDE 50 ML IVPB SCH (13:59)
[2021-12-18] MEDS: ASCORBIC ACID 500 MG TABLET (FP) PO SCH ×2 (13:59→23:21)
[2021-12-18] MEDS: CITALOPRAM HYDROBROMIDE 10 MG TABLET PO SCH (13:59)
[2021-12-18] MEDS: SODIUM HYPOCHLORITE 0.25%- 473 ML BULK BOTTLE TP SCH (13:59)
[2021-12-18] MEDS: MULTIVITAMINS (DAILY MVI) TABLET (FP) PO SCH (13:59)
[2021-12-18] MEDS: LABETALOL HCL 100 MG TABLET (FP) PO SCH ×2 (14:24→23:20)
[2021-12-18] MEDS: amLODIPine BESYLATE 10 MG TABLET (FP) PO SCH (14:25)
[2021-12-18] MEDS: ACETAMINOPHEN 325 MG TABLET (FP) PO PRN (23:21)
[2021-12-19] MEDS: LEVOTHYROXINE NA 25 MCG TABLET (FP) PO SCH (06:17)
[2021-12-19] MEDS: HEPARIN NA (PORCINE) 5,000 UNITS/ML 1ML VIAL SQ SCH ×3 (06:17→21:59)
[2021-12-19] MEDS: INSULIN SLIDING SCALE (NOVOLOG) 1 VIAL SQ SCH ×4 (06:18→21:57)
[2021-12-19] MEDS: LACTOBACILLUS ACIDOPHILUS 1 TABLET PO SCH ×2 (10:56→21:58)
[2021-12-19] MEDS: AMINO ACIDS/PROTEIN HYDROLYS 30 ML LIQUID.PKT PO SCH ×2 (10:56→17:33)
[2021-12-19] MEDS: CITALOPRAM HYDROBROMIDE 10 MG TABLET PO SCH (10:57)
[2021-12-19] MEDS: ERTAPENEM SODIUM 0.5 GM in SODIUM CHLORIDE 50 ML IVPB SCH (10:57)
[2021-12-19] MEDS: VITAMIN B COMP W-C 1 EA TABLET (NEPHRO-VITE) PO SCH (10:57)
[2021-12-19] MEDS: MULTIVITAMINS (DAILY MVI) TABLET (FP) PO SCH (10:58)
[2021-12-19] MEDS: ASCORBIC ACID 500 MG TABLET (FP) PO SCH ×2 (10:58→21:58)
[2021-12-19] MEDS: GABAPENTIN 300 MG CAPSULE PO SCH ×2 (10:58→21:58)
[2021-12-19] MEDS: LABETALOL HCL 100 MG TABLET (FP) PO SCH ×2 (10:58→21:58)
[2021-12-19] MEDS: amLODIPine BESYLATE 10 MG TABLET (FP) PO SCH (10:59)
[2021-12-19] MEDS: SODIUM HYPOCHLORITE 0.25%- 473 ML BULK BOTTLE TP SCH (15:46)
[2021-12-20] MEDS: HEPARIN NA (PORCINE) 5,000 UNITS/ML 1ML VIAL SQ SCH ×3 (06:48→21:12)
[2021-12-20] MEDS: INSULIN SLIDING SCALE (NOVOLOG) 1 VIAL SQ SCH ×4 (06:48→21:11)
[2021-12-20] MEDS: LEVOTHYROXINE NA 25 MCG TABLET (FP) PO SCH (06:49)
[2021-12-20] MEDS: AMINO ACIDS/PROTEIN HYDROLYS 30 ML LIQUID.PKT PO SCH ×2 (09:10→17:44)
[2021-12-20] MEDS: CITALOPRAM HYDROBROMIDE 10 MG TABLET PO SCH (09:11)
[2021-12-20] MEDS: ERTAPENEM SODIUM 0.5 GM in SODIUM CHLORIDE 50 ML IVPB SCH (09:11)
[2021-12-20] MEDS: LACTOBACILLUS ACIDOPHILUS 1 TABLET PO SCH ×2 (09:11→21:11)
[2021-12-20] MEDS: GABAPENTIN 300 MG CAPSULE PO SCH ×2 (09:12→21:11)
[2021-12-20] MEDS: VITAMIN B COMP W-C 1 EA TABLET (NEPHRO-VITE) PO SCH (09:12)
[2021-12-20] MEDS: clonazePAM 0.5 MG TABLET PO SCH (09:12)
[2021-12-20] MEDS: LABETALOL HCL 100 MG TABLET (FP) PO SCH ×2 (09:13→21:11)
[2021-12-20] MEDS: amLODIPine BESYLATE 10 MG TABLET (FP) PO SCH (09:13)
[2021-12-20] MEDS: MULTIVITAMINS (DAILY MVI) TABLET (FP) PO SCH (09:14)
[2021-12-20] MEDS: ASCORBIC ACID 500 MG TABLET (FP) PO SCH ×2 (09:14→21:11)
[2021-12-20] MEDS: HEPARIN NA (PORCINE) 5,000 UNITS/ML 1ML VIAL IVPUSH SCH ×3 (12:00→14:00)
[2021-12-20] MEDS ORDERED: HEPARIN NA (PORCINE) 5,000 UNITS/ML 1ML VIAL IVPUSH ONE (12:15)
[2021-12-20] MEDS ORDERED: SODIUM CHLORIDE 250 ML IV PRN (12:16)
[2021-12-20 12:49] LABS: HEMATOCRIT 26.8 % (32.4-45.2); HEMOGLOBIN 8.7 GM/dL (10.7-15.3); MCH 29.9 pg (25.7-33.7); MCHC 32.4 g/dl (32.0-36.0); MEAN CELL VOLUME 92.2 fl (80-96); MEAN PLT VOLUME 8.2 fl (7.5-11.1); PLATELET COUNT 430 10^3/uL (134-434); RDW 18.3 % (11.6-15.6); WHITE BLOOD COUNT 10.8 K/mm3 (4.0-10.0)
[2021-12-20] MEDS ORDERED: EPOETIN ALFA-EPBX 10,000 UNIT, EPOETIN ALFA-EPBX 2,000 UNIT SQ ONE (13:00)
[2021-12-20 14:02] LABS: CREATININE 6.6 mg/dL (0.55-1.3)
[2021-12-20] MEDS ORDERED: EPOETIN ALFA-EPBX 10,000 UNIT/ML VIAL SQ ONE (15:39)
[2021-12-20] MEDS: SODIUM HYPOCHLORITE 0.25%- 473 ML BULK BOTTLE TP SCH (16:06)
[2021-12-20] MEDS: INSULIN (LEVEMIR) 100 UNITS/ML UNITS SQ SCH (21:11)
[2021-12-21] MEDS: HEPARIN NA (PORCINE) 5,000 UNITS/ML 1ML VIAL SQ SCH ×3 (06:20→22:02)
[2021-12-21] MEDS: INSULIN (LEVEMIR) 100 UNITS/ML UNITS SQ SCH ×2 (06:20→22:01)
[2021-12-21] MEDS: INSULIN SLIDING SCALE (NOVOLOG) 1 VIAL SQ SCH ×4 (06:21→22:02)
[2021-12-21] MEDS: LEVOTHYROXINE NA 25 MCG TABLET (FP) PO SCH (06:21)
[2021-12-21] MEDS: amLODIPine BESYLATE 10 MG TABLET (FP) PO SCH (10:18)
[2021-12-21] MEDS: GABAPENTIN 300 MG CAPSULE PO SCH ×2 (10:18→22:01)
[2021-12-21] MEDS: CITALOPRAM HYDROBROMIDE 10 MG TABLET PO SCH (10:18)
[2021-12-21] MEDS: MULTIVITAMINS (DAILY MVI) TABLET (FP) PO SCH (10:18)
[2021-12-21] MEDS: ERTAPENEM SODIUM 0.5 GM in SODIUM CHLORIDE 50 ML IVPB SCH (10:18)
[2021-12-21] MEDS: VITAMIN B COMP W-C 1 EA TABLET (NEPHRO-VITE) PO SCH (10:18)
[2021-12-21] MEDS: LACTOBACILLUS ACIDOPHILUS 1 TABLET PO SCH ×2 (10:18→22:01)
[2021-12-21] MEDS: LABETALOL HCL 100 MG TABLET (FP) PO SCH ×2 (10:18→22:01)
[2021-12-21] MEDS: AMINO ACIDS/PROTEIN HYDROLYS 30 ML LIQUID.PKT PO SCH ×2 (10:18→17:35)
[2021-12-21] MEDS: ASCORBIC ACID 500 MG TABLET (FP) PO SCH ×2 (10:18→22:01)
[2021-12-21] MEDS: SODIUM HYPOCHLORITE 0.25%- 473 ML BULK BOTTLE TP SCH (15:40)
[2021-12-22] MEDS: INSULIN SLIDING SCALE (NOVOLOG) 1 VIAL SQ SCH ×5 (06:41→21:45)
[2021-12-22] MEDS: INSULIN (LEVEMIR) 100 UNITS/ML UNITS SQ SCH ×2 (06:42→21:46)
[2021-12-22] MEDS ORDERED: DEXTROSE 50%-WATER 25 GM/50 ML DISP.SYRIN IVPUSH ONE (06:56)
[2021-12-22] MEDS: LEVOTHYROXINE NA 25 MCG TABLET (FP) PO SCH (07:17)
[2021-12-22] MEDS: HEPARIN NA (PORCINE) 5,000 UNITS/ML 1ML VIAL SQ SCH ×3 (07:17→21:57)
[2021-12-22] MEDS ORDERED: SODIUM CHLORIDE 250 ML IV PRN (08:31)
[2021-12-22] MEDS: HEPARIN NA (PORCINE) 5,000 UNITS/ML 1ML VIAL IVPUSH SCH ×3 (08:45→10:45)
[2021-12-22 09:09] LABS: HEMATOCRIT 27.2 % (32.4-45.2); HEMOGLOBIN 8.8 GM/dL (10.7-15.3); MCH 29.7 pg (25.7-33.7); MCHC 32.5 g/dl (32.0-36.0); MEAN CELL VOLUME 91.3 fl (80-96); MEAN PLT VOLUME 7.7 fl (7.5-11.1); PLATELET COUNT 400 10^3/uL (134-434); RBC 2.97 M/mm3 (3.60-5.2); WHITE BLOOD COUNT 8.1 K/mm3 (4.0-10.0)
[2021-12-22 09:42] LABS: BLOOD UREA NITROGEN 51.2 mg/dL (7-18); CALCIUM 8.6 mg/dL (8.5-10.1)
[2021-12-22 09:45] LABS: CREATININE 6.4 mg/dL (0.55-1.3)
[2021-12-22] MEDS ORDERED: HEPARIN NA (PORCINE) 5,000 UNITS/ML 1ML VIAL IVPUSH ONE (10:00)
[2021-12-22] MEDS ORDERED: EPOETIN ALFA-EPBX 10,000 UNIT/ML VIAL IVPUSH ONE (10:00)
[2021-12-22] MEDS: GABAPENTIN 300 MG CAPSULE PO SCH ×2 (13:12→21:45)
[2021-12-22] MEDS: ERTAPENEM SODIUM 0.5 GM in SODIUM CHLORIDE 50 ML IVPB SCH (13:12)
[2021-12-22] MEDS: VITAMIN B COMP W-C 1 EA TABLET (NEPHRO-VITE) PO SCH (13:12)
[2021-12-22] MEDS: MULTIVITAMINS (DAILY MVI) TABLET (FP) PO SCH (13:12)
[2021-12-22] MEDS: amLODIPine BESYLATE 10 MG TABLET (FP) PO SCH (13:13)
[2021-12-22] MEDS: ASCORBIC ACID 500 MG TABLET (FP) PO SCH ×2 (13:13→21:45)
[2021-12-22] MEDS: SODIUM HYPOCHLORITE 0.25%- 473 ML BULK BOTTLE TP SCH (13:13)
[2021-12-22] MEDS: AMINO ACIDS/PROTEIN HYDROLYS 30 ML LIQUID.PKT PO SCH ×2 (13:13→17:15)
[2021-12-22] MEDS: LACTOBACILLUS ACIDOPHILUS 1 TABLET PO SCH ×2 (13:13→21:45)
[2021-12-22] MEDS: clonazePAM 0.5 MG TABLET PO SCH (13:13)
[2021-12-22] MEDS: CITALOPRAM HYDROBROMIDE 10 MG TABLET PO SCH (13:13)
[2021-12-22] MEDS: LABETALOL HCL 100 MG TABLET (FP) PO SCH ×2 (13:20→21:45)
[2021-12-23] MEDS: HEPARIN NA (PORCINE) 5,000 UNITS/ML 1ML VIAL SQ SCH ×3 (06:05→22:55)
[2021-12-23] MEDS ORDERED: INSULIN (LEVEMIR) 100 UNITS/ML UNITS SQ ONE (06:39)
[2021-12-23] MEDS ORDERED: INSULIN (NOVOLOG) ASPART 100 UNITS/ML 10ML VIAL ONE (06:39)
[2021-12-23] MEDS: LEVOTHYROXINE NA 25 MCG TABLET (FP) PO SCH (06:41)
[2021-12-23] MEDS: INSULIN (LEVEMIR) 100 UNITS/ML UNITS SQ SCH ×2 (09:14→22:55)
[2021-12-23] MEDS: INSULIN SLIDING SCALE (NOVOLOG) 1 VIAL SQ SCH ×4 (09:14→22:54)
[2021-12-23] MEDS: amLODIPine BESYLATE 10 MG TABLET (FP) PO SCH (10:31)
[2021-12-23] MEDS: LABETALOL HCL 100 MG TABLET (FP) PO SCH ×2 (10:31→22:55)
[2021-12-23] MEDS: SODIUM HYPOCHLORITE 0.25%- 473 ML BULK BOTTLE TP SCH (10:31)
[2021-12-23] MEDS: ASCORBIC ACID 500 MG TABLET (FP) PO SCH ×2 (10:31→22:55)
[2021-12-23] MEDS: CITALOPRAM HYDROBROMIDE 10 MG TABLET PO SCH (10:31)
[2021-12-23] MEDS: GABAPENTIN 300 MG CAPSULE PO SCH ×2 (10:31→22:55)
[2021-12-23] MEDS: AMINO ACIDS/PROTEIN HYDROLYS 30 ML LIQUID.PKT PO SCH ×2 (10:31→17:33)
[2021-12-23] MEDS: ERTAPENEM SODIUM 0.5 GM in SODIUM CHLORIDE 50 ML IVPB SCH (10:31)
[2021-12-23] MEDS: MULTIVITAMINS (DAILY MVI) TABLET (FP) PO SCH (10:31)
[2021-12-23] MEDS: LACTOBACILLUS ACIDOPHILUS 1 TABLET PO SCH ×2 (10:31→22:55)
[2021-12-23] MEDS: VITAMIN B COMP W-C 1 EA TABLET (NEPHRO-VITE) PO SCH (10:31)
[2021-12-24] MEDS: INSULIN SLIDING SCALE (NOVOLOG) 1 VIAL SQ SCH ×4 (06:09→21:35)
[2021-12-24] MEDS: INSULIN (LEVEMIR) 100 UNITS/ML UNITS SQ SCH ×2 (06:09→21:37)
[2021-12-24] MEDS: HEPARIN NA (PORCINE) 5,000 UNITS/ML 1ML VIAL SQ SCH ×3 (06:09→21:34)
[2021-12-24] MEDS: LEVOTHYROXINE NA 25 MCG TABLET (FP) PO SCH (06:36)
[2021-12-24] MEDS ORDERED: INSULIN (NOVOLOG) ASPART 100 UNITS/ML 10ML VIAL ONE (10:56)
[2021-12-24] MEDS: MULTIVITAMINS (DAILY MVI) TABLET (FP) PO SCH (10:58)
[2021-12-24] MEDS: ASCORBIC ACID 500 MG TABLET (FP) PO SCH ×2 (10:58→21:33)
[2021-12-24] MEDS: amLODIPine BESYLATE 10 MG TABLET (FP) PO SCH (10:58)
[2021-12-24] MEDS: CITALOPRAM HYDROBROMIDE 10 MG TABLET PO SCH (10:58)
[2021-12-24] MEDS: LABETALOL HCL 100 MG TABLET (FP) PO SCH ×2 (10:58→21:33)
[2021-12-24] MEDS: VITAMIN B COMP W-C 1 EA TABLET (NEPHRO-VITE) PO SCH (10:58)
[2021-12-24] MEDS: LACTOBACILLUS ACIDOPHILUS 1 TABLET PO SCH ×2 (10:58→21:33)
[2021-12-24] MEDS: GABAPENTIN 300 MG CAPSULE PO SCH ×2 (10:58→21:33)
[2021-12-24] MEDS: ERTAPENEM SODIUM 0.5 GM in SODIUM CHLORIDE 50 ML IVPB SCH (10:59)
[2021-12-24] MEDS: SODIUM HYPOCHLORITE 0.25%- 473 ML BULK BOTTLE TP SCH (10:59)
[2021-12-24] MEDS: AMINO ACIDS/PROTEIN HYDROLYS 30 ML LIQUID.PKT PO SCH ×2 (10:59→17:26)
[2021-12-25] MEDS: HEPARIN NA (PORCINE) 5,000 UNITS/ML 1ML VIAL SQ SCH ×2 (06:29→16:20)
[2021-12-25] MEDS: INSULIN (LEVEMIR) 100 UNITS/ML UNITS SQ SCH (06:30)
[2021-12-25] MEDS: INSULIN SLIDING SCALE (NOVOLOG) 1 VIAL SQ SCH ×3 (06:30→18:50)
[2021-12-25] MEDS: LEVOTHYROXINE NA 25 MCG TABLET (FP) PO SCH (06:30)
[2021-12-25] MEDS ORDERED: SODIUM CHLORIDE 250 ML IV PRN (09:29)
[2021-12-25] MEDS ORDERED: HEPARIN NA (PORCINE) 5,000 UNITS/ML 1ML VIAL IVPUSH ONE (09:29)
[2021-12-25] MEDS: CITALOPRAM HYDROBROMIDE 10 MG TABLET PO SCH (09:32)
[2021-12-25] MEDS: clonazePAM 0.5 MG TABLET PO SCH (09:32)
[2021-12-25] MEDS: LACTOBACILLUS ACIDOPHILUS 1 TABLET PO SCH (09:32)
[2021-12-25] MEDS: AMINO ACIDS/PROTEIN HYDROLYS 30 ML LIQUID.PKT PO SCH ×2 (09:32→18:50)
[2021-12-25] MEDS: VITAMIN B COMP W-C 1 EA TABLET (NEPHRO-VITE) PO SCH (09:33)
[2021-12-25] MEDS: GABAPENTIN 300 MG CAPSULE PO SCH (09:33)
[2021-12-25] MEDS: LABETALOL HCL 100 MG TABLET (FP) PO SCH (09:33)
[2021-12-25] MEDS: MULTIVITAMINS (DAILY MVI) TABLET (FP) PO SCH (09:33)
[2021-12-25] MEDS: ASCORBIC ACID 500 MG TABLET (FP) PO SCH (09:33)
[2021-12-25] MEDS: amLODIPine BESYLATE 10 MG TABLET (FP) PO SCH (09:33)
[2021-12-25] MEDS ORDERED: EPOETIN ALFA-EPBX 10,000 UNIT/ML VIAL IVPUSH ONE (10:15)
[2021-12-25] MEDS: HEPARIN NA (PORCINE) 5,000 UNITS/ML 1ML VIAL IVPUSH SCH ×3 (10:30→12:30)
[2021-12-25] MEDS: SODIUM HYPOCHLORITE 0.25%- 473 ML BULK BOTTLE TP SCH (11:13)
[2021-12-25 11:14] LABS: HEMATOCRIT 27.3 % (32.4-45.2); MCH 30.4 pg (25.7-33.7); MCHC 32.9 g/dl (32.0-36.0); MEAN CELL VOLUME 92.4 fl (80-96); PLATELET COUNT 342 10^3/uL (134-434); RBC 2.95 M/mm3 (3.60-5.2); RDW 18.6 % (11.6-15.6); WHITE BLOOD COUNT 7.1 K/mm3 (4.0-10.0)
[2021-12-25 11:24] VITALS: RESP 18
[2021-12-25 11:38] LABS: CHLORIDE 96 mmol/L (98-107); SODIUM 136 mmol/L (136-145)
[2021-12-25 11:40] LABS: CALCIUM 8.5 mg/dL (8.5-10.1)
[2021-12-25 11:41] LABS: ALBUMIN 2.3 g/dl (3.4-5.0); ANION GAP 16 MMOL/L (8-16); BLOOD UREA NITROGEN 63.1 mg/dL (7-18); CO2 23 mmol/L (21-32); GLUCOSE,RANDOM 85 mg/dL (74-106)
[2021-12-25 11:44] LABS: SGOT/AST 64 U/L (15-37); SGPT/ALT 68 U/L (13-61)
[2021-12-25 11:45] LABS: BILIRUBIN,TOTAL 0.4 mg/dL (0.2-1); TOT PROT 6.7 g/dl (6.4-8.2)
[2021-12-25 11:49] LABS: ALK PHOS 733 U/L (45-117); CREATININE 7.7 mg/dL (0.55-1.3); PHOSPHOROUS 8.9 mg/dL (2.5-4.9)
[2021-12-25 14:37] VITALS: BP 161/71; PULSE 88; TEMP 98.1
[2021-12-25] MEDS: ERTAPENEM SODIUM 0.5 GM in SODIUM CHLORIDE 50 ML IVPB SCH (16:00)
== END 2021-12-25 18:16 | DRG 255 ==
LOC: JER 11:56 → JERBED 17:04 → J8W 12-08 01:25
PROVIDERS: ADMIT Internal Medicine; ATTEND Family Medicine
PROC: 0QBN0ZZ Excision of Right Metatarsal, Open Approach (ICD-10-PCS; 2021-12-12)
PROC: 0Y6X0Z0 Detachment at Right 5th Toe, Complete, Open Approach (ICD-10-PCS; principal; 2021-12-12 15:00)
PROC: 5A1D70Z Performance of Urinary Filtration, Intermittent, Less than 6 Hours Per Day (ICD-10-PCS; 2021-12-14)
PROC: 02HV33Z Insertion of Infusion Device into Superior Vena Cava, Percutaneous Approach (ICD-10-PCS; 2021-12-25)
PROC: B548ZZA Ultrasonography of Superior Vena Cava, Guidance (ICD-10-PCS; 2021-12-25)
DX: E11.52 Type 2 diabetes mellitus with diabetic peripheral angiopathy with gangrene (principal); N18.6 End stage renal disease; I13.2 Hypertensive heart and chronic kidney disease with heart failure and with stage 5 chronic kidney disease, or end stage renal disease; G93.49 Other encephalopathy; I96 Gangrene, not elsewhere classified; M86.171 Other acute osteomyelitis, right ankle and foot; J44.9 Chronic obstructive pulmonary disease, unspecified; E11.22 Type 2 diabetes mellitus with diabetic chronic kidney disease; I50.9 Heart failure, unspecified; Z99.2 Dependence on renal dialysis; E11.65 Type 2 diabetes mellitus with hyperglycemia; E87.5 Hyperkalemia; G35 Multiple sclerosis; D63.1 Anemia in chronic kidney disease; F32.A Depression, unspecified; Z89.512 Acquired absence of left leg below knee; Z86.16 Personal history of COVID-19; E03.9 Hypothyroidism, unspecified; E11.621 Type 2 diabetes mellitus with foot ulcer; L97.519 Non-pressure chronic ulcer of other part of right foot with unspecified severity; E11.69 Type 2 diabetes mellitus with other specified complication; E11.649 Type 2 diabetes mellitus with hypoglycemia without coma
CPT/HCPCS: 36415; 36558; 70450-TC; 71045-TC-FY; 73610-TC-RT-FY; 73630-TC-RT-FY; 73718-TC-RT; 75635-TC; 77001-TC-FY; 80048; 80053; 82550; 82803; 82962; 83036; 83605; 83735; 84100; 84443; 84484; 85025; 85027; 85610; 85651; 85730; 86140; 86803; 86850; 86900; 86901; 87040; 87070; 87075; 87186; 87205; 87340; 88304-TC; 88305-TC; 88311-TC; 93005; 93010; 94760; 99285-25; C1751; C9803-CS; G0277; J1644; J2997; Q5106; Q9967; U0003; U0005

== ENCOUNTER 2022-01-04 12:36 | Inpatient (IN) | payer OTHER ==
[2022-01-04 15:52] LABS: BASO % 2.1 % (0-2.0); EOS % 10.6 % (0-4.5); HEMATOCRIT 29.4 % (32.4-45.2); HEMOGLOBIN 9.6 GM/dL (10.7-15.3); LYMPH % 20.1 % (8-40); MCH 29.8 pg (25.7-33.7); MCHC 32.7 g/dl (32.0-36.0); MEAN CELL VOLUME 91.1 fl (80-96); MEAN PLT VOLUME 8.1 fl (7.5-11.1); MONO % 13.3 % (3.8-10.2); NEUT % 53.9 % (42.8-82.8); PLATELET COUNT 254 10^3/uL (134-434); RBC 3.23 M/mm3 (3.60-5.2); RDW 16.7 % (11.6-15.6)
[2022-01-04 16:13] LABS: CALCIUM 8.7 mg/dL (8.5-10.1)
[2022-01-04 16:14] LABS: ALBUMIN 2.5 g/dl (3.4-5.0); BLOOD UREA NITROGEN 42.8 mg/dL (7-18); MAGNESIUM 2.7 mg/dL (1.8-2.4)
[2022-01-04 16:17] LABS: CREATININE 4.3 mg/dL (0.55-1.3); PHOSPHOROUS 6.9 mg/dL (2.5-4.9)
[2022-01-04 16:18] LABS: TOT PROT 7.1 g/dl (6.4-8.2)
[2022-01-04 16:19] LABS: BILIRUBIN,TOTAL 0.3 mg/dL (0.2-1)
[2022-01-04 16:21] LABS: INR 1.05 (0.83-1.09); PROTHROMBIN TIME (PATIENT) 12.1 SEC (9.7-13.0)
[2022-01-04] MEDS ORDERED: ERTAPENEM SODIUM 0.5 GM in SODIUM CHLORIDE 50 ML IVPB ONE (17:27)
[2022-01-05] MEDS: INSULIN SLIDING SCALE (NOVOLOG) 1 VIAL SQ SCH ×5 (01:18→21:48)
[2022-01-05 04:07] VITALS: BMI 24.1
[2022-01-05 06:52] LABS: BASO % 1.7 % (0-2.0); EOS % 11.4 % (0-4.5); HEMATOCRIT 29.6 % (32.4-45.2); HEMOGLOBIN 9.5 GM/dL (10.7-15.3); LYMPH % 26.7 % (8-40); MCH 29.5 pg (25.7-33.7); MCHC 32.1 g/dl (32.0-36.0); MEAN CELL VOLUME 92.1 fl (80-96); MEAN PLT VOLUME 7.8 fl (7.5-11.1); MONO % 13.1 % (3.8-10.2); NEUT % 47.1 % (42.8-82.8); PLATELET COUNT 253 10^3/uL (134-434); RBC 3.22 M/mm3 (3.60-5.2); RDW 17.1 % (11.6-15.6); WHITE BLOOD COUNT 4.6 K/mm3 (4.0-10.0)
[2022-01-05 07:15] LABS: CALCIUM 8.4 mg/dL (8.5-10.1)
[2022-01-05 07:16] LABS: BLOOD UREA NITROGEN 61.2 mg/dL (7-18)
[2022-01-05 07:19] LABS: CREATININE 5.4 mg/dL (0.55-1.3)
[2022-01-05] MEDS ORDERED: HEPARIN NA (PORCINE) 5,000 UNITS/ML 1ML VIAL IVPUSH ONE (13:52)
[2022-01-05] MEDS ORDERED: EPOETIN ALFA-EPBX 4,000 UNIT/ML VIAL IVPUSH ONE (14:00)
[2022-01-05] MEDS ORDERED: SODIUM CHLORIDE 250 ML IV PRN (14:00)
[2022-01-05] MEDS: HEPARIN NA (PORCINE) 5,000 UNITS/ML 1ML VIAL IVPUSH SCH ×3 (14:50→16:50)
[2022-01-05] MEDS: ERTAPENEM SODIUM 0.5 GM in SODIUM CHLORIDE 50 ML IVPB SCH (21:46)
[2022-01-06] MEDS: INSULIN SLIDING SCALE (NOVOLOG) 1 VIAL SQ SCH ×4 (06:27→21:40)
[2022-01-06] MEDS: ERTAPENEM SODIUM 0.5 GM in SODIUM CHLORIDE 50 ML IVPB SCH (21:38)
[2022-01-07] MEDS: INSULIN SLIDING SCALE (NOVOLOG) 1 VIAL SQ SCH ×4 (06:17→21:56)
[2022-01-07] MEDS ORDERED: clonazePAM 0.25 MG ODT TABLETS SL PRN (10:46)
[2022-01-07] MEDS: SEVELAMER CARBONATE 800 MG TAB (FP) PO SCH ×2 (11:48→17:04)
[2022-01-07] MEDS: GABAPENTIN 100 MG CAPSULE PO SCH ×2 (13:05→21:54)
[2022-01-07] MEDS ORDERED: LABETALOL HCL 100 MG TABLET (FP) PO SCH (14:00)
[2022-01-07] MEDS ORDERED: LABETALOL HCL 200 MG TABLET (FP) PO SCH (14:00)
[2022-01-07] MEDS: ERTAPENEM SODIUM 0.5 GM in SODIUM CHLORIDE 50 ML IVPB SCH (21:54)
[2022-01-07] MEDS: LABETALOL HCL 200 MG TABLET (FP) PO SCH (21:54)
[2022-01-08] MEDS: INSULIN SLIDING SCALE (NOVOLOG) 1 VIAL SQ SCH ×4 (06:02→21:32)
[2022-01-08] MEDS: LEVOTHYROXINE NA 25 MCG TABLET (FP) PO SCH (06:07)
[2022-01-08] MEDS: LABETALOL HCL 200 MG TABLET (FP) PO SCH ×3 (06:07→21:30)
[2022-01-08] MEDS: GABAPENTIN 100 MG CAPSULE PO SCH ×3 (06:08→21:29)
[2022-01-08] MEDS: SEVELAMER CARBONATE 800 MG TAB (FP) PO SCH ×3 (08:30→18:32)
[2022-01-08] MEDS ORDERED: EPOETIN ALFA-EPBX 4,000 UNIT/ML VIAL IVPUSH ONE (10:00)
[2022-01-08] MEDS ORDERED: SODIUM CHLORIDE 250 ML IV PRN (10:00)
[2022-01-08 11:01] LABS: BASO % 1.8 % (0-2.0); EOS % 6.6 % (0-4.5); HEMATOCRIT 29.6 % (32.4-45.2); HEMOGLOBIN 9.6 GM/dL (10.7-15.3); LYMPH % 20.5 % (8-40); MCH 29.3 pg (25.7-33.7); MCHC 32.6 g/dl (32.0-36.0); MEAN PLT VOLUME 8.3 fl (7.5-11.1); MONO % 14.1 % (3.8-10.2); PLATELET COUNT 265 10^3/uL (134-434); RBC 3.29 M/mm3 (3.60-5.2); RDW 16.9 % (11.6-15.6); WHITE BLOOD COUNT 4.7 K/mm3 (4.0-10.0)
[2022-01-08 11:27] LABS: CHLORIDE 100 mmol/L (98-107); SODIUM 138 mmol/L (136-145)
[2022-01-08 11:28] LABS: ANION GAP 15 MMOL/L (8-16); CALCIUM 8.6 mg/dL (8.5-10.1); CO2 23 mmol/L (21-32); GLUCOSE,RANDOM 192 mg/dL (74-106)
[2022-01-08 11:34] LABS: BLOOD UREA NITROGEN 86.6 mg/dL (7-18); CREATININE 7.8 mg/dL (0.55-1.3)
[2022-01-08 12:03] LABS: PHOSPHOROUS 8.6 mg/dL (2.5-4.9)
[2022-01-08] MEDS: VITAMIN B COMP W-C 1 EA TABLET (NEPHRO-VITE) PO SCH (13:56)
[2022-01-08] MEDS: CITALOPRAM HYDROBROMIDE 10 MG TABLET PO SCH (13:56)
[2022-01-08] MEDS: LACTOBACILLUS ACIDOPHILUS 1 TABLET PO SCH (13:56)
[2022-01-08] MEDS: amLODIPine BESYLATE 5 MG TABLET (FP) PO SCH (13:57)
[2022-01-08] MEDS: ERTAPENEM SODIUM 0.5 GM in SODIUM CHLORIDE 50 ML IVPB SCH (21:29)
[2022-01-09] MEDS: LEVOTHYROXINE NA 25 MCG TABLET (FP) PO SCH (06:09)
[2022-01-09] MEDS: INSULIN SLIDING SCALE (NOVOLOG) 1 VIAL SQ SCH ×4 (06:09→21:27)
[2022-01-09] MEDS: LABETALOL HCL 200 MG TABLET (FP) PO SCH ×3 (06:09→21:27)
[2022-01-09] MEDS: GABAPENTIN 100 MG CAPSULE PO SCH ×3 (06:09→21:27)
[2022-01-09] MEDS: SEVELAMER CARBONATE 800 MG TAB (FP) PO SCH ×3 (08:03→16:58)
[2022-01-09] MEDS: VITAMIN B COMP W-C 1 EA TABLET (NEPHRO-VITE) PO SCH (09:54)
[2022-01-09] MEDS: amLODIPine BESYLATE 5 MG TABLET (FP) PO SCH (09:54)
[2022-01-09] MEDS: CITALOPRAM HYDROBROMIDE 10 MG TABLET PO SCH (09:54)
[2022-01-09] MEDS: LACTOBACILLUS ACIDOPHILUS 1 TABLET PO SCH (09:54)
[2022-01-09] MEDS ORDERED: SODIUM CHLORIDE 250 ML IV PRN (11:14)
[2022-01-09] MEDS: ERTAPENEM SODIUM 0.5 GM in SODIUM CHLORIDE 50 ML IVPB SCH (21:22)
[2022-01-10] MEDS: INSULIN SLIDING SCALE (NOVOLOG) 1 VIAL SQ SCH ×3 (06:25→18:00)
[2022-01-10] MEDS: LABETALOL HCL 200 MG TABLET (FP) PO SCH ×3 (06:25→18:00)
[2022-01-10] MEDS: GABAPENTIN 100 MG CAPSULE PO SCH ×2 (06:48→13:11)
[2022-01-10] MEDS: LEVOTHYROXINE NA 25 MCG TABLET (FP) PO SCH (06:48)
[2022-01-10] MEDS: SEVELAMER CARBONATE 800 MG TAB (FP) PO SCH ×3 (08:43→18:00)
[2022-01-10] MEDS: LACTOBACILLUS ACIDOPHILUS 1 TABLET PO SCH (09:16)
[2022-01-10] MEDS: VITAMIN B COMP W-C 1 EA TABLET (NEPHRO-VITE) PO SCH (09:16)
[2022-01-10] MEDS: amLODIPine BESYLATE 5 MG TABLET (FP) PO SCH (09:16)
[2022-01-10] MEDS: CITALOPRAM HYDROBROMIDE 10 MG TABLET PO SCH (09:16)
[2022-01-10] MEDS ORDERED: COLLAGENASE CLOSTRIDIUM HIST. 30 GRAMS TUBE TP SCH (10:00)
[2022-01-10] MEDS ORDERED: HEPARIN NA (PORCINE) 5,000 UNITS/ML 1ML VIAL IVPUSH ONE (12:30)
[2022-01-10] MEDS ORDERED: EPOETIN ALFA-EPBX 4,000 UNIT/ML VIAL IVPUSH ONE (13:00)
[2022-01-10] MEDS: HEPARIN NA (PORCINE) 5,000 UNITS/ML 1ML VIAL IVPUSH SCH ×3 (14:54→17:24)
[2022-01-10 15:06] VITALS: RESP 18
[2022-01-10 15:13] LABS: HEMATOCRIT 29.2 % (32.4-45.2); HEMOGLOBIN 9.6 GM/dL (10.7-15.3); MCH 29.7 pg (25.7-33.7); MCHC 32.9 g/dl (32.0-36.0); MEAN CELL VOLUME 90.1 fl (80-96); MEAN PLT VOLUME 7.9 fl (7.5-11.1); PLATELET COUNT 290 10^3/uL (134-434); RBC 3.24 M/mm3 (3.60-5.2); RDW 17.1 % (11.6-15.6); WHITE BLOOD COUNT 4.6 K/mm3 (4.0-10.0)
[2022-01-10 16:08] LABS: CALCIUM 8.7 mg/dL (8.5-10.1)
[2022-01-10 16:12] LABS: CREATININE 6.1 mg/dL (0.55-1.3)
[2022-01-10 16:13] LABS: BLOOD UREA NITROGEN 54.1 mg/dL (7-18)
[2022-01-10 18:09] VITALS: BP 176/100; PULSE 88
[2022-01-10 19:07] VITALS: TEMP 98.3
== END 2022-01-10 20:45 | DRG 299 ==
LOC: JER 12:36 → JERBED 16:47 → J4S 01-05 17:06
PROVIDERS: ADMIT Internal Medicine; ATTEND Family Medicine
PROC: 5A1D70Z Performance of Urinary Filtration, Intermittent, Less than 6 Hours Per Day (ICD-10-PCS; principal; 2022-01-05)
DX: E11.52 Type 2 diabetes mellitus with diabetic peripheral angiopathy with gangrene (principal); N18.6 End stage renal disease; I13.2 Hypertensive heart and chronic kidney disease with heart failure and with stage 5 chronic kidney disease, or end stage renal disease; M86.8X7 Other osteomyelitis, ankle and foot; I96 Gangrene, not elsewhere classified; J44.9 Chronic obstructive pulmonary disease, unspecified; E11.22 Type 2 diabetes mellitus with diabetic chronic kidney disease; I50.9 Heart failure, unspecified; Z99.2 Dependence on renal dialysis; E78.5 Hyperlipidemia, unspecified; K21.9 Gastro-esophageal reflux disease without esophagitis; Z89.512 Acquired absence of left leg below knee; Z79.4 Long term (current) use of insulin; E11.69 Type 2 diabetes mellitus with other specified complication; F32.9 Major depressive disorder, single episode, unspecified; E03.9 Hypothyroidism, unspecified; R29.6 Repeated falls; D50.9 Iron deficiency anemia, unspecified; G35 Multiple sclerosis; F41.9 Anxiety disorder, unspecified; E11.621 Type 2 diabetes mellitus with foot ulcer; L97.519 Non-pressure chronic ulcer of other part of right foot with unspecified severity
CPT/HCPCS: 36415; 71045-TC-FY; 73610-TC-RT-FY; 73630-TC-RT-FY; 80048; 80053; 82962; 83735; 84100; 85025; 85027; 85610; 85730; 86850; 86900; 86901; 87040; 87324; 87449; 93005; 93010; 99285-25; C9803-CS; J1644; Q5106; U0003; U0005

== ENCOUNTER 2022-02-06 12:33 | Inpatient (IN) | payer OTHER ==
[2022-02-06 13:20] VITALS: BMI 22.4
[2022-02-06] MEDS ORDERED: ERTAPENEM SODIUM 0.5 GM in SODIUM CHLORIDE 50 ML IVPB ONE (14:02)
[2022-02-06] MEDS ORDERED: ACETAMINOPHEN 1000 MG/100 ML BAG IVPB ONE (14:09)
[2022-02-06] MEDS ORDERED: ONDANSETRON 4 MG/2 ML VIAL IVPUSH ONE ×2 (14:09→20:59)
[2022-02-06] MEDS ORDERED: FAMOTIDINE 20 MG/50 ML IVPB 20 MG/50 ML MG IVPB ONE ×2 (14:09→14:30)
[2022-02-06] MEDS ORDERED: MAG HYDROX/AL HYDROX/SIMETH 30 ML UNIT-DOSE CUP PO ONE (14:10)
[2022-02-06] MEDS ORDERED: ACETAMINOPHEN INJECTION 100 ML IVPB ONE (14:29)
[2022-02-06] MEDS ORDERED: MAG HYDROX/AL HYDROX/SIMETH 30 ML UNIT-DOSE CUP ONE (14:29)
[2022-02-06] MEDS ORDERED: ONDANSETRON 4 MG/2 ML VIAL ONE (14:30)
[2022-02-06] MEDS ORDERED: ERTAPENEM SODIUM 1 GM VIAL ONE (14:30)
[2022-02-06 15:42] LABS: HEMATOCRIT 33.2 % (32.4-45.2); HEMOGLOBIN 10.9 GM/dL (10.7-15.3); LYMPH % 9.8 % (8-40); MCH 29.2 pg (25.7-33.7); MCHC 32.8 g/dl (32.0-36.0); MEAN CELL VOLUME 89.1 fl (80-96); MEAN PLT VOLUME 7.8 fl (7.5-11.1); NEUT % 79.1 % (42.8-82.8); PLATELET COUNT 243 10^3/uL (134-434); RBC 3.73 M/mm3 (3.60-5.2); RDW 17.3 % (11.6-15.6); WHITE BLOOD COUNT 9.8 K/mm3 (4.0-10.0)
[2022-02-06 15:43] LABS: BASO % 0.8 % (0-2.0); EOS % 1.4 % (0-4.5); MONO % 8.9 % (3.8-10.2)
[2022-02-06 15:52] LABS: INR 1.04 (0.83-1.09)
[2022-02-06 15:55] LABS: ACTIVATED PTT 29.7 SECONDS (25.2-36.5)
[2022-02-06 16:01] LABS: ALBUMIN 2.8 g/dl (3.4-5.0); CALCIUM 9.5 mg/dL (8.5-10.1)
[2022-02-06 16:02] LABS: BLOOD UREA NITROGEN 37.9 mg/dL (7-18); MAGNESIUM 2.6 mg/dL (1.8-2.4)
[2022-02-06 16:04] LABS: PHOSPHOROUS 4.8 mg/dL (2.5-4.9)
[2022-02-06 16:06] LABS: BILIRUBIN,TOTAL 0.4 mg/dL (0.2-1); TOT PROT 7.7 g/dl (6.4-8.2)
[2022-02-06 16:19] LABS: ERYTHROCYTE SEDIMENTATION RATE 101 mm/hr (0-30)
[2022-02-06] MEDS ORDERED: ACETAMINOPHEN 325 MG TABLET (FP) PO PRN (18:14)
[2022-02-06] MEDS: HEPARIN NA (PORCINE) 5,000 UNITS/ML 1ML VIAL SQ SCH (22:13)
[2022-02-06] MEDS: GABAPENTIN 100 MG CAPSULE PO SCH (22:13)
[2022-02-06] MEDS: LABETALOL HCL 100 MG TABLET (FP) PO SCH (22:13)
[2022-02-06] MEDS: INSULIN SLIDING SCALE (NOVOLOG) 1 VIAL SQ SCH (22:33)
[2022-02-06] MEDS: INSULIN (LEVEMIR) 100 UNITS/ML UNITS SQ SCH (22:34)
[2022-02-07] MEDS: GABAPENTIN 100 MG CAPSULE PO SCH ×3 (05:52→21:44)
[2022-02-07] MEDS: LEVOTHYROXINE NA 25 MCG TABLET (FP) PO SCH (06:07)
[2022-02-07] MEDS: INSULIN SLIDING SCALE (NOVOLOG) 1 VIAL SQ SCH ×4 (06:07→22:34)
[2022-02-07 07:18] VITALS: RESP 18
[2022-02-07] MEDS ORDERED: HEPARIN NA (PORCINE) 5,000 UNITS/ML 1ML VIAL IVPUSH ONE ×2 (08:46)
[2022-02-07] MEDS ORDERED: SODIUM CHLORIDE 250 ML IV PRN ×2 (08:46→08:48)
[2022-02-07] MEDS ORDERED: EPOETIN ALFA-EPBX 3,000 UNIT/ML VIAL SQ ONE (08:46)
[2022-02-07] MEDS: SEVELAMER CARBONATE 800 MG TAB (FP) PO SCH ×4 (09:05→17:35)
[2022-02-07 09:25] LABS: HEMOGLOBIN 10.6 GM/dL (10.7-15.3); MCH 29.6 pg (25.7-33.7); MCHC 33.1 g/dl (32.0-36.0); MEAN CELL VOLUME 89.4 fl (80-96); PLATELET COUNT 251 10^3/uL (134-434); RBC 3.58 M/mm3 (3.60-5.2); RDW 18.1 % (11.6-15.6); WHITE BLOOD COUNT 8.5 K/mm3 (4.0-10.0)
[2022-02-07 09:44] LABS: ALBUMIN 2.8 g/dl (3.4-5.0); BLOOD UREA NITROGEN 45.7 mg/dL (7-18); CALCIUM 9.6 mg/dL (8.5-10.1)
[2022-02-07 09:47] LABS: CREATININE 6.2 mg/dL (0.55-1.3)
[2022-02-07 09:49] LABS: BILIRUBIN,TOTAL 0.3 mg/dL (0.2-1); TOT PROT 7.7 g/dl (6.4-8.2)
[2022-02-07] MEDS: HEPARIN NA (PORCINE) 5,000 UNITS/ML 1ML VIAL IVPUSH SCH ×3 (10:00→11:00)
[2022-02-07] MEDS: LABETALOL HCL 100 MG TABLET (FP) PO SCH ×2 (13:33→21:45)
[2022-02-07] MEDS: amLODIPine BESYLATE 5 MG TABLET (FP) PO SCH (13:33)
[2022-02-07] MEDS: HEPARIN NA (PORCINE) 5,000 UNITS/ML 1ML VIAL SQ SCH ×2 (13:34→21:43)
[2022-02-07] MEDS: CITALOPRAM HYDROBROMIDE 10 MG TABLET PO SCH (13:34)
[2022-02-07] MEDS: ERTAPENEM SODIUM 0.5 GM in SODIUM CHLORIDE 50 ML IVPB SCH (17:01)
[2022-02-07] MEDS: INSULIN (LEVEMIR) 100 UNITS/ML UNITS SQ SCH (22:36)
[2022-02-08] MEDS: INSULIN SLIDING SCALE (NOVOLOG) 1 VIAL SQ SCH ×4 (06:24→21:12)
[2022-02-08] MEDS: GABAPENTIN 100 MG CAPSULE PO SCH ×3 (06:24→21:10)
[2022-02-08] MEDS: LEVOTHYROXINE NA 25 MCG TABLET (FP) PO SCH (07:03)
[2022-02-08] MEDS: SEVELAMER CARBONATE 800 MG TAB (FP) PO SCH ×3 (08:53→17:29)
[2022-02-08] MEDS: ERTAPENEM SODIUM 0.5 GM in SODIUM CHLORIDE 50 ML IVPB SCH (09:17)
[2022-02-08] MEDS: HEPARIN NA (PORCINE) 5,000 UNITS/ML 1ML VIAL SQ SCH ×2 (09:18→21:16)
[2022-02-08] MEDS: CITALOPRAM HYDROBROMIDE 10 MG TABLET PO SCH (09:18)
[2022-02-08] MEDS: LABETALOL HCL 100 MG TABLET (FP) PO SCH ×2 (09:18→21:11)
[2022-02-08] MEDS: amLODIPine BESYLATE 5 MG TABLET (FP) PO SCH (09:18)
[2022-02-08] MEDS ORDERED: SODIUM CHLORIDE 250 ML IV PRN (14:44)
[2022-02-08] MEDS: INSULIN (LEVEMIR) 100 UNITS/ML UNITS SQ SCH (21:13)
[2022-02-09] MEDS: LEVOTHYROXINE NA 25 MCG TABLET (FP) PO SCH (06:47)
[2022-02-09] MEDS: INSULIN SLIDING SCALE (NOVOLOG) 1 VIAL SQ SCH ×4 (06:47→21:10)
[2022-02-09] MEDS: GABAPENTIN 100 MG CAPSULE PO SCH ×3 (06:47→21:04)
[2022-02-09] MEDS ORDERED: HEPARIN NA (PORCINE) 5,000 UNITS/ML 1ML VIAL IVPUSH ONE (08:00)
[2022-02-09] MEDS: SEVELAMER CARBONATE 800 MG TAB (FP) PO SCH ×3 (08:00→17:06)
[2022-02-09] MEDS ORDERED: EPOETIN ALFA-EPBX 4,000 UNIT/ML VIAL IVPUSH ONE (08:00)
[2022-02-09] MEDS: HEPARIN NA (PORCINE) 5,000 UNITS/ML 1ML VIAL IVPUSH SCH ×2 (09:00→10:00)
[2022-02-09 09:20] LABS: HEMATOCRIT 30.2 % (32.4-45.2); HEMOGLOBIN 9.9 GM/dL (10.7-15.3); MCH 29.1 pg (25.7-33.7); MCHC 32.8 g/dl (32.0-36.0); MEAN CELL VOLUME 88.6 fl (80-96); MEAN PLT VOLUME 7.5 fl (7.5-11.1); PLATELET COUNT 248 10^3/uL (134-434); RBC 3.41 M/mm3 (3.60-5.2); RDW 17.6 % (11.6-15.6); WHITE BLOOD COUNT 5.5 K/mm3 (4.0-10.0)
[2022-02-09 10:02] LABS: ALBUMIN 2.4 g/dl (3.4-5.0)
[2022-02-09 10:04] LABS: BLOOD UREA NITROGEN 36.4 mg/dL (7-18); CALCIUM 9.2 mg/dL (8.5-10.1); CREATININE 5.7 mg/dL (0.55-1.3)
[2022-02-09 10:06] LABS: BILIRUBIN,TOTAL 0.3 mg/dL (0.2-1); TOT PROT 7.5 g/dl (6.4-8.2)
[2022-02-09] MEDS: LABETALOL HCL 100 MG TABLET (FP) PO SCH ×2 (12:14→21:04)
[2022-02-09] MEDS: CITALOPRAM HYDROBROMIDE 10 MG TABLET PO SCH (12:14)
[2022-02-09] MEDS: amLODIPine BESYLATE 5 MG TABLET (FP) PO SCH (12:14)
[2022-02-09] MEDS: ERTAPENEM SODIUM 0.5 GM in SODIUM CHLORIDE 50 ML IVPB SCH (12:15)
[2022-02-09] MEDS: HEPARIN NA (PORCINE) 5,000 UNITS/ML 1ML VIAL SQ SCH ×2 (12:15→21:05)
[2022-02-09] MEDS ORDERED: amLODIPine BESYLATE 5 MG TABLET (FP) PO ONE (17:40)
[2022-02-09] MEDS: INSULIN (LEVEMIR) 100 UNITS/ML UNITS SQ SCH (21:07)
[2022-02-10] MEDS: INSULIN SLIDING SCALE (NOVOLOG) 1 VIAL SQ SCH ×2 (06:25→10:50)
[2022-02-10] MEDS: LEVOTHYROXINE NA 25 MCG TABLET (FP) PO SCH (06:25)
[2022-02-10] MEDS: GABAPENTIN 100 MG CAPSULE PO SCH (06:25)
[2022-02-10] MEDS: SEVELAMER CARBONATE 800 MG TAB (FP) PO SCH (08:48)
[2022-02-10 08:52] VITALS: BP 143/71; PULSE 75; TEMP 98.1
[2022-02-10] MEDS: HEPARIN NA (PORCINE) 5,000 UNITS/ML 1ML VIAL SQ SCH (08:59)
[2022-02-10] MEDS: LABETALOL HCL 100 MG TABLET (FP) PO SCH (08:59)
[2022-02-10] MEDS: amLODIPine BESYLATE 5 MG TABLET (FP) PO SCH (08:59)
[2022-02-10] MEDS: CITALOPRAM HYDROBROMIDE 10 MG TABLET PO SCH (08:59)
[2022-02-10] MEDS: ERTAPENEM SODIUM 0.5 GM in SODIUM CHLORIDE 50 ML IVPB SCH (09:01)
== END 2022-02-10 12:20 | DRG 299 ==
LOC: JER 12:33 → JERBED 16:16 → J5S 19:24 → J6S 02-07 16:44
PROVIDERS: ADMIT Family Medicine; ATTEND Family Medicine
PROC: 5A1D70Z Performance of Urinary Filtration, Intermittent, Less than 6 Hours Per Day (ICD-10-PCS; principal; 2022-02-07)
PROC: 5A1D70Z Performance of Urinary Filtration, Intermittent, Less than 6 Hours Per Day (ICD-10-PCS; 2022-02-08)
DX: E11.51 Type 2 diabetes mellitus with diabetic peripheral angiopathy without gangrene (principal); N18.6 End stage renal disease; I13.2 Hypertensive heart and chronic kidney disease with heart failure and with stage 5 chronic kidney disease, or end stage renal disease; M86.8X7 Other osteomyelitis, ankle and foot; E11.69 Type 2 diabetes mellitus with other specified complication; E11.22 Type 2 diabetes mellitus with diabetic chronic kidney disease; I50.9 Heart failure, unspecified; Z99.2 Dependence on renal dialysis; J44.9 Chronic obstructive pulmonary disease, unspecified; K21.9 Gastro-esophageal reflux disease without esophagitis; D64.9 Anemia, unspecified; Z89.512 Acquired absence of left leg below knee; E11.621 Type 2 diabetes mellitus with foot ulcer; L97.519 Non-pressure chronic ulcer of other part of right foot with unspecified severity; E78.5 Hyperlipidemia, unspecified; Z79.4 Long term (current) use of insulin; F32.A Depression, unspecified; F41.9 Anxiety disorder, unspecified; G35 Multiple sclerosis
CPT/HCPCS: 11042; 36415; 71045-TC-FY; 73610-TC-RT-FY; 73630-TC-RT-FY; 80053; 82962; 83036; 83735; 84100; 85025; 85027; 85610; 85651; 85730; 86140; 86803; 86850; 86900; 86901; 87040; 87340; 93005; 93010; 99285-25; C9803-CS; J1644; Q5106; U0003; U0005

== ENCOUNTER 2022-02-22 12:40 | Inpatient (IN) | payer OTHER ==
[2022-02-22] MEDS ORDERED: VANCOMYCIN 1,000 MG in DEXTROSE 5%-WATER - 250 ML IVPB ONE (13:32)
[2022-02-22] MEDS ORDERED: PIPERACILLIN/TAZOBACTAM 4.5 GM VIAL IVPB ONE (13:32)
[2022-02-22] MEDS ORDERED: VANCOMYCIN/WATER FOR INJ (PEG) 1,000 MG/200 ML BAG IVPB ONE (13:53)
[2022-02-22] MEDS ORDERED: PIPERACILLIN/TAZOB 4.5 GM 4.5 GM/100 ML BAG IVPB ONE (13:53)
[2022-02-22 14:30] LABS: EOS % 1.2 % (0-4.5); HEMATOCRIT 30.3 % (32.4-45.2); HEMOGLOBIN 9.8 GM/dL (10.7-15.3); LYMPH % 9.8 % (8-40); MCH 28.7 pg (25.7-33.7); MCHC 32.3 g/dl (32.0-36.0); MEAN CELL VOLUME 88.9 fl (80-96); MEAN PLT VOLUME 7.8 fl (7.5-11.1); MONO % 9.7 % (3.8-10.2); NEUT % 78.3 % (42.8-82.8); PLATELET COUNT 246 10^3/uL (134-434); RDW 18.2 % (11.6-15.6); WHITE BLOOD COUNT 7.7 K/mm3 (4.0-10.0)
[2022-02-22 14:35] LABS: INR 1.15 (0.83-1.09); PROTHROMBIN TIME (PATIENT) 13.2 SEC (9.7-13.0)
[2022-02-22 14:38] LABS: ACTIVATED PTT 29.2 SECONDS (25.2-36.5)
[2022-02-22 14:43] LABS: ALBUMIN 2.3 g/dl (3.4-5.0); BLOOD UREA NITROGEN 34.8 mg/dL (7-18); CALCIUM 9.2 mg/dL (8.5-10.1)
[2022-02-22 14:46] LABS: CREATININE 4.8 mg/dL (0.55-1.3)
[2022-02-22 14:49] LABS: BILIRUBIN,TOTAL 0.3 mg/dL (0.2-1); TOT PROT 7.2 g/dl (6.4-8.2)
[2022-02-22] MEDS ORDERED: ACETAMINOPHEN 325 MG TABLET (FP) PO PRN (16:56)
[2022-02-23] MEDS: LABETALOL HCL 100 MG TABLET (FP) PO SCH ×3 (05:37→21:02)
[2022-02-23] MEDS: GABAPENTIN 100 MG CAPSULE PO SCH ×4 (05:37→21:02)
[2022-02-23] MEDS: HEPARIN NA (PORCINE) 5,000 UNITS/ML 1ML VIAL SQ SCH ×3 (05:42→21:02)
[2022-02-23] MEDS: LEVOTHYROXINE NA 25 MCG TABLET (FP) PO SCH (06:13)
[2022-02-23 06:28] LABS: BASO % 0.9 % (0-2.0); EOS % 2.2 % (0-4.5); HEMATOCRIT 29.9 % (32.4-45.2); HEMOGLOBIN 9.5 GM/dL (10.7-15.3); LYMPH % 12.9 % (8-40); MCH 28.2 pg (25.7-33.7); MCHC 31.7 g/dl (32.0-36.0); MEAN CELL VOLUME 88.7 fl (80-96); MEAN PLT VOLUME 8.3 fl (7.5-11.1); MONO % 12.1 % (3.8-10.2); NEUT % 71.9 % (42.8-82.8); PLATELET COUNT 250 10^3/uL (134-434); RBC 3.37 M/mm3 (3.60-5.2); RDW 17.9 % (11.6-15.6); WHITE BLOOD COUNT 7.7 K/mm3 (4.0-10.0)
[2022-02-23 06:40] LABS: ALBUMIN 2.2 g/dl (3.4-5.0); CALCIUM 8.9 mg/dL (8.5-10.1)
[2022-02-23 06:43] LABS: CREATININE 6.1 mg/dL (0.55-1.3)
[2022-02-23 06:47] LABS: BILIRUBIN,TOTAL 0.3 mg/dL (0.2-1)
[2022-02-23] MEDS ORDERED: ERTAPENEM SODIUM 1 GM VIAL IVPB SCH (10:00)
[2022-02-23] MEDS: amLODIPine BESYLATE 5 MG TABLET (FP) PO SCH (12:45)
[2022-02-23] MEDS: ERTAPENEM SODIUM 0.5 GM in SODIUM CHLORIDE 50 ML IVPB SCH (13:17)
[2022-02-23] MEDS: CITALOPRAM HYDROBROMIDE 10 MG TABLET PO SCH (13:17)
[2022-02-23] MEDS ORDERED: EPOETIN ALFA-EPBX 4,000 UNIT/ML VIAL SQ ONE (15:16)
[2022-02-23] MEDS ORDERED: SODIUM CHLORIDE 250 ML IV PRN ×2 (15:16→15:21)
[2022-02-23] MEDS ORDERED: HEPARIN NA (PORCINE) 5,000 UNITS/ML 1ML VIAL IVPUSH ONE (15:21)
[2022-02-23] MEDS: HEPARIN NA (PORCINE) 5,000 UNITS/ML 1ML VIAL IVPUSH SCH ×3 (16:50→18:50)
[2022-02-23] MEDS: INSULIN SLIDING SCALE (NOVOLOG) 1 VIAL SQ SCH ×2 (21:33→21:34)
[2022-02-24] MEDS: GABAPENTIN 100 MG CAPSULE PO SCH ×3 (05:42→21:16)
[2022-02-24] MEDS: INSULIN SLIDING SCALE (NOVOLOG) 1 VIAL SQ SCH ×4 (06:34→21:17)
[2022-02-24] MEDS: LEVOTHYROXINE NA 25 MCG TABLET (FP) PO SCH (06:34)
[2022-02-24] MEDS: CITALOPRAM HYDROBROMIDE 10 MG TABLET PO SCH (10:53)
[2022-02-24] MEDS: HEPARIN NA (PORCINE) 5,000 UNITS/ML 1ML VIAL SQ SCH ×2 (10:54→21:16)
[2022-02-24] MEDS: ERTAPENEM SODIUM 0.5 GM in SODIUM CHLORIDE 50 ML IVPB SCH (10:54)
[2022-02-24] MEDS: amLODIPine BESYLATE 5 MG TABLET (FP) PO SCH (10:55)
[2022-02-24] MEDS: LABETALOL HCL 100 MG TABLET (FP) PO SCH ×2 (10:55→21:17)
[2022-02-25] MEDS: GABAPENTIN 100 MG CAPSULE PO SCH ×3 (05:33→22:09)
[2022-02-25] MEDS: LEVOTHYROXINE NA 25 MCG TABLET (FP) PO SCH (06:19)
[2022-02-25] MEDS: INSULIN SLIDING SCALE (NOVOLOG) 1 VIAL SQ SCH ×4 (06:59→22:09)
[2022-02-25] MEDS ORDERED: INSULIN (LEVEMIR) 100 UNITS/ML UNITS SQ SCH ×2 (07:00→22:34)
[2022-02-25] MEDS: LABETALOL HCL 100 MG TABLET (FP) PO SCH ×2 (09:36→22:09)
[2022-02-25] MEDS: HEPARIN NA (PORCINE) 5,000 UNITS/ML 1ML VIAL SQ SCH ×2 (09:36→22:10)
[2022-02-25] MEDS: amLODIPine BESYLATE 5 MG TABLET (FP) PO SCH (09:36)
[2022-02-25] MEDS: CITALOPRAM HYDROBROMIDE 10 MG TABLET PO SCH (09:37)
[2022-02-25] MEDS: ERTAPENEM SODIUM 0.5 GM in SODIUM CHLORIDE 50 ML IVPB SCH (12:56)
[2022-02-25] MEDS ORDERED: SODIUM CHLORIDE 250 ML IV PRN (13:02)
[2022-02-25] MEDS ORDERED: ALTEPLASE (CATHFLO) 2 MG/2 ML VIAL NR ONE (19:03)
[2022-02-26] MEDS: INSULIN (LEVEMIR) 100 UNITS/ML UNITS SQ SCH ×2 (01:27→06:13)
[2022-02-26] MEDS: GABAPENTIN 100 MG CAPSULE PO SCH ×3 (05:58→21:40)
[2022-02-26] MEDS: INSULIN SLIDING SCALE (NOVOLOG) 1 VIAL SQ SCH ×4 (06:13→21:44)
[2022-02-26] MEDS: LEVOTHYROXINE NA 25 MCG TABLET (FP) PO SCH (06:14)
[2022-02-26] MEDS: ERTAPENEM SODIUM 0.5 GM in SODIUM CHLORIDE 50 ML IVPB SCH (10:55)
[2022-02-26] MEDS: amLODIPine BESYLATE 5 MG TABLET (FP) PO SCH (10:55)
[2022-02-26] MEDS: LABETALOL HCL 100 MG TABLET (FP) PO SCH ×2 (10:55→21:40)
[2022-02-26] MEDS: HEPARIN NA (PORCINE) 5,000 UNITS/ML 1ML VIAL SQ SCH ×2 (10:55→21:47)
[2022-02-26] MEDS: CITALOPRAM HYDROBROMIDE 10 MG TABLET PO SCH (10:55)
[2022-02-26] MEDS ORDERED: DEXTROSE 50%-WATER 25 GM/50 ML DISP.SYRIN ONE (12:10)
[2022-02-26] MEDS ORDERED: DEXTROSE 50%-WATER 25 GM/50 ML DISP.SYRIN IVPUSH ONE (12:15)
[2022-02-26] MEDS ORDERED: SODIUM CHLORIDE 250 ML IV PRN (15:54)
[2022-02-26] MEDS ORDERED: HEPARIN NA (PORCINE) 5,000 UNITS/ML 1ML VIAL IVPUSH ONE (16:00)
[2022-02-26 16:32] LABS: HEMATOCRIT 28.6 % (32.4-45.2); HEMOGLOBIN 9.4 GM/dL (10.7-15.3); MCH 28.7 pg (25.7-33.7); MEAN CELL VOLUME 87.2 fl (80-96); MEAN PLT VOLUME 8.1 fl (7.5-11.1); PLATELET COUNT 313 10^3/uL (134-434); RBC 3.28 M/mm3 (3.60-5.2); RDW 18.2 % (11.6-15.6); WHITE BLOOD COUNT 8.4 K/mm3 (4.0-10.0)
[2022-02-26 16:45] LABS: CHLORIDE 97 mmol/L (98-107); SODIUM 138 mmol/L (136-145)
[2022-02-26 16:46] LABS: CALCIUM 8.7 mg/dL (8.5-10.1)
[2022-02-26 16:47] LABS: ANION GAP 14 MMOL/L (8-16); BLOOD UREA NITROGEN 55.6 mg/dL (7-18); CO2 27 mmol/L (21-32); GLUCOSE,RANDOM 139 mg/dL (74-106)
[2022-02-26] MEDS ORDERED: EPOETIN ALFA-EPBX 10,000 UNIT/ML VIAL SQ ONE (17:00)
[2022-02-26] MEDS: HEPARIN NA (PORCINE) 5,000 UNITS/ML 1ML VIAL IVPUSH SCH (18:05)
[2022-02-26] MEDS ORDERED: INSULIN (NOVOLOG) ASPART 100 UNITS/ML 10ML VIAL ONE (21:41)
[2022-02-27] MEDS: GABAPENTIN 100 MG CAPSULE PO SCH ×3 (07:08→22:18)
[2022-02-27] MEDS: INSULIN SLIDING SCALE (NOVOLOG) 1 VIAL SQ SCH ×4 (07:08→22:17)
[2022-02-27] MEDS: LEVOTHYROXINE NA 25 MCG TABLET (FP) PO SCH (07:08)
[2022-02-27] MEDS: INSULIN (LEVEMIR) 100 UNITS/ML UNITS SQ SCH (07:08)
[2022-02-27] MEDS ORDERED: INSULIN (NOVOLOG) ASPART 100 UNITS/ML 10ML VIAL ONE (09:38)
[2022-02-27] MEDS: ERTAPENEM SODIUM 0.5 GM in SODIUM CHLORIDE 50 ML IVPB SCH (10:18)
[2022-02-27] MEDS: CITALOPRAM HYDROBROMIDE 10 MG TABLET PO SCH (10:18)
[2022-02-27] MEDS: amLODIPine BESYLATE 5 MG TABLET (FP) PO SCH (10:18)
[2022-02-27] MEDS: LABETALOL HCL 100 MG TABLET (FP) PO SCH ×2 (10:18→22:18)
[2022-02-27] MEDS: HEPARIN NA (PORCINE) 5,000 UNITS/ML 1ML VIAL SQ SCH ×2 (10:18→22:12)
[2022-02-27] MEDS ORDERED: SODIUM CHLORIDE 250 ML IV PRN (12:50)
[2022-02-28] MEDS: GABAPENTIN 100 MG CAPSULE PO SCH ×3 (06:32→21:22)
[2022-02-28] MEDS: LEVOTHYROXINE NA 25 MCG TABLET (FP) PO SCH (06:32)
[2022-02-28] MEDS: INSULIN SLIDING SCALE (NOVOLOG) 1 VIAL SQ SCH ×4 (06:34→21:25)
[2022-02-28] MEDS: INSULIN (LEVEMIR) 100 UNITS/ML UNITS SQ SCH (06:34)
[2022-02-28] MEDS: HEPARIN NA (PORCINE) 5,000 UNITS/ML 1ML VIAL SQ SCH ×2 (09:10→21:25)
[2022-02-28 09:50] LABS: HEMATOCRIT 30.4 % (32.4-45.2); HEMOGLOBIN 9.5 GM/dL (10.7-15.3); MCH 27.6 pg (25.7-33.7); MCHC 31.4 g/dl (32.0-36.0); MEAN CELL VOLUME 87.8 fl (80-96); MEAN PLT VOLUME 8.4 fl (7.5-11.1); PLATELET COUNT 377 10^3/uL (134-434); RBC 3.46 M/mm3 (3.60-5.2); RDW 18.2 % (11.6-15.6); WHITE BLOOD COUNT 8.7 K/mm3 (4.0-10.0)
[2022-02-28] MEDS ORDERED: EPOETIN ALFA-EPBX 10,000 UNIT/ML VIAL IVPUSH ONE ×2 (10:00→18:27)
[2022-02-28 10:11] LABS: CALCIUM 8.6 mg/dL (8.5-10.1)
[2022-02-28 10:12] LABS: ALBUMIN 2.2 g/dl (3.4-5.0); BLOOD UREA NITROGEN 36.6 mg/dL (7-18)
[2022-02-28 10:15] LABS: CREATININE 6.1 mg/dL (0.55-1.3)
[2022-02-28 10:16] LABS: BILIRUBIN,TOTAL 0.4 mg/dL (0.2-1)
[2022-02-28 10:17] LABS: TOT PROT 6.7 g/dl (6.4-8.2)
[2022-02-28] MEDS: CITALOPRAM HYDROBROMIDE 10 MG TABLET PO SCH (12:32)
[2022-02-28] MEDS: LABETALOL HCL 100 MG TABLET (FP) PO SCH ×2 (12:33→21:22)
[2022-02-28] MEDS: amLODIPine BESYLATE 5 MG TABLET (FP) PO SCH (12:33)
[2022-02-28] MEDS: ERTAPENEM SODIUM 0.5 GM in SODIUM CHLORIDE 50 ML IVPB SCH (13:53)
[2022-02-28] MEDS ORDERED: ROPIVACAINE HCL 0.5% 30ML VIAL ONE (15:35)
[2022-02-28] MEDS ORDERED: DEXMEDETOMIDINE HCL 200 MCG/2 ML IVPB ONE (16:03)
[2022-02-28] MEDS ORDERED: MIDAZOLAM HCL 2 MG/2 ML SINGLE DOSE VIAL ONE (16:48)
[2022-02-28] MEDS: SEVELAMER CARBONATE 800 MG TAB (FP) PO SCH ×2 (18:42→18:44)
[2022-02-28] MEDS ORDERED: INSULIN (NOVOLOG) ASPART 100 UNITS/ML 10ML VIAL ONE (21:21)
[2022-02-28] MEDS ORDERED: SEVELAMER CARBONATE 800 MG TAB (FP) PO SCH (22:00)
[2022-03-01] MEDS: INSULIN SLIDING SCALE (NOVOLOG) 1 VIAL SQ SCH ×4 (05:59→22:08)
[2022-03-01] MEDS: GABAPENTIN 100 MG CAPSULE PO SCH ×3 (05:59→22:08)
[2022-03-01] MEDS: INSULIN (LEVEMIR) 100 UNITS/ML UNITS SQ SCH (05:59)
[2022-03-01] MEDS: LEVOTHYROXINE NA 25 MCG TABLET (FP) PO SCH (06:01)
[2022-03-01] MEDS: LABETALOL HCL 100 MG TABLET (FP) PO SCH ×2 (09:39→22:58)
[2022-03-01] MEDS: CITALOPRAM HYDROBROMIDE 10 MG TABLET PO SCH (09:40)
[2022-03-01] MEDS: HEPARIN NA (PORCINE) 5,000 UNITS/ML 1ML VIAL SQ SCH ×2 (09:40→22:09)
[2022-03-01] MEDS: amLODIPine BESYLATE 5 MG TABLET (FP) PO SCH (09:40)
[2022-03-01] MEDS: ERTAPENEM SODIUM 0.5 GM in SODIUM CHLORIDE 50 ML IVPB SCH (11:09)
[2022-03-01] MEDS: ACETAMINOPHEN 325 MG TABLET (FP) PO PRN (20:19)
[2022-03-01] MEDS ORDERED: INSULIN (NOVOLOG) ASPART 100 UNITS/ML 10ML VIAL ONE (21:08)
[2022-03-02] MEDS: LEVOTHYROXINE NA 25 MCG TABLET (FP) PO SCH (06:15)
[2022-03-02] MEDS: GABAPENTIN 100 MG CAPSULE PO SCH ×3 (06:15→23:02)
[2022-03-02] MEDS ORDERED: SODIUM CHLORIDE 250 ML IV PRN (07:13)
[2022-03-02] MEDS: INSULIN SLIDING SCALE (NOVOLOG) 1 VIAL SQ SCH ×4 (07:35→23:23)
[2022-03-02] MEDS ORDERED: EPOETIN ALFA-EPBX 10,000 UNIT/ML VIAL IVPUSH ONE (09:00)
[2022-03-02 11:14] LABS: HEMATOCRIT 28.6 % (32.4-45.2); HEMOGLOBIN 8.8 GM/dL (10.7-15.3); MCH 27.4 pg (25.7-33.7); MCHC 30.9 g/dl (32.0-36.0); MEAN CELL VOLUME 88.6 fl (80-96); MEAN PLT VOLUME 8.3 fl (7.5-11.1); PLATELET COUNT 410 10^3/uL (134-434); RBC 3.23 M/mm3 (3.60-5.2); RDW 18.2 % (11.6-15.6); WHITE BLOOD COUNT 12.1 K/mm3 (4.0-10.0)
[2022-03-02 11:26] LABS: CALCIUM 8.4 mg/dL (8.5-10.1)
[2022-03-02 11:27] LABS: ALBUMIN 2.3 g/dl (3.4-5.0); BLOOD UREA NITROGEN 35.7 mg/dL (7-18)
[2022-03-02 11:30] LABS: BILIRUBIN,TOTAL 0.5 mg/dL (0.2-1); CREATININE 6.2 mg/dL (0.55-1.3); TOT PROT 7.1 g/dl (6.4-8.2)
[2022-03-02] MEDS: ERTAPENEM SODIUM 0.5 GM in SODIUM CHLORIDE 50 ML IVPB SCH (12:17)
[2022-03-02] MEDS: amLODIPine BESYLATE 5 MG TABLET (FP) PO SCH (12:18)
[2022-03-02] MEDS: CITALOPRAM HYDROBROMIDE 10 MG TABLET PO SCH (12:19)
[2022-03-02] MEDS: AMINO ACIDS/PROTEIN HYDROLYS 30 ML LIQUID.PKT PO SCH (12:19)
[2022-03-02] MEDS: VITAMIN B COMP W-C 1 EA TABLET (NEPHRO-VITE) PO SCH (12:19)
[2022-03-02] MEDS: HEPARIN NA (PORCINE) 5,000 UNITS/ML 1ML VIAL SQ SCH ×2 (12:19→23:01)
[2022-03-02] MEDS: LABETALOL HCL 100 MG TABLET (FP) PO SCH ×2 (12:20→23:02)
[2022-03-02] MEDS: INSULIN (LEVEMIR) 100 UNITS/ML UNITS SQ SCH (13:04)
[2022-03-02] MEDS: ACETAMINOPHEN 325 MG TABLET (FP) PO PRN (23:02)
[2022-03-03] MEDS: GABAPENTIN 100 MG CAPSULE PO SCH ×3 (06:44→22:22)
[2022-03-03] MEDS: INSULIN (LEVEMIR) 100 UNITS/ML UNITS SQ SCH (06:45)
[2022-03-03] MEDS: LEVOTHYROXINE NA 25 MCG TABLET (FP) PO SCH (06:45)
[2022-03-03] MEDS: INSULIN SLIDING SCALE (NOVOLOG) 1 VIAL SQ SCH ×4 (06:45→22:25)
[2022-03-03] MEDS: HEPARIN NA (PORCINE) 5,000 UNITS/ML 1ML VIAL SQ SCH ×2 (09:09→22:21)
[2022-03-03] MEDS: AMINO ACIDS/PROTEIN HYDROLYS 30 ML LIQUID.PKT PO SCH (11:28)
[2022-03-03] MEDS: LABETALOL HCL 100 MG TABLET (FP) PO SCH ×2 (11:28→22:22)
[2022-03-03] MEDS: CITALOPRAM HYDROBROMIDE 20 MG TABLET PO SCH (11:28)
[2022-03-03] MEDS: amLODIPine BESYLATE 5 MG TABLET (FP) PO SCH (11:29)
[2022-03-03] MEDS: ERTAPENEM SODIUM 0.5 GM in SODIUM CHLORIDE 50 ML IVPB SCH (11:30)
[2022-03-03] MEDS: VITAMIN B COMP W-C 1 EA TABLET (NEPHRO-VITE) PO SCH (11:31)
[2022-03-03] MEDS: ACETAMINOPHEN 325 MG TABLET (FP) PO PRN (14:14)
[2022-03-03] MEDS ORDERED: INSULIN (NOVOLOG) ASPART 100 UNITS/ML 10ML VIAL ONE (22:08)
[2022-03-03] MEDS ORDERED: ACETAMINOPHEN 1000 MG/100 ML BAG IVPB ONE (22:27)
[2022-03-04] MEDS: INSULIN (LEVEMIR) 100 UNITS/ML UNITS SQ SCH (06:10)
[2022-03-04] MEDS: GABAPENTIN 100 MG CAPSULE PO SCH ×4 (06:10→23:05)
[2022-03-04] MEDS: INSULIN SLIDING SCALE (NOVOLOG) 1 VIAL SQ SCH ×4 (06:11→23:04)
[2022-03-04] MEDS: LEVOTHYROXINE NA 25 MCG TABLET (FP) PO SCH (06:11)
[2022-03-04] MEDS ORDERED: INSULIN (NOVOLOG) ASPART 100 UNITS/ML 10ML VIAL ONE (06:50)
[2022-03-04] MEDS: AMINO ACIDS/PROTEIN HYDROLYS 30 ML LIQUID.PKT PO SCH (08:00)
[2022-03-04] MEDS: HEPARIN NA (PORCINE) 5,000 UNITS/ML 1ML VIAL SQ SCH ×2 (10:37→23:05)
[2022-03-04] MEDS: VITAMIN B COMP W-C 1 EA TABLET (NEPHRO-VITE) PO SCH (10:38)
[2022-03-04] MEDS: amLODIPine BESYLATE 5 MG TABLET (FP) PO SCH (10:38)
[2022-03-04] MEDS: LABETALOL HCL 100 MG TABLET (FP) PO SCH ×2 (10:38→23:05)
[2022-03-04] MEDS: CITALOPRAM HYDROBROMIDE 20 MG TABLET PO SCH (10:39)
[2022-03-04] MEDS: ERTAPENEM SODIUM 0.5 GM in SODIUM CHLORIDE 50 ML IVPB SCH (10:58)
[2022-03-04] MEDS: ACETAMINOPHEN 325 MG TABLET (FP) PO PRN (14:17)
[2022-03-04] MEDS ORDERED: ACETAMINOPHEN 325 MG TABLET (FP) PO PRN (18:33)
[2022-03-04] MEDS ORDERED: SEVELAMER CARBONATE 800 MG TAB (FP) PO SCH (22:00)
[2022-03-04] MEDS: MUPIROCIN 2% TOPICAL OINTMENT FOR DECOLONIZATION NS SCH (23:05)
[2022-03-04] MEDS: CHLORHEXIDINE GLUCONATE 4% CLEANSER FOR DECOLONIZATION TP SCH (23:05)
[2022-03-05] MEDS: GABAPENTIN 100 MG CAPSULE PO SCH ×3 (06:22→21:09)
[2022-03-05] MEDS: LEVOTHYROXINE NA 25 MCG TABLET (FP) PO SCH (06:22)
[2022-03-05] MEDS: INSULIN (LEVEMIR) 100 UNITS/ML UNITS SQ SCH (06:31)
[2022-03-05] MEDS: INSULIN SLIDING SCALE (NOVOLOG) 1 VIAL SQ SCH ×4 (06:31→21:11)
[2022-03-05] MEDS: CITALOPRAM HYDROBROMIDE 20 MG TABLET PO SCH (09:30)
[2022-03-05] MEDS: amLODIPine BESYLATE 5 MG TABLET (FP) PO SCH (09:30)
[2022-03-05] MEDS: HEPARIN NA (PORCINE) 5,000 UNITS/ML 1ML VIAL SQ SCH ×2 (09:30→21:09)
[2022-03-05] MEDS: VITAMIN B COMP W-C 1 EA TABLET (NEPHRO-VITE) PO SCH (09:30)
[2022-03-05] MEDS: AMINO ACIDS/PROTEIN HYDROLYS 30 ML LIQUID.PKT PO SCH (09:30)
[2022-03-05] MEDS: LABETALOL HCL 100 MG TABLET (FP) PO SCH ×2 (09:30→21:09)
[2022-03-05] MEDS: MUPIROCIN 2% TOPICAL OINTMENT FOR DECOLONIZATION NS SCH ×2 (09:31→21:09)
[2022-03-05] MEDS: ASPIRIN 81 MG CHEWABLE TABLETS PO SCH (09:37)
[2022-03-05] MEDS: ERTAPENEM SODIUM 0.5 GM in SODIUM CHLORIDE 50 ML IVPB SCH (11:03)
[2022-03-05 12:33] LABS: BASO % 1.2 % (0-2.0); EOS % 2.6 % (0-4.5); HEMATOCRIT 24.2 % (32.4-45.2); HEMOGLOBIN 7.7 GM/dL (10.7-15.3); LYMPH % 6.4 % (8-40); MCH 28.1 pg (25.7-33.7); MCHC 31.7 g/dl (32.0-36.0); MEAN CELL VOLUME 88.7 fl (80-96); MEAN PLT VOLUME 8.1 fl (7.5-11.1); MONO % 4.6 % (3.8-10.2); NEUT % 85.2 % (42.8-82.8); PLATELET COUNT 363 10^3/uL (134-434); RBC 2.73 M/mm3 (3.60-5.2)
[2022-03-05 13:02] LABS: CHLORIDE 98 mmol/L (98-107); SODIUM 138 mmol/L (136-145)
[2022-03-05 13:04] LABS: CALCIUM 8.4 mg/dL (8.5-10.1)
[2022-03-05 13:05] LABS: ALBUMIN 2.2 g/dl (3.4-5.0); ANION GAP 14 MMOL/L (8-16); BLOOD UREA NITROGEN 56.5 mg/dL (7-18); CO2 27 mmol/L (21-32); GLUCOSE,RANDOM 88 mg/dL (74-106)
[2022-03-05 13:08] LABS: CHOLESTEROL 148 mg/dL (50-200); SGOT/AST 40 U/L (15-37); SGPT/ALT 22 U/L (13-61); TRIGLYCERIDES 189 mg/dL (0-150)
[2022-03-05 13:09] LABS: BILIRUBIN,TOTAL 0.4 mg/dL (0.2-1); LDL CHOLESTEROL (ONLY SJRH) 75 mg/dL (5-100); TOT PROT 6.8 g/dl (6.4-8.2)
[2022-03-05 13:10] LABS: HDL CHOLESTEROL 22 mg/dL (40-60)
[2022-03-05 13:33] LABS: ALK PHOS 437 U/L (45-117); CREATININE 7.7 mg/dL (0.55-1.3)
[2022-03-05 13:59] VITALS: BMI 21.1
[2022-03-05] MEDS ORDERED: EPOETIN ALFA-EPBX 10,000 UNIT/ML VIAL IVPUSH ONE (15:30)
[2022-03-05] MEDS ORDERED: SODIUM CHLORIDE 250 ML IV PRN (16:10)
[2022-03-05] MEDS: ATORVASTATIN CA 20 MG TABLET (FP) PO SCH (21:09)
[2022-03-05] MEDS: CHLORHEXIDINE GLUCONATE 4% CLEANSER FOR DECOLONIZATION TP SCH (21:09)
[2022-03-06] MEDS: LEVOTHYROXINE NA 25 MCG TABLET (FP) PO SCH (06:16)
[2022-03-06] MEDS: GABAPENTIN 100 MG CAPSULE PO SCH ×3 (06:16→22:04)
[2022-03-06] MEDS: INSULIN SLIDING SCALE (NOVOLOG) 1 VIAL SQ SCH ×4 (06:17→22:05)
[2022-03-06] MEDS: INSULIN (LEVEMIR) 100 UNITS/ML UNITS SQ SCH (06:19)
[2022-03-06 10:33] LABS: BASO % 1.2 % (0-2.0); HEMATOCRIT 27.6 % (32.4-45.2); HEMOGLOBIN 8.4 GM/dL (10.7-15.3); LYMPH % 8.7 % (8-40); MCH 27.2 pg (25.7-33.7); MCHC 30.5 g/dl (32.0-36.0); MEAN CELL VOLUME 89.1 fl (80-96); MEAN PLT VOLUME 8.3 fl (7.5-11.1); NEUT % 81.1 % (42.8-82.8); PLATELET COUNT 386 10^3/uL (134-434); RDW 17.6 % (11.6-15.6)
[2022-03-06] MEDS: AMINO ACIDS/PROTEIN HYDROLYS 30 ML LIQUID.PKT PO SCH (10:48)
[2022-03-06] MEDS: CITALOPRAM HYDROBROMIDE 20 MG TABLET PO SCH (10:48)
[2022-03-06] MEDS: amLODIPine BESYLATE 5 MG TABLET (FP) PO SCH (10:49)
[2022-03-06] MEDS: ASPIRIN 81 MG CHEWABLE TABLETS PO SCH (10:49)
[2022-03-06] MEDS: LABETALOL HCL 100 MG TABLET (FP) PO SCH ×2 (10:49→22:04)
[2022-03-06] MEDS: VITAMIN B COMP W-C 1 EA TABLET (NEPHRO-VITE) PO SCH (10:49)
[2022-03-06] MEDS: HEPARIN NA (PORCINE) 5,000 UNITS/ML 1ML VIAL SQ SCH ×2 (10:53→22:04)
[2022-03-06] MEDS: MUPIROCIN 2% TOPICAL OINTMENT FOR DECOLONIZATION NS SCH ×2 (11:00→22:05)
[2022-03-06] MEDS: ERTAPENEM SODIUM 0.5 GM in SODIUM CHLORIDE 50 ML IVPB SCH (11:03)
[2022-03-06] MEDS ORDERED: SODIUM CHLORIDE 250 ML IV PRN (11:52)
[2022-03-06] MEDS ORDERED: INSULIN (NOVOLOG) ASPART 100 UNITS/ML 10ML VIAL ONE (21:05)
[2022-03-06] MEDS: ATORVASTATIN CA 20 MG TABLET (FP) PO SCH (22:04)
[2022-03-06] MEDS: CHLORHEXIDINE GLUCONATE 4% CLEANSER FOR DECOLONIZATION TP SCH (22:05)
[2022-03-07] MEDS: LEVOTHYROXINE NA 25 MCG TABLET (FP) PO SCH (06:48)
[2022-03-07] MEDS: GABAPENTIN 100 MG CAPSULE PO SCH ×3 (06:48→21:49)
[2022-03-07] MEDS: INSULIN SLIDING SCALE (NOVOLOG) 1 VIAL SQ SCH ×4 (06:48→21:49)
[2022-03-07] MEDS ORDERED: INSULIN SLIDING SCALE (NOVOLOG) 1 VIAL SQ SCH (07:25)
[2022-03-07] MEDS ORDERED: INSULIN GLARGINE SQ SCH (07:25)
[2022-03-07] MEDS ORDERED: ACETAMINOPHEN 325 MG TABLET (FP) PO PRN (07:25)
[2022-03-07] MEDS ORDERED: SODIUM CHLORIDE 250 ML IV PRN (07:25)
[2022-03-07] MEDS: INSULIN (LEVEMIR) 100 UNITS/ML UNITS SQ SCH ×3 (07:28→21:48)
[2022-03-07] MEDS ORDERED: AMINO ACIDS/PROTEIN HYDROLYS 30 ML LIQUID.PKT PO SCH (08:00)
[2022-03-07] MEDS: INSULIN (NOVOLOG) ASPART 100 UNITS/ML 10ML VIAL SQ SCH ×3 (08:40→17:31)
[2022-03-07] MEDS ORDERED: HEPARIN NA (PORCINE) 5,000 UNITS/ML 1ML VIAL IVPUSH ONE (09:00)
[2022-03-07 09:14] LABS: HEMOGLOBIN 8.3 GM/dL (10.7-15.3); MCH 28.3 pg (25.7-33.7); MCHC 32.1 g/dl (32.0-36.0); MEAN CELL VOLUME 88.3 fl (80-96); MEAN PLT VOLUME 8.1 fl (7.5-11.1); PLATELET COUNT 399 10^3/uL (134-434); RBC 2.94 M/mm3 (3.60-5.2); RDW 17.9 % (11.6-15.6); WHITE BLOOD COUNT 9.4 K/mm3 (4.0-10.0)
[2022-03-07] MEDS: LABETALOL HCL 100 MG TABLET (FP) PO SCH ×2 (09:48→21:49)
[2022-03-07] MEDS: HEPARIN NA (PORCINE) 5,000 UNITS/ML 1ML VIAL SQ SCH ×2 (09:49→21:49)
[2022-03-07 09:54] LABS: ALBUMIN 2.2 g/dl (3.4-5.0); BLOOD UREA NITROGEN 42.8 mg/dL (7-18); CALCIUM 9.1 mg/dL (8.5-10.1)
[2022-03-07 09:56] LABS: CREATININE 5.7 mg/dL (0.55-1.3)
[2022-03-07 09:58] LABS: BILIRUBIN,TOTAL 0.3 mg/dL (0.2-1); TOT PROT 6.6 g/dl (6.4-8.2)
[2022-03-07] MEDS ORDERED: VITAMIN B COMP W-C 1 EA TABLET (NEPHRO-VITE) PO SCH (10:00)
[2022-03-07] MEDS ORDERED: CITALOPRAM HYDROBROMIDE 20 MG TABLET PO SCH (10:00)
[2022-03-07] MEDS ORDERED: EPOETIN ALFA-EPBX 10,000 UNIT/ML VIAL IVPUSH ONE (10:00)
[2022-03-07] MEDS ORDERED: ASPIRIN 81 MG CHEWABLE TABLETS PO SCH (10:00)
[2022-03-07] MEDS ORDERED: ERTAPENEM SODIUM 0.5 GM in SODIUM CHLORIDE 50 ML IVPB SCH (10:00)
[2022-03-07] MEDS ORDERED: amLODIPine BESYLATE 5 MG TABLET (FP) PO SCH (10:00)
[2022-03-07] MEDS ORDERED: MULTIVITAMINS (DAILY MVI) TABLET (FP) PO SCH (10:00)
[2022-03-07] MEDS: SEVELAMER CARBONATE 800 MG TAB (FP) PO SCH ×2 (12:42→17:35)
[2022-03-07] MEDS ORDERED: SEVELAMER CARBONATE 800 MG TAB (FP) PO SCH (14:00)
[2022-03-07 21:55] VITALS: BP 152/78; PULSE 95; RESP 146; TEMP 98.1
[2022-03-07] MEDS ORDERED: ATORVASTATIN CA 20 MG TABLET (FP) PO SCH (22:00)
[2022-03-08] MEDS ORDERED: INSULIN (LEVEMIR) 100 UNITS/ML UNITS SQ SCH (07:00)
[2022-03-08] MEDS ORDERED: LEVOTHYROXINE NA 25 MCG TABLET (FP) PO SCH (07:00)
== END 2022-03-08 00:10 | DRG 239 ==
LOC: JER 12:40 → JERBED 13:26 → J7W 02-23 09:21 → JICU 03-04 18:37 → J4W 03-05 21:26
PROVIDERS: ADMIT Family Medicine; ATTEND Family Medicine
PROC: 0Y6H0Z2 Detachment at Right Lower Leg, Mid, Open Approach (ICD-10-PCS; principal; 2022-02-28 15:30)
DX: E11.51 Type 2 diabetes mellitus with diabetic peripheral angiopathy without gangrene (principal); N18.6 End stage renal disease; I12.0 Hypertensive chronic kidney disease with stage 5 chronic kidney disease or end stage renal disease; I50.32 Chronic diastolic (congestive) heart failure; M86.671 Other chronic osteomyelitis, right ankle and foot; I13.2 Hypertensive heart and chronic kidney disease with heart failure and with stage 5 chronic kidney disease, or end stage renal disease; I97.821 Postprocedural cerebrovascular infarction following other surgery; E11.22 Type 2 diabetes mellitus with diabetic chronic kidney disease; Z99.2 Dependence on renal dialysis; J44.9 Chronic obstructive pulmonary disease, unspecified; K21.9 Gastro-esophageal reflux disease without esophagitis; Z89.512 Acquired absence of left leg below knee; D64.9 Anemia, unspecified; Z79.4 Long term (current) use of insulin; F32.9 Major depressive disorder, single episode, unspecified; G35 Multiple sclerosis; E03.9 Hypothyroidism, unspecified; I36.1 Nonrheumatic tricuspid (valve) insufficiency; I27.20 Pulmonary hypertension, unspecified; F41.9 Anxiety disorder, unspecified; R94.5 Abnormal results of liver function studies; E11.69 Type 2 diabetes mellitus with other specified complication; E11.40 Type 2 diabetes mellitus with diabetic neuropathy, unspecified; F32.A Depression, unspecified; D72.829 Elevated white blood cell count, unspecified; Y83.8 Other surgical procedures as the cause of abnormal reaction of the patient, or of later complication, without mention of misadventure at the time of the procedure
CPT/HCPCS: 0241U-QW; 36415; 70450-TC; 70551-TC; 73610-TC-RT-FY; 73630-TC-RT-FY; 76705-TC; 80048; 80053; 80061; 82728; 82962; 83036; 83516; 83540; 83550; 83605; 84080; 84439; 84443; 85025; 85027; 85045; 85610; 85730; 86038; 86850; 86900; 86901; 86922; 87040; 88307-TC; 88311-TC; 93005; 93010; 93880-TC; 94760; 97162-GP; 99285-25; C9803-CS; J1644; J2997; Q5106; U0003; U0005

== ENCOUNTER 2022-05-01 15:45 | Inpatient (IN) | payer OTHER ==
[2022-05-01 16:16] VITALS: BMI 23.3
[2022-05-01] MEDS ORDERED: SODIUM CHLORIDE 500 ML IV STA (17:12)
[2022-05-01 17:31] LABS: VENOUS BASE EXCESS 5.4 mmol/L (-2-2); VENOUS O2 SATURATION 55.1 % (70-80); VENOUS PCO2 48.3 mmHg (38-52); VENOUS PH 7.42 (7.310-7.410)
[2022-05-01 17:40] LABS: INR 1.31 (0.83-1.09); PROTHROMBIN TIME (PATIENT) 15.1 SEC (9.7-13.0)
[2022-05-01 17:42] LABS: ACTIVATED PTT 27.7 SECONDS (25.2-36.5)
[2022-05-01] MEDS ORDERED: TETRACAINE 0.5% HCL 0.6ML DROPPER.BOTTLE OD ONE (17:44)
[2022-05-01] MEDS ORDERED: FLUORESCEIN NA 1 EA STRIP OD ONE (17:45)
[2022-05-01] MEDS ORDERED: TETRACAINE 0.5% OPHTH SOLN 2 ML BOTTLE ONE (17:48)
[2022-05-01] MEDS ORDERED: FLUORESCEIN NA 1 EA STRIP ONE (17:48)
[2022-05-01] MEDS ORDERED: VANCOMYCIN 1 GM in D5W (PRE-DOCKED) 1,000 MG/250 ML IVPB ONE (17:48)
[2022-05-01 17:49] LABS: CHLORIDE 94 mmol/L (98-107); SODIUM 134 mmol/L (136-145)
[2022-05-01] MEDS ORDERED: PIPERACILLIN/TAZOB 4.5 GM 4.5 GM in DEXTROSE 5%-WATER 100 ML IVPB ONE (17:49)
[2022-05-01 17:51] LABS: CALCIUM 9.2 mg/dL (8.5-10.1)
[2022-05-01 17:52] LABS: ALBUMIN 1.9 g/dl (3.4-5.0); BLOOD UREA NITROGEN 40.6 mg/dL (7-18); CO2 30 mmol/L (21-32); GLUCOSE,RANDOM 232 mg/dL (74-106)
[2022-05-01 17:55] LABS: CREATININE 4.6 mg/dL (0.55-1.3)
[2022-05-01 17:56] LABS: BILIRUBIN,TOTAL 0.8 mg/dL (0.2-1)
[2022-05-01 17:57] LABS: TOT PROT 8.3 g/dl (6.4-8.2)
[2022-05-01 17:58] LABS: ALK PHOS 484 U/L (45-117)
[2022-05-01 18:17] LABS: ANION GAP 11 MMOL/L (8-16); LACTIC ACID 2.3 mmol/L (0.4-2.0); SGOT/AST 94 U/L (15-37); SGPT/ALT 46 U/L (13-61)
[2022-05-01] MEDS ORDERED: PIPERACILLIN/TAZOB 3.375 GM 3.375 GM/50 ML BAG IVPB ONE (18:50)
[2022-05-01] MEDS ORDERED: PIPERACILLIN/TAZOB 4.5 GM 4.5 GM/100 ML BAG IVPB ONE (18:51)
[2022-05-01 19:20] LABS: HEMATOCRIT 30.1 % (32.4-45.2); MCH 25.4 pg (25.7-33.7); MCHC 29.8 g/dl (32.0-36.0); MEAN PLT VOLUME 8.9 fl (7.5-11.1); PLATELET COUNT 292 10^3/uL (134-434); RBC 3.54 M/mm3 (3.60-5.2); RDW 18.6 % (11.6-15.6); WHITE BLOOD COUNT 26.4 K/mm3 (4.0-10.0)
[2022-05-01 19:46] LABS: ANISOCYTOSIS 1+; MACROCYTOSIS 13; OVALOCYTE 1+; TARGET CELLS 1+
[2022-05-01 19:47] LABS: CALCIUM 9.3 mg/dL (8.5-10.1)
[2022-05-01 19:48] LABS: BLOOD UREA NITROGEN 40.6 mg/dL (7-18)
[2022-05-01 19:51] LABS: CREATININE 4.6 mg/dL (0.55-1.3)
[2022-05-01 19:53] LABS: TOXIC GRANULATION 1+
[2022-05-01] MEDS ORDERED: ASPIRIN 81 MG CHEWABLE TABLETS PO ONE (21:16)
[2022-05-01] MEDS ORDERED: ATORVASTATIN CA 20 MG TABLET (FP) PO ONE (21:17)
[2022-05-01] MEDS ORDERED: ACETAMINOPHEN 1000 MG/100 ML BAG IVPB ONE (21:52)
[2022-05-01] MEDS ORDERED: ACETAMINOPHEN INJECTION 100 ML IVPB ONE (21:53)
[2022-05-01] MEDS ORDERED: VANCOMYCIN/WATER FOR INJ (PEG) 1,000 MG/200 ML BAG IVPB ONE (21:53)
[2022-05-02] MEDS ORDERED: ATORVASTATIN CA 20 MG TABLET (FP) ONE (02:41)
[2022-05-02] MEDS ORDERED: ASPIRIN 81 MG CHEWABLE TABLETS ONE (02:41)
[2022-05-02 03:03] LABS: EPI CELLS 25 /uL (0-25.1); HYALINE CASTS 1 /uL (0-3.1); URINE APPEARANCE CLOUDY; URINE BACTERIA 133 /uL (0-1359); URINE BILIRUBIN NEGATIVE (NEGATIVE); URINE COLOR YELLOW; URINE GLUCOSE (UA) 2+ (NEGATIVE); URINE KETONE NEGATIVE (NEGATIVE); URINE LEUK ESTERASE NEGATIVE (NEGATIVE); URINE NITRITE NEGATIVE (NEGATIVE); URINE PROTEIN 3+ (NEGATIVE); URINE UROBILINOGEN 0.2 mg/dL (0.2-1.0)
[2022-05-02] MEDS ORDERED: ACETAMINOPHEN 1000 MG/100 ML BAG IVPB PRN (04:00)
[2022-05-02] MEDS ORDERED: ACETAMINOPHEN INJECTION 100 ML IVPB ONE (04:08)
[2022-05-02 07:30] LABS: URINE RBC 160.3 /uL (0-23.9); URINE WBC 149.6 /uL (0-25.8)
[2022-05-02 07:31] LABS: YEAST NEGATIVE (NEGATIVE)
[2022-05-02 08:13] LABS: HEMATOCRIT 30.8 % (32.4-45.2); MCH 25.2 pg (25.7-33.7); MCHC 29.1 g/dl (32.0-36.0); MEAN CELL VOLUME 86.5 fl (80-96); MEAN PLT VOLUME 9.8 fl (7.5-11.1); PLATELET COUNT 241 10^3/uL (134-434); RBC 3.57 M/mm3 (3.60-5.2); RDW 18.5 % (11.6-15.6); WHITE BLOOD COUNT 25.7 K/mm3 (4.0-10.0)
[2022-05-02 08:33] LABS: ALBUMIN 2.1 g/dl (3.4-5.0); CALCIUM 9.2 mg/dL (8.5-10.1)
[2022-05-02 08:34] LABS: BLOOD UREA NITROGEN 54.6 mg/dL (7-18)
[2022-05-02 08:37] LABS: CREATININE 5.3 mg/dL (0.55-1.3)
[2022-05-02 08:38] LABS: BILIRUBIN,TOTAL 0.7 mg/dL (0.2-1); TOT PROT 7.4 g/dl (6.4-8.2)
[2022-05-02] MEDS ORDERED: SODIUM CHLORIDE 250 ML IV PRN (10:01)
[2022-05-02] MEDS ORDERED: HEPARIN NA (PORCINE) 5,000 UNITS/ML 1ML VIAL IVPUSH ONE (10:01)
[2022-05-02 10:28] LABS: ANISOCYTOSIS 0; HELMET CELLS 0; HOWELL-JOLLY BODIES 0; MACROCYTOSIS 0; OVALOCYTE 0; ROULEAU 0; SICKELED CELLS 0; TARGET CELLS 0; TEAR DROP CELLS 0; TOXIC GRANULATION 0
[2022-05-02 14:54] LABS: HEMATOCRIT 28.6 % (32.4-45.2); HEMOGLOBIN 8.4 GM/dL (10.7-15.3); MCH 25.3 pg (25.7-33.7); MCHC 29.3 g/dl (32.0-36.0); MEAN CELL VOLUME 86.4 fl (80-96); MEAN PLT VOLUME 9.7 fl (7.5-11.1); PLATELET COUNT 231 10^3/uL (134-434); RBC 3.31 M/mm3 (3.60-5.2); RDW 17.8 % (11.6-15.6); WHITE BLOOD COUNT 24.3 K/mm3 (4.0-10.0)
[2022-05-02 15:20] LABS: CALCIUM 9.4 mg/dL (8.5-10.1)
[2022-05-02 15:25] LABS: BILIRUBIN,TOTAL 0.5 mg/dL (0.2-1)
[2022-05-02] MEDS: HEPARIN NA (PORCINE) 5,000 UNITS/ML 1ML VIAL IVPUSH SCH ×3 (15:50→17:01)
[2022-05-02] MEDS ORDERED: CEFEPIME 1 GM in DEXTROSE 5%-WATER 100 ML IVPB SCH (17:00)
[2022-05-02] MEDS ORDERED: VANCOMYCIN/WATER FOR INJ (PEG) 1,000 MG/200 ML BAG IVPB ONE (17:00)
[2022-05-02] MEDS ORDERED: EPOETIN ALFA-EPBX 10,000 UNIT/ML VIAL SQ ONE (17:30)
[2022-05-03] MEDS ORDERED: ACETAMINOPHEN 325 MG TABLET (FP) PO PRN (07:46)
[2022-05-03] MEDS ORDERED: ACETAMINOPHEN 1000 MG/100 ML BAG IVPB ONE (07:46)
[2022-05-03] MEDS ORDERED: ACETAMINOPHEN INJECTION 100 ML IVPB ONE (08:22)
[2022-05-03 11:42] LABS: HEMATOCRIT 27.9 % (32.4-45.2); HEMOGLOBIN 8.1 GM/dL (10.7-15.3); MCH 25.4 pg (25.7-33.7); MEAN CELL VOLUME 87.7 fl (80-96); MEAN PLT VOLUME 9.9 fl (7.5-11.1); PLATELET COUNT 286 10^3/uL (134-434); RBC 3.18 M/mm3 (3.60-5.2); RDW 18.5 % (11.6-15.6); WHITE BLOOD COUNT 27.4 K/mm3 (4.0-10.0)
[2022-05-03] MEDS ORDERED: SODIUM CHLORIDE 500 ML IV STA ×3 (12:03→16:26)
[2022-05-03 12:33] LABS: ANISOCYTOSIS 1+; MACROCYTOSIS 1+
[2022-05-03] MEDS ORDERED: DAPTOMYCIN IVPB ONE (15:00)
[2022-05-03] MEDS ORDERED: SODIUM CHLORIDE IVPB ONE (15:00)
[2022-05-03 15:42] LABS: BF GLUCOSE (CSF ONLY) 175 mg/dL (40-70)
[2022-05-03 15:54] LABS: CSF APPEARANCE CLOUDY (CLEAR); CSF COLOR RED (COLORLESS)
[2022-05-03 15:57] LABS: CSF WBC 1200 mm3 (0-5)
[2022-05-03] MEDS: ACETAMINOPHEN 1000 MG/100 ML BAG IVPB PRN (16:01)
[2022-05-03] MEDS: INSULIN SLIDING SCALE (NOVOLOG) 1 VIAL SQ SCH ×2 (16:05→21:49)
[2022-05-03] MEDS ORDERED: SODIUM CHLORIDE 0.45% 1,000 ML IV SCH (16:30)
[2022-05-03] MEDS: MEROPENEM 1 GM in DEXTROSE 5%-WATER 100 ML IVPB SCH (16:40)
[2022-05-03] MEDS ORDERED: DEXTROSE 5% IVPB ONE (17:30)
[2022-05-03] MEDS ORDERED: WATER IVPB ONE (17:30)
[2022-05-03] MEDS ORDERED: ACYCLOVIR IVPB ONE (17:30)
[2022-05-03] MEDS: AMPICILLIN - 2 GM in SODIUM CHLORIDE 100 ML IVPB SCH (18:11)
[2022-05-03] MEDS: CHLORHEXIDINE GLUCONATE 4% CLEANSER FOR DECOLONIZATION TP SCH (21:50)
[2022-05-03] MEDS: MUPIROCIN 2% TOPICAL OINTMENT FOR DECOLONIZATION NS SCH (21:50)
[2022-05-04] MEDS: ACETAMINOPHEN 1000 MG/100 ML BAG IVPB PRN (06:03)
[2022-05-04] MEDS: INSULIN SLIDING SCALE (NOVOLOG) 1 VIAL SQ SCH ×4 (06:11→21:15)
[2022-05-04] MEDS: AMPICILLIN - 2 GM in SODIUM CHLORIDE 100 ML IVPB SCH ×2 (06:12→16:26)
[2022-05-04 09:20] LABS: HEMATOCRIT 27.2 % (32.4-45.2); HEMOGLOBIN 7.8 GM/dL (10.7-15.3); MCH 24.8 pg (25.7-33.7); MCHC 28.5 g/dl (32.0-36.0); MEAN CELL VOLUME 87.3 fl (80-96); MEAN PLT VOLUME 9.6 fl (7.5-11.1); PLATELET COUNT 290 10^3/uL (134-434); RBC 3.12 M/mm3 (3.60-5.2); RDW 18.4 % (11.6-15.6); WHITE BLOOD COUNT 22.2 K/mm3 (4.0-10.0)
[2022-05-04 09:50] LABS: ALBUMIN 1.7 g/dl (3.4-5.0); BLOOD UREA NITROGEN 59.2 mg/dL (7-18); CALCIUM 8.9 mg/dL (8.5-10.1)
[2022-05-04 09:53] LABS: CREATININE 5.3 mg/dL (0.55-1.3)
[2022-05-04 09:55] LABS: BILIRUBIN,TOTAL 0.5 mg/dL (0.2-1); TOT PROT 6.7 g/dl (6.4-8.2)
[2022-05-04 10:24] LABS: ANISOCYTOSIS 1+; MACROCYTOSIS 0; TARGET CELLS 1+
[2022-05-04] MEDS: MUPIROCIN 2% TOPICAL OINTMENT FOR DECOLONIZATION NS SCH ×2 (10:34→21:15)
[2022-05-04] MEDS ORDERED: SODIUM CHLORIDE 250 ML IV PRN (11:21)
[2022-05-04] MEDS: DEXTROSE 5%-WATER - 1,000 ML IV SCH (12:00)
[2022-05-04] MEDS: AMINO ACIDS/PROTEIN HYDROLYS 30 ML LIQUID.PKT PO SCH (16:30)
[2022-05-04] MEDS ORDERED: EPOETIN ALFA-EPBX 10,000 UNIT/ML VIAL IVPUSH ONE (16:30)
[2022-05-04] MEDS ORDERED: ACETAMINOPHEN 1000 MG/100 ML BAG IVPB ONE (19:15)
[2022-05-04] MEDS: MEROPENEM 1 GM in DEXTROSE 5%-WATER 100 ML IVPB SCH (21:09)
[2022-05-04] MEDS: CHLORHEXIDINE GLUCONATE 4% CLEANSER FOR DECOLONIZATION TP SCH (21:15)
[2022-05-05] MEDS ORDERED: ACETAMINOPHEN 1000 MG/100 ML BAG IVPB ONE (02:25)
[2022-05-05] MEDS ORDERED: SODIUM CHLORIDE 250 ML IV STA (04:05)
[2022-05-05] MEDS: AMPICILLIN - 2 GM in SODIUM CHLORIDE 100 ML IVPB SCH ×2 (04:46→16:56)
[2022-05-05] MEDS: INSULIN SLIDING SCALE (NOVOLOG) 1 VIAL SQ SCH ×4 (06:49→21:47)
[2022-05-05] MEDS: AMINO ACIDS/PROTEIN HYDROLYS 30 ML LIQUID.PKT PO SCH ×2 (08:48→16:51)
[2022-05-05] MEDS ORDERED: ACETAMINOPHEN 1000 MG/100 ML BAG IVPB PRN (11:00)
[2022-05-05] MEDS: DEXTROSE 5%-WATER - 1,000 ML IV SCH (12:09)
[2022-05-05] MEDS: MUPIROCIN 2% TOPICAL OINTMENT FOR DECOLONIZATION NS SCH (12:10)
[2022-05-05] MEDS: CLINDAMYCIN 900 MG PREMIX IVPB 900 MG/50 ML BAG IVPB SCH ×2 (13:19→17:21)
[2022-05-05] MEDS: MEROPENEM 1 GM in DEXTROSE 5%-WATER 100 ML IVPB SCH (14:07)
[2022-05-05] MEDS ORDERED: DAPTOMYCIN 750 MG in SODIUM CHLORIDE 50 ML IVPB SCH (15:00)
[2022-05-05] MEDS ORDERED: DAPTOMYCIN IVPB SCH (15:00)
[2022-05-05] MEDS ORDERED: SODIUM CHLORIDE IVPB SCH (15:00)
[2022-05-06] MEDS: MUPIROCIN 2% TOPICAL OINTMENT FOR DECOLONIZATION NS SCH (00:44)
[2022-05-06] MEDS: CHLORHEXIDINE GLUCONATE 4% CLEANSER FOR DECOLONIZATION TP SCH (00:45)
[2022-05-06] MEDS: CLINDAMYCIN 900 MG PREMIX IVPB 900 MG/50 ML BAG IVPB SCH (02:20)
[2022-05-06] MEDS: AMPICILLIN - 2 GM in SODIUM CHLORIDE 100 ML IVPB SCH ×2 (06:44→16:34)
[2022-05-06] MEDS: INSULIN SLIDING SCALE (NOVOLOG) 1 VIAL SQ SCH ×5 (06:59→21:46)
[2022-05-06] MEDS: AMINO ACIDS/PROTEIN HYDROLYS 30 ML LIQUID.PKT PO SCH ×2 (07:44→16:35)
[2022-05-06] MEDS ORDERED: CEFTRIAXONE 2 GM in DEXTROSE 5%-WATER 100 ML IVPB SCH (11:00)
[2022-05-06] MEDS: DEXTROSE 5%-WATER - 1,000 ML IV SCH (12:19)
[2022-05-06] MEDS: CEFTRIAXONE 2 GM in DEXTROSE 5%-WATER 100 ML IVPB SCH ×2 (12:20→21:46)
[2022-05-06] MEDS ORDERED: SODIUM CHLORIDE 250 ML IV PRN (19:10)
[2022-05-06] MEDS ORDERED: ACETAMINOPHEN INJECTION 100 ML IVPB ONE (22:03)
[2022-05-06] MEDS: ACETAMINOPHEN 1000 MG/100 ML BAG IVPB PRN (22:31)
[2022-05-07] MEDS: AMPICILLIN - 2 GM in SODIUM CHLORIDE 100 ML IVPB SCH (04:43)
[2022-05-07] MEDS: DEXTROSE 5%-WATER - 1,000 ML IV SCH (04:53)
[2022-05-07] MEDS: ACETAMINOPHEN 1000 MG/100 ML BAG IVPB PRN ×2 (04:54→14:22)
[2022-05-07] MEDS: INSULIN SLIDING SCALE (NOVOLOG) 1 VIAL SQ SCH ×2 (06:04→11:31)
[2022-05-07 06:56] VITALS: RESP 22
[2022-05-07 08:27] LABS: HEMATOCRIT 25.5 % (32.4-45.2); HEMOGLOBIN 7.4 GM/dL (10.7-15.3); MCH 25.2 pg (25.7-33.7); MCHC 29.2 g/dl (32.0-36.0); MEAN CELL VOLUME 86.3 fl (80-96); MEAN PLT VOLUME 10.1 fl (7.5-11.1); PLATELET COUNT 306 10^3/uL (134-434); RBC 2.96 M/mm3 (3.60-5.2); RDW 18.9 % (11.6-15.6)
[2022-05-07 10:12] LABS: ANISOCYTOSIS 0; MACROCYTOSIS 0
[2022-05-07] MEDS: CEFTRIAXONE 2 GM in DEXTROSE 5%-WATER 100 ML IVPB SCH (11:29)
[2022-05-07] MEDS: AMINO ACIDS/PROTEIN HYDROLYS 30 ML LIQUID.PKT PO SCH (11:31)
[2022-05-07] MEDS ORDERED: AMINO ACIDS 4.25%/D5W 1,000 ML IV SCH (14:00)
[2022-05-07 14:20] VITALS: BP 94/54; PULSE 98; TEMP 101.2
== END 2022-05-07 17:18 | disposition short-term general hospital (02) | DRG 871 ==
LOC: JER 15:45 → JERBED 17:40 → J6W 05-03 14:37
PROVIDERS: ADMIT Family Medicine; ATTEND Family Medicine
PROC: 5A1D70Z Performance of Urinary Filtration, Intermittent, Less than 6 Hours Per Day (ICD-10-PCS; 2022-05-02)
PROC: 009U3ZX Drainage of Spinal Canal, Percutaneous Approach, Diagnostic (ICD-10-PCS; principal; 2022-05-03)
DX: A40.3 Sepsis due to Streptococcus pneumoniae (principal); G00.2 Streptococcal meningitis; L89.314 Pressure ulcer of right buttock, stage 4; N18.6 End stage renal disease; M86.60 Other chronic osteomyelitis, unspecified site; I50.32 Chronic diastolic (congestive) heart failure; I13.2 Hypertensive heart and chronic kidney disease with heart failure and with stage 5 chronic kidney disease, or end stage renal disease; I48.91 Unspecified atrial fibrillation; K21.9 Gastro-esophageal reflux disease without esophagitis; E11.9 Type 2 diabetes mellitus without complications; E03.9 Hypothyroidism, unspecified; G35 Multiple sclerosis; F41.8 Other specified anxiety disorders
CPT/HCPCS: 0241U-QW; 36415; 62272; 70450-TC; 70551-TC; 71045-TC-FY; 72133-TC; 72148-TC; 72194-TC; 80048; 80053; 81003; 82042; 82803; 82945; 82962; 83605; 84157; 84484; 85025; 85027; 85610; 85730; 86663; 86664; 86665; 86694; 86735; 86765; 86787; 86788; 86789; 86803; 87040; 87070; 87076; 87086; 87186; 87205; 87340; 87529; 87899; 93005; 93010; 99285-25; C9803-CS; G0480; J0878; J1644; Q5106; Q9967; U0003; U0005